=== PATIENT | female | born 1960 | race Two or more races ===

== ENCOUNTER 2020-09-05 18:28 | Emergency (ER) | payer MEDICAID, SELFPAY ==
[2020-09-05 18:56] VITALS: BP 128/63; PULSE 70; RESP 18; TEMP 36.7; O2SAT 99; BMI 27.4
[2020-09-05 19:01] VITALS: BP 128/63; PULSE 71; RESP 18; TEMP 36.7; O2SAT 98
--- NOTE | 2020-09-05 19:36 | ED.ABDPAIN ---
HPI - Abdominal Pain General Chief Complaint: Abdominal Pain Stated Complaint: ABDOMINAL PAIN Time Seen by Provider: 09/05/20 22:18 Source: patient Mode of arrival: ambulatory Limitations: no limitations History of Present Illness HPI narrative: patient presents to ED for abdominal pain for the past 3 days. Patient states lower abdominal pain only. Patient states no dysuria, hematuria, flank pain, fever, or chills. Patient states no chest pain or shortness of breath. Related Data Previous Rx's Medication Instructions Recorded oxycodone-acetaminophen [Percocet] 1 tab PO TID PRN #12 tab 09/06/20 Allergies Allergy/AdvReac Type Severity Reaction Status Date / Time aspirin [ASPIRIN] Allergy Severe SWELLING Verified 09/05/20 19:01 AIRWAY, SOB, anaphylaxis adhesive tape Allergy Intermediate BLISTERS Verified 09/05/20 19:01 ibuprofen [From MOTRIN] AdvReac Unknown NAUSEA & Verified 09/05/20 19:01 VOMITING tape Allergy Unknown rash, Uncoded 09/05/20 19:01 itching Review of Systems Review of Systems Yes all other systems are reviewed and are negative Constitutional: Reports as per HPI and Reports no additional constitutional complaints Eyes: Reports as per HPI and Reports no additional eye complaints Reports system reviewed and no additional complaints, except as documented and Reports as per HPI Cardiovascular: Reports as per HPI and Reports no additional cardiovascular complaints Respiratory: Reports as per HPI and Reports no additional respiratory complaints Gastrointestinal: Reports as per HPI, Reports no additional gastrointestinal complaints and Reports abdominal pain ( Lower abdomen) Genitourinary: Reports no additional female genitourinary complaints and Reports as per HPI Musculoskeletal: Reports no additional musculoskeletal complaints and Reports as per HPI Reports system reviewed and no additional complaints, except as documented and Reports as per HPI Psychiatric: Reports no additional psychiatric complaints and Reports as per HPI Physical Exam Vital Signs: Vital Signs: Last Vital Signs Temp 97.8 F 09/06/20 00:00 Pulse 53 09/06/20 00:00 Resp 18 09/06/20 00:00 BP 117/71 09/06/20 00:00 Pulse Ox 99 09/06/20 00:00 Body Mass Index 27.4 Const: General: cooperative, healthy appearing, alert, awake, Physically active and acute distress Orientation/consciousness: patient oriented x3 HENMT: Head: Yes normal to inspection and Yes No palpable skull fracture present Eyes: Other: Patient is blind Neck: Neck: Yes normal visual inspection, Yes full ROM, Yes no lymphadenopathy, Yes no meningeal signs and Yes trachea midline Chest: Chest palpation & inspection: normal inspection of the chest, normal palpation of entire chest wall and no localized rib tenderness Resp: Effort & Inspection: normal respiratory effort and able to speak in complete sentences Auscultation: clear to auscultation bilaterally Cardio: Jugular venous distension: no JVD Heart sounds: S1 normal heart sound present and S2 normal heart sound present GI: Inspection: Yes normal to inspection and No abdominal wall ecchymosis Palpation (GI): Soft to palpation, not firm, Tenderness to palpation present (GI) in the LLQ and in the RLQ, no guarding and not rigid : General: No CVA tenderness and Yes no CVA tenderness Back/Spine/Pelvis: Back: no CVA tenderness, No CVA tenderness and No back tenderness Skin: General skin exam: no rashes or lesions noted Neuro: General: patient oriented x3, gait normal, no meningeal signs and CN's II-XI intact bilaterally Cranial nerves: Yes CN's II-XII intact bilaterally Extrem: General: Yes normal to inspection and Yes full ROM Psych: Appearance: grossly normal, well kempt and not disheveled Course Course Course Narrative: patient will have basic labs including urine and most likely will be sent for abdominal CT scan. Reevaluation(s) Reevaluation #1: Patient given a total of morphine 8 for abdominal pain. Labs normal. Urine does not show UTI. Awaiting abdominal CT scan results Time: 00:00 Reevaluation #2: CT scan does not show any pelvic or abdominal etiology. Patient will be discharged with pain medication. Patient's pain improved after receiving morphine. Patient discharged with pain medication. Patient from follow-up with PCP. Time: 12:45 MDM - Abdominal Pain MDM Narrative Medical decision making narrative: abdominal pain Lab Data Result diagrams: 09/05/20 19:41 09/05/20 19:41 Labs: Lab Results 09/05/20 09/05/20 09/05/20 Range/Units 19:41 19:41 19:41 WBC 8.2 (4.8-10.8) X10*3/uL RBC 4.61 (4.20-5.50) X10*6/uL Hgb 14.4 (12.0-16.0) g/dl Hct 43.7 (37-47) % MCV 94.8 (80-98) fL MCH 31.2 (27.0-33.0) pg MCHC 33.0 (31.0-35.0) g/dl RDW 13.6 (11.0-16.0) % Plt Count 277 (160-400) X10*3/uL MPV 9.2 L (9.4-12.3) fL Immature Gran % (Auto) 0.6 H (0.0-0.4) % Neut % (Auto) 63.8 (45-73) % Lymph % (Auto) 25.2 (20-40) % [place] % (Auto) 8.7 (2-11) % Eos % (Auto) 1.5 (0-4) % Baso % (Auto) 0.2 (0-2) % Lymph # (Auto) 2.1 (1.2-4.9) X10*3/uL [place] # (Auto) 0.7 (0.1-1.2) X10*3/uL Eos # (Auto) 0.1 (0.0-0.4) X10*3/uL Baso # (Auto) 0.0 (0.0-0.2) X10*3/uL Abs Immat Gran (auto) 0.05 H (0.00-0.03) X10*3/uL Absolute Neuts (auto) 5.2 (2.0-8.3) X10*3/uL Absolute Nucleated RBC 0.000 (0.0-0.012) X10*3/uL Nucleated RBC % (auto) 0.0 (0.0-0.2) /100WBC PT 11.7 (10.8-13.0) SEC INR 1.0 (0.9-1.1) APTT 35.7 (24.1-38.0) SEC Sodium 141 (135-145) mmol/L Potassium 4.4 (3.3-5.1) mmol/l Chloride 103 (96-108) mmol/L Carbon Dioxide 29 (22-29) mmol/L Anion Gap 13 (12-20) BUN 15 (9-16) mg/dL Creatinine 1.02 (0.5-1.4) mg/dL Estim Creat Clear Calc 54.3 Estimated GFR 56 Random Glucose 76 (60-115) mg/dL Calcium 9.5 (8.4-10.2) mg/dL Total Bilirubin 0.3 (0.0-1.0) mg/dL Direct Bilirubin < 0.2 (0.0-0.5) mg/dL AST 19 (5-31) U/L ALT 17 (0-31) U/L Alkaline Phosphatase 107 (39-117) U/L Total Protein 7.6 (6.5-8.0) g/dL Albumin 4.7 (3.5-5.0) g/dL Lipase 38 (8-78) U/L Urine Color Urine Appearance Urine pH (5.0-8.0) Ur Specific [place] (1.005-1.025) Urine Protein (NEG-TRACE) MG/DL Urine Glucose (UA) (NEG) MG/DL Urine Ketones (NEG) MG/DL Urine Blood (NEG) Urine Nitrite (NEG) Ur Leukocyte Esterase (NEG) 09/05/20 Range/Units 19:41 WBC (4.8-10.8) X10*3/uL RBC (4.20-5.50) X10*6/uL Hgb (12.0-16.0) g/dl Hct (37-47) % MCV (80-98) fL MCH (27.0-33.0) pg MCHC (31.0-35.0) g/dl RDW (11.0-16.0) % Plt Count (160-400) X10*3/uL MPV (9.4-12.3) fL Immature Gran % (Auto) (0.0-0.4) % Neut % (Auto) (45-73) % Lymph % (Auto) (20-40) % [place] % (Auto) (2-11) % Eos % (Auto) (0-4) % Baso % (Auto) (0-2) % Lymph # (Auto) (1.2-4.9) X10*3/uL [place] # (Auto) (0.1-1.2) X10*3/uL Eos # (Auto) (0.0-0.4) X10*3/uL Baso # (Auto) (0.0-0.2) X10*3/uL Abs Immat Gran (auto) (0.00-0.03) X10*3/uL Absolute Neuts (auto) (2.0-8.3) X10*3/uL Absolute Nucleated RBC (0.0-0.012) X10*3/uL Nucleated RBC % (auto) (0.0-0.2) /100WBC PT (10.8-13.0) SEC INR (0.9-1.1) APTT (24.1-38.0) SEC Sodium (135-145) mmol/L Potassium (3.3-5.1) mmol/l Chloride (96-108) mmol/L Carbon Dioxide (22-29) mmol/L Anion Gap (12-20) BUN (9-16) mg/dL Creatinine (0.5-1.4) mg/dL Estim Creat Clear Calc Estimated GFR Random Glucose (60-115) mg/dL Calcium (8.4-10.2) mg/dL Total Bilirubin (0.0-1.0) mg/dL Direct Bilirubin (0.0-0.5) mg/dL AST (5-31) U/L ALT (0-31) U/L Alkaline Phosphatase (39-117) U/L Total Protein (6.5-8.0) g/dL Albumin (3.5-5.0) g/dL Lipase (8-78) U/L Urine Color YELLOW Urine Appearance CLEAR Urine pH 6.0 (5.0-8.0) Ur Specific [place] 1.025 (1.005-1.025) Urine Protein NEG (NEG-TRACE) MG/DL Urine Glucose (UA) NEG (NEG) MG/DL Urine Ketones NEG (NEG) MG/DL Urine Blood NEG (NEG) Urine Nitrite NEG (NEG) Ur Leukocyte Esterase NEG (NEG) Discharge Plan Discharge Clinical Impression: Abdominal pain Patient Disposition: Home, Self-Care Instructions: Abdominal Pain (ED) Additional Instructions: return to the ED for any worsening abdominal pain, fever, chills, nausea, vomiting, chest pain, shortness of breath, flank pain, dysuria, hematuria, or any other concerning symptoms. Prescriptions: New oxycodone-acetaminophen [Percocet] 5-325 mg tablet 1 tab PO TID PRN (Reason: pain) Qty: 12 RF: 0 Referrals: Yamilet Lin NP [Primary Care Provider] - 2 days ( Abdominal pain. Abdominal CT scan, labs, and UA came back normal) Interventions: ED Discharge Assessment Last Done: 09/06/20 01:21 Discharge Date/Time: 09/06/20 01:21 Print Language: Wolof [facility] Past Medical History Medical History (Updated 09/06/20 @ 00:46 by CATIE Brown) Blind Gastritis Surgical History (Updated 09/05/20 @ 18:59 by Ashley Molina RN) History of mastectomy Social History Social History Smoking Status: Current every day smoker Use of substances other than those prescribed or required for medical reasons: No Advance Directives: No Advance Directives Information Provided: Yes
[2020-09-05] MEDS: Morphine Sulfate 4 MG/ML CARTRIDGE IVPUSH ×2 (19:46→22:33)
[2020-09-05] MEDS: 0.9 % Sodium Chloride 1,000 ML 999 ML IVCONT (19:46)
[2020-09-05 19:48] LABS: MANUAL DIFF FLAG NO
[2020-09-05 19:52] LABS: Basophils Percent Auto 0.2 % (0-2); Eosinophils Absolute Auto 0.1 X10*3/uL (0.0-0.4); Eosinophils Percent Auto 1.5 % (0-4); Hematocrit 43.7 % (37-47); Hemoglobin 14.4 g/dl (12.0-16.0); Imm Gran Abs Auto 0.05 X10*3/uL (0.00-0.03); Imm Gran Pct Auto 0.6 % (0.0-0.4); Lymphocytes Absolute Auto 2.1 X10*3/uL (1.2-4.9); Lymphocytes Percent Auto 25.2 % (20-40); Mean Corpuscular Hemoglobin 31.2 pg (27.0-33.0); Mean Corpuscular Volume 94.8 fL (80-98); Mean Platelet Volume 9.2 fL (9.4-12.3); Monocytes Absolute Auto 0.7 X10*3/uL (0.1-1.2); Monocytes Percent Auto 8.7 % (2-11); Neutrophils Absolute Auto 5.2 X10*3/uL (2.0-8.3); Neutrophils Percent Auto 63.8 % (45-73); Platelet Count 277 X10*3/uL (160-400); Red Blood Count 4.61 X10*6/uL (4.20-5.50); Red Cell Distribution Width 13.6 % (11.0-16.0); White Blood Count 8.2 X10*3/uL (4.8-10.8)
[2020-09-05 19:53] LABS: Appearance Urine CLEAR; Color Urine YELLOW; Glucose Urine UA NEG (NEG); Leukocyte Esterase Urine NEG (NEG); Nitrite Urine NEG (NEG); Specific Gravity - Urine 1.025 (1.005-1.025); Urine Blood NEG (NEG); Urine Ketones NEG (NEG); Urine Protein NEG (NEG-TRACE)
[2020-09-05 19:56] LABS: Prothrombin Time 11.7 SEC (10.8-13.0)
[2020-09-05 19:59] LABS: Partial Thromboplastin Time 35.7 SEC (24.1-38.0)
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
[2020-09-05 20:16] LABS: Alanine Aminotransferase 17 U/L (0-31); Albumin Level 4.7 g/dL (3.5-5.0); Alkaline Phosphatase 107 U/L (39-117); Anion Gap 13 (12-20); Aspartate Amino Transferase 19 U/L (5-31); Bilirubin Direct < 0.2 mg/dL (0.0-0.5); Bilirubin Total 0.3 mg/dL (0.0-1.0); Blood Urea Nitrogen 15 mg/dL (9-16); Calcium 9.5 mg/dL (8.4-10.2); Carbon Dioxide 29 mmol/L (22-29); Chloride 103 mmol/L (96-108); Creatinine Clr Calc Pharmacy 54.3; Estimated Glomerular Filt Rate 56; Glucose Random 76 mg/dL (60-115); Lipase 38 U/L (8-78); Potassium 4.4 mmol/l (3.3-5.1); Sodium 141 mmol/L (135-145); Total Protein 7.6 g/dL (6.5-8.0)
--- NOTE | 2020-09-05 20:38 | CT_ITS ---
EXAMINATION: CT ABDOMEN AND PELVIS WITH CONTRAST CLINICAL INFORMATION: Abdominal pain. Question obstruction COMPARISON: Incidentally included abdomen from CT chest 01/29/2020 TECHNIQUE: Multidetector volumetric images were obtained from the superior aspect of the liver through the pubic symphysis following administration 85 mL of Omnipaque 350 intravenous contrast. Sagittal and coronal reformatted images were obtained on the technologist's workstation. Oral contrast: No This CT examination was performed using dose optimization techniques as appropriate, variously including the following: *Automated exposure control *Adjustment of mA and/or kV according to patient size (this includes techniques or standardized protocols for targeted exams where dose is matched to indication/reason for exam; i.e. extremities or head) *Use of iterative reconstruction technique DLP: 555 mGy-cm FINDINGS: LUNG BASES: The visualized lung bases are unremarkable. LIVER, GALLBLADDER, AND BILIARY TREE: Low density adjacent the fissure of the falciform ligament, image 21/84 and represents an area of focal fatty filtration. No suspicious or concerning focal liver lesion seen. No biliary ductal dilatation. The gallbladder is unremarkable with no evidence of radiopaque gallstones, gallbladder wall thickening, or obvious pericholecystic inflammatory changes. PANCREAS: Unremarkable. SPLEEN: Unremarkable. ADRENAL GLANDS: Unremarkable. KIDNEYS AND URETERS: Symmetric bilateral renal enhancement. Simple left renal cortical cysts. No hydronephrosis or calculi. BLADDER: Unremarkable. GASTROINTESTINAL TRACT: Stomach is distended with ingested material. Small bowel is nondilated. The appendix is not seen but there are no right lower quadrant inflammatory changes to suggest appendicitis. No colonic wall thickening or pericolonic inflammatory changes. Scattered colonic diverticulosis. ABDOMINAL WALL: Tiny fat-containing umbilical hernia. Postoperative changes of the right lower quadrant anterior abdominal wall. LYMPH NODES: No lymphadenopathy. VASCULAR: No aneurysm. Mild calcified atherosclerotic changes. PELVIC VISCERA: Normal CT appearance of the uterus. There is a coarse calcification in the right pelvis which could represent a calcified fundal leiomyoma or a coarse calcification in the right ovary. No adnexal mass seen. OSSEOUS STRUCTURES: Unremarkable. CT/CT abdomen pelvis w con IMPRESSION: No acute CT findings. No evidence of obstruction.
--- NOTE | 2020-09-05 21:20 | PC.NURSE ---
PT REPORTING IMPROVEMENT IN PAIN, AWAITING CT RESULTS
--- NOTE | 2020-09-05 22:10 | PC.NURSE ---
PT TO CT SCAN
[2020-09-05] MEDS: iohexoL 350 MG/ML 100 ML INFUS..BTL IV (22:16)
[2020-09-05 22:34] VITALS: BP 125/64; PULSE 61; RESP 22; O2SAT 100
[2020-09-06] VITALS: BP 117/71; PULSE 53; RESP 18; TEMP 36.6; O2SAT 99
--- NOTE | 2020-09-06 00:46 | PC.NURSE ---
Patient resting comfortably in bed was able to ambulate with assistance to the bathroom.
== END 2020-09-06 01:21 | disposition home or self-care (01) ==
PROVIDERS: Physician Assistant; Emergency Provider Emergency Medicine; PCP Nurse Practitioner Family
DX: R10.9 Unspecified abdominal pain (principal); Z79.899 Other long term (current) drug therapy; F17.200 Nicotine dependence, unspecified, uncomplicated; Z71.6 Tobacco abuse counseling
CPT/HCPCS: 36415; 74177; 80053; 80076; 81003; 82248; 83690; 85025; 85610; 85730; 96361; 96374; 96376; 99284; J2270; Q9967

== ENCOUNTER 2020-09-14 14:59 | Emergency (ER) | payer MEDICAID, SELFPAY ==
--- NOTE | 2020-09-14 | US_ITS ---
EXAM: Pelvic Ultrasound CLINICAL INDICATION: Right lower quadrant abdominal pain. Rule out torsion. COMPARISON: Same day CT abdomen pelvis and pelvic ultrasound 05/15/2019 TECHNIQUE: The pelvis was evaluated using transabdominal and transvaginal imaging. Color Doppler imaging and spectral analysis of the bilateral ovaries was also performed. FINDINGS: The uterus measures 9.2 x 2.9 x 5.0 cm in longitudinal by AP by transverse dimension. The endometrial stripe is not thickened and measures 0.5 cm. 1.4 cm nodular density within the right uterine fundus is most suggestive of a small fibroid. The left ovary measures approximately 2.3 x 2.1 x 1.4 cm and is normal. The right ovary measures approximately 2.3 x 1.9 x 1.7 cm and is also normal. Spectral analysis reveals normal arterial and venous waveforms in the bilateral ovaries. There are no abnormal adnexal masses. There is no free fluid in the pelvis. US/US pelvic ovarian doppler IMPRESSION: 1. Symmetrically sized ovaries demonstrating normal arterial and venous waveforms. 2. Normal thickness endometrial stripe. 3. Tiny uterine fibroid.
[2020-09-14 15:44] VITALS: BP 153/71; PULSE 62; RESP 18; TEMP 37.4; O2SAT 97; BMI 27.4
--- NOTE | 2020-09-14 17:13 | CT_ITS ---
EXAMINATION: CT ABDOMEN AND PELVIS WITH CONTRAST CLINICAL INFORMATION: Abdominal pain. COMPARISON: CT abdomen and pelvis 09/05/2020 and pelvic ultrasound 05/15/2019. TECHNIQUE: Multidetector volumetric images were obtained from the superior aspect of the liver through the pubic symphysis following administration 85 mL of Omnipaque 350 intravenous contrast. Sagittal and coronal reformatted images were obtained on the technologist's workstation. Oral Contrast: No. This CT examination was performed using dose optimization techniques as appropriate, variously including the following: *Automated exposure control. *Adjustment of mA and/or kV according to patient size (this includes techniques or standardized protocols for targeted exams where dose is matched to indication/reason for exam; i.e. extremities or head). *Use of iterative reconstruction technique. DLP: 542 mGy-cm FINDINGS: LUNG BASES: The visualized lung bases are unremarkable. Some minimal dependent atelectasis seen at the right lung base. LIVER, GALLBLADDER, AND BILIARY TREE: The liver is normal in size, shape, and attenuation. Again seen is the focal area of decreased attenuation adjacent to the falciform ligament secondary to focal fat or differences in venous drainage. No worrisome focal hepatic lesion or biliary ductal dilatation is present. The gallbladder is unremarkable with no evidence of radiopaque gallstones, gallbladder wall thickening, or obvious pericholecystic inflammatory changes. PANCREAS: Unremarkable. SPLEEN: Unremarkable. ADRENAL GLANDS: Unremarkable. KIDNEYS AND URETERS: The kidneys are normal in size, shape, and attenuation. Again seen are benign simple left cortical cysts. No worrisome renal masses are seen. No hydronephrosis, hydroureter, or calculi seen. No perinephric stranding. BLADDER: Unremarkable. GASTROINTESTINAL TRACT: The small and large bowel are unremarkable. The appendix is not seen. ABDOMINAL WALL: No significant hernia is appreciated. There has been prior right lower quadrant abdominal wall surgery. LYMPH NODES: No retroperitoneal lymphadenopathy. VASCULAR: Mild calcific plaquing present in the infrarenal aorta and common iliac arteries. No aneurysm or dissection. PELVIC VISCERA: An anteverted uterus is again seen with a coarse calcification in the region of right lateral fundus consistent with fibroids seen on prior study. Favor subserosal small fibroid. No free intraperitoneal fluid is present. OSSEOUS STRUCTURES: Unremarkable. CT/CT abdomen pelvis w con IMPRESSION: No significant interval change since the study from 9 days ago. A cause for the patient's abdominal pain is not found.
--- NOTE | 2020-09-14 17:14 | ED.ABDPAIN ---
HPI - Abdominal Pain General Chief Complaint: Abdominal Pain Stated Complaint: ABD PAIN Time Seen by Provider: 09/14/20 17:07 Source: patient Mode of arrival: ambulatory Limitations: language barrier (Greek-speaking and legally blind) History of Present Illness HPI narrative: This is a 52-year-old female who is primarily Greek-speaking and legally blind with history of asthma, breast CA status post left lumpectomy, gastroesophageal reflux disease, has a brain shunt, surgical history of appendectomy, section during which she reports she had a bowel perforation and subsequently bowel obstruction later on who reports today with continued abdominal pain for the past 1 week states she was seen here a week ago however head pain has progressively been getting worse since. There is associated nausea but no vomiting or diarrhea. MD elicited complaint: abdominal pain Pertinent past history: none Onset (ago): week(s) Pain Consistency: constant (Getting worse) Location: diffuse Severity: similar to previous episodes Pain scale (0-10): 8 Quality: sharp Radiation: other (Diffuse in the periumbilical area) Exacerbating factors: nothing Related Data Previous Rx's Medication Instructions Recorded oxycodone-acetaminophen [Percocet] 1 tab PO TID PRN #12 tab 09/06/20 Allergies Allergy/AdvReac Type Severity Reaction Status Date / Time aspirin [ASPIRIN] Allergy Severe SWELLING Verified 09/14/20 15:43 AIRWAY, SOB, anaphylaxis adhesive tape Allergy Intermediate BLISTERS Verified 09/14/20 15:43 ibuprofen [From MOTRIN] AdvReac Unknown NAUSEA & Verified 09/14/20 15:43 VOMITING tape Allergy Unknown rash, Uncoded 09/05/20 19:01 itching Review of Systems Review of Systems Constitutional: No Weight loss, No Fever, No Chills, No Night Sweats, No Fatigue, No Malaise ENT/Mouth: No Hearing loss, No Ear Pain, No Nasal Congestion, No Sinus Pain, No Hoarseness, No sore throat, No Rhinorrhea, No Swallowing Difficulty Eyes: No Eye Pain, No Swelling, No Redness, No Foreign Body, No Discharge, No Vision Changes Cardiovascular: No Chest Pain, No SOB, No Dyspnea on Exertion, No Orthopnea, No Edema, No Palpitations Respiratory: No Cough, No Sputum, No Wheezing, No Smoke Exposure, No Dyspnea Gastrointestinal:As noted in HPI No Hematochezia, No Melena Genitourinary: no irregular bleeding, No Dysuria, No Urinary Frequency, No Hematuria, No Urinary Incontinence, No Urgency, No Flank Pain, No Urinary Flow Changes, No Hesitancy Musculoskeletal: No joint pain, No Myalgias, No Joint Swelling Skin: No Skin Lesions, No rash Neuro: No Weakness, No Numbness, No Paresthesias Psych: No Anxiety/Panic Heme/Lymph: No Bruising, No Bleeding,No Lymphadenopathy Endocrine: No Polyuria, No Polydipsia, No Temperature Intolerance Yes all other systems are reviewed and are negative Physical Exam Vital Signs: Vital Signs: Last Vital Signs Temp 98.5 F 09/14/20 17:22 Pulse 62 09/14/20 17:22 Resp 20 09/14/20 17:22 BP 123/75 09/14/20 17:22 Pulse Ox 98 09/14/20 17:22 Body Mass Index 27.4 Reviewed Const: General: cooperative and healthy appearing; No acute distress or intoxicated appearing Nutritional Appearance: average body habitus Orientation/consciousness: patient oriented x3 HENMT: Head: Yes normal to inspection Ears: hearing grossly normal bilaterally Eyes: General: appearance normal, both eyes and all related structures Visual Lee: normal visual lee by confrontation Neck: Neck: Yes normal visual inspection and No tender Thyroid: Thyroid normal Chest: Chest palpation & inspection: normal inspection of the chest Resp: Effort & Inspection: normal respiratory effort Cardio: Jugular venous distension: no JVD GI: Inspection: Yes normal to inspection Palpation (GI): Tenderness to palpation present (GI) periumbilically and no guarding Percussion: Yes normal to percussion Auscultation: normal bowel sounds : General: Yes no CVA tenderness Back/Spine/Pelvis: Back: no CVA tenderness Skin: General skin exam: no rashes or lesions noted Neuro: General: patient oriented x3 Extrem: General: Yes normal to inspection Course Reevaluation(s) Reevaluation #1: 1800 Sign out to Ruben HADDAD pending workup including abdominal CT and re-evaluation. MDM - Abdominal Pain MDM Narrative Medical decision making narrative: 1734 In review 60-year-old female with above history including history of recurrent bowel obstructions who presents today with complaint of diffuse periumbilical abdominal pain with progressively worsening since last visit here week ago. Will need labs, UA, CT abdomen pelvis with IV contrast. Will treat with IV fluids, antiemetics and analgesia p.r.n.. Plan reviewed thoroughly with the patient interpreter deaf. Differential Diagnosis Differential diagnosis: Likely abdominal pain, gastroenteritis and small bowel obstruction; Unlikely aortic dissection, acute appendicitis, bowel perforation, calculus of kidney, constipation, diverticulitis, endometriosis, gastritis, mesenteric ischemia, ovarian cyst, pancreatitis, peptic ulcer disease and renal colic Lab Data Result diagrams: 09/14/20 17:37 09/14/20 17:37 Labs: Lab Results 09/14/20 09/14/20 Range/Units 17:37 17:37 WBC 9.6 (4.8-10.8) X10*3/uL RBC 4.63 (4.20-5.50) X10*6/uL Hgb 14.4 (12.0-16.0) g/dl Hct 44.0 (37-47) % MCV 95.0 (80-98) fL MCH 31.1 (27.0-33.0) pg MCHC 32.7 (31.0-35.0) g/dl RDW 13.6 (11.0-16.0) % Plt Count 283 (160-400) X10*3/uL MPV 9.1 L (9.4-12.3) fL Immature Gran % (Auto) 0.4 (0.0-0.4) % Neut % (Auto) 69.6 (45-73) % Lymph % (Auto) 23.0 (20-40) % [place] % (Auto) 5.9 (2-11) % Eos % (Auto) 0.9 (0-4) % Baso % (Auto) 0.2 (0-2) % Lymph # (Auto) 2.2 (1.2-4.9) X10*3/uL [place] # (Auto) 0.6 (0.1-1.2) X10*3/uL Eos # (Auto) 0.1 (0.0-0.4) X10*3/uL Baso # (Auto) 0.0 (0.0-0.2) X10*3/uL Abs Immat Gran (auto) 0.04 H (0.00-0.03) X10*3/uL Absolute Neuts (auto) 6.7 (2.0-8.3) X10*3/uL Absolute Nucleated RBC 0.000 (0.0-0.012) X10*3/uL Nucleated RBC % (auto) 0.0 (0.0-0.2) /100WBC PT 12.2 (10.8-13.0) SEC INR 1.0 (0.9-1.1) APTT 38.2 H (24.1-38.0) SEC Discharge Plan Discharge Prescriptions: No Action oxycodone-acetaminophen [Percocet] 5-325 mg tablet 1 tab PO TID PRN (Reason: pain) Qty: 12 RF: 0 PMFSH Past Medical History Attestation statement: The following information was validated with the patient. Medical History Asthma Blind Bowel obstruction Gastritis Gastroesophageal reflux disease Schizophrenia Surgical History (Updated 09/14/20 @ 17:33 by Everett Brand NP) History of brain shunt History of mastectomy Hx of appendectomy Social History Social History Smoking Status: Current every day smoker Advance Directives: No Advance Directives Information Provided: Yes
[2020-09-14 17:22] VITALS: BP 123/75; PULSE 62; RESP 20; TEMP 36.9; O2SAT 98
[2020-09-14 17:43] LABS: Basophils Percent Auto 0.2 % (0-2); Eosinophils Absolute Auto 0.1 X10*3/uL (0.0-0.4); Eosinophils Percent Auto 0.9 % (0-4); Hemoglobin 14.4 g/dl (12.0-16.0); Imm Gran Abs Auto 0.04 X10*3/uL (0.00-0.03); Imm Gran Pct Auto 0.4 % (0.0-0.4); Lymphocytes Absolute Auto 2.2 X10*3/uL (1.2-4.9); MANUAL DIFF FLAG NO; Mean Corpuscular HGB Conc 32.7 g/dl (31.0-35.0); Mean Corpuscular Hemoglobin 31.1 pg (27.0-33.0); Mean Platelet Volume 9.1 fL (9.4-12.3); Monocytes Absolute Auto 0.6 X10*3/uL (0.1-1.2); Monocytes Percent Auto 5.9 % (2-11); Neutrophils Absolute Auto 6.7 X10*3/uL (2.0-8.3); Neutrophils Percent Auto 69.6 % (45-73); Platelet Count 283 X10*3/uL (160-400); Red Blood Count 4.63 X10*6/uL (4.20-5.50); Red Cell Distribution Width 13.6 % (11.0-16.0); White Blood Count 9.6 X10*3/uL (4.8-10.8)
[2020-09-14] MEDS: ondansetron HCL 4 MG/2 ML VIAL IVPUSH (17:44)
[2020-09-14] MEDS: 0.9 % Sodium Chloride 1,000 ML 1000 ML IV (17:44)
[2020-09-14] MEDS: Morphine Sulfate 4 MG/ML CARTRIDGE IVPUSH (17:45)
[2020-09-14 17:49] LABS: Prothrombin Time 12.2 SEC (10.8-13.0)
[2020-09-14 17:51] LABS: Partial Thromboplastin Time 38.2 SEC (24.1-38.0)
[2020-09-14 18:05] LABS: Alanine Aminotransferase 18 U/L (0-31); Albumin Level 4.8 g/dL (3.5-5.0); Alkaline Phosphatase 104 U/L (39-117); Anion Gap 12 (12-20); Aspartate Amino Transferase 16 U/L (5-31); Bilirubin Total 0.3 mg/dL (0.0-1.0); Blood Urea Nitrogen 16 mg/dL (9-16); Calcium 10.2 mg/dL (8.4-10.2); Carbon Dioxide 31 mmol/L (22-29); Chloride 105 mmol/L (96-108); Creatinine Clr Calc Pharmacy 55.4; Estimated Glomerular Filt Rate 57; Glucose Random 88 mg/dL (60-115); Potassium 5.1 mmol/l (3.3-5.1); Sodium 143 mmol/L (135-145); Total Protein 7.5 g/dL (6.5-8.0)
[2020-09-14 18:07] VITALS: BP 127/69; PULSE 57; RESP 16; O2SAT 97
[2020-09-14] MEDS: iohexoL 350 MG/ML 100 ML INFUS..BTL IV (18:30)
--- NOTE | 2020-09-14 19:37 | PC.NURSE ---
pt resting in stretcher, Pt c/o abd pain rating pain 10/10. aware. Pt up to restroom for urine sample sent to lab for eval. Pt in NAD with family/friend at bedside with pt. Pt in NAD.
[2020-09-14 19:45] LABS: Glucose Urine UA NEG (NEG); Leukocyte Esterase Urine NEG (NEG); Nitrite Urine NEG (NEG); PH 5.5 (5.0-8.0); Specific Gravity - Urine 1.025 (1.005-1.025); Urine Blood NEG (NEG); Urine Ketones NEG (NEG); Urine Protein NEG (NEG-TRACE)
[2020-09-14 19:46] LABS: Appearance Urine CLEAR; Color Urine YELLOW
--- NOTE | 2020-09-14 19:49 | US_ITS ---
EXAM: Pelvic Ultrasound CLINICAL INDICATION: Right lower quadrant abdominal pain. Rule out torsion. COMPARISON: Same day CT abdomen pelvis and pelvic ultrasound 05/15/2019 TECHNIQUE: The pelvis was evaluated using transabdominal and transvaginal imaging. Color Doppler imaging and spectral analysis of the bilateral ovaries was also performed. FINDINGS: The uterus measures 9.2 x 2.9 x 5.0 cm in longitudinal by AP by transverse dimension. The endometrial stripe is not thickened and measures 0.5 cm. 1.4 cm nodular density within the right uterine fundus is most suggestive of a small fibroid. The left ovary measures approximately 2.3 x 2.1 x 1.4 cm and is normal. The right ovary measures approximately 2.3 x 1.9 x 1.7 cm and is also normal. Spectral analysis reveals normal arterial and venous waveforms in the bilateral ovaries. There are no abnormal adnexal masses. There is no free fluid in the pelvis. US/US transvaginal IMPRESSION: 1. Symmetrically sized ovaries demonstrating normal arterial and venous waveforms. 2. Normal thickness endometrial stripe. 3. Tiny uterine fibroid.
--- NOTE | 2020-09-14 19:50 | US_ITS ---
EXAM: Pelvic Ultrasound CLINICAL INDICATION: Right lower quadrant abdominal pain. Rule out torsion. COMPARISON: Same day CT abdomen pelvis and pelvic ultrasound 05/15/2019 TECHNIQUE: The pelvis was evaluated using transabdominal and transvaginal imaging. Color Doppler imaging and spectral analysis of the bilateral ovaries was also performed. FINDINGS: The uterus measures 9.2 x 2.9 x 5.0 cm in longitudinal by AP by transverse dimension. The endometrial stripe is not thickened and measures 0.5 cm. 1.4 cm nodular density within the right uterine fundus is most suggestive of a small fibroid. The left ovary measures approximately 2.3 x 2.1 x 1.4 cm and is normal. The right ovary measures approximately 2.3 x 1.9 x 1.7 cm and is also normal. Spectral analysis reveals normal arterial and venous waveforms in the bilateral ovaries. There are no abnormal adnexal masses. There is no free fluid in the pelvis. US/US pelvic complete IMPRESSION: 1. Symmetrically sized ovaries demonstrating normal arterial and venous waveforms. 2. Normal thickness endometrial stripe. 3. Tiny uterine fibroid.
[2020-09-14 19:52] LABS: RBC Urine 0 /HPF (0); Squamous Epithelial Cell Urine TRACE /LPF; WBC Urine 0 /HPF (0-4)
[2020-09-14 20:00] VITALS: BP 123/78; PULSE 81; RESP 16; O2SAT 99
[2020-09-14 20:18] LABS: Lipase 30 U/L (8-78)
[2020-09-14] MEDS: Magnesium Hydrox/Alum Hydrox 30 ML ORAL.SUSP PO (20:27)
[2020-09-14] MEDS: Famotidine/PF 20 MG/2 ML VIAL IVPUSH (20:27)
[2020-09-14] MEDS: Lidocaine HCl Viscous 2 % 15 ML SOLUTION MUCOUS MEM (20:27)
--- NOTE | 2020-09-14 20:32 | PC.NURSE ---
PT MEDICATED PER [facility] FOR ABD PAIN. PT TO U/S AT THIS TIME. PT LEFT ED IN NAD.
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
[2020-09-14 22:01] VITALS: BP 131/78; PULSE 56; O2SAT 98
== END 2020-09-14 22:13 | disposition home or self-care (01) ==
PROVIDERS: Nurse Practitioner Primary Care; Emergency Provider Emergency Medicine; PCP Nurse Practitioner Family
DX: R10.13 Epigastric pain (principal); R10.2 Pelvic and perineal pain; R11.0 Nausea; F17.200 Nicotine dependence, unspecified, uncomplicated; Z79.899 Other long term (current) drug therapy; Z71.6 Tobacco abuse counseling
CPT/HCPCS: 36415; 74177; 76830; 76856; 80053; 81001; 83690; 85025; 85610; 85730; 93975; 96361; 96374; 96375; 99284; J2270; J2405; Q9967

== ENCOUNTER → 2021-01-11 10:32 | Outpatient (BNVA) | payer MEDICAID, SELFPAY | PROVIDERS: PCP Nurse Practitioner Family; Visit Provider Surgery Vascular Surgery | DX: M31.6 Other giant cell arteritis (principal) | CPT/HCPCS: 99202 ==

== ENCOUNTER 2021-01-17 06:21 | Day surgery (SDC) | payer MEDICAID, SELFPAY ==
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
[2021-01-17 06:22] VITALS: BMI 27.3
[2021-01-17 07:14] VITALS: BP 120/70; PULSE 62; RESP 18; TEMP 36.4; O2SAT 96
[2021-01-17 08:26] VITALS: BP 110/59; PULSE 56; RESP 16; TEMP 36.3; O2SAT 95
--- NOTE | 2021-01-17 08:34 | P.OP_ITS ---
Operative Note Operative Note Date of Service: 01/17/21 Narrative: Operative note by [facility] Preoperative diagnosis:Giant cell arteritis Postoperative diagnosis: same Procedure: left temporal artery biopsy Surgeon:Jose Puri M.D. Pawn Broker: non Anesthesia: local with sedation Specimens: 1 Drains: none Estimated blood loss: minimal Indications: 60-year-old patient with left-sided temporal headache. There was concern of temporal arteritis. Patient has already been started on steroids. She now presents for temporal artery biopsy. The patient has signed the informed consent after reviewing risks, complications, benefits, and alternatives previously discussed with the patient in my office. The patient was given the opportunity to ask any additional questions or voice any concerns. All q uestions were answered to the patient's satisfaction. Procedure in detail: Patient was taken to the operating room prior to which a time-out was called for patient identification and site verification. Left temporal region was prepped and draped in standard surgical fashion. Approximately a 4 cm incision was carried out over the anterior portion of the pre auricular space. This was dissected down to the temporal artery. This was confirmed with Doppler. Once this was done proximal and distal ends were ligated with 4-0 silk tie. A 2 cm segment of temporal artery was sent. Once this was accomplished adequate hemostasis was achieved. Deep layer was reapproximated using 3-0 poly Sorb. Superficial layer with a running subcuticular 4-0 Monocryl. Dermabond was used as a sterile dressing. At the end the case sponge instrument counts were correct. Patient tolerated the procedure well. This note is constructed using voice recognition software. While every effort has been made to ensure accuracy, automation and controls supervisor errors may have been included. Thank you for allowing me to participate in the care of your patient. Yours sincerely, Jose Puri MD, FACS, R.P.V.I.
--- NOTE | 2021-01-17 08:34 | MHC.SHP ---
Pre-Procedural Eval Section B Chief Complaint: arteritis Allergies: Allergies Allergy/AdvReac Type Severity Reaction Status Date / Time aspirin [ASPIRIN] Allergy Severe SWELLING Verified 01/11/21 10:42 AIRWAY, SOB, anaphylaxis adhesive tape Allergy Intermediate BLISTERS Verified 01/11/21 10:42 ibuprofen [From MOTRIN] AdvReac Mild NAUSEA & Verified 01/17/21 06:33 VOMITING tape Allergy Unknown rash, Uncoded 09/05/20 19:01 itching Plan I have reviewed the history and physical and performed a pertinent physical examination on my patient. No changes have occurred unless specified.
[2021-01-17] MEDS: oxyCODONE HCl Immed Release 5 MG TABLET PO (08:39)
[2021-01-17 08:41] VITALS: BP 125/73; PULSE 59; RESP 18; O2SAT 96
[2021-01-17 08:56] VITALS: BP 119/65; PULSE 60; RESP 18; TEMP 36.3; O2SAT 97
== END 2021-01-17 09:23 | disposition home or self-care (01) ==
PROVIDERS: PCP Nurse Practitioner Family; Visit Provider Surgery Vascular Surgery
PROC: (CPT 37609; principal; 2021-01-17 07:30)
DX: M31.6 Other giant cell arteritis (principal); J45.909 Unspecified asthma, uncomplicated; F20.9 Schizophrenia, unspecified; H54.7 Unspecified visual loss; Z87.820 Personal history of traumatic brain injury; M79.7 Fibromyalgia; F17.210 Nicotine dependence, cigarettes, uncomplicated; Z79.899 Other long term (current) drug therapy; Z88.8 Allergy status to other drugs, medicaments and biological substances
CPT/HCPCS: 37609; 88305; J0690; J2250; J3010

== ENCOUNTER → 2021-02-01 13:07 | Outpatient (BNVA) | payer MEDICAID, SELFPAY | PROVIDERS: PCP Nurse Practitioner Family; Visit Provider Surgery Vascular Surgery | DX: M31.6 Other giant cell arteritis (principal) | CPT/HCPCS: 99212 ==

== ENCOUNTER → 2021-08-08 19:31 | Outpatient (REF) | payer MEDICAID, SELFPAY | LOC: HO.SL 19:31 | PROVIDERS: PCP Internal Medicine; Visit Provider Family Medicine | DX: G47.30 Sleep apnea, unspecified (principal) | CPT/HCPCS: 95810 ==

== ENCOUNTER 2021-09-19 16:10 | Emergency (ER) | payer MEDICAID, SELFPAY ==
--- NOTE | 2021-09-19 | ECG_ITS ---
Test Reason : Chest Pain Blood Pressure : / mmHG Vent. Rate : 058 BPM Atrial Rate : 058 BPM P-R Int : 156 ms QRS Dur : 084 ms QT Int : 446 ms P-R-T Axes : 009 032 049 degrees QTc Int : 437 ms Sinus bradycardia Otherwise normal ECG Heart rate has decreased Referred By: Daniel Callaway Electronically Signed By:ANGY RIVERA MD
--- NOTE | ~2021-09-19 | US_ITS ---
EXAMINATION: US VENOUS WITH DOPPLER UPPER EXTREMITY, LEFT CLINICAL INFORMATION: Left upper extremity pain. Evaluate for a deep vein thrombosis. COMPARISON: Left upper extremity venous ultrasound dated 12/07/2015. TECHNIQUE: Ultrasound of the upper extremity is performed using compression sonography and color and pulse Doppler flow with assessment of augmentation of flow. There is also imaging and Doppler assessment of the jugular and subclavian veins. Spectral analysis with color-flow imaging is performed. FINDINGS: Respiratory variation, normal compression, and augmented flow are noted throughout the upper extremity including the axillary, brachial, cubital, and radial and ulnar veins. There is normal flow in the internal jugular and subclavian veins. There is no visible deep or superficial thrombophlebitis. If the patient's symptoms progress, a followup ultrasound in 5 -7 days might be of value to exclude proximal propagation from a nonvisualized distal arm vein. US/US venous duplex UE LT IMPRESSION: No DVT demonstrated in the left upper extremity.
[2021-09-19 18:59] VITALS: BP 131/73; PULSE 55; RESP 16; TEMP 36.4; O2SAT 99; BMI 26.6
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
[2021-09-19] MEDS: oxyCODONE HCl Immed Release 5 MG TABLET PO ×2 (20:07→22:06)
[2021-09-19 20:08] LABS: MANUAL DIFF FLAG NO
[2021-09-19 20:11] LABS: Basophils Percent Auto 0.1 % (0-2); Eosinophils Absolute Auto 0.1 X10*3/uL (0.0-0.4); Hemoglobin 13.8 g/dl (12.0-16.0); Imm Gran Abs Auto 0.03 X10*3/uL (0.00-0.03); Imm Gran Pct Auto 0.4 % (0.0-0.4); Lymphocytes Absolute Auto 2.2 X10*3/uL (1.2-4.9); Lymphocytes Percent Auto 30.9 % (20-40); Mean Corpuscular HGB Conc 33.7 g/dl (31.0-35.0); Mean Corpuscular Hemoglobin 31.8 pg (27.0-33.0); Mean Corpuscular Volume 94.5 fL (80.0-98.0); Mean Platelet Volume 9.1 fL (9.4-12.3); Monocytes Absolute Auto 0.6 X10*3/uL (0.1-1.2); Monocytes Percent Auto 8.7 % (2-11); Neutrophils Absolute Auto 4.2 x10*3/uL (2.0-8.3); Neutrophils Percent Auto 58.9 % (45-73); Platelet Count 245 X10*3/uL (160-400); Red Blood Count 4.34 X10*6/uL (4.20-5.50); Red Cell Distribution Width 13.3 % (11.0-16.0); White Blood Count 7.1 X10*3/uL (4.8-10.8)
[2021-09-19 20:28] LABS: Alanine Aminotransferase 18 U/L (0-31); Albumin Level 4.3 g/dL (3.5-5.0); Alkaline Phosphatase 91 U/L (39-117); Anion Gap 11 (12-20); Aspartate Amino Transferase 16 U/L (5-31); Bilirubin Total 0.2 mg/dL (0.0-1.0); Blood Urea Nitrogen 15 mg/dL (9-16); Calcium 9.9 mg/dL (8.4-10.2); Carbon Dioxide 27 mmol/L (22-29); Chloride 108 mmol/L (96-108); Creatinine Clr Calc Pharmacy 62.8; Estimated Glomerular Filt Rate > 60; Glucose Random 98 mg/dL (60-115); Potassium 4.3 mmol/L (3.3-5.1); Sodium 142 mmol/L (135-145); Total Protein 6.9 g/dL (6.5-8.0)
[2021-09-19 20:33] LABS: Troponin-I High Sensitivity < 3.5 ng/L (<3.5-17.0)
[2021-09-19 21:54] VITALS: BP 124/70; PULSE 56; RESP 16; TEMP 36.7; O2SAT 98
== END 2021-09-19 22:07 | disposition home or self-care (01) ==
PROVIDERS: Emergency Provider Emergency Medicine; PCP Family Medicine
DX: M79.622 Pain in left upper arm (principal); R07.9 Chest pain, unspecified; F17.200 Nicotine dependence, unspecified, uncomplicated
CPT/HCPCS: 36415; 80053; 84484; 85025; 93005; 93971; 99284

== ENCOUNTER → 2022-04-12 14:24 | Outpatient (BNVA) | payer MEDICAID, SELFPAY | PROVIDERS: PCP Family Medicine; Visit Provider Orthopaedic Surgery | DX: M65.312 Trigger thumb, left thumb (principal); R20.0 Anesthesia of skin; R20.2 Paresthesia of skin | CPT/HCPCS: 20550; 99202; J1100 ==

== ENCOUNTER 2022-05-12 18:42 | Emergency (ER) | payer MEDICAID, SELFPAY ==
[2022-05-12 19:49] VITALS: BP 136/73; PULSE 61; RESP 18; TEMP 36.4; O2SAT 96; BMI 28.1
[2022-05-12 20:12] LABS: MANUAL DIFF FLAG NO
[2022-05-12 20:13] LABS: Basophils Percent Auto 0.1 % (0-2); Eosinophils Absolute Auto 0.1 X10*3/uL (0.0-0.4); Eosinophils Percent Auto 1.3 % (0-4); Hematocrit 44.2 % (37.0-47.0); Hemoglobin 14.5 g/dl (12.0-16.0); Imm Gran Abs Auto 0.03 X10*3/uL (0.00-0.03); Imm Gran Pct Auto 0.4 % (0.0-0.4); Lymphocytes Absolute Auto 2.4 X10*3/uL (1.2-4.9); Lymphocytes Percent Auto 31.1 % (20-40); Mean Corpuscular HGB Conc 32.8 g/dl (31.0-35.0); Mean Corpuscular Hemoglobin 30.2 pg (27.0-33.0); Mean Corpuscular Volume 92.1 fL (80.0-98.0); Mean Platelet Volume 9.2 fL (9.4-12.3); Monocytes Absolute Auto 0.6 X10*3/uL (0.1-1.2); Monocytes Percent Auto 7.8 % (2-11); Neutrophils Absolute Auto 4.5 x10*3/uL (2.0-8.3); Neutrophils Percent Auto 59.3 % (45-73); Platelet Count 263 X10*3/uL (160-400); Red Cell Distribution Width 13.7 % (11.0-16.0); White Blood Count 7.7 X10*3/uL (4.8-10.8)
[2022-05-12 20:14] LABS: Appearance Urine CLEAR; Color Urine YELLOW; Glucose Urine UA NEG (NEG); Leukocyte Esterase Urine NEG (NEG); Nitrite Urine NEG (NEG); Specific Gravity - Urine >= 1.030 (1.005-1.025); Urine Blood NEG (NEG); Urine Ketones NEG (NEG); Urine Protein NEG (NEG-TRACE)
[2022-05-12 20:35] LABS: Alanine Aminotransferase 18 U/L (0-31); Albumin Level 4.8 g/dL (3.5-5.0); Alkaline Phosphatase 101 U/L (39-117); Anion Gap 13 (12-20); Aspartate Amino Transferase 18 U/L (5-31); Bilirubin Total 0.2 mg/dL (0.0-1.0); Blood Urea Nitrogen 16 mg/dL (9-16); Calcium 9.6 mg/dL (8.4-10.2); Carbon Dioxide 26 mmol/L (22-29); Chloride 108 mmol/L (96-108); Creatinine Clr Calc Pharmacy 47.8; Estimated Glomerular Filt Rate 48; Glucose Random 89 mg/dL (60-115); Potassium 4.5 mmol/L (3.3-5.1); Sodium 142 mmol/L (135-145); Total Protein 7.6 g/dL (6.5-8.0)
[2022-05-12 20:42] LABS: COVID-19 Test Negative (Negative)
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
[2022-05-12 22:21] VITALS: RESP 16
[2022-05-12] MEDS: dexAMETHasone sod phosphate 4 MG/ML VIAL IM (22:21)
[2022-05-12] MEDS: Morphine Sulfate 4 MG/ML CARTRIDGE IM (22:21)
== END 2022-05-12 23:14 | disposition home or self-care (01) ==
PROVIDERS: Emergency Provider Emergency Medicine; PCP Family Medicine
DX: M54.42 Lumbago with sciatica, left side (principal); R51.9 Headache, unspecified; Z20.822 Contact with and (suspected) exposure to COVID-19; F17.210 Nicotine dependence, cigarettes, uncomplicated; Z79.02 Long term (current) use of antithrombotics/antiplatelets; Z79.899 Other long term (current) drug therapy
CPT/HCPCS: 80053; 81003; 85025; 87635; 96372; 99284; J1100; J2270

== ENCOUNTER 2022-06-08 07:34 | Outpatient (REF) | payer MEDICAID, SELFPAY ==
--- NOTE | 2022-06-08 | EMG_ITS ---
Bilateral median and ulnar motor and sensory studies were performed, bilateral radial sensory studies were performed, and paraspinal muscles were tested with a needle. IMPRESSION: 1. [id number] bilateral median neuropathy across carpal tunnel. 2. Mild left ulnar neuropathy across cubital tunnel. MD MAURILIO Reed/HORACIOL / [id number]
== END 2022-06-08 07:35 | disposition home or self-care (01) ==
LOC: HO.NEURO 07:34
PROVIDERS: Absent Provider Orthopaedic Surgery; PCP Family Medicine; Visit Provider Family Medicine
DX: R20.0 Anesthesia of skin (principal); R20.2 Paresthesia of skin; M79.642 Pain in left hand
CPT/HCPCS: 95886; 95911

== ENCOUNTER 2022-07-10 10:06 | Outpatient (REF) | payer MEDICAID, SELFPAY ==
--- NOTE | ~2022-07-10 | XR_ITS ---
EXAMINATION: XR BILATERAL KNEE XR SACROILIAC JOINT CLINICAL INFORMATION: Pain bilateral knee COMPARISON: Bilateral knee 04/07/2020 TECHNIQUE: SI joint 3 views. 3 views each knee. FINDINGS: SI JOINT: The SI joints are symmetrical and normal. No visible acute fracture, dislocation or subluxation seen. No bony erosive changes. No lytic or sclerotic process. There are scattered phleboliths in the pelvis. LEFT KNEE: There is minimal reduction in the patellofemoral compartment joint space without bony erosive changes or suprapatellar joint effusion. The medial and lateral compartment joint space is normal. No fracture, bony erosive changes or loose bodies. RIGHT KNEE: The tricompartment joint space is preserved. No bony erosive changes. No loose bodies or suprapatellar joint effusion. No acute fracture or dislocation. XR/XR knee LT 3V IMPRESSION: 1. Mild degenerative changes patellofemoral compartment left knee. The rest of the left knee is unremarkable. 2. Unremarkable right knee. 3. Unremarkable SI joints exam.
--- NOTE | ~2022-07-10 | XR_ITS ---
EXAMINATION: XR BILATERAL KNEE XR SACROILIAC JOINT CLINICAL INFORMATION: Pain bilateral knee COMPARISON: Bilateral knee 04/07/2020 TECHNIQUE: SI joint 3 views. 3 views each knee. FINDINGS: SI JOINT: The SI joints are symmetrical and normal. No visible acute fracture, dislocation or subluxation seen. No bony erosive changes. No lytic or sclerotic process. There are scattered phleboliths in the pelvis. LEFT KNEE: There is minimal reduction in the patellofemoral compartment joint space without bony erosive changes or suprapatellar joint effusion. The medial and lateral compartment joint space is normal. No fracture, bony erosive changes or loose bodies. RIGHT KNEE: The tricompartment joint space is preserved. No bony erosive changes. No loose bodies or suprapatellar joint effusion. No acute fracture or dislocation. XR/XR knee RT 3V IMPRESSION: 1. Mild degenerative changes patellofemoral compartment left knee. The rest of the left knee is unremarkable. 2. Unremarkable right knee. 3. Unremarkable SI joints exam.
--- NOTE | ~2022-07-10 | XR_ITS ---
EXAMINATION: XR BILATERAL KNEE XR SACROILIAC JOINT CLINICAL INFORMATION: Pain bilateral knee COMPARISON: Bilateral knee 04/07/2020 TECHNIQUE: SI joint 3 views. 3 views each knee. FINDINGS: SI JOINT: The SI joints are symmetrical and normal. No visible acute fracture, dislocation or subluxation seen. No bony erosive changes. No lytic or sclerotic process. There are scattered phleboliths in the pelvis. LEFT KNEE: There is minimal reduction in the patellofemoral compartment joint space without bony erosive changes or suprapatellar joint effusion. The medial and lateral compartment joint space is normal. No fracture, bony erosive changes or loose bodies. RIGHT KNEE: The tricompartment joint space is preserved. No bony erosive changes. No loose bodies or suprapatellar joint effusion. No acute fracture or dislocation. XR/XR sacroiliac joint min 3V IMPRESSION: 1. Mild degenerative changes patellofemoral compartment left knee. The rest of the left knee is unremarkable. 2. Unremarkable right knee. 3. Unremarkable SI joints exam.
== END 2022-07-10 10:07 | disposition home or self-care (01) ==
LOC: HO.XRAY 10:06
PROVIDERS: Visit Provider Nurse Practitioner Family
DX: M25.562 Pain in left knee (principal); M25.561 Pain in right knee; M46.1 Sacroiliitis, not elsewhere classified; M53.3 Sacrococcygeal disorders, not elsewhere classified; M47.816 Spondylosis without myelopathy or radiculopathy, lumbar region; R20.0 Anesthesia of skin; R20.2 Paresthesia of skin; G56.03 Carpal tunnel syndrome, bilateral upper limbs
CPT/HCPCS: 72202; 73562; 99202

== ENCOUNTER 2022-08-11 10:05 | Outpatient (REF) | payer MEDICAID, SELFPAY ==
--- NOTE | ~2022-08-11 | XR_ITS ---
EXAMINATION: CHEST AND LEFT RIBS CLINICAL INFORMATION: Pleurodynia COMPARISON: None TECHNIQUE: Chest 2 views. Left RIBS 3 views. FINDINGS: Chest: Both lungs are fairly well-expanded and clear of acute process. Heart size and pulmonary vascularity is normal. No gross bony abnormality. Left RIBS: A lead marker is in place and left lower lobes. There is no visible fracture or bony abnormality. The soft tissues are normal. XR/XR chest 2V IMPRESSION: Unremarkable chest exam. Unremarkable left rib exam.
--- NOTE | ~2022-08-11 | XR_ITS ---
EXAMINATION: CHEST AND LEFT RIBS CLINICAL INFORMATION: Pleurodynia COMPARISON: None TECHNIQUE: Chest 2 views. Left RIBS 3 views. FINDINGS: Chest: Both lungs are fairly well-expanded and clear of acute process. Heart size and pulmonary vascularity is normal. No gross bony abnormality. Left RIBS: A lead marker is in place and left lower lobes. There is no visible fracture or bony abnormality. The soft tissues are normal. XR/XR ribs LT 2V IMPRESSION: Unremarkable chest exam. Unremarkable left rib exam.
[2022-08-11 10:44] LABS: MANUAL DIFF FLAG NO
[2022-08-11 11:14] LABS: Basophils Percent Auto 0.1 % (0-2); Eosinophils Absolute Auto 0.2 X10*3/uL (0.0-0.4); Eosinophils Percent Auto 2.2 % (0-4); Hematocrit 44.8 % (37.0-47.0); Hemoglobin 14.7 g/dl (12.0-16.0); Imm Gran Abs Auto 0.02 X10*3/uL (0.00-0.03); Imm Gran Pct Auto 0.3 % (0.0-0.4); Lymphocytes Percent Auto 27.5 % (20-40); Mean Corpuscular HGB Conc 32.8 g/dl (31.0-35.0); Mean Corpuscular Hemoglobin 30.8 pg (27.0-33.0); Mean Corpuscular Volume 93.7 fL (80.0-98.0); Mean Platelet Volume 9.4 fL (9.4-12.3); Monocytes Absolute Auto 0.6 X10*3/uL (0.1-1.2); Neutrophils Absolute Auto 4.3 x10*3/uL (2.0-8.3); Neutrophils Percent Auto 60.9 % (45-73); Platelet Count 313 X10*3/uL (160-400); Red Blood Count 4.78 X10*6/uL (4.20-5.50); Red Cell Distribution Width 13.5 % (11.0-16.0); White Blood Count 7.1 X10*3/uL (4.8-10.8)
[2022-08-11 11:49] LABS: Alanine Aminotransferase 25 U/L (0-31); Albumin Level 4.7 g/dL (3.5-5.0); Alkaline Phosphatase 95 U/L (39-117); Anion Gap 17 (12-20); Aspartate Amino Transferase 22 U/L (5-31); Bilirubin Direct < 0.2 mg/dL (0.0-0.5); Bilirubin Total 0.4 mg/dL (0.0-1.0); Blood Urea Nitrogen 17 mg/dL (9-16); Carbon Dioxide 25 mmol/L (22-29); Chloride 107 mmol/L (96-108); Estimated Glomerular Filt Rate > 60; Glucose Random 100 mg/dL (60-115); Lipase 32 U/L (8-78); Potassium 4.5 mmol/L (3.3-5.1); Sodium 144 mmol/L (135-145); Total Protein 7.4 g/dL (6.5-8.0)
[2022-08-11 11:51] LABS: Appearance Urine Clear; Color Urine Dark Yellow; Glucose Urine UA Negative (Negative); Leukocyte Esterase Urine Negative (Negative); Nitrite Urine Negative (Negative); PH 5.5 (5.0-9.0); Specific Gravity - Urine 1.025 (1.005-1.025); Urine Blood Negative (Negative); Urine Ketones Trace mg/dL (Negative); Urine Protein Trace mg/dL (Neg-Trace)
[2022-08-11 11:58] LABS: Bacteria Urine None Seen (None Seen); Hyaline Casts Urine 0-2 /LPF (0-2); RBC Urine 0-2 /HPF (0-2); WBC Urine 0-5 /HPF (0-5)
== END 2022-08-11 10:06 | disposition home or self-care (01) ==
LOC: HO.LAB 10:05
PROVIDERS: PCP Family Medicine; Visit Provider Pediatrics
DX: R10.12 Left upper quadrant pain (principal); R07.81 Pleurodynia
CPT/HCPCS: 36415; 71046; 71100; 80048; 80076; 81001; 83690; 84443; 85025

== ENCOUNTER → 2022-08-23 08:23 | Outpatient (BNVA) | payer MEDICAID, SELFPAY | PROVIDERS: PCP Family Medicine; Visit Provider Orthopaedic Surgery | DX: M65.312 Trigger thumb, left thumb (principal); G56.03 Carpal tunnel syndrome, bilateral upper limbs; G56.22 Lesion of ulnar nerve, left upper limb | CPT/HCPCS: 99212 ==

== ENCOUNTER 2022-08-28 20:01 | Emergency (ER) | payer MEDICAID, SELFPAY ==
--- NOTE | ~2022-08-28 | CT_ITS ---
EXAMINATION: CT ABDOMEN AND PELVIS WITHOUT CONTRAST CLINICAL INFORMATION: Gastric ulcer perforation or small bowel obstruction, pain COMPARISON: 09/14/2020 TECHNIQUE: Multidetector volumetric imaging was performed from the superior aspect of the liver through the pubic symphysis. Sagittal and coronal reformatted images were obtained on the technologist's workstation. This CT examination was performed using dose optimization techniques as appropriate, variously including the following: *Automated exposure control *Adjustment of mA and/or kV according to patient size (this includes techniques or standardized protocols for targeted exams where dose is matched to indication/reason for exam; i.e. extremities or head) *Use of iterative reconstruction technique DLP: 523 mGy-cm FINDINGS: LUNG BASES: Minimal dependent atelectasis bilaterally. LIVER, GALLBLADDER, AND BILIARY TREE: The liver is normal in size, shape, and attenuation. No focal hepatic lesion or biliary ductal dilatation is identified. The gallbladder is unremarkable with no evidence of radiopaque gallstones, gallbladder wall thickening, or obvious pericholecystic inflammatory changes. PANCREAS: Unremarkable. SPLEEN: Unremarkable. ADRENAL GLANDS: Unremarkable. KIDNEYS AND URETERS: The kidneys are normal in size, shape, and attenuation. No hydronephrosis, hydroureter, or calculi seen. No perinephric stranding. BLADDER: Unremarkable. GASTROINTESTINAL TRACT: No evidence of bowel obstruction or significant wall thickening. Appendix is not definitively seen. No free fluid or free air is seen. ABDOMINAL WALL: No significant hernia is appreciated. LYMPH NODES: No lymphadenopathy is seen, though assessment is limited in the absence of intravenous contrast. VASCULAR: Scattered atherosclerotic calcifications. PELVIC VISCERA: Unremarkable. OSSEOUS STRUCTURES: Unremarkable. CT/CT abdomen pelvis wo IV con IMPRESSION: No acute findings identified in the abdomen/pelvis.
[2022-08-28 20:03] VITALS: BP 186/61; PULSE 61; RESP 20; TEMP 36; O2SAT 97; BMI 26.2
[2022-08-28 20:19] LABS: MANUAL DIFF FLAG NO
[2022-08-28 20:37] LABS: Basophils Percent Auto 0.1 % (0-2); Eosinophils Absolute Auto 0.1 X10*3/uL (0.0-0.4); Eosinophils Percent Auto 1.9 % (0-4); Hematocrit 43.1 % (37.0-47.0); Imm Gran Abs Auto 0.03 X10*3/uL (0.00-0.03); Imm Gran Pct Auto 0.4 % (0.0-0.4); Lymphocytes Absolute Auto 2.1 X10*3/uL (1.2-4.9); Lymphocytes Percent Auto 30.6 % (20-40); Mean Corpuscular HGB Conc 32.5 g/dl (31.0-35.0); Mean Corpuscular Hemoglobin 30.5 pg (27.0-33.0); Mean Corpuscular Volume 93.9 fL (80.0-98.0); Mean Platelet Volume 9.3 fL (9.4-12.3); Monocytes Absolute Auto 0.5 X10*3/uL (0.1-1.2); Monocytes Percent Auto 7.5 % (2-11); Neutrophils Absolute Auto 4.1 x10*3/uL (2.0-8.3); Neutrophils Percent Auto 59.5 % (45-73); Platelet Count 286 X10*3/uL (160-400); Red Blood Count 4.59 X10*6/uL (4.20-5.50); Red Cell Distribution Width 13.2 % (11.0-16.0); White Blood Count 6.9 X10*3/uL (4.8-10.8)
[2022-08-28 20:44] LABS: Alanine Aminotransferase 25 U/L (0-31); Albumin Level 4.6 g/dL (3.5-5.0); Alkaline Phosphatase 94 U/L (39-117); Anion Gap 13 (12-20); Aspartate Amino Transferase 19 U/L (5-31); Bilirubin Direct < 0.2 mg/dL (0.0-0.5); Bilirubin Total 0.2 mg/dL (0.0-1.0); Blood Urea Nitrogen 13 mg/dL (9-16); Calcium 10.1 mg/dL (8.4-10.2); Carbon Dioxide 26 mmol/L (22-29); Chloride 107 mmol/L (96-108); Creatinine Clr Calc Pharmacy 58.1; Estimated Glomerular Filt Rate > 60; Glucose Random 135 mg/dL (60-115); Lipase 26 U/L (8-78); Potassium 4.8 mmol/L (3.3-5.1); Sodium 141 mmol/L (135-145); Total Protein 7.2 g/dL (6.5-8.0)
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
[2022-08-29] MEDS: 0.9 % Sodium Chloride 1,000 ML 999 ML IVCONT (01:22)
[2022-08-29] MEDS: ondansetron HCL 4 MG/2 ML VIAL IVPUSH (01:23)
[2022-08-29] MEDS: Morphine Sulfate 4 MG/ML CARTRIDGE IVPUSH (01:23)
[2022-08-29] MEDS: Pantoprazole Sodium 40 MG/10 ML VIAL IVPUSH (01:43)
[2022-08-29 03:34] VITALS: BP 140/79; PULSE 57; RESP 18; TEMP 36.6; O2SAT 99
[2022-08-29] MEDS: Magnesium Hydrox/Alum Hydrox 30 ML ORAL.SUSP PO (03:38)
[2022-08-29] MEDS: Lidocaine HCl Viscous 2 % 15 ML SOLUTION MUCOUS MEM (03:38)
== END 2022-08-29 03:49 | disposition home or self-care (01) ==
PROVIDERS: Emergency Provider Emergency Medicine; PCP Family Medicine
DX: K27.9 Peptic ulcer, site unspecified, unspecified as acute or chronic, without hemorrhage or perforation (principal); R10.12 Left upper quadrant pain; R19.7 Diarrhea, unspecified; Z87.891 Personal history of nicotine dependence; Z79.899 Other long term (current) drug therapy
CPT/HCPCS: 36415; 74176; 80048; 80076; 83690; 85025; 96374; 96375; 99284; J2270; J2405

== ENCOUNTER 2022-10-20 10:58 | Outpatient (REF) | payer MEDICAID, SELFPAY ==
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
== END 2022-10-20 10:59 | disposition home or self-care (01) ==
LOC: HO.XRAY 10:58
PROVIDERS: PCP Family Medicine; Visit Provider Student in an Organized Health Care Education/Training Program
DX: M26.601 Right temporomandibular joint disorder, unspecified (principal)
CPT/HCPCS: 70330

== ENCOUNTER 2022-12-09 15:20 | Emergency (ER) | payer MEDICAID, SELFPAY ==
--- NOTE | ~2022-12-09 | XR_ITS ---
EXAMINATION: XR TOES, RIGHT CLINICAL INFORMATION: Pain and swelling COMPARISON: None TECHNIQUE: 3 views of the right toes were obtained. FINDINGS: Obliquely oriented fracture through the diaphysis of the proximal fourth phalanx is seen. Fracture line does not appear to extend to the articular surface. Mild soft tissue swelling. XR/XR toe RT min 2V IMPRESSION: Obliquely oriented fracture through the diaphysis of the proximal fourth phalanx.
[2022-12-09 15:22] VITALS: BP 127/64; PULSE 65; RESP 20; TEMP 36.2; O2SAT 97; BMI 26.5
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
--- OUTSIDE RECORDS SUMMARY | 2022-12-09 15:48 | XMS_ITS | Continuity of Care Document ---
:1960 Author Organization [address] [place] [address]- Care Team Providers Name Role Phone Amber Love MD Primary Care Physician Encounter [facility] Date(s): 11/28/22 - 12/05/[address] [place], [place] [address] Attending Physician: Bo Muse MD Referring Physician: Amber Love MD Allergies, Adverse Reactions, Alerts Substance Reaction Severity Status aspirin throat closed up Active Latex blisters Active rash Immunizations Given and Recorded Vaccine Date Status Refusal Reason pneumococcal 23-valent vaccine 11/24/17 Given influenza virus vaccine, inactivated 11/24/17 Given Medications acetaminophen 650 mg oral tablet, extended release TAKE 1 TABLET BY MOUTH EVERY 8 HOURS NEEDED FOR MILD PAIN. DO NOT BREAK, CRUSH, DISSOLVE OR CHEW Start Date: 11/10/22 Status: Orderedamitriptyline 50 mg oral tablet TAKE 1 TABLET BY MOUTH AT BEDTIME Start Date: 11/10/22 Status: OrderedCarafate 1 gm oral tablet 1 Gm, 1, tablet, By Mouth, 4 times a day, # 120 tablet, Refills 0, Tot. Refills 0, Maintenance, 12/04/22 18:22:00 EST, Route to Pharmacy Electronically, [facility], Partial fill upon patient request if the prescription is for a kenyetta... Start Date: 12/04/22 Stop Date: 01/03/23 Status: OrderedD3 50 mcg (2000 intl units) oral capsule TAKE 1 CAPSULE BY MOUTH EVERY DAY Start Date: 11/10/22 Status: Ordereddiclofenac sodium 100 mg oral tablet, extended release TAKE 1 TABLET BY MOUTH DAILY Start Date: 11/10/22 Status: OrdereddiphenhydrAMINE 25 mg oral capsule TAKE 1 CAPSULE BY MOUTH EVERY 4 TO 6 HOURS NEEDED Start Date: 11/10/22 Status: Ordereddocusate sodium 100 mg oral capsule TAKE 1 CAPSULE BY MOUTH TWICE DAILY Start Date: 11/10/22 Status: Ordereddocusate sodium 100 mg oral capsule 100 mg, 1, capsule, By Mouth, 2 times a day, PRN, # 20 capsule, Refills 0, Tot. Refills 0, Maintenance, for constipation, 11/15/22 9:16:00 EST, Route to Pharmacy Electronically, [facility]/pharmacy #[id number], Partial fill upon patient request if the prescription... Start Date: 11/15/22 Status: Orderedfamotidine 40 mg oral tablet TAKE 1 TABLET BY MOUTH AT BEDTIME Start Date: 11/10/22 Status: Orderedgabapentin 600 mg oral tablet TAKE 1 TABLET BY MOUTH THREE TIMES DAILY Start Date: 11/10/22 Status: OrderedGaviLAX oral powder for reconstitution MIX 17 GRAMS IN 4-8 OUNCES WATER, JUICE, MILK, COFFEE AND DRINK ONCE DAILY Start Date: 11/10/22 Status: Orderedibuprofen 800 mg oral tablet 800 mg, 1, tablet, By Mouth, 3 times a day, # 90 tablet, Refills 0, Tot. Refills 0, Acute 12/26/22 16:28:00 EST, 11/15/22 16:27:00 EST, Route to Pharmacy Electronically, [facility],Partial fill upon patient request if the prescrip... Start Date: 11/15/22 Stop Date: 12/26/22 Status: OrderedMelatonin 5 mg oral tablet TAKE 1 TABLET BY MOUTH 1 HOUR BEFORE BEDTIME Start Date: 11/10/22 Status: Orderedmethylcellulose 500 mg oral tablet TAKE 1 TABLET BY MOUTH TWICE DAILY Start Date: 11/10/22 Status: OrderedoxyCODONE 5 mg oral tablet TAKE 1 TABLET BY MOUTH EVERY TWELVE HOURS Start Date: 11/10/22 Status: Orderedpantoprazole 40 mg oral delayed release tablet TAKE 1 TABLET BY MOUTH TWICE DAILY Start Date: 11/10/22 Status: Orderedpravastatin 10 mg oral tablet TAKE 1 TABLET BY MOUTH EVERY DAY Start Date: 11/10/22 Status: OrderedSenna 8.6 mg oral tablet TAKE 2 TABLETS BY MOUTH DAILY Start Date: 11/10/22 Status: OrderedTylenol Extra Strength 500 mg oral tablet 1 tablet = 500 mg, By Mouth, Every 4 hours, PRN as needed for pain, # 50 tablet, 0 Refills, Acute 12/20/22 16:31:00 EST, 11/15/22 16:30:00 EST, Tablet, [facility], Partial fill uponpatient request if the prescription is for a sche... Start Date: 11/15/22 Stop Date: 12/20/22 Status: Ordered Problem List Condition Confirmation Course Effective Dates Status Health Stat us Informant Abdominal bloating Confirmed Active Abdominal pain, Confirmed Active left lower quadrant Acquired absence of Confirmed Active left breast and nipple Acquired blindness Confirmed Active Burning epigastric Confirmed Active pain Burning reflux Confirmed Active Celiac sprue Confirmed Active Chest wall pain1 Confirmed Active Diagnostic Confirmed Active colonoscopy Heartburn symptom Confirmed Active History of cancer Confirmed Active of left breast Local recurrence of Confirmed Active cancer of left breast History of Breast Confirmed Active cancer, Left, IDC, pT1B, pN0, stage I, ER positive, ID positive, HER-2/jese negative.2012 Dense breast tissue Confirmed Active on mammogram Odynophagia Confirmed Active Pain of right Confirmed Active breast Tobacco dependence Confirmed Active 1After heavy lifting Vital Signs Most recent to oldest [Reference Range]: 1 Height 160 cm (11/28/22 9:24 AM) Weight 66.1 kg (11/28/22 9:24 AM) Pulse Rate [55-90 bpm] 60 bpm (11/28/22 9:24 AM) Body Mass Index [18.5-24.99 kg/m2] 25.82 kg/m2 *H* (11/28/22 9:24 AM) Blood Pressure [90-138/55-84 mm Hg] 119/71 mm Hg (11/28/22 9:24 AM) Respiratory Rate [16-30 br/min] 16 br/min (11/28/22 9:24 AM) Temperature [96.8-100.4 DegF] 96.4 DegF *L* (11/28/22 9:24 AM) Blood pressure sites Arm, right (11/28/22 9:24 AM) Temperature Route Temporal (11/28/22 9:24 AM) Weight Obtained Via Standing scale (11/28/22 9:24 AM) Social History Social History Type Response Smoking Status 10 or more cigarettes (1/2 p ack or more)/day in last 30 days; Interested in cessation: Yes; Other: has the patch but has not started using; entered on: 07/06/22 Sex Patient Care team information Care Team PersonnelName: Shanel Vega Position: [facility] Onco RN Member Role: Primary Care Nurse Name: Sandrita Sweet RN Position: [facility] PCO RN Member Role: Primary Care Nurse Name: Anastasiia Lassiter RN Position: [facility] RN Supv Member Role: Primary Care Nurse Name: Antoinette Schulte RN Position: S RN Member Role: Primary Care Nurse Name: Amber Love MD Position: Reference Physician Member Role: PCP Address: Address: [address] [place] [id number]- Name: Tessa Rowe RN Position: S RN Member Role: Primary Care Nurse Care Team Related PersonsName: AELX RESENDIZ Address: home [address] [place] [address]
--- OUTSIDE RECORDS SUMMARY | 2022-12-09 15:49 | XMS_ITS | Continuity of Care Document ---
:1960 Author Organization [facility] ic Address [address] [place] [id number]- Care Team Providers Name Role Phone Ivan PEREZ, Amber Primary Care Physician Encounter [facility] Date(s): 11/07/22 - 12/07/[address] [address]- Allergies, Adverse Reactions, Alerts Substance Reaction Severity [...] 12/04/22 18:22:00 EST, Route to Pharmacy Electronically, [facility], Partial fill upon patient request [...] 11/15/22 9:16:00 EST, Route to Pharmacy Electronically, [facility]/pharmacy #[id number], Partial fill upon patient request if the [...] 11/15/22 16:27:00 EST, Route to Pharmacy Electronically, [facility],Partial fill upon patient request if [...] 12/20/22 16:31:00 EST, 11/15/22 16:30:00 EST, Tablet, [facility], Partial fill uponpatient request if [...] IDC, pT1B, pN0, stage I, ER positive, IA positive, HER-2/jese negative.2012 Dense breast tissue Confirmed Active on mammogram Odynophagia Confirmed Active Pain of right Confirmed Active breast Tobacco dependence Confirmed Active 1After heavy lifting Social History Social History Type Response Tobacco Use: 4 or less cigarettes(le ss than 1/4 pack)/day in last 30 days. Interested in cessatio n: Yes. Other: in the process of quitting, prior to smoking c essation, pt smoked about 1/2 ppd x 47 yrs. Sex Patient Care team information Care Team PersonnelName: Shanel Vega Position: [facility] Onco RN Member Role: Primary Care Nurse Name: Sandrita Sweet RN Position: [facility] PCO RN Member Role: Primary Care Nurse Name: Anastasiia Lassiter RN Position: [facility] RN Supv Member Role: Primary Care Nurse Name: Antoinette Schulte RN Position: S RN Member Role: Primary Care Nurse Name: Amber Love MD Position: Reference Physician Member Role: PCP Address: Address: [address] [place] [address]- Name: Tessa Rowe RN Position: S RN Member Role: Primary Care Nurse Care Team Related PersonsName: DOMENICO REESNDIZMO Address: home [address] [place] [address]
--- OUTSIDE RECORDS SUMMARY | 2022-12-09 15:49 | XMS_ITS | Continuity of Care Document ---
:1960 Author Organization [facility] Address [address] [place] [id number]- Care Team Providers Name Role Phone Amber Love MD Primary Care Phys[place] [facility] [place]/22 - 11/15/[address] [address] Discharge Disposition: A-D/C Home Attending Physician: Tree Cuevas MD Admitting Physician: Tree Cuevas MD Referring Physician: Tree Cuevas MD Allergies, Adverse Reactions, Alerts Substance Reaction [...] MOUTH AT BEDTIME Start Date: 11/10/22 Status: OrderedD3 50 mcg (2000 intl units) [...] 11/15/22 9:16:00 EST, Route to Pharmacy Electronically, [facility]/pharmacy #[id number], Partial fill upon patient request if the prescription... Start Date: 11/15/22 Status: Orderedfamotidine 40 mg oral tablet TAKE 1 TABLET BY MOUTH AT BEDTIME Start Date: 11/10/22 Status: OrderedFentanyl Inj (PACU ONLY) 50 mcg, Injection, IV Push Slowly, Every 5 minutes for 4 doses/times, in PACU ONLY, PRN for Pain , Severe, Routine, 11/15/22 8:40:00 EST, Stop date Limited # of times Start Date: 11/15/22 Stop Date: 11/15/22 Status: Completedgabapentin 600 mg oral tablet TAKE 1 TABLET [...] 11/15/22 16:27:00 EST, Route to Pharmacy Electronically, [facility],Partial fill upon patient request if [...] EVERY TWELVE HOURS Start Date: 11/10/22 Status: OrderedOxycodone 5mg Oral Tablet (PACU ONLY) 5 mg, Tablet, By Mouth, Once, in PACU ONLY, PRN for Pain , Moderate, Routine, 11/15/22 8:40:00 EST Start Date: 11/15/22 Stop Date: 11/15/22 Status: Completedpantoprazole 40 mg oral delayed release tablet TAKE [...] 12/20/22 16:31:00 EST, 11/15/22 16:30:00 EST, Tablet, [facility], Partial fill uponpatient request if [...] IDC, pT1B, pN0, stage I, ER positive, CA positive, HER-2/jese negative.2012 Dense breast tissue Confirmed Active on mammogram Odynophagia Confirmed Active Pain of right Confirmed Active breast Tobacco dependence Confirmed Active 1After heavy lifting Procedures Procedure Date Related Diagnosis Body Site Status Laparoscopy, surgical; cholecystectomy Completed Vital Signs Most recent to oldest 1 2 3 [Reference Range]: Height 160 cm 160 cm (11/15/22 6:46 AM) (11/14/22 12:55 PM) Weight 67.6 kg 67.6 kg (11/15/22 6:46 AM) (11/14/22 12:55 PM) Oxygen Saturation 95 % 100 % 100 % [94-100 %] (11/15/22 10:45 AM) (11/15/22 10:30 AM) (11/15/22 1 0:15 AM) Pulse Rate [55-90 bpm] 63 bpm (11/15/22 6:46 AM) Body Mass Index 26.41 kg/m2 26.41 kg/m2 [18.5-24.99 kg/m2] *H* *H* (1/18/23 6:46 AM) (11/14/22 12:55 PM) Blood Pressure 130/73 mm Hg 135/65 mm Hg 114/61 mm Hg [90-138/55-84 mm Hg] (11/15/22 10:45 AM) (11/15/22 10:30 AM) (11/15 10:15 AM) Respiratory Rate [16-30 20 br/min 17 br/min 17 br/mi n br/min] (11/15/22 11:25 AM) (11/15/22 10:45 AM) (11/15/22 1 0:34 AM) Temperature [96.8-100.4 97.2 DegF 97.6 DegF 97.3 Deg F DegF] (11/15/22 10:30 AM) (11/15/22 9:15 AM) (11/15/22 6: 46 AM) Liters per Minute 6 L/min 6 L/min 6 L/min (11/15/22 10:30 AM) (11/15/22 10:15 AM) (11/15/22 1 0:00 AM) Mode of Delivery Room air Simple face mask Simple face ma sk (Oxygen) (11/15/22 10:45 AM) (11/15/22 10:30 AM) (11/15/22 1 0:15 AM) Blood pressure sites Arm, right (11/15/22 9:15 AM) Temperature Route Temporal Temporal Temporal (11/15/22 10:30 AM) (11/15/22 9:15 AM) (11/15/22 6: 46 AM) Dry Weight 67.3 kg 67.6 kg (11/15/22 6:46 AM) (11/14/22 12:55 PM) Weight Obtained Via Patient/family stated (11/14/22 12:55 PM) Dry Weight Obtained Via Standing scale Patient/family stated (11/15/22 6:46 AM) (11/14/22 12:55 PM) Social History Social History Type Response Smoking Status 10 or more cigarettes (1/2 p ack or more)/day in last 30 days; Interested in cessation: Yes; Other: has the patch but has not started using; entered on: 07/06/22 Sex Note Andreia Hodge RN: PERFORM Event Display: Discharge/Transfer Note Hospital Authored Date: [id number] Nursing Discharge Note Entered On: 11/15/2022 11:48 EST Performed On: 11/15/2022 11:48 EST by Andreia Hodge RN Nursing Discharge Note 2 Discharge Time : 11/15/2022 11:48 EST Discharge Level of Care at Discharge : Home/Care Home/Foster Care Patient Left Unit Via : Wheelchair Patient Accompanied Off Unit with : Responsible adult DC Instructions Provided & Signed by Pt : Yes Patient Understands D/C Instructions : Yes Patient Instructions Discharge Signed : Yes Did Pt have Specialty Bed or Wound Vac : No Andreia Hodge RN - 11/15/2022 11:48 Andreia Aguilar RN: PERFORM Event Display: Patient Education/Instruction Authored Date: [id number] Inpatient Adult Discharge Instructions [address] [address] Name: SERA ZORAN : 1960 Visit: 11/15/2022 06:11:00 Current Date: 11/15/2022 09:44 Account: [id number] Inpatient Adult Discharge Instructions We would like to thank you for allowing us to assist you with your healthcare needs. The following includes patient education materials and information regarding your injury/illness. Our entire staff strives to provide an excellent experience for our patients and their families. PLEASE ENSURE YOU FOLLOW-UP PER THE INSTRUCTIONS BELOW! ?? YOUR OPINION IS IMPORTANT TO US! Please complete the survey you may receive by mail or email. Your feedback will be used to make improvements to the healthcare experiences of our patients and their families. Surveys are administered by [employer] ?? If further treatment with your primary care physician or another doctor is recommended, it is important for you to keep the appointment. Call your primary care physician or return to the Emergency Department immediately if your condition worsens, fails to improve, or new symptoms develop. If you need to find a doctor, you can call [facility] [employer] for a referral at [phone] or toll free at [phone] or log in to [email or web address] ?? You can view and manage your care through the patient portal or by using a health care red of your choosing. [employer] is a website that allows you to securely view your medical information including your hospital discharge summary, office visit summaries, medications and follow-up visits. You can also request appointments, renew medications, and request access to your medical information using a health care red of your choosing, or just ask a question. You can enroll at [email or web address] or register during your next office visit. You have been discharged from [facility], Patient Care Unit: [facility]. If you have any questions regarding these instructions after you leave, please call us and we will be happy to assist you. [facility] Your Care Team Attending Physician Mason PEREZ, Tree Discharging Providers Caron PEREZ, Trevin Marcos Reason for Admission GALLSTONES CS DS Your Diagnosis Biliary dyskinesia Tests Performed Below is a partial list of the tests performed during your hospitalization. You may have had other tests and procedures not included in this list. Please discuss all test results with your provider. Primary Care Provider Amber Love MD Advance Directive Health Care Proxy on File Yes - Health Care Proxy No qualifying data available. Discharge Vitals Temperature: 97.6 DegF Height: 160 cm Pulse Rate: 63 bpm Weight: 67.6 kg Respiratory Rate: 16 br/min Body Mass Index:??26.41 kg/m2??High Systolic Blood Pressure:??172 mm Hg??High Body surface area: 1.73 Diastolic Blood Pressure: 76 mm Hg ?? Oxygen Saturation: 100 % ?? Studies Pending All tests and labs ordered during this hospital stay have been completed unless listed below. Pleasediscuss all pending results with your provider listed above in these instructions. ?? No incomplete studies found What to do next Instructions From Your Doctor You have just undergone a laparoscopic Cholecystectomy. Please avoid any lifting over 10 pounds forthe next 10 days in order to allow your incisions to heal. You have been prescribed oxycodone to take as need every 6 hours. In addition, please use adjunct medication like Tylenol 675 every 4 hours or ibuprofen 800 every 6 hours. Please call the office if any problem occur. You may not be able to consume fatty foods comfortably for the next few weeks. Please allow your body time to adjust and eat what your body can tolerate. Discharge Orders Instructions from your Care Team FOLLOW POSTOP INSTRUCTIONS Scheduled Follow-Up Appointments 2022 4:40 PM EST ?? With: Fadumo Sandy DO Where: [facility] [address] [place], [place] - Sunday 9:40 AM EST ?? With: Tao Tinoco Where: [facility] [address] [place] [address] [address] [place], [place] - Sunday 8:30 AM EST ?? With: Heidi Henderson NP Where: [facility] [address] [place] [address]- Sunday 2:30 PM EDT ?? With: Jasbir Escamilla MD Where: [facility] [address] [place] [address]- You Need to Schedule the Following Appointments Follow Up with??Tree Cuevas MD When??Within Within two weeks Where: [address] [place] [address], [address] [place] [address]- Discharge Medications SERA MEEHAN :1960 Visit Date:11/15/2022 Medications: Please continue your medications until treatment is completed or stopped by your provider. Medications not listed below should be discontinued. Discuss any questions related to medications with your provider. What How Much When Instructions Next Dose Changed Docusate (docusate sodium 100 mg oral capsule) 1 capsule Oral Twice a day as needed for for constipation Pickup at [facility]/pharmacy #[id number] Changed Docusate (docusate sodium 100 mg oral capsule) TAKE 1 CAPSULE BY MOUTH TWICE DAILY ?? Changed Oxycodone (oxyCODONE 5 mg oral capsule) 1 capsule Oral Every 6 hours as needed for as needed for pain Pickup at [facility]/pharmacy #[id number] Changed Oxycodone (oxyCODONE 5 mg oral tablet) TAKE 1 TABLET BY MOUTH EVERY TWELVE HOURS ?? Unchanged Acetaminophen (acetaminophen 650 mg oral tablet, extended release) TAKE 1 TABLET BY MOUTH EVERY 8 HOURS NEEDED FOR MILD PAIN. DO NOT BREAK, CRUSH, DISSOLVE OR CHEW?? Unchanged amiTRIPTYLINE (amitriptyline 50 mg oral tablet) TAKE 1 TABLET BY MOUTH AT BEDTIME ?? Unchanged Cholecalciferol (D3 50 mcg (2000 intl units) oral capsule) TAKE 1 CAPSULE BY MOUTH EVERY DAY ?? Unchanged Diclofenac (diclofenac sodium 100 mg oral tablet, extended release) TAKE 1 TABLET BY MOUTH DAILY ?? Unchanged DiphenhydrAMINE (diphenhydrAMINE 25 mg oral capsule) TAKE 1 CAPSULE BY MOUTH EVERY 4 TO 6 HOURS NEEDED ?? Unchanged Famotidine (famotidine 40 mg oral tablet) TAKE 1 TABLET BY MOUTH AT BEDTIME ?? Unchanged Gabapentin (gabapentin 600 mg oral tablet) TAKE 1 TABLET BY MOUTH THREE TIMES DAILY ?? Unchanged Melatonin (Melatonin 5 mg oral tablet) TAKE 1 TABLET BY MOUTH 1 HOUR BEFORE BEDTIME ?? Unchanged Methylcellulose (methylcellulose 500 mg oral tablet) TAKE 1 TABLET BY MOUTH TWICE DAILY ?? Unchanged Pantoprazole (pantoprazole 40 mg oral delayed release tablet) TAKE 1 TABLET BY MOUTH TWICE DAILY ?? Unchanged Polyethylene Glycol 3350 (GaviLAX oral powder for reconstitution) MIX 17 GRAMS IN 4-8 OUNCES WATER, JUICE, MILK, COFFEE AND DRINK ONCE DAILY ?? Unchanged Pravastatin (pravastatin 10 mg oral tablet) TAKE 1 TABLET BY MOUTH EVERY DAY ?? Unchanged Senna (Senna 8.6 mg oral tablet) TAKE 2 TABLETS BY MOUTH DAILY ?? Pharmacy Information [facility]/pharmacy #[id number]: [address], [place] [phone] Test Results Below is a partial list of the most recent Laboratory test results done prior to this discharge. You may have had other tests and procedures not included in this list. Please discuss all test results with your provider. Allergies (NKA means No Known Allergies) Latex??(blisters, rash) aspirin??(throat closed up) Problems Active Problems??(17) Abdominal bloating?? Abdominal pain, left lower quadrant?? Acquired absence of left breast and nipple?? Acquired blindness?? Burning epigastric pain?? Burning reflux?? Celiac sprue?? Chest wall pain?? Dense breast tissue on mammogram?? Diagnostic colonoscopy?? Heartburn symptom?? History of Breast cancer, Left, IDC, pT1B, pN0, stage I, ER positive, CA positive, HER-2/jese negativ?? History of cancer of left breast?? Local recurrence of cancer of left breast?? Odynophagia?? Pain of right breast?? Tobacco dependence?? Education Materials Below is the list of Educational Leaflet Providered with your Discharge Instructions. Surgery Medical Daystay Surgical Overnight Discharge Instructions?? Discharge Instructions for Open Gallbladder Removal Surgery (Cholecystectomy)?? Treating Gallstones?? Valuables and Belongings I fully understand and agree that [facility] accepts no responsibility for all my personal property including clothing, toilet articles, radios, jewelry, dentures, hearing aids, rings, money, or any other property that is in my possession or is brought to me after admission. I understand certain valuables may be placed in a hospital safe for a short period of time. I understand that the hospital is not liable for loss or damage due to accident, fire, or other natural occurrence while said property is in the safe. I accept full responsibility for any personal property that I keep with me, and will not hold the hospital responsible in case of loss or disappearance. I acknowledge that i have been encouraged to send valuables and belongings home. ?? Review of Valuable and Belonging List: With patient Date for Pt to Sign Valuables/Belongings: 11/15/22 06:47:00 ?? Valuables & Belongings ?? Clothes Electronic devices Jewelry Monetary Items Personal devices Miscellaneous Medications (Valuables) Valuables at Bedside Jacket, Pants, Shirt, Shoes, Undergarments Cell phone ? Valuables Sent Home ? Valuables Sent to Security ? Other Discharge Information ? Pulmonary Rehab Status?? Pulmonary Rehab Discharge Status?? Respiratory Rate: 16 br/min ? Common Emergency Awareness Tips IS IT A STROKE? Act FAST and Check for these signs: FACE Does the face look uneven? ARM Does one arm drift down? SPEECH Does their speech sound strange? TIME Call at any sign of stroke ?? Heart Attack Signs Chest discomfort: Most heart attacks involve discomfort in the center of the chest and lasts more than a few minutes, or goes away and comes back. It can feel like uncomfortable pressure, squeezing, fullness or pain. Discomfort in upper body: Symptoms can include pain or discomfort in one or both arms, back, neck, jaw or stomach. Shortness of breath: With or without discomfort. Other signs: Breaking out in a cold sweat, nausea, or lightheaded. Remember, MINUTES DO MATTER. If you experience any of these heart attack warning signs, call to get immediate medical attention! ?? Smoking can increase your chances of developing chronic health problems and can cause harmful effects to other family members in your house. If you smoke, you are strongly encouraged to quit. Please call [facility] [employer] at [phone] or [phone]) or log in to [email or web address] for referrals to smoking cessation programs. ?? The National Suicide Prevention Hotline is available 21/05 if you or someone you know needs to find areason to keep living. By calling 9-916-290-[employer] (1830) you'll be connected to a skilled, trained counselor at a crisis center in your area. INPATIENT DISCHARGE INSTRUCTIONS SIGNATURE MARIVEL SERA MEEHAN Location:[facility] Registration Date and Time:11/15/2022 06:11 [facility] Primary Care Physician: Amber Love MD, I SERA MEEHAN, have received the above patient education materials/instructions and have verbalizedunderstanding. If ambulance or transport services are being used I further acknowledge being given achoice of service. ?? If you need to contact me, please call me at this number: . Patient/Hatchery Supervisor Name: Patient/Hatchery Supervisor Signature: Relationship to Patient: Witness Name/Signature: Date: Andreia oHdge RN: PERFORM Event Display: Patient Education Leaflets Authored Date: [id number] Surgery Medical Daystay Surgical Overnight Discharge Instructions ?? 295 Medical Daystay/Surgical Overnight Discharge Instructions ? Since your coordination and judgment may be altered by medication and/or anesthesia, a responsible adult must drive you home from the hospital. ? If you have received medication for pain or sedation while under our care, you should not drive, operate machinery, drink alcohol, or sign any legal documents for 24 hours.?? You should have someone with you at home tonight. ? Remain at home the day of discharge.?? You may be up and about unless otherwise instructed by your physician. ? You may resume your daily prescription medication schedule.?? Any depressant medication should be avoided for 24 hours unless otherwise instructed by your surgeon or anesthesiologist. ? Call your physician for a follow-up appointment.? If you experience unusual or severe pain not relied by your pain medication, excessive bleedingor drainage, persistent nausea and vomiting, excessive swelling or redness, foul odor from incision site or fever over 100.6F, you need to call your physician. ? A follow-up phone call by a nurse will be made the day after your procedure.?? If you have stayed with us over night, you will not be receiving a follow-up phone call. ? Nausea and vomiting are a common side effect of prescription pain medication.?? We recommend that pills are not taken on an empty stomach.?? While taking any prescription pain medication you should not drive or drink alcohol. ?Caron PEREZ, Trevin S: PERFORM Event Display: Patient Education Leaflets Authored Date: [id number] Discharge Instructions for Open Gallbladder Removal Surgery (Cholecystectomy) ?? [address] Instrucciones de otilia para la cirug??a abierta de extirpaci??n de la ves??cula biliar (colecistectom??a) Le realizaron maricarmen cirug??a para extirparle la ves??cula biliar. Francisca procedimiento se llama colecistectom??a. Se lo realizaron con la t??cnica de cirug??a abierta. Halma quiere decir que le hicieron maricarmen incisi??n mendel. Es posible que le hayan hecho maricarmen incisi??n de arriba a abajo (vertical). Halma se realiza en el medio del abdomen. O quiz??s le hicieron maricarmen incisi??n transversal. Esta se realiza enla parte superior derecha del abdomen, por debajo de las costillas. Puede llevar maricarmen ranulfo plena y daniela sin armas ves??cula biliar. Significa que puede seguir comiendo losalimentos y haciendo las actividades que disfruta. M??s abajo encontrar?? pautas de cuidados en el hogar despu??s de la cirug??a. Cuidados en el hogar C??mo cuidarse en armas casa: ??? Descanse mucho. No se preocupe si se siente cansado donaldo las primeras dos semanas despu??s de la operaci??n. Es com??n sentir fatiga. [place] maricarmen siesta cuando se sientacansado.? L??vese cuidadosamente la piel cercana a la incisi??n con agua y un jab??n suave todos los d??as. Despu??s de la cirug??a, espere un d??a para ducharse, a menos que el proveedor de atenci??n m??dica le indique lo contrario. ??? Si tiene maricarmen gasa sobre la incisi??n, c??mbiela todos los d??as o con la frecuencia necesaria para mantenerla seca y limpia. ??? Siga armas alimentaci??n normal. Ermelinda no consuma comidas grasosas ni muy condimentadas donaldo algunos d??as. Muchos cirujanos recomiendan seguir maricarmen dieta con bajo contenido de grasas donaldo el primer mes despu??s de la cirug??a. No coma alimentos fritos donaldo francisca per??odo. ??? Puede caminar por la casa, hacer trabajo de oficina, subir escaleras o viajar en autom??nat si se siente capaz de hacerlo. ??? P??jem a alguien que lo lleve a nicky citas m??dicas donaldo la semana siguiente a la operaci??n. No conduzca hasta que no deje de maximus los analg??sicos. Aseg??rese de que pueda pisar el freno sin demora.? No practique cindy??n deporte ni danielle actividad f??jean intensa donaldo cuatro semanas. ??? No levante nada que pese m??s de 4.5kg (10 libras) donaldo 4 semanas despu??s de la cirug??a. ??? Consuma m??s alimentos ricos enfibra y use un ablandador de heces si tiene estre??imiento. Los analg??sicos pueden causar estre??imiento. Consulte con el proveedor si necesita m??s ayuda. ??? No se siente en maricarmen ba??era, en maricarmen piscina ni en maricarmen ba??era de hidromasaje hasta que el proveedor de atenci??n m??dica le indique que puede hacerlo. Espere hasta que se cierre la incisi??n. Tambi??n espere hasta que le quiten todas las sondas quir??rgicas (drenajes). ?? Seguimiento Programe maricarmen visita de control con el cirujano seg??n le indiquen. Llame al proveedor de atenci??n m??dica si los siguientes s??ntomas no desaparecen donaldo la semana siguiente a la operaci??n: ??? Cansancio extremo (fatiga) ??? Dolor en la eloina de la incisi??n ??? Diarrea o estre??imiento ??? P??rdida del apetito ?? Cu??ndo llamar a armas proveedor de atenci??n m??dica [place] enseguida a armas proveedor de atenci??n m??dica si presenta alguno de los siguientes s??ntomas:??? Color amarillento en la piel y los ojos (ictericia) ??? Escalofr??os ??? Fiebre de 100.4?F (38.0?C) o superior, o seg??n le indique el proveedor ??? Enrojecimiento o hinchaz??n en la incisi??n ??? Supuraci??n o mal olor proveniente de la incisi??n ??? Dolor en la incisi??n que empeora ??? Orina de color oscuro o de color ??xido ??? Heces de color renetta en lugar de color hortencia??n ??? Malestarestomacal (n??useas) y v??mitos ??? Dolor de est??kelsi en aumento ??? Sangrado por el recto ??? Problemas para respirar o falta de aliento ??? Hinchaz??n en las piernas ?? Last Reviewed Date: 2021 ?? [id number] [employer]. Todos los derechos reservados. Esta informaci??n no pretende sustituir la atenci??n m??dica profesional. S??lo armas m??dico puede diagnosticar y tratar un problema de rolo. ??Caron PEREZ, Trevin Marcos: PERFORM Event Display: Patient Education Leaflets Authored Date: [id number] Treating Gallstones ?? [address] C??mo tratar los c??lculos biliares La ves??cula es un ??rgano que almacena bilis hasta que sea necesario para la digesti??n. La bilis es maricarmen sustancia que ayuda a descomponer las grasas. Se pueden formar dep??sitos en la bilis que, al agruparse, generan piedras duras (c??lculos). En la mayor??a de los casos, los c??lculos biliares no causan cindy??n s??ntoma.??Ermelinda, a veces, pueden irritar las kimbrough de la ves??cula biliar. O wolfgang, pueden bloquear la circulaci??n de la bilis que sale de la ves??cula. Si las piedras caen en el conducto biliar com??n, los c??lculos pueden obstruir la circulaci??n de la bilis que ingresa en el intestino garner. Halma puede provocar coloraci??n amarilla de la piel y los ojos (ictericia), dolor o maricarmen infecci??n grave. Los c??lculos solo se tratan si usted presenta s??ntomas. Si necesita tratamiento, armas proveedor de atenci??n m??dica analizar?? con usted las diferentes opciones de tratamiento. En la siguiente lista figuran los tratamientos m??s comunes. Medicamentos Es probable que armas proveedor le recete medicamentos que contengan ??cidos biliares para disolver los c??lculos biliares micah??os. Es posible que necesite maximus estos medicamentos por un anat tiempo para disolver todas las piedras. Maricarmen vez que deje de maximus el medicamento, se pueden volver a formar c??lculos biliares. ?? Colangiopancreatograf??a retr??grada endosc??pica La colangiopancreatograf??a retr??grada endosc??pica (CPRE) es un procedimiento ambulatorio para extraer los c??lculos. Despu??s de que le den medicamentos para ayudarlo a que se relaje, el proveedor utiliza un tubo garner con video y radiograf??as para localizar los c??lculos que obstruyen la circulaci??n de la bilis. A continuaci??n, extrae las piedras de las v??as biliares o el conducto pancre??romina. La CPRE se puede realizar soy o antes de la cirug??a para extirpar la ves??cula biliar. ?? Cirug??a Maricarmen colecistectom??a es maricarmen operaci??n para extraer la ves??cula biliar y armas contenido (c??lculos biliares). En la actualidad, estos procedimientos se realizan con la t??cnica laparosc??pica. Es decir, se realizan varias incisiones muy micah??as en el abdomen. La colecistectom??a tambi??n se puede realizar con maricarmen cirug??a tradicional, haciendo maricarmen incisi??n m??s mendel.??Armas proveedor hablar?? con usted sobre cu??l es el m??todo que m??s le conviene. ?? Prevenga s??ntomas futuros Despu??s del tratamiento, siga la dieta que le indique el proveedor de atenci??n m??dica. Esta dieta incluye carne de res magra, carne de ave magra y pescado. Evite comer productos l??cteos enteros. Coma alimentos ricos en fibra, pedro frutas, verduras y granos integrales. Tambi??n coma grasas saludables, pedro las que se encuentran en el pescado y el aceite de jj. No coma grasas no saludables, pedro las que se encuentran en los postres y las frituras. Tampoco coma az??car ni carbohidratos refinados. Mantenga un peso saludable y danielle actividad f??jean de forma regular. ?? Last Reviewed Date: 2021 ?? [id number] [employer]. Todos los derechos reservados. Esta informaci??n no pretende sustituir la atenci??n m??dica profesional. S??lo armas m??dico puede diagnosticar y tratar un problema de rolo. ?? Patient Care team information Care Team PersonnelName: Shanel Vega Position: [facility] Onco RN Member Role: Primary Care Nurse Name: Sandrita Sweet RN Position: [facility] PCO RN Member Role: Primary Care Nurse Name: Anastasiia Lassiter RN Position: [facility] RN Supv Member Role: Primary Care Nurse Name: Antoinette Schulte RN Position: S RN Member Role: Primary Care Nurse Name: Amber Love MD Position: Reference Physician Member Role: PCP Address: Address: [address] [place] [address]- Name: Tessa Rowe RN Position: S RN Member Role: Primary Care Nurse Care Team Related PersonsName: ALEX RESENDIZ Address: home [address] [place] [address]
--- OUTSIDE RECORDS SUMMARY | 2022-12-09 15:49 | XMS_ITS | Continuity of Care Document ---
:1960 Author Organization [facility] Address [address] [place] [address]- Care Team Providers Name Role Phone Amber Love MD Primary Care Physician Encounter [facility] Date(s): 12/06/22 - 12/07/[address] [address]- Discharge Disposition: A-D/C Home Attending Physician: Eran Carson DO Admitting Physician: Eran Carson DO Referring Physician: Not on Staff, Referring MD Allergies, Adverse Reactions, Alerts Substance Reaction [...] 12/04/22 18:22:00 EST, Route to Pharmacy Electronically, [facility], Partial fill upon patient request [...] 11/15/22 9:16:00 EST, Route to Pharmacy Electronically, [facility]/pharmacy #[id number], Partial fill upon patient request if the [...] 11/15/22 16:27:00 EST, Route to Pharmacy Electronically, [facility],Partial fill upon patient request if the prescrip... Start Date: 11/15/22 Stop Date: 12/26/22 Status: OrderedMelatonin 5 mg oral tablet TAKE 1 TABLET BY MOUTH 1 HOUR BEFORE BEDTIME Start Date: 11/10/22 Status: Orderedmethylcellulose 500 mg oral tablet TAKE 1 TABLET BY MOUTH TWICE DAILY Start Date: 11/10/22 Status: OrderedMorPHINE Inj 4 mg, Injection, IV Push Slowly, Once, Routine, 12/06/22 23:00:00 EST, Stop date 12/06/22 23:00:00 EST Start Date: 12/06/22 Stop Date: 12/06/22 Status: CompletedMorPHINE Inj 4 mg, Injection, IV Push Slowly, Every 5 minutes for 3 doses/times, PRN for Pain , Moderate, and SBPgreater than 100, Routine, 12/07/22 1:46:00 EST, Stop date Limited # of times Start Date: 12/07/22 Stop Date: 12/07/22 Status: DiscontinuedoxyCODONE 5 mg oral tablet TAKE 1 TABLET [...] 12/20/22 16:31:00 EST, 11/15/22 16:30:00 EST, Tablet, [facility], Partial fill uponpatient request if [...] IDC, pT1B, pN0, stage I, ER positive, OH positive, HER-2/jese negative.2012 Dense breast tissue Confirmed Active on mammogram Odynophagia Confirmed Active Pain of right Confirmed Active breast Tobacco dependence Confirmed Active 1After heavy lifting Results Radiology Reports Exam Date Time Procedure Performing Provider Status 12/06/22 11:[address] Abd/Pelvis W/ IV Contrast Only Sharmaine Carroll; [place] (Verified) Notes:(CT Abd/Pelvis W/ IV Contrast Only) Reason For Exam: PainRESULT: CT Abd/Pelvis W/ IV Contrast Only CT Abd/Pelvis W/ IV Contrast Only Hx of Present Illness: Pt reports generalized abd pain that started Sunday. Pt had her gallbladder removed on 11 15. Pt states her pain is worse around her incision sites.; Reason: Pain; Clinical Question(s): Obstruction TECHNIQUE: Spiral CT through the abdomen and pelvis with IV contrast formatted in 3 planes. 100 cc of Omnipaque 300 was administered intravenously. This study was performed without oral contrast. Weight-based protocol using automatic tube modulation was used to optimize exposure parameters. CTDIvol Body: 12.27 mGy, DLP Body: 561 mGy*cm. COMPARISON: CT abdomen and pelvis 09/15/2022. FINDINGS: [employer] View Findings, Lines and Tubes: None. Visualized Chest: Minimal bibasilar atelectasis.. No pleural effusion. The heart is normal in size. No pericardial effusion. Diaphragm: Normal. Liver: Diffuse low-attenuation throughout the liver parenchyma consistent with hepatic steatosis. There is again a smaller more focal area of hypoattenuation adjacent to the falciform ligament which could reflect focal fatty deposition. No evidence of mass. Gallbladder: Absent consistent with prior cholecystectomy. Minimal nonspecific stranding in the gallbladder fossa is most likely secondary to recent surgery. No focal collection. Bile ducts: No biliary ductal dilation. Spleen: Normal. Pancreas: Unchanged punctate calcification at the tail of the pancreas. Adrenal glands: Normal. Kidneys and ureters: No hydronephrosis, stones, or suspicious masses. Small hypodensities that are too small to characterize are noted, requiring no dedicated follow up. Bladder: Normal. Reproductive organs: Small calcified fibroid, unchanged. Possible adhesions between the anterior uterus and abdominal wall, unchanged. Stomach, small bowel, and large bowel: Normal. Appendix: Not seen, but no evidence of appendicitis. Peritoneum and retroperitoneum: No ascites or pneumoperitoneum. No omental or mesenteric lesions. Lymph nodes: No enlarged lymph nodes. Blood vessels: Mild vascular calcifications but no aneurysm. No evidence of venous thrombosis. Abdominal and pelvic wall: Postsurgical changes to the abdominal wall and right lower quadrant anterior abdominal wall bbo. Left mastectomy. Bones: No acute abnormality. IMPRESSION: Mild stranding in the gallbladder fossa is probably related to recent surgery. No fluid collection. Hepatic steatosis. A similar preliminary report was provided by [facility]. WSN: [id number] Ordering Physician: Sivakumar Gonzalez Dictated By: Maria Victoria Lopez MD Dictated Date/Time: 12/07/22 9:06 am Reviewed By: Maria Victoria Lopez MD Signed By: Maria Victoria Lopez MD Signed Date/Time: 12/07/22 9:06 am Transcribed By: JAGDEEP Transcribed Date/Time: 12/07/22 9:01 am Vital Signs Most recent to oldest 1 2 3 [Reference Range]: Height 158 cm (12/06/22 7:57 PM) Weight 66.3 kg (12/06/22 7:57 PM) Oxygen Saturation [94-100 %] 100 % 99 % 98 % (12/07/22 12:03 AM) (12/06/22 7:57 PM) (12/06/22 7:11 PM) Pulse Rate [55-90 bpm] 64 bpm 75 bpm 70 bpm (12/07/22 12:03 AM) (12/06/22 7:57 PM) (12/06/22 7:11 PM) Blood Pressure [90-138/55-84 mm 118/72 mm Hg 116/86 mm Hg Hg] (12/07/22 12:03 AM) (12/06/22 7:57 PM) Respiratory Rate [16-30 br/min] 20 br/min 18 br/min 16 br/min (12/07/22 1:27 AM) (12/07/22 12:03 AM) (12/06/22 10:48 PM) Temperature [96.8-100.4 DegF] 97 DegF (12/06/22 7:57 PM) Mode of Delivery (Oxygen) Room air Room air Room a ir (12/07/22 12:03 AM) (12/06/22 7:57 PM) (12/06/22 7:11 PM) Blood pressure sites Arm, right Arm, right (12/07/22 12:03 AM) (12/06/22 7:57 PM) Temperature Route Oral (12/06/22 7:57 PM) Dry Weight 66.3 kg (12/06/22 7:57 PM) Social History Social History Type Response Tobacco Use: 4 or less cigarettes(le ss than 1/4 pack)/day in last 30 days. Interested in cessatio n: Yes. Other: in the process of quitting, prior to smoking c essation, pt smoked about 1/2 ppd x [address] Abdomen and Pelvis W contrast IV [facility] , CIS S: TRANSCRIBE Maria Victoria Lopez MD N: VERIFY Event Display: Result: Authored Date: [id number] CT Abd/Pelvis W/ IV Contrast Only Hx of Present Illness: Pt reports generalized abd pain that started Ramos. Pt had her gallbladder removed on 11 15. Pt states her pain is worse around her incision sites.; Reason: Pain; Clinical Question(s): Obstruction TECHNIQUE: Spiral CT through the abdomen and pelvis with IV contrast formatted in 3 planes. 100 cc of Omnipaque 300 was administered intravenously. This study was performed without oral contrast. Weight-based protocol using automatic tube modulation was used to optimize exposure parameters. CTDIvol Body: 12.27 mGy, DLP Body: 561 mGy*cm. COMPARISON: CT abdomen and pelvis 09/15/2022. FINDINGS: [employer] View Findings, Lines and Tubes: None. Visualized Chest: Minimal bibasilar atelectasis.. No pleural effusion. The heart is normal in size. No pericardial effusion. Diaphragm: Normal. Liver: Diffuse low-attenuation throughout the liver parenchyma consistent with hepatic steatosis. There is again a smaller more focal area of hypoattenuation adjacent to the falciform ligament which could reflect focal fatty deposition. No evidence of mass. Gallbladder: Absent consistent with prior cholecystectomy. Minimal nonspecific stranding in the gallbladder fossa is most likely secondary to recent surgery. No focal collection. Bile ducts: No biliary ductal dilation. Spleen: Normal. Pancreas: Unchanged punctate calcification at the tail of the pancreas. Adrenal glands: Normal. Kidneys and ureters: No hydronephrosis, stones, or suspicious masses. Small hypodensities that are too small to characterize are noted, requiring no dedicated follow up. Bladder: Normal. Reproductive organs: Small calcified fibroid, unchanged. Possible adhesions between the anterior uterus and abdominal wall, unchanged. Stomach, small bowel, and large bowel: Normal. Appendix: Not seen, but no evidence of appendicitis. Peritoneum and retroperitoneum: No ascites or pneumoperitoneum. No omental or mesenteric lesions. Lymph nodes: No enlarged lymph nodes. Blood vessels: Mild vascular calcifications but no aneurysm. No evidence of venous thrombosis. Abdominal and pelvic wall: Postsurgical changes to the abdominal wall and right lower quadrant anterior abdominal wall bob. Left mastectomy. Bones: No acute abnormality. IMPRESSION: Mild stranding in the gallbladder fossa is probably related to recent surgery. No fluid collection. Hepatic steatosis. A similar preliminary report was provided by [facility]. WSN: [id number] Ordering Physician: Sivakumar Gonzalez Dictated By: Maria Victoria Lopez MD Dictated Date/Time: 12/07/22 9:06 am Reviewed By: Maria Victoria Lopez MD Signed By: Maria Victoria Lopez MD Signed Date/Time: 12/07/22 9:06 am Transcribed By: JAGDEEP Transcribed Date/Time: 12/07/22 9:01 am Patient Care team information Care Team PersonnelName: Shanel Vega Position: [facility] Onco RN Member Role: Primary Care Nurse Name: Sandrita Sweet RN Position: [facility] PCO RN Member Role: Primary Care Nurse Name: Anastasiia Lassiter RN Position: [facility] RN Supv Member Role: Primary Care Nurse Name: Antoinette Schulte RN Position: [facility] RN Member Role: Primary Care Nurse Name: Amber Love MD Position: Reference Physician Member Role: PCP Address: Address: [address] [place] [id number]- Name: Tessa Rowe RN Position: [facility] RN Member Role: Primary Care Nurse Name: Maria M Samaniego Position: [facility] ED RN W/OE and Tasks Member Role: Patient Care Provider Name: Bo Bower Position: [facility] ED RN W/OE and Tasks Member Role: Patient Care Provider Name: Eran Carson DO Position: [facility] ED Medicine MD Member Role: ED Attending Physician Address: Address: [address] [place] [address] [place] [address]- Name: Sofie Gusman Position: [facility] ED TA [facility] Member Role: Patient Care Provider Care Team Related PersonsName: ASTRID ALEX Address: home [address] [place] [address]
== END 2022-12-09 16:30 | disposition home or self-care (01) ==
PROVIDERS: Emergency Provider Student in an Organized Health Care Education/Training Program; PCP Family Medicine
DX: S92.511A Displaced fracture of proximal phalanx of right lesser toe(s), initial encounter for closed fracture (principal); W22.03XA Walked into furniture, initial encounter; Y93.89 Activity, other specified; Y92.039 Unspecified place in apartment as the place of occurrence of the external cause; Y99.9 Unspecified external cause status; H54.8 Legal blindness, as defined in USA; Z97.0 Presence of artificial eye; Z98.2 Presence of cerebrospinal fluid drainage device
CPT/HCPCS: 73660; 99283; 99284

== ENCOUNTER 2022-12-25 11:02 | Outpatient (REF) | payer MEDICAID, SELFPAY ==
--- NOTE | ~2022-12-25 | XR_ITS ---
EXAMINATION: XR FOOT, RIGHT CLINICAL INFORMATION: Follow-up fourth toe fracture. COMPARISON: Right toe 12/09/2022 TECHNIQUE: AP, lateral, and oblique views of the right foot. FINDINGS: There is an oblique fracture mid segment proximal phalanx fourth digit with minimal displacement but unchanged. Rest of the right foot is unremarkable. The soft tissues are normal. The ankle mortise and subtalar joints are normal. XR/XR foot RT min 3V IMPRESSION: Oblique fracture mid segment proximal phalanx fourth digit with minimal displacement but unchanged from 12/09/2022 exam.
== END 2022-12-25 11:03 | disposition home or self-care (01) ==
LOC: HO.HOSX 11:02
PROVIDERS: Visit Provider Physician Assistant
DX: S92.351A Displaced fracture of fifth metatarsal bone, right foot, initial encounter for closed fracture (principal)
CPT/HCPCS: 73630; 99202

== ENCOUNTER 2023-03-19 07:07 | Outpatient (REF) | payer MEDICAID, SELFPAY ==
--- NOTE | ~2023-03-19 | XR_ITS ---
EXAMINATION: XR FOOT, RIGHT CLINICAL INFORMATION: Displaced fracture COMPARISON: Right foot radiograph from 12/25/2022 TECHNIQUE: AP, lateral, and oblique views of the right foot. FINDINGS: Redemonstration of oblique fracture involving the fourth proximal phalangeal diaphysis with decreased conspicuity suggesting interval healing. Joint spaces and alignment are otherwise maintained. Soft tissues are unremarkable. XR/XR foot RT min 3V IMPRESSION: Redemonstration of oblique fracture involving the fourth proximal phalangeal diaphysis with decreased conspicuity suggesting interval healing.
== END 2023-03-19 07:08 | disposition home or self-care (01) ==
LOC: HO.HOSX 07:07
PROVIDERS: Visit Provider Physician Assistant
DX: S92.351D Displaced fracture of fifth metatarsal bone, right foot, subsequent encounter for fracture with routine healing (principal); S92.911D Unspecified fracture of right toe(s), subsequent encounter for fracture with routine healing; X58.XXXD Exposure to other specified factors, subsequent encounter
CPT/HCPCS: 73630

== ENCOUNTER 2023-05-28 10:31 | Outpatient (REF) | payer MEDICAID, SELFPAY ==
[2023-05-28 15:22] LABS: Anion Gap 18 (12-20); Blood Urea Nitrogen 13 mg/dL (9-16); Calcium 10.4 mg/dL (8.4-10.2); Carbon Dioxide 22 mmol/L (22-29); Chloride 108 mmol/L (96-108); Estimated Glomerular Filt Rate > 60; Glucose Fasting 68 mg/dL (60-99); Potassium 4.6 mmol/L (3.3-5.1); Sodium 143 mmol/L (135-145)
== END 2023-05-28 10:32 | disposition home or self-care (01) ==
LOC: HO.CHCLDS 10:31
PROVIDERS: Visit Provider Internal Medicine
DX: K56.609 Unspecified intestinal obstruction, unspecified as to partial versus complete obstruction (principal)
CPT/HCPCS: 36415; 80048

== ENCOUNTER 2023-06-04 09:35 | Outpatient (REF) | payer MEDICAID, SELFPAY ==
--- NOTE | ~2023-06-04 | XR_ITS ---
EXAMINATION: XR SHOULDER, RIGHT CLINICAL INFORMATION: Right shoulder pain without injury COMPARISON: CT chest 11/19/2016 TECHNIQUE: AP external rotation, Grashey, scapular Y, and axillary views of the right shoulder. FINDINGS: There is an ovoid calcification seen in what may be the supraspinatus tendon suggesting tendinitis/tendinosis. On the prior CAT scan, no bone island could be seen in the right humeral head. The bones and soft tissues are otherwise unremarkable. No fracture. Glenohumeral and acromioclavicular alignment is anatomic with normal joint space. No additional abnormal soft tissue calcifications. XR/XR shoulder RT min 2V IMPRESSION: Calcific tendinitis/tendinosis.
== END 2023-06-04 09:36 | disposition home or self-care (01) ==
LOC: HO.HHCX 09:35
PROVIDERS: Visit Provider Registered Nurse
DX: M25.511 Pain in right shoulder (principal)
CPT/HCPCS: 73030

== ENCOUNTER 2023-12-13 14:06 | Outpatient (REF) | payer MEDICAID, SELFPAY ==
[2023-12-13 17:25] LABS: MANUAL DIFF FLAG NO
[2023-12-13 17:32] LABS: Basophils Percent Auto 0.1 % (0-2); Eosinophils Absolute Auto 0.1 X10*3/uL (0.0-0.4); Hematocrit 44.1 % (37.0-47.0); Hemoglobin 14.4 g/dl (12.0-16.0); Imm Gran Abs Auto 0.03 X10*3/uL (0.00-0.03); Imm Gran Pct Auto 0.4 % (0.0-0.4); Lymphocytes Absolute Auto 1.7 X10*3/uL (1.2-4.9); Lymphocytes Percent Auto 23.5 % (20-40); Mean Corpuscular HGB Conc 32.7 g/dl (31.0-35.0); Mean Corpuscular Hemoglobin 29.8 pg (27.0-33.0); Mean Corpuscular Volume 91.1 fL (80.0-98.0); Mean Platelet Volume 9.8 fL (9.4-12.3); Monocytes Absolute Auto 0.5 X10*3/uL (0.1-1.2); Monocytes Percent Auto 7.2 % (2-11); Neutrophils Absolute Auto 4.8 x10*3/uL (2.0-8.3); Neutrophils Percent Auto 67.8 % (45-73); Platelet Count 265 X10*3/uL (160-400); Red Blood Count 4.84 X10*6/uL (4.20-5.50); Red Cell Distribution Width 13.7 % (11.0-16.0); White Blood Count 7.1 X10*3/uL (4.8-10.8)
[2023-12-13 17:55] LABS: Alanine Aminotransferase 17 U/L (0-31); Albumin Level 4.3 g/dL (3.5-5.0); Alkaline Phosphatase 103 U/L (39-117); Anion Gap 12 (12-20); Aspartate Amino Transferase 17 U/L (5-31); Bilirubin Total 0.2 mg/dL (0.0-1.0); Blood Urea Nitrogen 13 mg/dL (9-16); C Reactive Protein 0.46 mg/dL (< or = 0.50); Calcium 9.6 mg/dL (8.4-10.2); Carbon Dioxide 27 mmol/L (22-29); Chloride 107 mmol/L (96-108); Estimated Glomerular Filt Rate 58; Glucose Random 92 mg/dL (60-115); Potassium 3.5 mmol/L (3.3-5.1); Sodium 142 mmol/L (135-145); Total Protein 7.1 g/dL (6.5-8.0)
[2023-12-13 18:11] LABS: Influenza A PCR NEGATIVE (Negative); Influenza B PCR NEGATIVE (Negative); Resp Syncy Virus RNA Qual PCR NEGATIVE (Negative); SARS COV2 PCR INHOUSE NEGATIVE (Negative)
[2023-12-13 18:13] LABS: TSH reflex Free T4 1.09 uIU/mL (0.32-4.0)
== END 2023-12-13 14:07 | disposition home or self-care (01) ==
LOC: HO.CHCLDS 14:06
PROVIDERS: Visit Provider Family Medicine
DX: R53.83 Other fatigue (principal); R53.81 Other malaise
CPT/HCPCS: 0241U; 36415; 80053; 84443; 85025; 86140

== ENCOUNTER 2024-01-23 10:38 | Outpatient (REF) | payer MEDICAID, SELFPAY ==
--- NOTE | ~2024-01-23 | XR_ITS ---
EXAMINATION: XR CHEST CLINICAL INFORMATION: History of smoking, evaluate for mass. Order states localized swelling, mass, lump on neck. End history of smoking, evaluation for mass. Patient's family states she noticed the swelling on both sides are in her neck and is painful. Patient has smoked for 40 years. Include some of the neck. COMPARISON: 08/11/2022, 02/10/2015. TECHNIQUE: 2 views of the chest were obtained. FINDINGS: There is no gross pneumothorax. Heart size is normal. No pleural effusion. No new focal consolidation to suggest pneumonia. Mild degenerative changes in the thoracic spine. Lungs are well inflated. XR/XR chest 2V IMPRESSION: 1. No evidence of pneumonia. 2. CT scan recommended for further evaluation if there is concern for a mass.
== END 2024-01-23 10:39 | disposition home or self-care (01) ==
LOC: HO.HHCX 10:38
PROVIDERS: Visit Provider Internal Medicine
DX: R22.1 Localized swelling, mass and lump, neck (principal)
CPT/HCPCS: 36415; 71046; 80048

== ENCOUNTER 2024-01-23 11:02 | Outpatient (REF) | payer MEDICAID, SELFPAY ==
[2024-01-23 13:56] LABS: Anion Gap 12 (12-20); Blood Urea Nitrogen 15 mg/dL (9-16); Carbon Dioxide 29 mmol/L (22-29); Chloride 107 mmol/L (96-108); Estimated Glomerular Filt Rate 51; Glucose Random 95 mg/dL (60-115); Potassium 4.9 mmol/L (3.3-5.1); Sodium 143 mmol/L (135-145)
== END 2024-01-23 11:03 | disposition home or self-care (01) ==
LOC: HO.HHCL 11:02
PROVIDERS: Visit Provider Internal Medicine
DX: R22.1 Localized swelling, mass and lump, neck (principal)
CPT/HCPCS: 36415; 80048

== ENCOUNTER 2024-01-25 09:27 | Outpatient (REF) | payer MEDICAID, SELFPAY ==
--- NOTE | ~2024-01-25 | CT_ITS ---
EXAMINATION: CT HEAD WITH CONTRAST CT SOFT TISSUE NECK WITH CONTRAST CLINICAL INFORMATION: Left-sided headache, tenderness and swelling of supraclavicular fossa COMPARISON: CT head 04/18/2017 TECHNIQUE: Following the administration of 85 mL of Omnipaque 350 intravenous contrast, helical imaging of the head and neck was performed in the axial plane with generation of coronal and sagittal reformatted images. This CT examination was performed using dose optimization techniques as appropriate, variously including the following: *Automated exposure control. *Adjustment of mA and/or kV according to patient size (this includes techniques or standardized protocols for targeted exams where dose is matched to indication/reason for exam; i.e. extremities or head). *Use of iterative reconstruction technique. DLP: 288 mGy-cm. FINDINGS: CT HEAD: Prior bifrontal craniotomy. Bilateral prostheses. There are numerous metallic fragments seen along the floor of the anterior cranial fossa, the orbits, and the ethmoid air cells. Chronic fracture deformities of the bilateral medial and lateral orbital moore with right orbital fixation hardware. Polypoid mucosal thickening in the ethmoid air cells Again seen is traumatic encephalomalacia/gliosis along the anterior inferior frontal lobes. Within the constraint of intravascular contrast, no acute intracranial hemorrhage is visualized. No acute, territorial loss of frey-white differentiation. No abnormal intracranial enhancement. The ventricles and sulci are appropriate in size and configuration for the patient's stated age. Periventricular and subcortical white matter hypodensity is nonspecific but likely represents chronic microvascular ischemic change. The mastoid air cells are well-aerated. Intracranial atherosclerotic calcification is noted. CT NECK: Nasopharynx/Skull Base: The fat planes at the skull base and the soft tissues of the nasopharynx are within normal limits. Suprahyoid Neck: Streak artifact from dental amalgam degrades evaluation of the oral cavity. Within this constraint, no exophytic mass/lesion is visualized. [place] tonsilliths. The parotid and submandibular glands are within normal limits. Infrahyoid Neck: The hypopharynx, larynx, and proximal subglottic airway are within normal limits. Thyroid: The thyroid is unremarkable without identifiable nodules. Nodes: No significant cervical lymph nodes by CT size criteria. Lung Apices: Apical pleural parenchymal scarring. 3 mm nodule in the right upper lobe. Per the 2017 revised Fleischner Society guidelines, no routine follow-up is necessarily required in low-risk patients, and consideration of 12 month follow-up CT is recommended for patients at high-risk for the development of pulmonary neoplasm. Tracheal secretions. Vascular Structures:The vascular structures are normal in appearance. Osseous Structures: Osseous findings as above. Other Findings: Limited intracranial evaluation is within normal limits. CT/CT soft tissue neck w IV con IMPRESSION: Chronic maxillofacial/orbital findings as above. Chronic encephalomalacia within the inferior frontal lobes. No abnormal intracranial enhancement. No significant lymphadenopathy or suspicious soft tissue lesion in the neck.
[2024-01-25] MEDS: iohexoL 350 MG/ML 100 ML INFUS..BTL 85 ML IV (11:06)
== END 2024-01-25 09:28 | disposition home or self-care (01) ==
LOC: HO.CT 09:27
PROVIDERS: PCP Family Medicine; Visit Provider Internal Medicine
DX: R51.9 Headache, unspecified (principal); R22.1 Localized swelling, mass and lump, neck
CPT/HCPCS: 70460; 70491; Q9967

== ENCOUNTER 2024-01-26 16:36 | Emergency (ER) | payer MEDICAID, SELFPAY ==
[2024-01-26 17:15] VITALS: BP 138/77; PULSE 71; RESP 18; TEMP 36.6; O2SAT 96; BMI 28.9
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
--- OUTSIDE RECORDS SUMMARY | 2024-01-26 17:31 | XMS_ITS | Continuity of Care Document ---
Author Name Unknown Organization [facility] [place] Address [address] [place] [address]- Care Team Providers Care Irrigation Teacher Name Role Phone Ivan PEREZ, Amber Primary Care Physician Encounter [facility] Date(s): 09/13/23 - 10/13/23 [facility] [place] [address] [place], [place] [address] Allergies, Adverse Reactions, Alerts Substance Reaction Severity Status aspirin throat closed up Active Latex blisters rash Active Immunizations Given and Recorded Vaccine Date Status Refusal Reason pneumococcal 23-valent vaccine 11/24/17 Given influenza virus vaccine, inactivated 11/24/17 Give n Medications amitriptyline 50 mg oral tablet TAKE 1 TABLET BY MOUTH AT BEDTIME Start Date: 11/10/22 Status: Ordered colestipol 1 gm oral tablet 1 tablet = 1 Gm, By Mouth, 2 times a day, # 60 tablet, 5 Refills, Maintenance, 07/17/23 15:17:00 EDT, Tablet, [id number], Partial fill upon patient request if the prescription is for a schedule II opioid drug., 158, cm, 07/17/23 14:44:00 EDT,... Start Date: 07/17/23 Stop Date: 01/13/24 Status: Ordered D3 50 mcg (2000 intl units) oral capsule TAKE 1 CAPSULE BY MOUTH EVERY DAY Start Date: 11/10/22 Status: Ordered gabapentin 600 mg oral tablet TAKE 1 TABLET BY MOUTH TWO TIMES DAILY Start Date: 11/10/22 Status: Ordered omeprazole 40 mg oral enteric coated capsule 1 capsule = 40 mg, By Mouth, Daily, # 90 capsule, 2 Refills, Maintenance, 01/19/23 14:35:00 EDT, ECCapsule, [id number], Partial fill upon patient request if the prescription is for a schedule II opioid drug., 158, cm, 01/05/23 13:41:00 EST, H... Start Date: 01/19/23 Status: Ordered pravastatin 10 mg oral tablet TAKE 1 TABLET BY MOUTH EVERY DAY Start Date: 11/10/22 Status: Ordered Problem List Condition Confirmation Course Effective Dates Status Health St atus Informant Abdominal bloating Confirmed Active Abdominal pain, left lower quadrant Confirmed Active 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 Acquired blindness Confirmed Active Burning epigastric pain Confirmed Active Burning reflux Confirmed Active Celiac sprue Confirmed Active Chest wall pain 1 Confirmed Active Diagnostic colonoscopy Confirmed Active Heartburn symptom Confirmed Active History of cancer of left breast Confirmed Active Local recurrence of cancer of left breast Confirmed Active History of Breast cancer, Left, IDC, pT1B, pN0, stage I, ER positive, [place] positive, HER-2/jese negative.2012 Confirmed Active Dense breast tissue on mammogram Confirmed Active Odynophagia Confirmed Active Pain of right breast Confirmed Active Tobacco dependence Confirmed Active 1After heavy lifting Social History Social History Type Response Smoking Status Former smoker, quit more than 30 days ago; Interested in cessation: Yes; Other: in the process of quitting, prior to smoking cessation, pt smoked about 1/2 ppd x 45 yrs; entered on: 07/16/23 Sex Patient Care team information Care Team Personnel Name: Shanel Vega Position: [facility] Onco RN Member Role: Primary Care Nurse Name: Sandrita Basilio RN Position: [facility] RN Member Role: Primary Care Nurse Name: Tessa Zuniga RN Position: [facility] RN Member Role: Primary Care Nurse Name: Becca Ely RN Position: [facility] RN Member Role: Primary Care Nurse Name: Anastasiia Lassiter RN Position: [facility] RN Supv Member Role: Primary Care Nurse Name: Antoinette Schulte RN Position: [facility] RN Member Role: Primary Care Nurse Name: Poornima Aguilar [place] Position: S Outreach Member Role: Lifetime Consulting Physician Name: Amber Love MD Position: Reference Physician Member Role: PCP Address: Address: [address] [place] [address]- [place] Care Team Related Persons Name: RESENDIZALEX Address: home [address] [place] [address]
--- OUTSIDE RECORDS SUMMARY | 2024-01-26 17:31 | XMS_ITS | Continuity of Care Document ---
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 performed during your hospitalization. You may have had other tests and procedures not included in this list. Please discuss all test results with your provider. BUN Calcium Level CBC CBC w/ Differential Comprehensive Metabolic Panel COVID-19 (2019 Novel Coronavirus) PCR Creatinine Electrolytes Glucose Level HEPATIC FUNCTION PANEL Hold Blue Top Tube HOLD GEL TUBE HOLD LAVENDER TUBE Lactate Level Lactic Acid Level LIPASE Magnesium Level Urinalysis w/hold for Urine Culture CT Abd/Pelvis W/ IV Contrast Only Small Bowel Series XR Abdomen AP Primary Care Provider Amber Love MD Advance Directive . Discharge Vitals Temperature: 97.6 DegF Height: 158 cm Pulse Rate: 70 bpm Weight: 71.4 kg Respiratory Rate: 18 br/min Body Mass Index:??28.6 kg/m2??High Systolic Blood Pressure: 130 mm Hg Body surface area: 1.77 Diastolic Blood Pressure:??86 mm Hg??High ?? Oxygen Saturation: 95 % ?? Studies Pending All tests and labs ordered during this hospital stay have been completed unless listed below. Please discuss all pending results with your provider listed above in these instructions. ?? Add On Lab Order What to do next Instructions From Your Doctor Call to schedule an appointment with your primary care provider, Ivan Clark, to be seen within 1 week. Your kidney function and electrolytes should be rechecked within 1 week to check adequate dietary intake. You have been prescribed zofran as needed for nausea for 1 week. Your primary care provider can refill this if needed. I have renewed your oxycodone for 5 days if you need this. You have also been prescribed metronidazole to take every 8 hours until there are no remaining tablets. Take your first dose around 5pm tonight. ?? Return to the ED if you have worsening abdominal pain and/or are unable to tolerate food. Discharge Orders Scheduled Follow-Up Appointments Sunday 9:00 AM EDT ?? Where: [facility] Radiology [facility] [address], [address] [place] [address]- Status: Pending You Need to Schedule the Following Appointments Follow Up with??Amber Love MD Where: [address] [place] [address]- Discharge Medications SERA MEEHAN :1960 Visit Date:03/22/2023 Medications: Please continue your medications until treatment is completed or stopped by your provider. Medications not listed below should be discontinued. Discuss any questions related to medications with your provider. What How Much When Instructions Next Dose New Metronidazole (metroNIDAZOLE 500 mg oral tablet) 1 tab(s) Oral Every 8 hours Duration: 3 Days Pickup at [facility]/pharmacy #[id number] ??TODAY AT 3PM New Ondansetron (ondansetron 8 mg oral tablet, disintegrating) 1 tab(s) Oral 3 times a day as needed for Nausea & Vomiting Duration: 7 Days Pickup at [facility]/pharmacy #[id number] NEEDED Changed Oxycodone (oxyCODONE 5 mg oral tablet) 1 tab(s) Oral Every 6 hours Duration: 5 Days TAKE 1 TABLET BY MOUTH EVERY TWELVE HOURS ?? Pickup at [facility]/pharmacy #[id number] TONIGHT Unchanged amiTRIPTYLINE (amitriptyline 50 mg oral tablet) TAKE 1 TABLET BY MOUTH AT BEDTIME ?? TONIGHT Unchanged Cholecalciferol (D3 50 mcg (2000 intl units) oral capsule) TAKE 1 CAPSULE BY MOUTH EVERY DAY ?? TOMORROW AM Unchanged Gabapentin (gabapentin 600 mg oral tablet) TAKE 1 TABLET BY MOUTH TWO TIMES DAILY ?? TONIGHT Unchanged Omeprazole (omeprazole 40 mg oral enteric coated capsule) 1 capsule Oral Daily TOMORROW AM Unchanged Pravastatin (pravastatin 10 mg oral tablet) TAKE 1 TABLET BY MOUTH EVERY DAY ?? TOMORROW AM Pharmacy Information [facility]/pharmacy #[id number]: [address] [place], [place] [id number] [phone] ?? What How Much When Comments Stop Taking Acetaminophen (acetaminophen 650 mg oral tablet, extended release) TAKE 1 TABLET BY MOUTH EVERY 8 HOURS NEEDED FOR MILD PAIN. DO NOT BREAK, CRUSH, DISSOLVE OR CHEW?? Stop Taking Diclofenac (diclofenac sodium 100 mg oral tablet, extended release) TAKE 1 TABLET BY MOUTH DAILY ?? Stop Taking DiphenhydrAMINE (diphenhydrAMINE 25 mg oral capsule) TAKE 1 CAPSULE BY MOUTH EVERY 4 TO 6 HOURS NEEDED ?? Stop Taking Docusate (docusate sodium 100 mg oral capsule) TAKE 1 CAPSULE BY MOUTH TWICE DAILY ?? Stop Taking Docusate (docusate sodium 100 mg oral capsule) 1 capsule Oral Twice a day as needed for for constipation Stop Taking Famotidine (famotidine 40 mg oral tablet) TAKE 1 TABLET BY MOUTH AT BEDTIME ?? Stop Taking Melatonin (Melatonin 5 mg oral tablet) TAKE 1 TABLET BY MOUTH 1 HOUR BEFORE BEDTIME ?? Stop Taking Methylcellulose (methylcellulose 500 mg oral tablet) TAKE 1 TABLET BY MOUTH TWICE DAILY ?? Stop Taking Pantoprazole (pantoprazole 40 mg oral delayed release tablet) TAKE 1 TABLET BY MOUTH TWICE DAILY ?? Stop Taking Polyethylene Glycol 3350 (GaviLAX oral powder for reconstitution) MIX 17 GRAMS IN 4-8 OUNCES WATER, JUICE, MILK, COFFEE AND DRINK ONCE DAILY ?? Stop Taking Senna (Senna 8.6 mg oral tablet) TAKE 2 TABLETS BY MOUTH DAILY ?? Stop Taking Sucralfate (Carafate 1 gm oral tablet) 1 tab(s) Oral 4 times a day Duration: 30 Days Test Results Below is a partial list of the most recent Laboratory test results done prior to this discharge. You may have had other tests and procedures not included in this list. Please discuss all test resultswith your provider. Est Creatinine Clearance - 68.23 mL/min (03/27/2023) BUN (03/27/2023) ???BUN - 10 mg/dL Calcium Level (03/23/2023) ???Calcium - 9.3 mg/dL CBC (03/25/2023) ???WBC - 7.2 k/mm3???RBC - 4.97 m/mm3???Hgb - 15.1 Gm/dL???Hct - 46.0 %???MCV - 92.6 femtoliters???MCH - 30.4 pg???MCHC - 32.8 g/dL???Platelet Count - 291 k/mm3???RDW-SD - 45.4 femtoliters???MPV - 9.1 femtoliters???Nucleated RBC (Automated) - 0.0 #/100 WBC'S???Abs. NRBC - 0.0 k/mm3 CBC w/ Differential (03/22/2023) ???WBC - 11.8 k/mm3???RBC - 4.80 m/mm3???Hgb - 14.7 Gm/dL???Hct - 44.2 %???MCV - 92.1 femtoliters???MCH - 30.6 pg???MCHC - 33.3 g/dL???Platelet Count - 297 k/mm3???RDW-SD - 46.8 femtoliters???MPV - 9.0 femtoliters???Nucleated RBC (Automated) - 0.0 #/100 WBC'S???Abs. NRBC - 0.0 k/mm3???Abs. Neut - 8.9 k/mm3???Abs. Lymph - 1.9 k/mm3???Abs. Craig - 0.8 k/mm3???Abs. Eo - 0.1 k/mm3???Abs. Baso - 0.0 k/mm3???Neut % - 75.2 %???Lymph % - 16.4 %???Craig % - 6.5 %???Eos % - 0.8 %???Baso % - 0.2 %???Imm Gran - 0.9 %???Abs. Imm Gran - 0.1 k/mm3 Comprehensive Metabolic Panel (03/22/2023) ???Sodium - 140 mmol/L???Potassium - 4.0 mmol/L???Chloride - 102 mmol/L???Bicarbonate Level - 25 mmol/L???Anion Gap - 13???Glucose Level - 111 mg/dL???BUN - 12 mg/dL???Creatinine-Blood - 0.8 mg/dL???Estimated GFR Creatinine - 84 ML/MIN/1.73 M2???Calcium - 9.7 mg/dL???Protein, Total - 7.3 Gm/dL???Albumin - 4.6 Gm/dL???AG Ratio - 1.7???Alkaline Phosphatase - 103 units/L???AST (SGOT) - 17 units/L???ALT (SGPT) - 17 units/L???Bilirubin, Total - 0.3 mg/dL COVID-19 (2019 Novel Coronavirus) PCR (03/22/2023) ???COVID-19 PCR Specimen Source - NASAL???COVID-19 PCR Result - NEGATIVE Creatinine (03/27/2023) ???Creatinine-Blood - 0.7 mg/dL???Estimated GFR Creatinine - 99 ML/MIN/1.73 M2 Electrolytes (03/27/2023) ???Sodium - 138 mmol/L???Potassium - 3.7 mmol/L???Chloride - 101 mmol/L???Bicarbonate Level - 23 mmol/L???Anion Gap - 14 Glucose Level (03/27/2023) ???Glucose Level - 106 mg/dL HEPATIC FUNCTION PANEL (03/25/2023) ???Protein, Total - 7.5 Gm/dL???Albumin - 4.3 Gm/dL???Alkaline Phosphatase - 92 units/L???AST (SGOT) - 32 units/L???ALT (SGPT) - 21 units/L???Bilirubin, Total - 0.4 mg/dL???Bilirubin, Direct - 0.1 mg/dL???Bilirubin, Indirect - 0.3 mg/dL Hold Blue Top Tube (03/22/2023) ???Hold Blue Top - SPECIMEN DISCARDED AFTER 4 HOURS. HOLD GEL TUBE (03/22/2023) ???Hold Gel Top - SPECIMEN DISCARDED AFTER 1 WEEK HOLD LAVENDER TUBE (03/27/2023) ???Hold Lavender Top - SPECIMEN DISCARDED AFTER 24 HOURS. Lactate Level (03/25/2023) ???Lactate - 1.1 mmol/L Lactic Acid Level (03/22/2023) ???Lactate - 1.9 mmol/L LIPASE (03/25/2023) ???Lipase - 34 units/L Magnesium Level (03/27/2023) ???Magnesium - 2.0 mg/dL Urinalysis w/hold for Urine Culture (03/22/2023) ???Appear/Color, Urine - YELLOW???Clarity - CLEAR???Specific Herald, Urine - 1.015???pH, Urine - 6.5???Albumin, Urine - NEGATIVE???Glucose, Urine - NEGATIVE???Ketones, Urine - NEGATIVE???Bilirubin, Urine - NEGATIVE???Hemoglobin, Urine - NEGATIVE???Nitrite, Urine - NEGATIVE???Leukocyte, Urine - NEGA TIVE???Urobilinogen - NORMAL???Hold Urine Culture - Testing available 48 hours from time of collection. Allergies (NKA means No Known Allergies) Latex??(blisters, rash) aspirin??(throat closed up) Problems Active Problems??(17) Abdominal bloating?? Abdominal pain, left lower quadrant?? Acquired absence of left breast and nipple?? Acquired blindness?? Burning epigastric pain?? Burning reflux?? Celiac sprue?? Chest wall pain?? Dense breast tissue on mammogram?? Diagnostic colonoscopy?? Heartburn symptom?? History of Breast cancer, Left, IDC, pT1B, pN0, stage I, ER positive, TN positive, HER-2/jese negativ?? History of cancer of left breast?? Local recurrence of cancer of left breast?? Odynophagia?? Pain of right breast?? Tobacco dependence?? Education Materials Below is the list of Educational Leaflet Providered with your Discharge Instructions. Oxycodone Oral Tablet 5 mg?? Ondansetron Disintegrating Oral Tablet?? Metronidazole Oral Tablet?? GERD (Gastroesophageal Reflux Disease)?? Valuables and Belongings I fully understand and agree that [facility] accepts no responsibility for all my [...] Review of Valuable and Belonging List: With patient, With family Disposition of Belongings: Sent home with patient/family Date for Pt to Sign Valuables/Belongings: 03/22/23 23:02:00 ?? Other Discharge Information ? Pulmonary Rehab Status?? Pulmonary Rehab Discharge Status?? Respiratory Rate: 18 br/min ? Common Emergency Awareness Tips IS [...] are strongly encouraged to quit. Please call [facility] at [phone] or [phone] ([phone]) or log in to [email or web address] for referrals to smoking cessation programs. ?? 967 Suicide & Crisis Lifeline is available 21/05 if you or someone you know needs to find a reason to keep living. By calling 397 you'll be connected to a skilled, trained counselor at a crisis center in your area. INPATIENT DISCHARGE INSTRUCTIONS SIGNATURE MARIVEL SERA MEEHAN Location:[facility] Registration Date and Time:03/22/2023 20:38 EDT Primary Care Physician: Amber Love MD, Attending Physician: Rajesh Desouza DO, SERA DICK, have received the above patient education materials/instructions and have verbalized understanding. If ambulance or transport services are being used I further acknowledge being givena choice of service. ?? If you need to contact me, please call me at this number: . Patient/Director Of Infection Prevention Name: Patient/Director Of Infection Prevention Signature: Relationship to Patient: Witness Name/Signature: Date: * Maritza Parker RN: PERFORM Event Display: Patient Education Leaflets Authored Date: [id number] Oxycodone Oral Tablet 5 mg ?? [id number] Oxycodone Oral Tablet 5 mg Usos Para el dolor. ?? Instrucciones Las tabletas de algunas marcas de francisca medicamento deben tragarse enteras, mientras que las de otras marcas pueden triturarse. Preg??ntele a armas farmac??utico c??mo debe maximus francisca medicamento. Francisca medicamento se puede maximus con o sin alimentos. Tragar con un vaso de agua lleno (8 onzas), a menos que armas m??dico le d?? otras instrucciones. Guarde a temperatura ambiente, alejado del calor, la mike y la humedad. No lo guarde en el ba??o. Pregunte a armas m??dico, enfermero o farmac??utico c??mo desechar de forma rangel los medicamentos sin usar. Para reducir el estre??imiento, consuma alimentos con alto contenido de fibra, beronica daniel agua y danielle ejercicio. Evite maximus jugo de pomelo o toronja mientras est?? usando francisca medicamento. Las interacciones con otros medicamentos pueden cambiar la forma en que act??an los medicamentos o aumentar el riesgo de presentar efectos secundarios. Informe a nicky profesionales sanitarios acerca de todos los medicamentos que usa. Harts incluye medicamentos con y sin receta m??dica, vitaminas y medicamentos a base de hierbas. Hable con armas m??dico o farmac??utico antes de empezar o dejar de usar cualquier medicamento. Informe a armas m??dico si nicky s??ntomas no mejoran o si empeoran. Es posible que salgan trozos de francisca medicamento en las heces. Harts es normal. ?? Precauciones Francisca medicamento contiene un opioide. Aunque los opioides ayudan a muchas personas, pueden causar adicci??n, en especial si se usan donaldo anat tiempo. El riesgo de adicci??n es mayor si usted padece un trastorno de uso de sustancias (uso excesivo de drogas o alcohol, o adicci??n a estas sustancias). Preg??ntele a armas m??dico acerca de los beneficios y los riesgos. Pregunte a armas m??dico o a armas farmac??utico si usted debe tener naloxona disponible para tratar maricarmen sobredosis por opioides. Ens?selam a nicky familiares o a las personas que viven con usted a identificar los signos de maricarmen sobredosis por opioides y c??mo tratarla. Si kayce de usar francisca medicamento repentinamente despu??s de haberlo usado donaldo anat tiempo, es posible que tenga s??ntomas de abstinencia. Armas m??dico podr??a reducir armas dosis lentamente antes de que deje de usarlo. Informe a armas m??dico de inmediato si tiene s??ntomas, por ejemplo, sudoraci??n inusual, ojos llorosos, goteo nasal, escalofr??os, diarrea, bostezos, ligia musculares, inquietud, ansiedad, problemas para dormir o pensamientos suicidas. Informe a armas m??dico y a armas farmac??utico si alguna vez lewis tenido maricarmen reacci??n al??rgica a un medicamento. No use el medicamento m??s veces de lo indicado. Francisca medicamento puede causar mareos o desmayo, sobre todo despu??s de hacer ejercicio o en clima c??lido. Tenga cuidado cuando se pare o se siente con rapidez. Si es posible, evite el uso con alcohol, marihuana u otros medicamentos que puedan causar mareos o somnolencia. Entre estos se incluyen productos para tratar alergias o resfriados, relajantes musculares, medicamentos para ayudar a dormir y medicamentos para aliviar el dolor. Francisca medicamento puede afectar armas capacidad de mantenerse alerta o de reaccionar con rapidez. No maneje ni opere m??quinas hasta que sepa qu?? efecto le provocar?? francisca medicamento. Francisca medicamento pasa a la leche materna. Consulte a armas m??dico antes de amamantar. Francisca medicamento puede causar da??os a un beb?? en el ??tero. Si queda embarazada mientras usa estemedicamento, av??kesha a armas m??dico de inmediato. El m??dico puede cambiar el medicamento por otro diferente. Los pacientes con dificultades de respiraci??n deben usar francisca medicamento con precauci??n. Llame a armas m??dico inmediatamente si observa que la respiraci??n es lenta o superficial. No comparta francisca medicamento con otras personas a quienes no se les recet??. Algunos pacientes presentan efectos secundarios graves con francisca medicamento. P??jem a armas farmac??utico que le muestre la informaci??n de la Administraci??n de Alimentos y Medicamentos (FDA) y que laanalice con usted. ?? Efectos Secundarios La siguiente es maricarmen lista de algunos efectos secundarios comunes de francisca medicamento. Hable con el m??dico para saber qu?? debe hacer en mp de tener estos u otros efectos secundarios. ??? p??rdida de apetito ??? estre??imiento ??? mareos o aturdimiento ??? mareo ??? n??useas y v??mitos Llame al m??dico u obtenga atenci??n m??dica de inmediato si nota cualquiera de estos efectos secundarios m??s graves: ??? sensaci??n de agitaci??n o dificultad para dormir ??? reducci??n del nivel de conciencia o de las reacciones ??? interrupci??n de la respiraci??n donaldo el anjelica??o ??? respiraci??n r??pida e irregular ??? confusi??n ??? desmayo ??? alucinaciones (pensamientos extra??os, jose u o??r cosas que no son reales) ??? convulsiones ??? dolor intenso del est??kelsi o las v??as digestivas ??? cansancio o debilidad, extra??o o sin causa aparente ??? dificultad o molestia al orinar ??? p??rdida de peso Algunas personas podr??an tener reacciones al??rgicas a francisca medicamento. Entre los s??ntomas pueden incluirse: dificultad para respirar, erupci??n en la piel, comez??n, hinchaz??n o mareos intensos.Si nota algunos de estos s??ntomas, busque asistencia m??dica r??pidamente. ?? Extra Hable con armas m??dico, enfermero o farmac??utico si tiene alguna pregunta acerca de francisca medicamento. ?? [email or web address] NOTA IMPORTANTE: En francisca documento hay maricarmen explicaci??n breve sobre c??mo usar el medicamento, perono incluye todo lo que hay que saber acerca del medicamento. Armas m??dico o armas farmac??utico podr??a suministrarle otros documentos acerca de armas medicamento. Comun??quese con ellos si tiene alguna pregunta. Siga siempre nicky consejos. Maricarmen descripci??n m??s completa de francisca medicamento est?? disponibleen ingl??s. Escanee francisca c??digo en armas tel??fono inteligente o en armas tableta, o use la direcci??n web que aparece a continuaci??n. Tambi??n puede pedirle a armas farmac??utico maricarmen copia impresa. Si tiene alguna pregunta, h??gasela a armas farmac??utico. La exhibici??n y el uso de esta informaci??n sobre f??rmacos est?? sujeta a los T??rminos de Uso. Copyright(c) 2022 [employer]. ?? [id number] [employer], [employer]. All rights reserved. This information is not intended as a substitute for professional medical care. Always follow your healthcare professional's instructions. ?? * Maritza Parker RN: PERFORM Event Display: Patient Education Leaflets Authored Date: [id number] Ondansetron Disintegrating Oral Tablet ?? [id number] Ondansetron Disintegrating Oral Tablet Usos Para n??useas o v??mitos. ?? Instrucciones Deje que el medicamento se disuelva en la lengua y luego tr??guelo. Mantenga el medicamento a temperatura ambiente, alejado gemma y el calor. Informe a armas m??dico si suda, tiene diarrea o vomita mucho o continuamente. Pueden aumentar armas riesgo de tener un efecto secundario grave. Si utiliza francisca medicamento regularmente, es importante que utilice cada dosis a la hora indicada. Siga utilizando el medicamento incluso si se siente wolfgang. Si olvida maximus maricarmen dosis a tiempo, t??adams schulz pronto lo recuerde. Si es janay la hora de la dosis siguiente, no tome la dosis olvidada. Vuelva al horario normal. No tome dos dosis al mismo tiempo. Las interacciones con otros medicamentos pueden cambiar la forma en que act??an los medicamentos o aumentar el riesgo de presentar efectos secundarios. Informe a nicky profesionales sanitarios acerca de todos los medicamentos que usa. Harts incluye medicamentos con y sin receta m??dica, vitaminas y medicamentos a base de hierbas. Hable con armas m??dico o farmac??utico antes de empezar o dejar de usar cualquier medicamento. Informe a armas m??dico si nicky s??ntomas no mejoran o si empeoran. Es muy importante que asista a todas las citas para evaluaciones y pruebas m??dicas mientras usa francisca medicamento. ?? Precauciones Informe a armas m??dico y a armas farmac??utico si alguna vez lewis tenido maricarmen reacci??n al??rgica a un medicamento. Algunos pacientes que edgar esta medicina vu experimentado graves efectos secundarios. Hable con armas m??dico para entender los riesgos y los beneficios relacionados con esta medicina. No use el medicamento m??s veces de lo indicado. Consulte a armas m??dico antes de beber alcohol mientras usa francisca medicamento. Llame al m??dico si hay alguna se??al de confusi??n o cambios extra??os de conducta. Se desconoce si francisca medicamento pasa a la leche materna. Consulte a armas m??dico antes de amamantar. Donaldo el embarazo, francisca medicamento solo debe usarse cuando sea claramente necesario. Hable con armas m??dico acerca de los riesgos y beneficios. No tome hierba de [place] mientras use francisca medicamento. No comparta francisca medicamento con otras personas a quienes no se les recet??. ?? Efectos Secundarios La siguiente es maricarmen lista de algunos efectos secundarios comunes de francisca medicamento. Hable con el m??dico para saber qu?? debe hacer en mp de tener estos u otros efectos secundarios. ??? estre??imiento ??? mareos o aturdimiento ??? falta de energ??a y cansancio ??? ligia de irena Llame al m??dico u obtenga atenci??n m??dica de inmediato si nota cualquiera de estos efectos secundarios m??s graves: ??? sensaci??n de agitaci??n o dificultad para dormir ??? p??rdida de equilibrio ??? diarrea ??? desmayo ??? fiebre ??? alucinaciones (pensamientos extra??os, jose u o??r cosas que no son reales) ??? latidos del coraz??n acelerados o irregulares ??? ligia musculares, espasmos o movimientos anormales ??? temblor muscular ??? dolor de est??kelsi ??? visi??n borrosa o cambios en la visi??n ??? v??yudi intenso o persistente Algunas personas podr??an tener reacciones al??rgicas a francisca medicamento. Entre los s??ntomas pueden incluirse: dificultad para respirar, erupci??n en la piel, comez??n, hinchaz??n o mareos intensos.Si nota algunos de estos s??ntomas, busque asistencia m??dica r??pidamente. ?? Extra Hable con armas m??dico, enfermero o farmac??utico si tiene alguna pregunta acerca de francisca medicamento. ?? [email or web address] NOTA IMPORTANTE: En francisca documento hay maricarmen explicaci??n breve sobre c??mo usar el medicamento, perono incluye todo lo que hay que saber acerca del medicamento. Armas m??dico o armas farmac??utico podr??a suministrarle otros documentos acerca de armas medicamento. Comun??quese con ellos si tiene alguna pregunta. Siga siempre nicky consejos. Maricarmen descripci??n m??s completa de francisca medicamento est?? disponibleen ingl??s. Escanee francisca c??digo en armas tel??fono inteligente o en armas tableta, o use la direcci??n web que aparece a continuaci??n. Tambi??n puede pedirle a armas farmac??utico maricarmen copia impresa. Si tiene alguna pregunta, h??gasela a armas farmac??utico. La exhibici??n y el uso de esta informaci??n sobre f??rmacos est?? sujeta a los T??rminos de Uso. Copyright(c) 2022 [employer], [employer]. ?? [id number] [employer], [employer]. All rights reserved. This information is not intended as a substitute for professional medical care. Always follow your healthcare professional's instructions. ?? * Maritza Parker RN: PERFORM Event Display: Patient Education Leaflets Authored Date: [id number] Metronidazole Oral Tablet ?? [id number] Metronidazole Oral Tablet Brands: Flagyl Usos Para la infecci??n. ?? Instrucciones Tragar con un vaso de agua lleno (8 onzas), a menos que armas m??dico le d?? otras instrucciones. Puede tomarse con alimentos para prevenir molestias estomacales. Francisca medicamento funciona mejor si se usa a aproximadamente la misma hora todos los d??as. Espere la misma cantidad de tiempo entre maricarmen dosis y la siguiente para mantener maricarmen cantidad continua de medicamento en el organismo. Mantenga el medicamento a temperatura ambiente, alejado gemma y el calor. Si olvida maximus maricarmen dosis a tiempo, t??adams schulz pronto lo recuerde. Si es janay la hora de la dosis siguiente, no tome la dosis olvidada. Vuelva al horario normal. No tome dos dosis al mismo tiempo. Las interacciones con otros medicamentos pueden cambiar la forma en que act??an los medicamentos o aumentar el riesgo de presentar efectos secundarios. Informe a nicky profesionales sanitarios acerca de todos los medicamentos que usa. Harts incluye medicamentos con y sin receta m??dica, vitaminas y medicamentos a base de hierbas. Hable con armas m??dico o farmac??utico antes de empezar o dejar de usar cualquier medicamento. Informe a armas m??dico si nicky s??ntomas no mejoran o si empeoran. Siga usando francisca medicamento donaldo el n??camron total de d??as que se lo recetaron. No deje de usarel medicamento, incluso si empieza a sentirse mejor. Es muy importante que asista a todas las citas para evaluaciones y pruebas m??dicas mientras usa francisca medicamento. ?? Precauciones Informe a armas m??dico y a armas farmac??utico si alguna vez lewis tenido maricarmen reacci??n al??rgica a un medicamento. No use el medicamento m??s veces de lo indicado. Francisca medicamento puede afectar armas capacidad de mantenerse alerta o de reaccionar con rapidez. No maneje ni opere m??quinas hasta que sepa qu?? efecto le provocar?? francisca medicamento. Evite el alcohol y los productos que contengan glicol de propileno donaldo el tratamiento con francisca medicamento y 3 d??as despu??s. Hable con armas proveedor de atenci??n m??dica antes de aplicarse cualquier vacuna. D??gale a armas m??dico si tiene diarrea moderada a intensa mientras usa francisca medicamento. No use medicamentos de venta joann (sin receta) para tratar la diarrea. Informe a armas m??dico o farmac??utico si est?? o planea quedar embarazada, o si est?? amamantando. No comparta francisca medicamento con otras personas a quienes no se les recet??. ?? Efectos Secundarios La siguiente es maricarmen lista de algunos efectos secundarios comunes de francisca medicamento. Hable con el m??dico para saber qu?? debe hacer en mp de tener estos u otros efectos secundarios. ??? p??rdida de apetito ??? diarrea ??? mareos ??? ligia de irena ??? n??useas y v??mitos ??? indigesti??n estomacal o dolor abdominal ??? cambios en el sabor o sabor desagradable Llame al m??dico u obtenga atenci??n m??dica de inmediato si nota cualquiera de estos efectos secundarios m??s graves: ??? confusi??n ??? adormecimiento u hormigueo en las rika y los pies ??? dolor de irena intenso opersistente ??? signos de da??o hep??romina (tales pedro ojos o piel amarillentos, orina oscura o cansancio inusual) ??? convulsiones ??? inestabilidad al caminar ??? dificultad o molestia al orinar ???picor en la vagina o infecci??n vaginal por c??ndida ??? cambio o p??rdida s??rashaad de la visi??n Algunas personas podr??an tener reacciones al??rgicas a francisca medicamento. Entre los s??ntomas pueden incluirse: dificultad para respirar, erupci??n en la piel, comez??n, hinchaz??n o mareos intensos.Si nota algunos de estos s??ntomas, busque asistencia m??dica r??pidamente. ?? Extra Hable con armas m??dico, enfermero o farmac??utico si tiene alguna pregunta acerca de francisca medicamento. ?? [email or web address] NOTA IMPORTANTE: En francisca documento hay maricarmen explicaci??n breve sobre c??mo usar el medicamento, perono incluye todo lo que hay que saber acerca del medicamento. Armas m??dico o armas farmac??utico podr??a suministrarle otros documentos acerca de armas medicamento. Comun??quese con ellos si tiene alguna pregunta. Siga siempre nicky consejos. Maricarmen descripci??n m??s completa de francisca medicamento est?? disponibleen ingl??s. Escanee francisca c??digo en armas tel??fono inteligente o en armas tableta, o use la direcci??n web que aparece a continuaci??n. Tambi??n puede pedirle a armas farmac??utico maricarmen copia impresa. Si tiene alguna pregunta, h??gasela a armas farmac??utico. La exhibici??n y el uso de esta informaci??n sobre f??rmacos est?? sujeta a los T??rminos de Uso. Copyright(c) 2022 [employer]. ?? 3097-0133 [employer]. All rights reserved. This information is not intended as a substitute for professional medical care. Always follow your healthcare professional's instructions. ?? CT Abdomen and Pelvis W contrast IV * SPowerscriham , CIS S: TRANSCRIMikaela Galvan MD: VERIFY Event Display: Result: Authored Date: CT Abd/Pelvis W/ IV Contrast Only Hx of Present Illness: abd pain since last night with nause, reports it feels similar to when she had cholecystits(has had a chlo); Reason: Pain; Clinical Question(s): Diverticulitis TECHNIQUE: Spiral CT through the abdomen and pelvis with IV contrast formatted in 3 planes. 100 cc of Omnipaque 300 was administered intravenously. This study was performed without oral contrast. Weight-based protocol using automatic tube modulation was used to optimize exposure parameters. COMPARISON: 12/06/2022 FINDINGS: Temporary Administrative Assistant View Findings, Lines and Tubes: Cholecystectomy clips in the right lower quadrant Visualized Chest: Mild bilateral dependent atelectasis. No pleural effusion. No pericardial effusion. Normal heart size. Diaphragm: Normal. Liver: Diffuse low-attenuation throughout the liver parenchyma consistent with hepatic steatosis. No evidence of mass. Gallbladder: Absent consistent with prior cholecystectomy. Bile ducts: No biliary ductal dilation. Spleen: Normal. Pancreas: Normal. Adrenal glands: Normal. Kidneys and ureters: No hydronephrosis, stones, or suspicious masses. Small hypodensities that are too small to characterize are noted, requiring no dedicated follow up. Bladder: Normal. Reproductive organs: Partially calcified 1.5 cm subserosal fibroid along the anterior myometrium additional small scattered fibroids seen in the uterus.. Stomach, small bowel, and large bowel: The stomach is moderately distended and unremarkable. The proximal small bowel loops are unremarkable. There is mild dilatation of the mid to distal small bowelloops, with fecalization of the distal ileal loops with a gradual transition point (axial image 104). There is mild mucosal enhancement and interloop fluid noted in the right lower quadrant along theileal loops, suggestive of enteritis. The colon is unremarkable. Appendix: Not seen, but no evidence of appendicitis. Peritoneum and retroperitoneum: No pneumoperitoneum. Mild ascites in the right lower quadrant No omental or mesenteric lesions. Lymph nodes: No enlarged lymph nodes. Blood vessels: Mild vascular calcifications but no aneurysm. No evidence of venous thrombosis. Abdominal and pelvic wall: Surgical bob in the right lower quadrant anterior abdominal wall Bones: No acute or aggressive osseous lesion seen. IMPRESSION: Mild dilatation of the ileal loops, with gradual transition with fecalization of the distal ileal loops, suggestive of slow intestinal transit, likely due to low-grade bowel obstruction. Mild thickening of the distal ileum near the transition point could be due to underdistention and/or enteritis. In addition, there is mild mucosal enhancement of the distal ileal loops with mild surrounding interloop ascites, suggestive of enteritis. Other chronic findings, as described above. An actionable message ([place]) has been communicated via the [employer] system on 03/22/2023 6:09 PM, Message ID [id number]. WSN: [id number] Ordering Physician: Jeff Mistry Dictated By: Mikaela Arteaga MD Dictated Date/Time: 03/22/23 6:10 pm Reviewed By: Mikaela Arteaga MD Signed By: Mikaela Arteaga MD Signed Date/Time: 03/22/23 6:10 pm Transcribed By: JAGDEEP Transcribed Date/Time: 03/22/23 5:57 pm RF Small bowel Views W contrast PO * BHSPowerscribe , CIS S: Josh Plaza MD: VERIFY Event Display: Result: Authored Date: [id number] Small Bowel Series INDICATION: Reason: Pain; Clinical Question(s): Obstruction; Order Comment: 1st immediately @ 1010 next film is 4 hrs @ 1410 COMPARISON: CT abdomen and pelvis 03/22/2023. FINDINGS: Oral contrast was administered and serial abdominal radiographs were obtained. Small bowel loops are normal in caliber and fold thickness. Overall transit time to the colon is delayed, but there is no caliber transition or evidence of obstruction. Oral contrast reaches the colon at 4 hours and 30 minutes. No acute bony abnormalities. Visualized lung bases are unremarkable. IMPRESSION: Mild delay in overall transit of the liquid contrast to the colon. No evidence of obstruction. WSN: [id number] Ordering Physician: Tae Contreras Dictated By: Josh Cedillo MD Dictated Date/Time: 03/23/23 3:15 pm Reviewed By: Josh Cedillo MD Signed By: Josh Cedillo MD Signed Date/Time: 03/23/23 3:15 pm Transcribed By: JAGDEEP Transcribed Date/Time: 03/23/23 3:11 pm XR Abdomen AP * BHSPowerscribe , CIS S: Herman Sloan MD: VERIFY Event Display: Result: Authored Date: [id number] Supine view of the abdomen and pelvis dated February 20172022. Comparison films are from March 23, 2023. HISTORY: Distention. FINDINGS: This examination shows contrast material outlining the entire colon. This extends all theway to the anus. No bowel dilation is appreciated. There are surgical clips in the right upper quadrant. No masses or suspicious calcifications are seen. IMPRESSION: Transit of oral contrast material from the stomach to the anus precludes any significant obstruction. Examination [id number]. Thank you for allowing me to participate in the care of this patient. WSN: [id number] Ordering Physician: Tae Contreras Dictated By: Herman Lin MD Dictated Date/Time: 03/24/23 3:28 pm Reviewed By: Herman Lin MD Signed By: Herman Lin MD Signed Date/Time: 03/24/23 3:28 pm Transcribed By: JAGDEEP Transcribed Date/Time: 03/24/23 3:27 pm Patient Care team information Care Team Personnel Name: Shanel Vega Position: [facility] Onco RN Member Role: Primary Care Nurse Name: Gerardo Swartz RN Position: [facility] RN Member Role: Primary Care Nurse Name: Sandrita Sweet RN Position: [facility] PCO RN Member Role: Primary Care Nurse Name: Becca Ely RN Position: [facility] RN Member Role: Primary Care Nurse Name: Leesa Saha RN Position: [facility] RN Member Role: Primary Care Nurse Name: Anastasiia Lassiter RN Position: [facility] RN Supv Member Role: Primary Care Nurse Name: Antoinette Schulte RN Position: [facility] RN Member Role: Primary Care Nurse Name: Charlene Campos RN Position: [facility] RN Member Role: Primary Care Nurse Name: Amber Love MD Position: Reference Physician Member Role: PCP Address: Address: [address] [place] [address]- Name: Tessa Rowe RN Position: [facility] RN Member Role: Primary Care Nurse Name: Jeff Mistry MD Position: [facility] ED Medicine MD Member Role: Referring Physician Address: Address: [address] [place] [address]- [place] [address]- Name: Yesy Alexander Position: [facility] ED OA Charge Member Role: ED Associate Name: Pretty Gallegos RN Position: [facility] ED RN W/OE and Tasks Member Role: Patient Care Provider Name: Ijeoma Leal Position: [facility] ED TA [facility] Member Role: Patient Care Provider Care Team Related Persons Name: RESENDIZ ALEX Address: home [address] [place] [address]
--- OUTSIDE RECORDS SUMMARY | 2024-01-26 17:31 | XMS_ITS | Continuity of Care Document ---
Author Name Unknown Organization [facility] [place] Address [address] [place] [address]- Care Team Providers Care Housekeeping Supervisor Name Role Phone Amber Love MD Primary Care Physician Encounter [facility] NBR [id number] Date(s): 07/17/23 - 08/16/23 [facility] [place] [address] [place] [address]- Attending Physician: Mellissa Parra Admitting Physician: Mellissa Parra Referring Physician: AdmtrMellissa Allergies, Adverse Reactions, Alerts Substance Reaction Severity [...] 5 Refills, Maintenance, 07/17/23 15:17:00 EDT, Tablet, [facility]/pharmacy #[id number], Partial fill upon patient request if the [...] Refills, Maintenance, 01/19/23 14:35:00 EDT, ECCapsule, [id number], Partial fill upon patient request if the [...] IDC, pT1B, pN0, stage I, ER positive, [place] positive, HER-2/jese negative.2012 Confirmed Active Dense breast [...] Care Team Personnel Name: Shanel Vega Position: [facility] Onco RN Member Role: Primary Care Nurse Name: Sandrita Basilio RN Position: S RN Member Role: Primary Care Nurse Name: Becca Ely RN Position: S RN Member Role: Primary Care Nurse Name: Anastasiia Lassiter RN Position: S RN Supv Member Role: Primary Care Nurse Name: Antoinette Schulte RN Position: S RN Member Role: Primary Care Nurse Name: Amber Love MD Position: Reference Physician Member Role: PCP Address: Address: [address] [place] [id number] Name: Tessa Rowe RN Position: S RN Member Role: Primary Care Nurse Care Team Related Persons Name: RESENDIZ, ALEX Address: home [address] [place] [id number]
--- OUTSIDE RECORDS SUMMARY | 2024-01-26 17:31 | XMS_ITS | Continuity of Care Document ---
Author Name Unknown Organization [facility] Address [address] [place] [address]- Care Team Providers Care Improvement Director Name Role Phone Amber Love MD Primary Care Physician Encounter [facility] Date(s): 07/16/23 - 08/15/23 [facility] [address] [place] [address]- Attending Physician: Mellissa Parra Admitting Physician: Mellissa [...] 5 Refills, Maintenance, 07/17/23 15:17:00 EDT, Tablet, [facility]/pharmacy #[id number], Partial fill upon patient request if the [...] IDC, pT1B, pN0, stage I, ER positive, [place] positive, HER-2/jese negative.2012 Confirmed Active Dense breast [...] Care Team Personnel Name: Shanel Vega Position: [facility] Onco RN Member Role: Primary Care [...] Reference Physician Member Role: PCP Address: Address: [address] [place] [id number] Name: Tessa Rowe RN Position: S RN Member Role: Primary Care Nurse Care Team Related Persons Name: ASTRID ALEX Address: home [address] [place] [id number]
--- OUTSIDE RECORDS SUMMARY | 2024-01-26 17:32 | XMS_ITS | Continuity of Care Document ---
Author Name Unknown Organization [facility] Address [address] [place] [address]- Care Team Providers Care Aircraft Armorer Name Role Phone Amber Love MD Primary Care Physician Encounter [facility] Date(s): 08/22/23 - 09/21/23 [facility] [address] [place] [address]- Attending Physician: Mellissa Parra Admitting Physician: Mellissa [...] 5 Refills, Maintenance, 07/17/23 15:17:00 EDT, Tablet, [facility]/pharmacy #[id number], Partial fill upon patient request if the [...] IDC, pT1B, pN0, stage I, ER positive, [place] positive, HER-2/jese negative.2012 Confirmed Active Dense breast [...] Care Team Personnel Name: Shanel Vega Position: [facility] Onco RN Member Role: Primary Care Nurse Name: Sandrita Basilio RN Position: [facility] RN Member Role: Primary Care Nurse Name: Becca Ely RN Position: [facility] RN Member Role: Primary Care Nurse Name: Anastasiia Lassiter RN Position: [facility] RN Supv Member Role: Primary Care Nurse Name: Antoinette Schulte RN Position: [facility] RN Member Role: Primary Care Nurse Name: Poornima Aguilar [place] Position: S Outreach Member Role: Lifetime Consulting Physician Name: Amber Love MD Position: Reference Physician Member Role: PCP Address: Address: [address] [place] [id number] Name: Tessa Rowe RN Position: [facility] RN Member Role: Primary Care Nurse Care Team Related Persons Name: ALEX RESENDIZ Address: home [address] [facility] [address] [place] [id number]
--- OUTSIDE RECORDS SUMMARY | 2024-01-26 17:32 | XMS_ITS | Continuity of Care Document ---
Author Name Unknown Organization [facility] [place] Address [address] [place] [address]- Care Team Providers Care Commercial Drafter Name Role Phone Amber Love MD Primary Care Physician Encounter [facility] Date(s): 04/18/23 - 05/18/23 [facility] [place] [address] [place] [address]- Allergies, Adverse Reactions, Alerts Substance Reaction Severity [...] capsule, 2 Refills, Maintenance, 01/19/23 14:35:00 EDT, Luli, [facility]/pharmacy #[id number], Partial fill upon patient request if the [...] Care Team Personnel Name: Shanel Vega Position: [facility] Onco RN Member Role: Primary Care Nurse Name: Sandrita Sweet RN Position: [facility] Office Staff Member Role: Primary Care Nurse Name: Becca Ely RN Position: [facility] RN Member Role: Primary Care Nurse Name: Leesa Saha RN Position: [facility] RN Member Role: Primary Care Nurse Name: Anastasiia Lassiter RN Position: [facility] RN Supv Member Role: Primary Care Nurse Name: Antoinette Schulte RN Position: [facility] RN Member Role: Primary Care Nurse Name: Amber Love MD Position: Reference Physician Member Role: PCP Address: Address: [address] [place] [address]- Name: Tessa Rowe RN Position: [facility] RN Member Role: Primary Care Nurse Care Team Related Persons Name: RESENDIZALEX Address: home [address] [place] [address]
--- OUTSIDE RECORDS SUMMARY | 2024-01-26 17:32 | XMS_ITS | Continuity of Care Document ---
Author Name Unknown Organization [facility] Address [address] [place] [address]- Care Team Providers Care Dimensional Integration Engineer Name Role Phone Ivan PEREZ, Amber Primary Care Physician Encounter [facility] Date(s): 07/19/23 - 08/18/23 [facility] [address] [place] [address]- Allergies, Adverse Reactions, Alerts Substance Reaction Severity [...] IDC, pT1B, pN0, stage I, ER positive, [place] positive, HER-2/jese negative.2012 Confirmed Active Dense breast [...] Care Team Personnel Name: Shanel Vega Position: S Onco RN Member Role: Primary Care Nurse Name: Sandrita Basilio RN Position: S RN Member Role: Primary Care Nurse Name: Becca Ely RN Position: S RN Member Role: Primary Care Nurse Name: Anastasiia Lassiter RN Position: [facility] RN Supayad Member Role: Primary Care Nurse Name: Antoinette Schulte RN Position: S RN Member Role: Primary Care Nurse Name: Amber Love MD Position: Reference Physician Member Role: PCP Address: Address: [address] [place] [address]- Name: Tessa Rowe RN Position: S RN Member Role: Primary Care Nurse Care Team Related Persons Name: ALEX RESENDIZ Address: home [address] [facility] [address] [place] [address]
--- OUTSIDE RECORDS SUMMARY | 2024-01-26 17:32 | XMS_ITS | Continuity of Care Document ---
Author Name Unknown Organization [facility] Address [address] [place] [address]- Care Team Providers Care Tower Control Operator Name Role Phone Amber Love MD Primary Care Physician Encounter [facility] Date(s): 05/15/23 - 06/14/23 [facility] [address] [place] [id number] Attending Physician: Mellissa Parra Admitting Physician: Mellissa Parra Referring Physician: Mellissa Parra Referring Physician: Elena Hannon Allergies, Adverse Reactions, Alerts Substance Reaction Severity [...] capsule, 2 Refills, Maintenance, 01/19/23 14:35:00 EDT, [facility] #[id number], Partial fill upon patient request if the [...] I, ER positive, [place] positive, HER-2/jese negative.2012 Confirmed Active Dense breast tissue on mammogram Confirmed Active Odynophagia Confirmed Active Pain of right breast Confirmed Active Tobacco dependence Confirmed Active 1After heavy lifting Vital Signs Most recent to oldest [Reference Range]: 1 Height 157.5 cm (09/17/19 11:20 AM) Weight 66.5 kg (09/17/19 11:20 AM) Pulse Rate [55-90 bpm] 65 bpm (09/17/19 11:20 AM) Body Mass Index [18.5-24.99] 26.81 *H* (09/17/19 11:20 AM) Blood Pressure [90-138/55-84 mm Hg] 122/ 73mm Hg (09/17/19 11:20 AM) Temperature [96.8-100.4 DegF] 98.4 DegF (09/17/19 11:20 AM) Blood pressure sites Arm, right (09/17/19 11:20 AM) Temperature Route Temporal (09/17/19 11:20 AM) Dry Weight 66.5 kg (09/17/19 11:20 AM) Weight Obtained Via Standing scale (09/17/19 11:20 AM) Dry Weight Obtained Via Standing scale (09/17/19 11:20 AM) Social History Social History Type Response Tobacco Use: 4 or less cigar ettes(less than 1/4 pack)/day in last 30 days. Interested in cessation: Yes. Other: in the process of quitting, prior to smoking cessation, pt smoked about 1/2 ppd x 45 yrs. Sex Laboratory * Event Display: Molecular Testing Authored Date: Patient Care team information Care Team Personnel Name: Shanel Vega Position: S Onco RN Member Role: Primary Care Nurse Name: Sandrita Sweet RN Position: [facility] Office Staff Member Role: Primary Care Nurse Name: Becca Ely RN Position: [facility] RN Member Role: Primary Care Nurse Name: Leesa Saha RN Position: [facility] RN Member Role: Primary Care Nurse Name: Anastasiia Lassiter RN Position: [facility] RN Supv Member Role: Primary Care Nurse Name: Antoinette Schulte RN Position: [facility] RN Member Role: Primary Care Nurse Name: Amber Love MD Position: Reference Physician Member Role: PCP Address: Address: [address] [place] [address]- Name: Tessa Rowe RN Position: [facility] RN Member Role: Primary Care Nurse Care Team Related Persons Name: DOMENICO RESENDIZMO Address: home [address] [place] [address]
--- OUTSIDE RECORDS SUMMARY | 2024-01-26 17:32 | XMS_ITS | Continuity of Care Document ---
Author Name Unknown Organization [facility] Address [address] [place] [address]- Care Team Providers Care International Nurse Name Role Phone Ivan PEREZ, Amber Primary Care Physician Encounter [facility] Date(s): 07/16/23 - 08/18/[address] [address] Attending Physician: Steffen SPEARS, Zarina Bosch Admitting Physician: Zarina Bourne NP Referring Physician: Zarina Bourne NP Allergies, Adverse Reactions, Alerts Substance Reaction Severity [...] 5 Refills, Maintenance, 07/17/23 15:17:00 EDT, Tablet, [facility]/pharmacy #[id number], Partial fill upon patient request if the [...] 2 Refills, Maintenance, 01/19/23 14:35:00 EDT, Luli, [id number], Partial fill upon patient request if the [...] IDC, pT1B, pN0, stage I, ER positive, [place] positive, HER-2/jese negative.2012 Confirmed Active Dense breast [...] Reference Physician Member Role: PCP Address: Address: [address] [place] [address] Name: Tessa Rowe RN Position: S RN Member Role: Primary Care Nurse Care Team Related Persons Name: ALEX RESENDIZ Address: home [address] [facility] [address] [place] [address]
[2024-01-26 18:11] LABS: MANUAL DIFF FLAG NO
[2024-01-26 18:12] LABS: Basophils Percent Auto 0.1 % (0-2); Eosinophils Absolute Auto 0.2 X10*3/uL (0.0-0.4); Eosinophils Percent Auto 2.3 % (0-4); Hematocrit 41.8 % (37.0-47.0); Imm Gran Abs Auto 0.05 X10*3/uL (0.00-0.03); Imm Gran Pct Auto 0.7 % (0.0-0.4); Lymphocytes Absolute Auto 2.1 X10*3/uL (1.2-4.9); Lymphocytes Percent Auto 27.9 % (20-40); Mean Corpuscular HGB Conc 33.5 g/dl (31.0-35.0); Mean Corpuscular Hemoglobin 30.4 pg (27.0-33.0); Mean Corpuscular Volume 90.9 fL (80.0-98.0); Monocytes Absolute Auto 0.6 X10*3/uL (0.1-1.2); Monocytes Percent Auto 7.6 % (2-11); Neutrophils Absolute Auto 4.6 x10*3/uL (2.0-8.3); Neutrophils Percent Auto 61.4 % (45-73); Platelet Count 261 X10*3/uL (160-400); Red Cell Distribution Width 13.9 % (11.0-16.0); White Blood Count 7.5 X10*3/uL (4.8-10.8)
[2024-01-26 18:23] LABS: IDNOW Serial# 08D9AD1C; Strep A Nucleic Acid Negative (Negative)
[2024-01-26 18:25] VITALS: BP 139/83; PULSE 66; RESP 18; TEMP 36.6; O2SAT 97
[2024-01-26 18:26] LABS: Alanine Aminotransferase 20 U/L (0-31); Albumin Level 4.2 g/dL (3.5-5.0); Alkaline Phosphatase 101 U/L (39-117); Anion Gap 12 (12-20); Aspartate Amino Transferase 20 U/L (5-31); Bilirubin Direct < 0.2 mg/dL (0.0-0.5); Bilirubin Total 0.2 mg/dL (0.0-1.0); Blood Urea Nitrogen 15 mg/dL (9-16); Calcium 9.7 mg/dL (8.4-10.2); Carbon Dioxide 28 mmol/L (22-29); Chloride 108 mmol/L (96-108); Creatinine Clr Calc Pharmacy 61.5; Estimated Glomerular Filt Rate > 60; Glucose Random 120 mg/dL (60-115); Potassium 4.5 mmol/L (3.3-5.1); Sodium 143 mmol/L (135-145)
[2024-01-26] MEDS: Morphine Sulfate 4 MG/ML CARTRIDGE IVPUSH ×2 (18:43→21:18)
[2024-01-26 18:48] LABS: Influenza A PCR NEGATIVE (Negative); Influenza B PCR NEGATIVE (Negative); Resp Syncy Virus RNA Qual PCR NEGATIVE (Negative); SARS COV2 PCR INHOUSE NEGATIVE (Negative)
[2024-01-26 19:05] LABS: C Reactive Protein 0.58 mg/dL (< or = 0.50)
[2024-01-26 19:37] LABS: Erythrocyte Sedimentation Rate 6 MM/HR (0-20)
[2024-01-26 21:17] VITALS: BP 119/67; PULSE 59; RESP 14; TEMP 36.6; O2SAT 99
[2024-01-26] MEDS: Cyclobenzaprine HCl 10 MG TABLET PO (21:18)
[2024-01-26 21:40] VITALS: BP 119/67; PULSE 59; RESP 14; TEMP 36.6; O2SAT 99
== END 2024-01-26 21:43 | disposition home or self-care (01) ==
PROVIDERS: Physician Assistant Medical; Emergency Provider Emergency Medicine Emergency Medical Services; PCP Family Medicine
DX: S13.9XXA Sprain of joints and ligaments of unspecified parts of neck, initial encounter (principal); M62.838 Other muscle spasm; G93.89 Other specified disorders of brain; J45.909 Unspecified asthma, uncomplicated; M79.7 Fibromyalgia; H54.7 Unspecified visual loss; Z87.820 Personal history of traumatic brain injury; X58.XXXA Exposure to other specified factors, initial encounter; Y93.9 Activity, unspecified; Y92.9 Unspecified place or not applicable; Y99.9 Unspecified external cause status; Z11.52 Encounter for screening for COVID-19; Z20.828 Contact with and (suspected) exposure to other viral communicable diseases
CPT/HCPCS: 0241U; 36415; 80048; 80076; 85025; 85652; 86140; 87651; 96374; 96376; 99284; J2270

== ENCOUNTER 2024-02-06 10:33 | Outpatient (REF) | payer MEDICAID, SELFPAY ==
[2024-02-06 14:38] LABS: MANUAL DIFF FLAG NO
[2024-02-06 14:49] LABS: Basophils Percent Auto 0.1 % (0-2); Eosinophils Absolute Auto 0.1 X10*3/uL (0.0-0.4); Eosinophils Percent Auto 1.3 % (0-4); Hematocrit 44.1 % (37.0-47.0); Hemoglobin 14.4 g/dl (12.0-16.0); Imm Gran Abs Auto 0.05 X10*3/uL (0.00-0.03); Imm Gran Pct Auto 0.5 % (0.0-0.4); Lymphocytes Absolute Auto 1.6 X10*3/uL (1.2-4.9); Lymphocytes Percent Auto 17.8 % (20-40); Mean Corpuscular HGB Conc 32.7 g/dl (31.0-35.0); Mean Corpuscular Hemoglobin 30.4 pg (27.0-33.0); Mean Corpuscular Volume 93.2 fL (80.0-98.0); Mean Platelet Volume 9.6 fL (9.4-12.3); Monocytes Absolute Auto 0.5 X10*3/uL (0.1-1.2); Monocytes Percent Auto 5.7 % (2-11); Neutrophils Absolute Auto 6.9 x10*3/uL (2.0-8.3); Neutrophils Percent Auto 74.6 % (45-73); Platelet Count 264 X10*3/uL (160-400); Red Blood Count 4.73 X10*6/uL (4.20-5.50); Red Cell Distribution Width 13.8 % (11.0-16.0); White Blood Count 9.2 X10*3/uL (4.8-10.8)
[2024-02-06 15:08] LABS: Alanine Aminotransferase 20 U/L (0-31); Albumin Level 4.3 g/dL (3.5-5.0); Alkaline Phosphatase 97 U/L (39-117); Anion Gap 12 (12-20); Aspartate Amino Transferase 18 U/L (5-31); Bilirubin Total 0.2 mg/dL (0.0-1.0); Blood Urea Nitrogen 11 mg/dL (9-16); Calcium 9.4 mg/dL (8.4-10.2); Carbon Dioxide 26 mmol/L (22-29); Chloride 108 mmol/L (96-108); Estimated Glomerular Filt Rate > 60; Glucose Random 120 mg/dL (60-115); Potassium 3.7 mmol/L (3.3-5.1); Sodium 142 mmol/L (135-145); Total Protein 7.2 g/dL (6.5-8.0)
[2024-02-06 15:13] LABS: TSH reflex Free T4 1.78 uIU/mL (0.32-4.0)
[2024-02-06 15:34] LABS: Erythrocyte Sedimentation Rate 7 MM/HR (0-20)
[2024-02-06 18:38] LABS: Parathyroid Hormone Intact 55.5 pg/mL (8.7-77.1)
[2024-02-06 18:44] LABS: Rheumatoid Factor < 13.0 IU/mL (<15.0)
[2024-02-07 04:44] LABS: Syphilis Screen Nonreactive (Nonreactive)
[2024-02-07 05:10] LABS: HIV AB/AG Nonreactive (Nonreactive); HIV Num 1 0.13 S/CO (0.00-0.99)
[2024-02-07 17:38] LABS: Cytomegalovirus Ab IgM <30.00 AU/mL
[2024-02-07 17:59] LABS: EBV-VCA IgM Ab <36.00 U/mL
[2024-02-07 20:43] LABS: Antibody to SS-A Antigen <1.0 NEG AI (<1.0 NEG); Antibody to SS-B Antigen <1.0 NEG AI (<1.0 NEG)
[2024-02-08 22:18] LABS: TS Negative Control Passed; TS Panel A 0; TS Panel B 0; TS Positive Control Passed; TSpotTB Negative (Negative)
[2024-02-11 12:58] LABS: Anti Nuclear Antibody Pattern Nuclear, Speckled; Anti Nuclear Antibody Screen POSITIVE (NEGATIVE); Anti Nuclear Antibody Titer 1:40 titer
== END 2024-02-06 10:34 | disposition home or self-care (01) ==
LOC: HO.CHCLDS 10:33
PROVIDERS: Visit Provider Family Medicine
DX: Z11.4 Encounter for screening for human immunodeficiency virus [HIV] (principal); R22.1 Localized swelling, mass and lump, neck
CPT/HCPCS: 36415; 80053; 83970; 84443; 85025; 85652; 86038; 86039; 86140; 86235; 86431; 86481; 86644; 86645; 86664; 86665; 86780; 87389

== ENCOUNTER 2024-02-12 13:41 | Outpatient (AMB) | payer MEDICAID, SELFPAY ==
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
[2024-02-12 13:43] VITALS: BP 122/64; PULSE 66; O2SAT 98; BMI 28.7
== END 2024-02-12 14:22 | disposition home or self-care (01) ==
PROVIDERS: PCP Family Medicine; Visit Provider Nurse Practitioner Family
DX: R91.1 Solitary pulmonary nodule (principal); J45.909 Unspecified asthma, uncomplicated; F17.210 Nicotine dependence, cigarettes, uncomplicated
CPT/HCPCS: 99204

== ENCOUNTER → 2024-02-12 13:41 | Outpatient (BNVA) | payer MEDICAID, SELFPAY | PROVIDERS: PCP Family Medicine; Visit Provider Nurse Practitioner Family | DX: R91.1 Solitary pulmonary nodule (principal); J45.909 Unspecified asthma, uncomplicated; F17.210 Nicotine dependence, cigarettes, uncomplicated | CPT/HCPCS: 99212 ==

== ENCOUNTER 2024-02-14 14:21 | Outpatient (REF) | payer MEDICAID, SELFPAY ==
--- NOTE | ~2024-02-14 | US_ITS ---
EXAMINATION: US SOFT TISSUE HEAD/NECK CLINICAL INFORMATION: 63-year-old female with 1-month history of neck swelling worsening bilaterally. Area of concern sternocleidomastoid lateral aspect bilateral neck. COMPARISON: CT soft tissue neck 01/25/2024. TECHNIQUE: Linear transducer frey-scale and color Doppler examination of the bilateral neck lateral (area of sternocleidomastoid).Targeted ultrasound images were obtained by the urology surgeon of the area of concern as indicated by the patient in the areas of concern indicated by the patient in the bilateral lateral cervical regions, in the region of the sternocleidomastoid muscles. Radiologist was not in attendance. Images were later provided for interpretation. FINDINGS: There is a 0.8 x 0.4 x 1.1 cm echogenic lesion with thin hypoechoic rim in the inferior aspect of the left parotid gland, characteristic of a lymph node. No bulky adenopathy identified in the bilateral areas of concern indicated by the patient in the lateral neck regions in the regions of the sternocleidomastoid muscles. US/US soft tiss head and/or neck IMPRESSION: 1. No bulky adenopathy identified in the bilateral areas of concern indicated by the patient in the lateral neck regions in the regions of the sternocleidomastoid muscles. Decisions regarding further imaging, treatment or biopsy should be based on the clinical exam, as not all abnormalities are detectable on ultrasound studies. 2. A 1.1 cm echogenic lesion with thin hypoechoic rim in the inferior aspect of the left parotid gland, characteristic of a lymph node.
== END 2024-02-14 14:22 | disposition home or self-care (01) ==
LOC: HO.US 14:21
PROVIDERS: PCP Family Medicine; Visit Provider Family Medicine
DX: R22.1 Localized swelling, mass and lump, neck (principal)
CPT/HCPCS: 76536

== ENCOUNTER 2024-02-17 17:59 | Emergency (ER) | payer MEDICAID, SELFPAY ==
--- NOTE | 2024-02-17 | ECG_ITS ---
Test Reason : CP Blood Pressure : / mmHG Vent. Rate : 069 BPM Atrial Rate : 069 BPM P-R Int : 168 ms QRS Dur : 078 ms QT Int : 404 ms P-R-T Axes : 069 007 045 degrees QTc Int : 432 ms Normal sinus rhythm Normal ECG When compared with ECG of 19-SEP-2021 16:27, No significant change was found Referred By: Generic ED Physician Electronically Signed By:ANY SWAN MD
--- NOTE | ~2024-02-17 | XR_ITS ---
EXAMINATION: XR CHEST CLINICAL INFORMATION: Chest pain COMPARISON: 01/23/2024 and 08/11/2022 TECHNIQUE: 2 views of the chest were obtained. FINDINGS: No significant abnormality is noted involving the heart, lungs, mediastinum, bony thorax or soft tissues aside from the presence of calcification in the right supraspinatus tendon which appears increased in amount since 2021. XR/XR chest 2V IMPRESSION: 1. No acute intrathoracic disease. 2. Calcific tendinitis right supraspinatus tendon.
--- NOTE | ~2024-02-17 | CT_ITS ---
EXAMINATION: CT CHEST WITH CONTRAST CLINICAL INFORMATION: Chest pain, neck swelling, R/O SVC syndrome. COMPARISON: 01/16/2024 CT scan of the neck. TECHNIQUE: Multidetector volumetric imaging was performed from the thoracic inlet through the lung bases with 65 mL of Omnipaque intravenous contrast. Sagittal and coronal reformatted images were obtained on the technologist workstation. Soft tissue and lung algorithms evaluated. Thick slab MIP images were performed to increase nodule conspicuity. This CT examination was performed using dose optimization techniques as appropriate, variously including the following: *Automated exposure control *Adjustment of mA and/or kV according to patient size (this includes techniques or standardized protocols for targeted exams where dose is matched to indication/reason for exam; i.e. extremities or head) *Use of iterative reconstruction technique DLP: 218 mGy-cm. FINDINGS: LUNG: Dependent bibasilar atelectatic change. Subpleural scarring seen along the anterior aspect of the left upper lobe likely secondary to postradiation changes from the left breast. MEDIASTINUM: The mediastinum is normal. The central vascular structures are unremarkable. Specifically there is normal appearance to the visualized innominate vein and superior vena cava with no evidence for mass effect or thrombosis. No hilar or mediastinal lymphadenopathy. CORONARY ARTERY CALCIFICATION: Absent PERICARDIUM/PLEURA: No significant effusion. No pleural mass or thickening. THYROID/VISUALIZED LOWER NECK: Unremarkable. CHEST WALL/AXILLA: Patient is status post left mastectomy. No axillary adenopathy. Remaining contralateral right breast grossly unremarkable VISUALIZED UPPER ABDOMEN: Mild diffuse fatty infiltration liver. Gallbladder surgically absent. BONES: Unremarkable CT/CT chest w IV con IMPRESSION: Chronic appearing and postoperative changes as described above. I do not appreciate any acute abnormality within the central vascular structures. Specifically there is no evidence for mass effect or thrombosis within the visualized innominate vein or superior vena cava.
[2024-02-17 18:15] VITALS: BP 130/72; PULSE 77; RESP 18; TEMP 36.9; O2SAT 97; BMI 28.7
--- OUTSIDE RECORDS SUMMARY | 2024-02-17 18:38 | XMS_ITS | Continuity of Care Document ---
Author Organization [facility] Address [address] [place] [address]- Care Team Providers Care Facility Maintenance Technician Name Role Phone Amber Love MD Primary Care Physician Encounter [facility] Date(s): 05/15/23 - 02/13/24 [facility] [address] [place] [id number] Discharge Disposition: A-D/C Home Attending Physician: Nicki Servin MD Admitting Physician: Nicki Servin MD Referring Physician: Amber Love MD Allergies, Adverse Reactions, Alerts Substance Reaction Severity Status aspirin throat closed up Active Latex blisters rash Active Immunizations Given and Recorded Vaccine Date Status Refusal Reason pneumococcal 23-valent vaccine 11/24/17 Given influenza virus vaccine, inactivated 11/24/17 Give n Medications amitriptyline 50 mg oral tablet 1 tablet = 50 mg, By Mouth, Daily at bedtime, TAKE 1 TABLET BY MOUTH AT BEDTIME, # 30 tablet, 5 Refills, Maintenance, 02/07/24 11:12:00 EDT, Tablet, [id number], Partial fill upon patient request if the prescription is for a schedule II opioid... Start Date: 02/07/24 Stop Date: 08/05/24 Status: Ordered Anusol-HC 2.5% topical cream 1 application, Topically, 2 times a day, for 14 days, # 30 Gm, 0 Refills, Acute 02/21/24 11:18:00 EDT, 02/07/24 11:18:00 EDT, Cream, [id number], Partial fill upon patient request if the prescription is for a schedule II opioid drug., 1 applica... Start Date: 02/07/24 Stop Date: 02/21/24 Status: Ordered colestipol 1 gm oral tablet 1 tablet = 1 Gm, By Mouth, 2 times a day, # 60 tablet, 5 Refills, Maintenance, 02/07/24 11:12:00 EDT, Tablet, [id number], Partial fill upon patient request if the prescription is for a schedule II opioid drug., 158, cm, 02/07/24 11:06:00 EDT,... 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.2012 Confirmed Active Dense breast [...] Care team information Care Team Personnel Name: Sahnel Vega Position: [facility] Onco RN Member Role: Primary Care Nurse Name: Sandrita Basilio RN Position: [facility] RN Member Role: Primary Care Nurse Name: Tessa Zuniga RN Position: [facility] RN Member Role: Primary Care Nurse Name: Becca Ely RN Position: [facility] RN Member Role: Primary Care Nurse Name: Anastasiia Lassiter RN Position: [facility] RN Supv Member Role: Primary Care Nurse Name: Antoinette Schulte RN Position: [facility] ED RN W/OE and Tasks Member Role: Primary Care Nurse Name: Poornima Aguilar [place] Position: [facility] Outreach Member Role: Lifetime Consulting Physician Name: Charlene Campos RN Position: [facility] Outreach Member Role: Primary Care Nurse Name: Amber Love MD Position: Reference Physician Member Role: PCP Address: Address: [address] [place] [address]- Name: Nicki Servin MD Position: [facility] Physician - Oncology Med Service: Hematology & Oncology Member Role: Admitting Physician Address: Address: [address] [place] [address] for Cancer [facility] [place] [address]- Care Team Related Persons Name: ALEX RESENDIZ Address: home [address] [place] [address]
[2024-02-17 18:40] LABS: MANUAL DIFF FLAG NO
[2024-02-17 18:42] LABS: Basophils Percent Auto 0.2 % (0-2); Eosinophils Absolute Auto 0.1 X10*3/uL (0.0-0.4); Hematocrit 41.6 % (37.0-47.0); Imm Gran Abs Auto 0.07 X10*3/uL (0.00-0.03); Imm Gran Pct Auto 0.7 % (0.0-0.4); Lymphocytes Absolute Auto 2.2 X10*3/uL (1.2-4.9); Lymphocytes Percent Auto 23.5 % (20-40); Mean Corpuscular HGB Conc 33.7 g/dl (31.0-35.0); Mean Corpuscular Hemoglobin 30.5 pg (27.0-33.0); Mean Corpuscular Volume 90.6 fL (80.0-98.0); Mean Platelet Volume 8.8 fL (9.4-12.3); Monocytes Absolute Auto 0.6 X10*3/uL (0.1-1.2); Monocytes Percent Auto 5.9 % (2-11); Neutrophils Absolute Auto 6.5 x10*3/uL (2.0-8.3); Neutrophils Percent Auto 68.7 % (45-73); Platelet Count 299 X10*3/uL (160-400); Red Blood Count 4.59 X10*6/uL (4.20-5.50); Red Cell Distribution Width 13.7 % (11.0-16.0); White Blood Count 9.4 X10*3/uL (4.8-10.8)
[2024-02-17 18:50] LABS: IDNOW Serial# 08D9AD1C; Strep A Nucleic Acid Negative (Negative)
[2024-02-17 18:59] LABS: Alanine Aminotransferase 20 U/L (0-31); Albumin Level 4.4 g/dL (3.5-5.0); Alkaline Phosphatase 100 U/L (39-117); Anion Gap 12 (12-20); Aspartate Amino Transferase 18 U/L (5-31); Bilirubin Total 0.2 mg/dL (0.0-1.0); Blood Urea Nitrogen 13 mg/dL (9-16); Calcium 10.3 mg/dL (8.4-10.2); Carbon Dioxide 24 mmol/L (22-29); Chloride 109 mmol/L (96-108); Creatinine Clr Calc Pharmacy 56.9; Estimated Glomerular Filt Rate 59; Glucose Random 116 mg/dL (60-115); Potassium 4.9 mmol/L (3.3-5.1); Sodium 140 mmol/L (135-145); Total Protein 7.4 g/dL (6.5-8.0)
[2024-02-17 19:09] LABS: Troponin-I High Sensitivity < 2.7 ng/L (<3.5-17.0)
[2024-02-17 19:29] LABS: Influenza A PCR NEGATIVE (Negative); Influenza B PCR NEGATIVE (Negative); Resp Syncy Virus RNA Qual PCR NEGATIVE (Negative); SARS COV2 PCR INHOUSE NEGATIVE (Negative)
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
[2024-02-17 21:53] LABS: C Reactive Protein 0.43 mg/dL (< or = 0.50)
[2024-02-17 22:10] LABS: Erythrocyte Sedimentation Rate 7 MM/HR (0-20)
[2024-02-17] MEDS: 0.9 % Sodium Chloride 1,000 ML 999 ML IV (22:18)
[2024-02-17] MEDS: Morphine Sulfate 4 MG/ML CARTRIDGE IVPUSH (22:18)
[2024-02-17 22:26] VITALS: BP 139/80; PULSE 61; RESP 16; TEMP 36.6; O2SAT 100
[2024-02-18 01:38] VITALS: BP 153/71; PULSE 74; RESP 12; TEMP 36.9; O2SAT 96
[2024-02-18] MEDS: oxyCODONE HCl Immed Release 5 MG TABLET 10 MG PO (01:47)
[2024-02-18 01:54] VITALS: BP 153/71; PULSE 74; RESP 12; TEMP 36.9
== END 2024-02-18 01:55 | disposition home or self-care (01) ==
PROVIDERS: Emergency Provider Emergency Medicine Emergency Medical Services; PCP Family Medicine
DX: R07.89 Other chest pain (principal); M79.10 Myalgia, unspecified site; R22.1 Localized swelling, mass and lump, neck; R11.2 Nausea with vomiting, unspecified; Z11.52 Encounter for screening for COVID-19; Z20.822 Contact with and (suspected) exposure to COVID-19; Z79.899 Other long term (current) drug therapy
CPT/HCPCS: 0241U; 71046; 71260; 80053; 84484; 85025; 85652; 86140; 87651; 93005; 96361; 96374; 99285; J2270

== ENCOUNTER → 2024-02-17 18:09 | Outpatient (BNV) | payer MEDICAID, SELFPAY | PROVIDERS: Emergency Provider Emergency Medicine Emergency Medical Services; PCP Family Medicine; Visit Provider Internal Medicine Cardiovascular Disease | DX: R07.9 Chest pain, unspecified (principal) | CPT/HCPCS: 93010 ==

== ENCOUNTER 2024-04-24 09:40 | Outpatient (REF) | payer MEDICAID, SELFPAY ==
--- NOTE | ~2024-04-24 | US_ITS ---
EXAMINATION: US EXTRACRANIAL CAROTID DUPLEX, BILATERAL CLINICAL INFORMATION: Seizure disorder COMPARISON: None available. TECHNIQUE: Real-time ultrasound and Doppler techniques (integrating B-mode 2-D vascular images, Doppler spectral analysis and color-flow Doppler imaging) were utilized to interrogate the extracranial carotid arteries, the vertebral arteries and proximal subclavian arteries bilaterally. The degree of stenosis is determined by criteria similar to NASCET. FINDINGS: Right Side: 1. There is no significant atherosclerotic plaque seen in the bifurcation/proximal ICA region. 2. The common carotid artery PSV proximally is 80 cm/s and distally 80 cm/s. 3. The proximal internal carotid artery velocities are 74 cm/s systolic and 36 cm/s diastolic. 4. The proximal external carotid artery PSV is 120 cm/s. 5. The vertebral artery shows antegrade flow. 6. The subclavian artery waveforms are normal. Left Side: 1. There is no significant atherosclerotic plaque seen in the bifurcation/proximal ICA region. 2. The common carotid artery PSV proximally is 123 cm/s and distally 60 cm/s. 3. The proximal internal carotid artery velocities are 61 cm/s systolic and 28 cm/s diastolic. 4. The proximal external carotid artery PSV is 83 cm/s. 5. The vertebral artery shows antegrade flow. 6. The subclavian artery waveforms are normal. US/US carotid duplex BI IMPRESSION: 1. RIGHT: Normal right internal carotid artery without atherosclerotic plaque or hemodynamically significant stenosis. 2. LEFT: Normal left internal carotid artery without atherosclerotic plaque or hemodynamically significant stenosis.
== END 2024-04-24 09:41 | disposition home or self-care (01) ==
LOC: HO.US 09:40
PROVIDERS: PCP Family Medicine; Visit Provider Psychiatry & Neurology Neurology
DX: G40.909 Epilepsy, unspecified, not intractable, without status epilepticus (principal)
CPT/HCPCS: 93880

== ENCOUNTER 2024-04-25 09:25 | Outpatient (AMB) | payer MEDICAID, SELFPAY ==
[2024-04-25 09:36] VITALS: BP 122/68; PULSE 86; O2SAT 96; BMI 28.8
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
== END 2024-04-25 10:51 | disposition home or self-care (01) ==
PROVIDERS: PCP Family Medicine; Referring Provider Family Medicine; Visit Provider Student in an Organized Health Care Education/Training Program
DX: R76.8 Other specified abnormal immunological findings in serum (principal)
CPT/HCPCS: 99203

== ENCOUNTER → 2024-04-25 09:25 | Outpatient (BNVA) | payer MEDICAID, SELFPAY | PROVIDERS: PCP Family Medicine; Visit Provider Student in an Organized Health Care Education/Training Program | DX: R76.8 Other specified abnormal immunological findings in serum (principal) | CPT/HCPCS: 99202 ==

== ENCOUNTER 2024-04-30 16:15 | Outpatient (REF) | payer MEDICAID, SELFPAY ==
[2024-04-30 17:22] LABS: MANUAL DIFF FLAG NO
[2024-04-30 17:30] LABS: Basophils Percent Auto 0.3 % (0-2); Eosinophils Absolute Auto 0.3 X10*3/uL (0.0-0.4); Eosinophils Percent Auto 2.7 % (0-4); Hematocrit 43.7 % (37.0-47.0); Hemoglobin 14.4 g/dl (12.0-16.0); Imm Gran Abs Auto 0.04 X10*3/uL (0.00-0.03); Imm Gran Pct Auto 0.4 % (0.0-0.4); Lymphocytes Absolute Auto 2.5 X10*3/uL (1.2-4.9); Mean Corpuscular Hemoglobin 30.1 pg (27.0-33.0); Mean Corpuscular Volume 91.2 fL (80.0-98.0); Mean Platelet Volume 9.6 fL (9.4-12.3); Monocytes Absolute Auto 0.6 X10*3/uL (0.1-1.2); Monocytes Percent Auto 6.5 % (2-11); Neutrophils Absolute Auto 5.8 x10*3/uL (2.0-8.3); Neutrophils Percent Auto 63.1 % (45-73); Platelet Count 288 X10*3/uL (160-400); Red Blood Count 4.79 X10*6/uL (4.20-5.50); Red Cell Distribution Width 14.2 % (11.0-16.0); White Blood Count 9.2 X10*3/uL (4.8-10.8)
[2024-04-30 18:00] LABS: Alanine Aminotransferase 21 U/L (0-31); Albumin Level 4.5 g/dL (3.5-5.0); Alkaline Phosphatase 105 U/L (39-117); Amylase 67 U/L (28-100); Anion Gap 13 (12-20); Aspartate Amino Transferase 17 U/L (5-31); Bilirubin Total 0.2 mg/dL (0.0-1.0); Blood Urea Nitrogen 14 mg/dL (9-16); Calcium 10.4 mg/dL (8.4-10.2); Carbon Dioxide 28 mmol/L (22-29); Chloride 106 mmol/L (96-108); Cholesterol 202 mg/dL (<200); Estimated Glomerular Filt Rate 54; Glucose Random 102 mg/dL (60-115); HDL Cholesterol 42 mg/dL (>40); LDL Cholesterol Calculated 106 mg/dL (<100); Potassium 4.2 mmol/L (3.3-5.1); Sodium 143 mmol/L (135-145); Total Protein 7.3 g/dL (6.5-8.0); Triglycerides 270 mg/dL (<150)
== END 2024-04-30 16:16 | disposition home or self-care (01) ==
LOC: HO.CHCLDS 16:15
PROVIDERS: Visit Provider Family Medicine
DX: R10.13 Epigastric pain (principal)
CPT/HCPCS: 36415; 80053; 80061; 82150; 85025

== ENCOUNTER 2024-08-15 14:45 | Outpatient (REF) | payer MEDICAID, SELFPAY ==
[2024-08-18 22:04] LABS: Herpes Simplex Type 1 IgG 1.56 index
== END 2024-08-15 14:46 | disposition home or self-care (01) ==
LOC: HO.HHCL 14:45
PROVIDERS: Visit Provider Registered Nurse
DX: R51.9 Headache, unspecified (principal)
CPT/HCPCS: 36415; 86695; 86696

== ENCOUNTER 2024-09-12 15:07 | Outpatient (AMB) | payer MEDICAID, SELFPAY ==
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
[2024-09-12 15:10] VITALS: BP 110/64; PULSE 60; O2SAT 97; BMI 28.6
== END 2024-09-12 15:41 | disposition home or self-care (01) ==
PROVIDERS: PCP Family Medicine; Visit Provider Nurse Practitioner Family
DX: J45.909 Unspecified asthma, uncomplicated (principal); R91.1 Solitary pulmonary nodule; F17.210 Nicotine dependence, cigarettes, uncomplicated
CPT/HCPCS: 99214

== ENCOUNTER → 2024-09-12 15:07 | Outpatient (BNVA) | payer MEDICAID, SELFPAY | PROVIDERS: PCP Family Medicine; Visit Provider Nurse Practitioner Family | DX: J45.909 Unspecified asthma, uncomplicated (principal); R91.1 Solitary pulmonary nodule; F17.210 Nicotine dependence, cigarettes, uncomplicated | CPT/HCPCS: 99212 ==

== ENCOUNTER 2024-09-15 10:11 | Outpatient (REF) | payer MEDICAID, SELFPAY ==
--- NOTE | ~2024-09-15 | XR_ITS ---
EXAMINATION: XR CHEST CLINICAL INFORMATION: R07.81 - Pleurodynia COMPARISON: CT chest 02/17/2024 TECHNIQUE: 2 views of the chest were obtained. FINDINGS: Status post left mastectomy. No significant abnormality is noted involving the heart, lungs, mediastinum, bony thorax or soft tissues. XR/XR chest 2V IMPRESSION: Unremarkable examination. Electronically signed by: Herman Garrido MD 09/15/2024 11:55 AM [facility]
== END 2024-09-15 10:12 | disposition home or self-care (01) ==
LOC: HO.XRAY 10:11
PROVIDERS: Visit Provider Nurse Practitioner Family
DX: R07.81 Pleurodynia (principal)
CPT/HCPCS: 71046

== ENCOUNTER 2024-09-18 09:49 | Outpatient (REF) | payer MEDICAID, SELFPAY ==
--- NOTE | 2024-09-18 09:52 | PFT_ITS ---
Indication: Pulmonary nodule Spirometry [FEV1 to FVC 81%; FEV1 2.04 L; FVC 2.52 L. No significant response to bronchodilators noted. Maximum voluntary ventilation 105% predicted] Lung Volumes [Total lung capacity 76% predicted; expiratory reserve volume 68% predicted] Diffusion Capacity [DLCO 78% predicted] Comparisons [None] Interpretation [No obstructive ventilatory defects. No significant response to bronchodilators noted. Normal maximum voluntary ventilation. The patient does have a mild restrictive ventilatory defect. Also has mild diffusion impairment. Clinical correlation warranted.] MTDD
[2024-09-18 10:17] VITALS: PULSE 70; O2SAT 95
== END 2024-09-18 09:50 | disposition home or self-care (01) ==
LOC: HO.RESP 09:49
PROVIDERS: PCP Registered Nurse; Visit Provider Nurse Practitioner Family
DX: J45.909 Unspecified asthma, uncomplicated (principal)
CPT/HCPCS: 94010; 94640; 94727; 94729

== ENCOUNTER → 2024-09-18 09:52 | Outpatient (BNV) | payer MEDICAID, SELFPAY | PROVIDERS: PCP Registered Nurse; Visit Provider Hospitalist | DX: J45.909 Unspecified asthma, uncomplicated (principal) | CPT/HCPCS: 94060; 94727; 94729 ==

== ENCOUNTER 2024-11-06 14:50 | Outpatient (REF) | payer MEDICAID, SELFPAY ==
--- NOTE | ~2024-11-06 | XR_ITS ---
EXAMINATION: XR ELBOW 3 VIEWS RIGHT HISTORY: Severe pain of medial condyle right elbow COMPARISON: Comparison is made with the prior examination dated 02/18/2020. FINDINGS: Three views of the right elbow are submitted. Osseous mineralization is normal. There is no fracture or dislocation. The joint spaces are preserved. The soft tissues are unremarkable. XR/XR elbow RT min 3V IMPRESSION: Unremarkable examination of the right elbow. Electronically signed by: Sam Gonsalves MD 11/11/2024 02:25 PM [facility]
== END 2024-11-06 14:51 | disposition home or self-care (01) ==
LOC: HO.XRAY 14:50
PROVIDERS: PCP Family Medicine; Visit Provider Internal Medicine
DX: M25.521 Pain in right elbow (principal)
CPT/HCPCS: 73080

== ENCOUNTER → 2024-11-06 14:59 | Outpatient (BNV) | payer MEDICAID, SELFPAY | PROVIDERS: PCP Family Medicine; Visit Provider Radiology Diagnostic Radiology | DX: M25.521 Pain in right elbow (principal) | CPT/HCPCS: 73080 ==

== ENCOUNTER 2024-11-11 14:42 | Outpatient (AMB) | payer MEDICAID, SELFPAY ==
[2024-11-11 14:50] VITALS: BP 122/74; PULSE 76; O2SAT 97; BMI 29.4
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
== END 2024-11-11 15:32 | disposition home or self-care (01) ==
PROVIDERS: PCP Family Medicine; Visit Provider Nurse Practitioner Family
DX: J45.909 Unspecified asthma, uncomplicated (principal); R91.1 Solitary pulmonary nodule; F17.210 Nicotine dependence, cigarettes, uncomplicated
CPT/HCPCS: 99214

== ENCOUNTER → 2024-11-11 14:42 | Outpatient (BNVA) | payer MEDICAID, SELFPAY | PROVIDERS: PCP Family Medicine; Visit Provider Nurse Practitioner Family | DX: R91.1 Solitary pulmonary nodule (principal); J45.909 Unspecified asthma, uncomplicated; F17.210 Nicotine dependence, cigarettes, uncomplicated; G89.18 Other acute postprocedural pain | CPT/HCPCS: 99212 ==

== ENCOUNTER 2024-12-12 10:01 | Outpatient (AMB) | payer MEDICAID, SELFPAY ==
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
[2024-12-12 10:04] VITALS: BP 147/72; PULSE 80; RESP 16; O2SAT 93; BMI 30.5
--- OUTSIDE RECORDS SUMMARY | 2024-12-12 10:42 | XMS_ITS | Encounter Summary ---
Author Organization [employer] Address [address] [place] [address] Care Team Providers Care Wire Cutter Name Role Phone Amber Love MD Primary Care Provider [phone] Venita Hannon Unavailable Unavailable Courtney Lindsay RN Unavailable [phone] Reason for Visit * Reason Comments Med Refill Encounter Details Date Type Department Care Team ([facility] st Contact Info) Description 12/27/2022 Refill [facility] [address] [place] [address] Amber Love MD [address], [place] [id number] Chronic back pain, unspecified back location, unspecified back pain laterality Social History Tobacco Use Types Packs/Day Years Used Date Smoking Tobacco: Every Day Cigarettes Smokeless Tobacco: Never Alcohol Use Standard Drinks/Week Comments Never 0 (1 standard drink = 0.6 oz pur e alcohol) Comments Unknown Sex and Gender Information Value Date Recorded Sex Assigned at Female 08/28/2022 10:15 AM EDT Legal Sex Female 10:15 AM EDT Gender Identity Female 08/28/2022 10:15 AM EDT Sexual Orientation Straight 08/28/2022 10 :15 AM EDT COVID-19 Exposure Response Date Recorded In the last 10 days, have yo u been in contact with someone who was confirmed or suspected to have Coronavirus/COVID-19? No / Unsure 12/19/2022 9:25 AM EST documented as of this encounter Miscellaneous Notes * Telephone Encounter - Amber Love MD - 12/27/2022 3:46 PM EST Trungmaria del rosario Bhat, I had discussed with patient plan of weaning her off opiates, will not start this month but will discuss again on next upcoming appt and start at that point. documented in this encounter Plan of Treatment Upcoming Encounters Date Type Department Care Team (Late st Contact Info) Description 12/18/2024 1:30 PM EST Clinical Support [facility] [address] [place] [address] Perlita Candelario RN [address] [place] [address] 12/31/2024 3:30 PM EST Office Visit [facility] [address] [place] [address] Dallin Toth DDS [address] [place] [address] documented as of this encounter Visit Diagnoses Diagnosis Chronic back pain, unspecified back location, unspecified back pain laterality documented in this encounter Care Teams Wire Cutter Relationship Specialty Start Date End Date Amber Love MD [address] [place] [address] PCP - General Family Medicine 12/29/20 Venita Hannon Community Health Worker 04/01/24 Courtney Lindsay RN [address] [place] [address] Coffee Blender 04/01/24 documented as of this encounter
--- OUTSIDE RECORDS SUMMARY | 2024-12-12 10:42 | XMS_ITS | Encounter Summary ---
Author Organization [employer] Address [facility] [place] [address] Care Team Providers Care Hunting Sales Leader Name Role Phone Amber Love MD Primary Care Provider [phone] Venita Hannon Unavailable Unavailable Courtney Lindsay RN Unavailable [phone] Reason for Visit * Reason Onset Date Comments F follow up 03/29/2023 Encounter Details Date Type Department Care Team (Late st Contact Info) Description 03/29/2023 Telephone [facility] MEDICINE [address] [place] [address] Amber Love MD [address] [place], [place] [phone] HDF follow up Social History Tobacco Use Types Packs/Day Years Used Date Smoking Tobacco: Every Day Cigarettes Smokeless Tobacco: Never Alcohol Use Standard Drinks/Week Comments Never 0 (1 standard drink = 0.6 oz pur e alcohol) Depression Answer Date Recorded Patient Health Questionnaire-9 Score 2 01/12/2023 Depression Answer Date Recorded Patient Health Questionnaire-2 Score 2 01/12/2023 Comments Unknown Sex and Gender Information Value Date Recorded Sex Assigned at Female 08/28/2022 10:15 AM EDT Legal Sex Female 10:15 AM EDT Gender Identity Female 08/28/2022 10:15 AM EDT Sexual Orientation Straight 08/28/2022 10 :15 AM EDT documented as of this encounter Miscellaneous Notes * Telephone Encounter - Esha Archer - 03/29/2023 3:15 PM EDT TC from [place] stated pt received a Call today to schedule a Hdf follow up. PCP DR. Love documented in this encounter Plan of Treatment Upcoming Encounters Date Type Department Care Team (Late st Contact Info) Description 12/18/2024 1:30 PM EST Clinical Support [facility] CHC MED & PEDS [address] [place] [address] Perlita Candelario, PETE [address] [place] [address] 12/31/2024 3:30 PM EST Office Visit [facility] ADULT DENTAL [address] [place] [address] Dallin Toth DDS [address] [place] [address] documented as of this encounter Visit Diagnoses Not on filedocumented in this encounter Additional Health Concerns Assessment Noted Time PHQ-9 Depression Total Score: 2 01/13/20 23 9:40 AM EDT documented as of this encounter Care Teams Hunting Sales Leader Relationship Specialty Start Date End Date Amber Love MD [address] [place] [address] PCP - General Family Medicine 12/29/20 Venita Hannon Community Health Worker 04/01/24 Courtney Lindsay, PETE [address] [place] [address] Packerhead Machine Operator 04/01/24 documented as of this encounter
--- OUTSIDE RECORDS SUMMARY | 2024-12-12 10:42 | XMS_ITS | Encounter Summary ---
Author Organization [email or web address] Address [address] [place] [address] Care Team Providers Care Teaching Music Lessons Name Role Phone Amber Love MD Primary Care Provider [phone] Venita Hannon Unavailable Unavailable Courtney Lindsay RN Unavailable [phone] Reason for Visit * Reason Onset Date Comments Appointment Request 03/27/2023 Med Refill 03/27/2023 Encounter Details Date Type Department Care Team (Late st Contact Info) Description 03/27/2023 Telephone [facility] MEDICINE [address] [place] [address] Amber Love MD [address] [place], [place] [phone] Appointment Request; Med Refill Social History Tobacco Use Types Packs/Day Years [...] encounter Miscellaneous Notes * Telephone Encounter - Gómez Mathews - 03/27/2023 3:57 PM EDT Tc from pt requesting oxyCODONE (Roxicodone) 5 MG immediate release tablet please send to [facility] pharmacy * Telephone Encounter - Dorita Parvez - 03/27/2023 9:17 AM EDT Tc from pt spouse requesting to r/s 03/23/23 CTS appt. documented in this encounter Plan of Treatment Upcoming Encounters Date Type Department Care Team (Late st Contact Info) Description 12/18/2024 1:30 PM EST Clinical Support [facility] CHC MED & PEDS [address] [place] [address] Perlita Candelario RN [address] [place] [address] 12/31/2024 3:30 PM EST Office Visit [facility] ADULT DENTAL [address] [place] [address] Dallin Toth DDS [address] [place] [address] documented as of this encounter Visit Diagnoses Not on filedocumented in this encounter Additional Health Concerns Assessment Noted Time PHQ-9 Depression Total Score: 2 01/13/20 9:40 AM EDT documented as of this encounter Care Teams Teaching Music Lessons Relationship Specialty Start Date End Date Amber Love MD [address] [place] [address] PCP - General Family Medicine 12/29/20 Venita Hannon Community Health Worker 04/01/24 Courtney Lindsay, PETE [address] [place] [address] Process Equipment Operator 04/01/24 documented as of this encounter
--- OUTSIDE RECORDS SUMMARY | 2024-12-12 10:43 | XMS_ITS | Clinical Summary ---
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 Name Role Phone Amber Love MD Primary Care Provider [phone] Venita Hannon Unavailable Unavailable Courtney Lindsay RN Unavailable [phone] Allergies Active Allergy Reactions Criticality Noted Date Comments Aspirin Anaphylaxis High Other reaction(s): Anaphylaxis Clindamycin 12/31/2020 Latex Rash Low 04/03/2023 Other reaction(s): blisters Medications ammonium lactate (Amlactin) 12 % cream APPLY TOPICALLY TO FEET TWICE DAILY 022 Active HM Biotin 5000 MCG capsule TAKE 1 CAPSULE BY MOUTH EVERY DAY 022 Active zoster vaccine-recombina nt adjuvanted (Shingrix) 50 MCG/0.5ML vaccine inject 0.5 milliliter by intramuscular route once 022 Active Acetaminophen Extra Strength 500 MG tablet Take 500 mg by mouth every 4 (four) hours if needed. 023 Active senna (Senokot) 8.6 MG tabletIndications :Constipation, unspecified constipation type TAKE 2 TABLETS BY MOUTH DAILY 180 tablet 1 023 Active melatonin 5 MG tablet TAKE 1 TABLET BY MOUTH 1 HOUR BEFORE BEDTIME 90 tablet 1 023 Active pantoprazole (ProtoNix) 40 MG EC tabletIndications :Gastroesophageal reflux disease without esophagitis TAKE 1 TABLET BY MOUTH TWICE DAILY 180 tablet 1 023 Active ondansetron ODT (Zofran-ODT) 8 MG disintegrating tablet TOME TONNY TABLETA POR V A ORAL COURTNEY VECES AL D A CUANDO SEA NECESARIO PARA LAS N USEAS Y V MITOS 023 Active Polyethyl Glyc-Propyl Glyc PF (Systane Hydration PF) 0.4-0.3 % solution Administer 1 drop into affected eye(s) 2 times daily. 10 each 11 023 Active Citrucel 500 MG tabletIndications :Constipation, unspecified constipation type TAKE 1 TABLET BY MOUTH TWICE DAILY 180 tablet 1 023 Active polyvinyl alcohol (Liquifilm Tears) 1.4 % ophthalmic solution PLACE 1 DROP INTO THE AFFECTED EYE(S) TWICE DAILY 023 Active colestipol (Colestid) 1 g tablet TOME TONNY TABLETA DOS VECES AL D A FOR 30 DAYS 023 Active albuterol 108 (90 Base) MCG/ACT inhalerIndication s:Asthma, unspecified asthma severity, unspecified whether complicated, unspecified whether persistent Inhale 2 puffs every 4 (four) hours if needed for wheezing. 18 g 1 023 Active mupirocin (Bactroban) 2 % ointment APPLY A SMALL AMOUNT TOPICALLY TWICE A DAY 023 Active hydrocortisone (Anusol-HC) 2.5 % rectal creamIndications: Hemorrhoids, unspecified hemorrhoid type Insert into the rectum 2 times daily. 28 g 024 Active nicotine (Nicoderm CQ) 7 MG/24HR patch Place 1 patch on the skin 1 (one) time each day at the same time. 30 patch 1 024 Active amitriptyline (Elavil) 50 MG tablet TOME 1 TABLETA POR V A ORAL TODOS LOS D AL ACOSTARSE 024 Active naloxone (Narcan) 4 mg/0.1 mL nasal spray Administer 1 spray (4 mg) into affected nostril(s) if needed for opioid reversal. May repeat every 2-3 minutes if needed, alternating nostrils, until medical assistance becomes available. 2 each 024 Active meclizine (Antivert) 25 MG tablet TOME 1 TABLETA POR V A ORAL CADA 12 HORAS 024 Active sucralfate (Carafate) 1 g tablet TAKE 1 TABLET BY MOUTH FOUR TIMES DAILY 90 tablet 5 024 Active D3 Super Strength 50 MCG (2000 UT) capsule TAKE 1 CAPSULE BY MOUTH EVERY DAY 90 capsule 3 024 Active gabapentin (Neurontin) 600 MG tablet TAKE 1 TABLET BY MOUTH THREE TIMES DAILY 90 tablet 5 024 Active polyethylene glycol, PEG, 3350 (GaviLAX) 17 GM/SCOOP powderIndications :Constipation, unspecified constipation type TAKE 17 GM MIXED IN 8 OUNCES OF WATER, COFFEE OR TEA ONCE DAILY IN THE MORNING 510 g 3 024 Active pravastatin (Pravachol) 10 MG tabletIndications :Mixed hyperlipidemia TAKE 1 TABLET BY MOUTH EVERY DAY 90 tablet 1 024 Active docusate sodium (Colace) 100 MG capsuleIndication s:Constipation, unspecified constipation type TAKE 1 CAPSULE BY MOUTH TWICE DAILY 180 capsule 1 024 Active oxyCODONE (Roxicodone) 5 MG immediate release tablet TOME TONNY TABLETA POR V A ORAL CADA SEIS HORAS CUANDO SEA NECESARIO PARA EL DOLOR 024 Active albuterol (2.5 MG/3ML) 0.083% nebulizer solution Take 3 mL (2.5 mg) by nebulization every 4 (four) hours if needed for wheezing. 75 mL 3 024 2024 Active methocarbamol (Robaxin) 500 MG tabletIndications :Right arm pain Take 1 tablet (500 mg) by mouth every 6 (six) hours for 14 days. 56 tablet 024 Active Chantix 1 MG tablet TAKE 1 TABLET BY MOUTH TWICE DAILY 56 tablet 1 025 Active ketoconazole (NIZOral) 2 % shampooIndication s:Hair loss,Seborrheic dermatitis Apply topically 2 (two) times a week. 120 mL 3 025 Active zolpidem (Ambien) 5 MG tablet TAKE 1 TABLET BY MOUTH AT BEDTIME NEEDED FOR SLEEP 28 tablet 1 025 Active cyclobenzaprine (Flexeril) 10 MG tablet TAKE 1 TABLET BY MOUTH THREE TIMES DAILY IN THE MORNING, AT NOON, AND AT BEDTIME NEEDED FOR MUSCLE SPASMS 90 tablet 1 025 Active Banophen 25 MG capsuleIndication s:Allergic rhinitis, unspecified seasonality, unspecified trigger TAKE 1 CAPSULE BY MOUTH EVERY 8 HOURS NEEDED FOR ITCHING 30 capsule 1 025 Active oxyCODONE-acetami nophen (Percocet) 5-325 MG tabletIndications :Polyarthralgia Take 1 tablet by mouth every 6 (six) hours if needed for severe pain. 112 tablet 025 Active diphenhydrAMINE (BENADryl) 25 MG capsuleIndication s:Allergic rhinitis, unspecified seasonality, unspecified trigger TAKE 1 CAPSULE BY MOUTH EVERY 8 HOURS NEEDED (for itching) 30 capsule 1 024 2024 Discontinued cyclobenzaprine (Flexeril) 10 MG tablet TAKE 1 TABLET BY MOUTH THREE TIMES DAILY IN THE MORNING, AT NOON, AND AT BEDTIME NEEDED FOR MUSCLE SPASMS 90 tablet 1 024 2024 Discontinued zolpidem (Ambien) 5 MG tablet Take 1 tablet (5 mg) by mouth if needed at bedtime for sleep. 28 tablet 1 024 2024 Discontinued Diclofenac Sodium 1 % gelIndications:Ri ght arm pain Apply 1 g topically if needed in the morning, at noon, and at bedtime (pain). 100 g 024 2024 oxyCODONE-acetami nophen (Percocet) 5-325 MG tabletIndications :Polyarthralgia Take 1 tablet by mouth every 6 (six) hours if needed for severe pain. 112 tablet 025 2024 Discontinued(R eorder (will not trigger notification to Pharmacy)) Active Problems Patient Care Coordination No te Formatting of this note migh t be different from the original. 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 Sialoadenitis 08/28/2024 Epigastric abdominal pain 04/30/2024 Assessment & Plan (04/30/2024 4:19 PM EDT): Discussed current medications and nutritional habits to aid symptoms. Ordering lab work for further evaluation. Fibromyalgia 04/30/2024 Assessment & Plan (04/30/2024 4:18 PM EDT): Discussed treatment options for Fibromyalgia. Discussed current medications as needed. History of malignant neoplasm of breast 04/28/20 Local recurrence of malignant tumor of breast Dental caries 03/06/2024 Positive SERA (antinuclear antibody) 02/12/2024 Malaise and fatigue 12/13/2023 Assessment & Plan (12/13/2023 2:11 PM EST): Patient hasn't been feeling well for the past 2 weeks. She has been having bodyaches, headaches, and fever. She would like to get tested for COVID or Influenza. Labs: C-reactive protein, CBC, Comprehensive Metabolic Panel, Rapid Covid-19, Rapid Influenza A & B, [id number], TSH w/Reflex FT4 Nicotine use 12/13/2023 Assessment & Plan (12/13/2023 2:07 PM EST): Patient reports she has been doing well and has gone to 3 cigarettes a day and I prescribed her nicotine patches to help ween her off cigarettes. Asthma 09/14/2023 Assessment & Plan (09/14/2023 2:47 PM EST): Patient that presented visit with complaints of mild asthma that exacerbates during winter, was given an inhaler Varicose veins of left lower extremity Assessment & Plan (07/23/2023 12:46 PM EDT): Will start patient with compression pantyhose, she requested referral to vas surg. Primary insomnia 07/23/2023 Assessment & Plan (09/14/2023 2:48 PM EST): Patient is doing well with medications, therefore, there will be no changes at this time. Assessment & Plan (07/23/2023 12:46 PM EDT): Was being treated with amitriptyline apparently there is concern of GI side effects with this med, recommend to hold for now and sent trial of ambien. If her GI symptoms are improved then will discontinue med and cont with ambien. Dental abscess 07/09/2023 Missing teeth, acquired 07/09/2023 Periodontal disease 07/09/2023 Polyarthralgia 06/11/2023 Assessment & Plan (02/21/2024 4:07 PM EDT): Discussed options for pain management. Referring to Prototype Technician for further evaluation of symptoms and lab results. Discussed medications and refills as needed. Assessment & Plan (06/11/2023 4:33 PM EDT): Patient with chronic shoulder pain. Offered patient toradol shot, patient denied. No improvement on gabapentin. Will send short course of lyrica and follow up within the month. Closed nondisplaced fracture of phalanx of toe of right foot 01/12/2023 Assessment & Plan (01/12/2023 4:33 PM EDT): Patient will also benefit of use of cane given recent fracture of her 4th toe of the right. Patient? s clinical findings support the need for a cane given the patient has a mobility limitation that significantly impairs her ability to participate in one or more mobility-related activities of daily living (MRADL). Medical condition: right toe fracture (Offset Cane) Patient has capability and willingness to operate a cane safely, he/she needs to intermittently use one upper extremity for weight-bearing . Functional urinary incontinence 01/12/2023 Assessment & Plan (01/12/2023 10:16 AM EDT): Reports she uses pads in bed given she is blind and also now has a boot sp fracture sometimes she doesn't get to the bathroom due to urge incontinence, needs pads for bed at night. Urge incontinence 01/02/2023 Assessment & Plan (01/02/2023 11:19 AM EST): Will send trial of tolterodine. Patient already using absorption devices at home. 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 Asthma: ACT = 19 Reports only using her inhaler in the winter but she does use it almost every day once or twice. This depends on how much time she spend outside because the cold causes her asthma. Smoker 08/16/2015 Resolved Problems Problem Noted Date Diagnosed Date Resolved Date Dental calculus 07/09/2023 04/30/2024 LLQ abdominal pain 12/01/2022 Assessment & Plan (01/02/2023 11:18 AM EST): Tenderness in LLQ but other no guarding or rebound. Recent surgery, will monitor and f/up as needed Celiac disease 08/16/2015 12/13/2023 Dyslipidemia 08/16/2015 11/30/2022 Encounters Date Type Department Care Team Description 12/10/[address] [facility] MEDICINE [address] [place] [address] Amber Love MD Polyarthralgia 12/03/[address] [facility] MED & PEDS [address] [place] [address] Amber Love MD Allergic rhinitis, unspecified seasonality, unspecified trigger 12/01/[address] [facility] MEDICINE [address] [place] [address] Amber Love MD 11/20/2024 Orders Only [facility] [address] [place] [address] Cheri Colvin MD Positive SERA (antinuclear antibody) (Primary Dx); Polyarthralgia 11/18/2024 10:00 AM EST Office Visit [facility] MED & PEDS [address] [place] [address] Rita Shay MD Nevus (Primary Dx); Hair loss; Seborrheic dermatitis 11/18/2024 Travel 11/12/[address] [facility] MEDICINE [address] [place] [phone] Amber Love MD Referral 11/12/[address] [facility] MEDICINE [address] [place] [phone] Amber Love MD Polyarthralgia 11/10/2024 Refill [facility] MED & PEDS [address] [place] [address] Amber Love MD 11/06/2024 1:00 PM EST Office Visit [facility] MED & PEDS [address] [place] [phone] Africa Foster MD Arm pain, anterior, right (Primary Dx); Right elbow pain 11/06/2024 Travel 11/05/2024 Travel 11/05/2024 Telephone [facility] MED & PEDS [address] [place] [phone] Amber Love MD Nurse Triage 11/05/2024 Telephone [facility] MED & PEDS [address] [place] [phone] Amber Love MD Appointment Request 10/27/2024 4:00 PM EST Office Visit [facility] [address] [place] [phone] Estefanía Chadwick NP Right arm pain (Primary Dx) 10/27/2024 Travel 10/27/2024 Telephone [facility] MED & PEDS [address] [place] [phone] Amber Love MD Nurse Triage 10/15/[address] [facility] MEDICINE [address] [place] [phone] Amber Love MD Polyarthralgia 09/30/[address] [facility] MEDICINE [address] [place] [address] Amber Love MD Med Refill 09/17/[address] [facility] MED & PEDS [address] [place] [address] Perlita Candelario RN Polyarthralgia 09/17/[address] [facility] MEDICINE [address] [place] [address] Amber Love MD Med Refill from Last 3 Months Immunizations Name Administration Dates Next Due Hep B, adult 10/11/2000,04/16/2000,05/03/1999 Influenza Injectable Quadriv alant Preservative Free IIV4 MDCK 07/30/2019 Influenza injectable quadriv alent preservative free 09/14/2023,07/19/2022,07/27/2021,11/01 Influenza, IIV3, injectable 11/24/2017,1 12/10/2013,07/08/2009,08/03 Pneumococcal Conjugate PCV 20 04/30/2024 Pneumococcal Polysaccharide PPSV23 11/24/2017, TD (adult), 2 Lf tetanus tox oid, preservative free, adsorbed 04/16/2000 Td (adult), 5 Lf tetanus tox oid, preservative free, adsorbed 03/05/2014 Tdap 04/30/2024,07/08/2009 Zoster, Recombinant 04/10/2022 Zoster, live 04/10/2022 Social History Tobacco Use Types Packs/Day Years Used Date Smoking Tobacco: Every Day Cigarettes Passive Smoke Exposure: Never Smokeless Tobacco: Never Alcohol Use Standard Drinks/Week Comments Never 0 (1 standard drink = 0.6 oz pur e alcohol) Alcohol Answer Date Recorded Frequency of Alcohol Consumption Not on file 08/28/2024 Average Number of Drinks Not on file 024 Frequency of Binge Drinking Not on file 07/31 Score 0 08/28/2024 Depression Answer Date Recorded Patient Health Questionnaire-9 Score 2 01/12/2023 Housing Stability Answer Date Recorded What is your housing situation today? I have bren morales 08/14/[address] you li ve. Do you have problems with any of the following? None of the above 08/14/2023 Food Insecurity Answer Date Recorded Within the past 12 months, y ou worried that your food would run out before you got money to buy more: Never True 08/14/2023 Within the past 12 months,th e food you bought just didn't last and you didn't have enough money to get more: Never True Transportation Answer Date Recorded In the past 12 months, has l ack of transportation kept you from medical appts, meetings, work or from getting things needed for daily living? No 08/14/2023 Utilities Answer Date Recorded In the past 12 months, has t he electric, gas, oil or water company threatened to shut off services in your home? No 08/14/2023 Depression Answer Date Recorded Patient Health Questionnaire-2 Score 2 01/12/2023 Comments No Sex and Gender Information Value Date Recorded Sex Assigned at Female 08/28/2022 10:15 AM EDT Legal Sex Female 10:15 AM EDT Gender Identity Female 08/28/2022 10:15 AM EDT Sexual Orientation Straight 08/28/2022 10 :15 AM EDT Last Filed Vital Signs Vital Sign Reading Time Taken Comments Blood Pressure 140/79 11/18/2024 9:52 AM EST Pulse 66 11/18/2024 9:52 AM EST Temperature 36.6 ??C (97.9 ??F) 11/18/2024 9:52 AM ES T Respiratory Rate 20 11/18/2024 9:52 AM EST Oxygen Saturation 96% 11/18/2024 9:52 AM EST Inhaled Oxygen Concentration - - Weight 72.6 kg (160 lb) 11/18/2024 9:52 AM EST Height 157.5 cm (5' 2 ) 11/18/2024 9:52 AM EST Body Mass Index 29.26 11/18/2024 9:52 AM EST Plan of Treatment Upcoming Encounters Date Type Department Care Team ([facility] st Contact Info) Description 12/18/2024 1:30 PM EST Clinical Support [facility] MED & PEDS [address] [place] [address] Perlita Candelario, RN [address] [place] [address] 12/31/2024 3:30 PM EST Office Visit [facility] ADULT DENTAL [address] [place] [address] Dallin Toth, DDS [address] [place] [address] Health Maintenance Due Date Last Done Comments CT Colonography 1960 FIT DNA/Cologuard 1960 FIT 1960 FOBT 1960 Sigmoidoscopy 1960 Dental Prophylaxis 02/22/2020 08/22/2019, 07/05/2017 Zoster Vaccines (2 of 2) 06/05/2022 04/10/2022, 03/29 RSV Patients and Patients Aged 60 years or older (1 - Risk 60-74 years 1-dose series) 2022 Dental Oral Exam 01/08/2024 07/09/2023, , 08/14/2019, Additional history exists Depression Screening 01/13/2024 01/12/2023, 01/13/20 Dental X-Ray: Full Mouth 02/11/2024 021, 01/26/2021, 01/29/2017 COVID-19 Vaccine ( season) 2024 01/25/2022, 05/11/2021, 02/22/2021 Influenza Vaccine (#1) 2024 , 07/19/2022, 07/27/2021, Additional history exists Dental X-Ray: Bitewings 07/10/2024 07/09/20 23, 08/09/2021, 01/26/2021, Additional history exists SDOH Screening 02/11/2025 02/12/2024 Colonoscopy 06/29/2025 01/04/2021 Colorectal Cancer Screening 06/29/2025 Pap Smear 07/06/2025 07/06/2022 Alcohol/Substance Use Screening 08/28/2025 08/28/2024 Tobacco Screening 08/28/2025 08/28/2024 Cervical Cancer Screening 07/06/2027 HPV/Cotest 07/06/2027 07/06/2022 Lipid Panel 04/30/2029 04/30/2024, 09/26/2021 DTaP/Tdap/Td Vaccines (4 - Td or Tdap) 04/30/2034 04/30/2024, 03/05/2014, 07/08/2009, Additional history exists Hepatitis B Vaccines Completed 10/11/2000, 04/16/2000, 05/03/1999 Hepatitis C Screening Completed 09/26/2021 HIV Screening Completed 02/06/2024, 09/26/2021 Pneumococcal Vaccine: 50+ Years Completed 04/30/2024, 11/24/2017, 02/27/2011 HIB Vaccines Aged Out No longer eligi ble based on patient's age to complete this topic HPV Vaccines Aged Out No longer eligi ble based on patient's age to complete this topic Hepatitis A Vaccines Aged Out No long er eligible based on patient's age to complete this topic IPV Vaccines Aged Out No longer eligi ble based on patient's age to complete this topic Meningococcal Vaccine Aged Out No rubén amrik eligible based on patient's age to complete this topic RSV under 20 months Aged Out No longe r eligible based on patient's age to complete this topic Rotavirus Vaccines Aged Out No longer eligible based on patient's age to complete this topic Procedures Procedure Name Priority Date/Time Associated Diagnosis Comments AMB REFERRAL TO RHEUMATOLOGY Routine 12/08/2024 Positive SERA (antinuclear antibody) Polyarthralgia XR ELBOW 3+ VIEWS RIGHT Routine 11/06/2024 2:59 PM EST Right elbow pain LIPID PANEL, STANDARD Routine 04/30/2024 4:21 PM EDT Epigastric abdominal pain HIV 1/2 ANTIGEN/ANTIBODY, FOURTH GENERATION W/RFL Routine 02/06/2024 10:36 AM EDT Swollen neck BITEWINGS - 3 RADIOGRAPHIC IMAGES Routine 07/09/2023 8:00 AM EDT Dental abscess Missing teeth, acquired Dental calculus Periodontal disease PERIODIC ORAL EVALUATION - ESTABLISHED PATIENT Routine 07/09/2023 8:00 AM EDT HM PAP/HPV Routine 07/06/2022 ZZZ HISTORICAL HEPATITIS PANEL, GENERAL Routine 09/26/2021 9:56 AM EST PANORAMIC RADIOGRAPHIC IMAGE Routine 02/09/2021 12:00 AM EDT HM COLONOSCOPY Routine 01/04/2021 PROPHYLAXIS - ADULT Routine 08/22/2019 1 2:00 AM EDT from Last 3 Months or Most Recently Relevant to Health Maintenance Results * Referral to Rheumatology (12/08/2024) us Cheri Colvin MD OUTPATIENT REFERRAL ORDERABLE S Final Result * XR Elbow 3+ Views Right (11/06/2024 2:59 PM EST) Anatomical Region Laterality Modality Upper Extremities, Elbow Right Radiogr aphic Imaging 11/06/2024 2:59 PM EST Narrative 11/11/2024 2:28 PM EST ? [facility] ?[address] ?[place] [address] ?XRay Report ? Signed ? Patient: Sera Hannon ?MR#: [id number] ?? 2 ? : 1960 ?Acct:[id number] ? Age/Sex: 64 / F ?ADM Date: 11/06/24 ? Loc: HO.XRAY ? Attending Dr: Africa Foster MD ? Ordering Physician: Africa Foster MD ?? Date of Service: 11/06/24 ?? Procedure(s): XR elbow RT min 3V ?? Accession Number(s): [id number] ? cc: Africa Foster MD; Amber Love MD ? EXAMINATION: ??XR ELBOW 3 VIEWS RIGHT ? HISTORY: Severe pain of medial condyle right elbow ? COMPARISON: Comparison is made with the prior examination dated ?? 02/18/2020. ? FINDINGS: ? Three views of the right elbow are submitted. ??Osseous mineralization ?? is normal. ??There is no fracture or dislocation. ??The joint spaces are ?? preserved. ??The soft tissues are unremarkable. ? XR/XR elbow RT min 3V ?? IMPRESSION: ? Unremarkable examination of the right elbow. ? Electronically signed by: ??Sam Gonsalves MD ??11/11/2024 02:25 PM EST ?? RP ? Dictated By: ?Sam Gonsalves MD ? Signed By: ?<Electronically signed by Sam Gonsalves MD in OV> ?11/11/24 1425 ? DD/ 145 ? TD/TT: 11/06/24 1512 ? Factory Helper: ? Procedure Note [place], Image - 11/11/[address] [address] XRay Report Signed Patient: Sera Hannon CMR#: [id number] 2 : 1960cct:[id number] Age/Sex: 64 / FADM Date: 11/06/24 Loc: HO.XRAY Attending Dr: Africa Foster MD Ordering Physician: Africa Foster MD Date of Service: 11/06/24 Procedure(s): XR elbow RT min 3V Accession Number(s): [id number] cc: Africa Foster MD; Amber Love MD EXAMINATION: XR ELBOW 3 VIEWS RIGHT HISTORY: Severe pain of medial condyle right elbow COMPARISON: Comparison is made with the prior examination dated 02/18/2020. FINDINGS: Three views of the right elbow are submitted. Osseous mineralization is normal. There is no fracture or dislocation. The joint spaces are preserved. The soft tissues are unremarkable. XR/XR elbow RT min 3V IMPRESSION: Unremarkable examination of the right elbow. Electronically signed by: Sam Gonsalves MD 11/11/2024 02:25 PM EST Dictated By: Sam Gonsalves MD Signed By: <Electronically signed by Sam Gonsalves MD in OV> 11/11/24 1425 DD/ 1459 TD/TT: 11/06/24 1512 Factory Helper: us Africa Foster MD IMG XR PROCEDURES Final Resul t * (ABNORMAL) Lipid Panel, Standard (04/30/2024 4:21 PM EDT) Triglycerides 270(H) <150 mg/dL [facility] Comment:Desirable Triglyceri de: less than 150 mg/dLBorderline High Triglyceride 150-199 mg/dLHigh Triglyceride: 200-499 mg/dLVery High Triglyceride: greater than or equal to 5OO mg/dL Cholesterol 202(H) <200 mg/dL [facility] Comment:Desirable Cholestero l: less than 200 mg/dLBorderline High Cholesterol: 200-239 mg/dLHigh Cholesterol: greater than 239 mg/dL LDL Cholesterol Calculated 106(H) <100 mg/dL [facility] Comment:Desirable LDL: less than 100 mg/dLNear Optimal/Above Optimal LDL: 110- 129 mg/dLBorderline High LDL: 130-159 mg/dLHigh LDL: 160-189 mg/dLVery High LDL: greater than or equal to 190 mg/dL HDL Cholesterol 42 >40 mg/dL [facility] Comment:Desirable HDL: great er than 40 mg/dL Note: This HDL assay may give artificially low results in patients with liver disease. Blood Venous blood specimen / Unknown 04/30/2024 4:21 PM EDT 04/30/2024 5:20 PM EDT us Amber Love MD LAB BLOOD ORDERABLES Final Re sult [facility] [address] [place] [phone] * HIV-1/2 Antigen and Antibodies, Fourth Generation, with Reflexes (02/06/2024 10:36 AM EDT) HIV AB/AG Nonreactive Nonreactive [facility] Comment:HIV-1 p24 Ag and/or HIV-1/HIV-2 Ab not detected.A test result that is nonreactive does not exclude thepossibility of exposure to or infection with HIV-1 and/orHIV-2. Nonreactive results in this assay for individualswith prior exposure to HIV-1 and/or HIV-2 may be due toantigen and antibody levels that are below the limit ofdetection of this assay.The [employer] HIV Ag/Ab Combo assay result andsupplemental assay results should be interpreted inconjunction with the patient's clinical presentation,history and other laboratory results. If the results areinconsistent with clinical evidence, additional testing issuggested to confirm the result. Blood Venous blood specimen / Unknown 02/06/2024 10:36 AM EDT 02/06/2024 2:32 PM EDT Amber Love MD LAB BLOOD ORDERABLES Final Re sult Performing Organization Address City/[facility]/ZIP Co de Phone Number [facility] [address] [place] [address] [phone] * Pap Smear (07/06/2022) Pap Negative for intraephithelial lesion or malignancy Negative for intraephithelial lesion or malignancy, Other HPV Undetected Historical Provider MD HEALTH MAINTENANCE Final Result * (ABNORMAL) HEPATITIS PANEL, GENERAL (09/26/2021 9:56 AM EST) HEPATITIS A AB, TOTAL REACTIVE( A) NON-REACT [facility] Comment: ?? For additional information, please refer to ?? http://education.[employer]/faq/PZI121 ?? (This link is being provided for informational/ educational purposes only.) ?? HEPATITIS B CORE AB TOTAL NON-REACT [facility] NON-REACT [facility] HEPATITIS B SURFACE ANTIBODY QL REACTIVE( A) NON-REACT [facility] HEPATITIS B SURFACE ANTIGEN NON-REACT [facility] NON-REACT [facility] HEPATITIS C ANTIBODY REACTIVE( A) NON-REACT [facility] INDEX 10.60(H) <1.00 [facility] Comment: ?? Based on this result, the sample will be tested for HCV RNA by a Nucleic Acid Amplification Test (NAAT) to determine if the patient has a current active infection. ?? 09/26/2021 9:56 AM EST Amber Love MD HISTORICAL/NON ORDERABLE LABS Final Result [facility] [address] [place] [address], [place] * Colonoscopy (01/04/2021) Colonoscopy Normal Normal Narrative Mirella Anderson - 01/04/2021 Recommended 4 year follow up per office due 06/2025 us Historical Provider MD HEALTH MAINTENANCE Final Result from Last 3 Months or Most Recently Relevant to Health Maintenance Insurance [employer] [facility] [facility] C3 DENTAL-[employer] [facility] [facility] MEDICAID STAND ADULT Care Teams Production Gear Cutter Relationship Specialty Start Date End Date Amber Love MD [address] [place] [address] PCP - General Family Medicine 12/29/20 Venita Hannon Community Health Worker 04/01/24 Courtney Lindsay RN [address] [place] [address] Customer Service Supervisor 04/01/24
--- OUTSIDE RECORDS SUMMARY | 2024-12-12 10:43 | XMS_ITS | Encounter Summary ---
Author Organization [employer] Address [address] [place] [address] Care Team Providers Care Cryptologic Technician Operator/Analyst Name Role Phone Amber Love MD Primary Care Provider [phone] Venita Hannon Unavailable Unavailable Courtney Lindsay RN Unavailable [phone] Reason for Visit * Reason Onset Date Comments Med Refill 08/20/2024 Encounter Details Date Type Department Care Team ([facility] st Contact Info) Description 08/20/2024 Telephone [facility] PEDS [address] [place], [place] [phone] Amber Love MD [address] [place], [place] [phone] Med Refill Social History Tobacco Use Types Packs/Day Years Used Date Smoking Tobacco: Every Day Cigarettes Passive Smoke Exposure: Never Smokeless Tobacco: Never Alcohol Use Standard Drinks/Week Comments Never 0 (1 standard drink = 0.6 oz pur e alcohol) Depression Answer Date Recorded Patient Health Questionnaire-9 Score 2 01/12/2023 Housing Stability Answer Date Recorded What is your housing situation today? I have bren andrew 08/14/[address] you li [...] encounter Miscellaneous Notes * Telephone Encounter - Debi Arriaga - 08/20/2024 10:16 AM EDT TC from pt requesting medication refill. Medications needing refill : oxyCODONE-acetaminophen (Percocet) 5-325 MG tablet To be sent to: [facility] - [place], [place] - [address] [place] [address] documented in this encounter Plan of Treatment Upcoming Encounters Date Type Department Care Team ([facility] st Contact Info) Description 12/18/2024 1:30 PM EST Clinical Support [facility] MED [facility] PEDS [address] [place] [address] Perlita Candelario, PETE [address] [place] [address] 12/31/2024 3:30 PM EST Office Visit [facility] ADULT DENTAL [address] [place] [address] Dallin Toth DDS [address] [place] [address] documented as of this encounter Visit Diagnoses Not on filedocumented in this encounter Additional Health Concerns Assessment Noted Time PHQ-9 Depression Total Score: 2 01/13/20 9:40 AM EDT documented as of this encounter Care Teams Cryptologic Technician Operator/Analyst Relationship Specialty Start Date End Date Amber Love MD [address] [place] [address] PCP - General Family Medicine 12/29/20 Venita Hannon Community Health Worker 04/01/24 Courtney Lindsay RN [address] [place] [address] Transportation Department Head 04/01/24 documented as of this encounter
--- OUTSIDE RECORDS SUMMARY | 2024-12-12 10:43 | XMS_ITS | Encounter Summary ---
Author Organization [employer] Address [address] [place] [address] Care Team Providers Care All Round Logger Name Role Phone Amber Love MD Primary Care Provider [phone] Venita Hannon Unavailable Unavailable Courtney Lindsay RN Unavailable [phone] Reason for Visit * Reason Onset Date Comments Referral 11/12/2024 Encounter Details Date Type Department Care Team (Late st Contact Info) Description 11/12/2024 Telephone [facility] MED[facility] [address] [place] [address] Amber Love MD [address] [place], [place] [phone] Referral Social History Tobacco Use Types Packs/Day Years [...] the past 12 months, has t he [employer], gas, oil or water company threatened to [...] encounter Miscellaneous Notes * Telephone Encounter - Ratna Mcrae RN - 11/20/2024 1:07 PM EST TC to pt to inform her new referral was sent. No answer. Nurse left detailed message. * Telephone Encounter - Ratna Mcrae RN - 11/20/2024 10:28 AM EST Rheumatology notes obtained from [facility] to be scanned into chart. Pt was referred to [facility] for positive ANGIE on 02/06/24. Pt states she does not agree with diagnosis and would like to see another provider. Nurse to send to covering provider for review per Mayte Madsen * Telephone Encounter - Ratna Mcrae RN - 11/20/2024 9:40 AM EST [place] [id number] to inform her of results and referral information. Pt requesting to be referred to location in [place] for Rheumatology. Pt states that she no longer wants to continue st current office and wants second opinion. Will route to provider to advise. Pt agrees to plan. Advised pt that of pain is too severe to go to WIC or ED. Pt agrees. * Telephone Encounter - Viviana Golden - 11/19/2024 10:01 AM EST Tc from pt returning call. [phone] (japanese) * Telephone Encounter - Martha Neri RN - 11/18/2024 10:31 AM EST Attempted to contact patient via site interpreter. No answer, message left to return call to office. * Telephone Encounter - Viviana Golden - 11/12/2024 3:01 PM EST Tc from pt requesting fiberglass ski maker referral. Also requesting call back regarding Results. Type of results: Dx Arm pain Date when done: 11/06 [facility] documented in this encounter Plan of Treatment Upcoming Encounters Date Type Department Care Team (Late st Contact Info) Description 12/18/2024 1:30 PM EST Clinical Support [facility] MED & PEDS [address] [place] [address] Perlita Candelario, RN [address] [place] [address] 12/31/2024 3:30 PM EST Office Visit [facility] ADULT DENTAL [address] [place] [address] Dallin Toth DDS [address] [place] [address] documented as of this encounter Visit Diagnoses Not on filedocumented in this encounter Additional Health Concerns Assessment Noted Time PHQ-9 Depression Total Score: 2 01/13/20 23 9:40 AM EDT documented as of this encounter Care Teams All Round Logger Relationship Specialty Start Date End Date Amber Love MD [address] [place] [address] PCP - General Family Medicine 12/29/20 Venita Hannon Community Health Worker 04/01/24 Courtney Lindsay RN [address] [place] [phone] Hydraulic Pile Hammer Operator 04/01/24 documented as of this encounter
--- OUTSIDE RECORDS SUMMARY | 2024-12-12 10:43 | XMS_ITS | Encounter Summary ---
Author Organization [employer] Address [address] [place] [address] Care Team Providers Care Medical Field Representative Name Role Phone Amber Love MD Primary Care Provider [phone] Venita Hannon Unavailable Unavailable Courtney Lindsay RN Unavailable [phone] Reason for Visit * Reason Onset Date Comments Med Refill 11/12/2024 Encounter Details Date Type Department Care Team (Late st Contact Info) Description 11/12/2024 Refill [facility] [address] [place] [address] Amber Love MD [address] [place], [place] [phone] Polyarthralgia Social History Tobacco Use Types Packs/Day Years [...] encounter Miscellaneous Notes * Telephone Encounter - Viviana Golden - 11/12/2024 2:56 PM EST TC from pt requesting medication refill. Medications needing refill : oxyCODONE-acetaminophen (Percocet) 5-325 MG tablet To be sent to: [facility] - [address] documented in this encounter Plan of Treatment Upcoming Encounters Date Type Department Care Team (Late st Contact Info) Description 12/18/2024 1:30 PM EST Clinical Support [facility] MED & PEDS [address] [place] [address] Perlita Candelario, RN [address] [place] [address] 12/31/2024 3:30 PM EST Office Visit [facility] ADULT DENTAL [address] [place] [address] Dallin Toth DDS [address] [place], [place] [phone] documented as of this encounter Visit Diagnoses Diagnosis Polyarthralgia Pain in joint, multiple sites documented in this encounter Additional Health Concerns Assessment Noted Time PHQ-9 Depression Total Score: 2 01/13/20 23 9:40 AM EDT documented as of this encounter Care Teams Medical Field Representative Relationship Specialty Start Date End Date Amber Love MD [address] [place] [address] PCP - General Family Medicine 12/29/20 Venita Hannon Community Health Worker 04/01/24 Courtney Lindsay RN [address] [place] [address] Underwear Finisher 04/01/24 documented as of this encounter
--- OUTSIDE RECORDS SUMMARY | 2024-12-12 10:43 | XMS_ITS | Encounter Summary ---
Author Organization [employer] Address [address] [place] [address] Care Team Providers Care Rehabilitation Engineer Name Role Phone Amber Love MD Primary Care Provider [phone] Venita Hannon Unavailable Unavailable Courtney Lindsay RN Unavailable [phone] Encounter Details Date Type Department Care Team (Latest Contact Info) Description 11/18/2024 Travel Social History Tobacco Use Types Packs/Day Years [...] AM EDT documented as of this encounter Plan of Treatment Upcoming Encounters Date Type Department Care Team (Late st Contact Info) Description 12/18/2024 1:30 PM EST Clinical Support [facility] MED & PEDS [address] [place] [address] Perlita Candelario RN [address] [place] [address] 12/31/2024 3:30 PM EST Office Visit [facility] ADULT DENTAL [address] [place] [address] Dallin Toth DDS [address] [place] [address] documented as of this encounter Visit Diagnoses Not on filedocumented in this encounter Additional Health Concerns Assessment Noted Time PHQ-9 Depression Total Score: 2 01/13/20 23 9:40 AM EDT documented as of this encounter Care Teams Rehabilitation Engineer Relationship Specialty Start Date End Date Amber Love MD [address] [place] [address] PCP - General Family Medicine 12/29/20 Venita Hannon Community Health Worker 04/01/24 Courtney Lindsay, PETE [address] [place] [address] Experimental Aircraft Mechanic 04/01/24 documented as of this encounter
--- OUTSIDE RECORDS SUMMARY | 2024-12-12 10:43 | XMS_ITS | Encounter Summary ---
Author Organization [employer] Address [address] [place] [address] Care Team Providers Care Second Cook And Baker Name Role Phone Amber Love MD Primary Care Provider [phone] Venita Hannon Unavailable Unavailable Courtney Lindsay RN Unavailable [phone] Reason for Visit * Reason Onset Date Comments Med Refill 09/17/2024 Encounter Details Date Type Department Care Team (Late st Contact Info) Description 09/17/[address] [facility] [address] [place] [address] Amber Love MD [address] [place], [place] [phone] Med Refill Social History Tobacco Use Types [...] the past 12 months, has t he [employer], gas, oil or water company threatened to [...] encounter Miscellaneous Notes * Telephone Encounter - Fabian Hatfield - 09/17/2024 8:52 AM EST TC from pt requesting medication refill. Medications needing refill : oxyCODONE-acetaminophen (Percocet) 5-325 MG tablet To be sent to: [facility] - [place], [place] - [address] [place] [address] documented in this encounter Plan of Treatment Upcoming Encounters Date Type Department Care Team ([facility] st Contact Info) Description 12/18/2024 1:30 PM EST Clinical Support [facility] MED & PEDS [address] [place] [address] Perlita Candelario, PETE [address] [place] [address] 12/31/2024 3:30 PM EST Office Visit [facility] ADULT DENTAL [address] [place] [address] Dallin Toth DDS [address] [place], [place] [phone] documented as of this encounter Visit Diagnoses Not on filedocumented in this encounter Additional Health Concerns Assessment Noted Time PHQ-9 Depression Total Score: 2 01/13/20 23 9:40 AM EDT documented as of this encounter Care Teams Second Cook And Baker Relationship Specialty Start Date End Date Amber Love MD [address] [place] [address] PCP - General Family Medicine 12/29/20 Venita Hannon Community Health Worker 04/01/24 Courtney Lindsay RN [address] [place] [address] Business Office Technology Instructor 04/01/24 documented as of this encounter
--- OUTSIDE RECORDS SUMMARY | 2024-12-12 10:43 | XMS_ITS | Encounter Summary ---
Author Organization [employer] Address [address] [place] [address] Care Team Providers Care Adult Literacy Instructor Name Role Phone Amber Love MD Primary Care Provider [phone] Venita Hannon Unavailable Unavailable Courtney Lindsay RN Unavailable [phone] Reason for Visit * Reason Comments Med Refill Encounter Details Date Type Department Care Team ([facility] st Contact Info) Description 07/30/2024 Refill [facility] MED & PEDS [address] [place] [address] Amber Love MD [address] [place] [address] Social History Tobacco Use Types Packs/Day Years Used Date Smoking Tobacco: Every Day Cigarettes Passive Smoke Exposure: Never Smokeless Tobacco: Never Alcohol Use Standard Drinks/Week Comments Never 0 (1 standard drink = 0.6 oz pur e alcohol) Depression Answer Date Recorded Patient Health Questionnaire-9 Score 2 01/12/2023 Housing Stability Answer Date Recorded What is your housing situation today? I have brenfe morales 08/14/[address] you [...] Description 12/18/2024 1:30 PM EST Clinical Support [facility] MED & PEDS [address] [place] [address] Perlita Candelario RN [address] [place] [address] 12/31/2024 3:30 PM EST Office Visit [facility] ADULT DENTAL [address] [place] [address] Dallin Toth DDS [address] [place] [address] documented as of this encounter Visit Diagnoses Not on filedocumented in this encounter Additional Health Concerns Assessment Noted Time PHQ-9 Depression Total Score: 2 01/13/20 23 9:40 AM EDT documented as of this encounter Care Teams Adult Literacy Instructor Relationship Specialty Start Date End Date Amber Love MD [address] [place] [address] PCP - General Family Medicine 12/29/20 Venita Hannon Community Health Worker 04/01/24 Courtney Lindsay RN [address] [place] [address] Scrum Coach 04/01/24 documented as of this encounter
--- OUTSIDE RECORDS SUMMARY | 2024-12-12 10:43 | XMS_ITS | Encounter Summary ---
Author Organization [employer] Address [address] [address] Care Team Providers Care Principal Process Engineer Name Role Phone Amber Love MD Primary Care Provider [phone] Venita Hannon Unavailable Unavailable Courtney Lindsay RN Unavailable [phone] Reason for Referral * Consultation (Routine) - Authorized Specialty Diagnoses / Procedures Referred By Alejandro burns Referred To Contact Rheumatology Diagnoses Positive ANGIE (antinuclear antibody) Polyarthralgia Cheri Colvin MD [address] [place] [address] Phone: tel: fax: [facility] [address] [place] [address] Phone: tel: fax: Referral ID Status Reason Start Date Expiration Date Visits Requested Visits Authorized [id number] Authorized Specialty Services Required 11/21/2024 11/21/2025 6 6 Scheduling Instructions [place] rheumatology Encounter Details Date Type Department Care Team (Late Contact Info) Description 11/20/2024 Orders Only [facility] MED & PEDS [address] [place], [place] [phone] Cheri Colvin MD [address] [place] [address] Positive ANGIE (antinuclear antibody) (Primary Dx); Polyarthralgia Social History Tobacco Use Types Packs/Day [...] Upcoming Encounters Date Type Department Care Team ([facility] st Contact Info) Description 12/18/2024 1:30 PM EST Clinical Support [facility] MED & PEDS [address] [place] [address] Perlita Candelario, RN [address] [place] [address] 12/31/2024 3:30 PM EST Office Visit [facility] ADULT DENTAL [address] [place] [address] Dallin Toth DDS [address] [place] [address] documented as of this encounter Procedures Procedure Name Priority Date/Time Associated Diagnosis Comments AMB REFERRAL TO RHEUMATOLOGY Routine 12/08/2024 Positive ANGIE (antinuclear antibody) Polyarthralgia documented in this encounter Results * Referral to Rheumatology (12/08/2024) us Cheri Colvin MD OUTPATIENT REFERRAL ORDERABLE S Final Result documented in this encounter Visit Diagnoses Diagnosis Positive ANGIE (antinuclear antibody)- Primary Other and unspecified nonspecific immunological findings Polyarthralgia Pain in joint, multiple sites documented in this encounter Additional Health Concerns Assessment Noted Time PHQ-9 Depression Total Score: 2 01/13/20 23 9:40 AM EDT documented as of this encounter Care Teams Principal Process Engineer Relationship Specialty Start Date End Date Amber Love MD [address] [place] [address] PCP - General Family Medicine 12/29/20 Venita Hannon Community Health Worker 04/01/24 Courtney Lindsay, PETE [address] [place] [address] Awning Hanger Supervisor 04/01/24 documented as of this encounter
--- OUTSIDE RECORDS SUMMARY | 2024-12-12 10:43 | XMS_ITS | Encounter Summary ---
Author Organization [employer] Address [address] [place] [address] Care Team Providers Care Psychotherapist Social Worker Name Role Phone Amber Love MD Primary Care Provider [phone] Venita Hannon Unavailable Unavailable Courtney Lindsay RN Unavailable [phone] Reason for Visit * Reason Onset Date Comments Med Refill 05/14/2023 Encounter Details Date Type Department Care Team (Late st Contact Info) Description 05/14/2023 Telephone [facility] MEDICINE [address] [place] [address] Amber Love MD [address] [place], [place] [phone] Med Refill Social History Tobacco Use Types [...] the past 12 months, has t he [employer], gas, oil or water company threatened to [...] encounter Miscellaneous Notes * Telephone Encounter - Arjun Davis - 05/14/2023 11:16 AM EDT Tc from pt requesting a med refill for oxyCODONE (Roxicodone) 5 MG immediate release tablet documented in this encounter Plan of Treatment Upcoming Encounters Date Type Department Care Team (Late st Contact Info) Description 12/18/2024 1:30 PM EST Clinical Support [facility] MED & PEDS [address] [place] [address] Perlita Candelario, PETE [address] [place] [address] 12/31/2024 3:30 PM EST Office Visit [facility] ADULT DENTAL [address] [place] [address] Dallin Toth DDS [address] [place] [address] documented as of this encounter Visit Diagnoses Not on filedocumented in this encounter Additional Health Concerns Assessment Noted Time PHQ-9 Depression Total Score: 2 01/13/20 23 9:40 AM EDT documented as of this encounter Care Teams Psychotherapist Social Worker Relationship Specialty Start Date End Date Amber Love MD [address] [place] [address] PCP - General Family Medicine 12/29/20 Venita Hannon Community Health Worker 04/01/24 Courtney Lindsay RN [address] [place] [address] Software Consultant 04/01/24 documented as of this encounter
--- OUTSIDE RECORDS SUMMARY | 2024-12-12 10:43 | XMS_ITS | Encounter Summary ---
Author Organization [employer] Address [address] [facility] 7[address] [place] [address] Care Team Providers Care Car Lot Attendant Name Role Phone Amber Love MD Primary Care Provider [phone] Venita Hannon Unavailable Unavailable Courtney Lindsay RN Unavailable [phone] Encounter Details Date Type Department Care Team ([facility] st Contact Info) Description 11/18/2024 10:00 AM EST Office Visit [facility] [address] [place] [address] Rita Shay MD [address] [place], [place] [id number] Nevus (Primary Dx); Hair loss; Seborrheic dermatitis Social History Tobacco Use Types Packs/Day Years [...] the past 12 months, has t he [employer], gas, oil or water company threatened to [...] AM EDT documented as of this encounter Last Filed Vital Signs Vital Sign Reading [...] Mass Index 29.26 11/18/2024 9:52 AM EST documented in this encounter Progress Notes * Rita Shay MD - 11/18/2024 10:00 AM EST Subjective Patient ID: Angie Hannon is a 64 y.o. female who presents for No chief complaint on file.. HPI Concerned about multiple growths of the skin Also c/o hair loss for several months w/ itchiness of the scalp. Patient Active Problem List Diagnosis Acquired anophthalmos Allergic rhinitis Gastroesophageal reflux disease without esophagitis Keratosis pilaris Malignant neoplasm of female breast (CMS/HCC) Mild persistent asthma Rash Smoker Urge incontinence Closed nondisplaced fracture of phalanx of toe of right foot Functional urinary incontinence Polyarthralgia Dental abscess Missing teeth, acquired Periodontal disease Varicose veins of left lower extremity Primary insomnia Asthma Malaise and fatigue Nicotine use Positive ANGIE (antinuclear antibody) Dental caries History of malignant neoplasm of breast Local recurrence of malignant tumor of breast (CMS/HCC) Epigastric abdominal pain Fibromyalgia Localized swelling, mass and lump, neck Sialoadenitis Nevus Current Outpatient Medications on File Prior to Visit Medication Sig Dispense Refill Acetaminophen Extra Strength 500 MG tablet Take 500 mg by mouth every 4 (four) hours if needed. albuterol (2.5 MG/3ML) 0.083% nebulizer solution Take 3 mL (2.5 mg) by nebulization every 4 (four) hours if needed for wheezing. 75 mL 3 albuterol 108 (90 Base) MCG/ACT inhaler Inhale 2 puffs every 4 (four) hours if needed for wheezing.18 g 1 amitriptyline (Elavil) 50 MG tablet TOME 1 TABLETA POR V A ORAL TODOS LOS D AL ACOSTARSE ammonium lactate (Amlactin) 12 % cream APPLY TOPICALLY TO FEET TWICE DAILY Chantix 1 MG tablet TAKE 1 TABLET BY MOUTH TWICE DAILY 56 tablet 1 Citrucel 500 MG tablet TAKE 1 TABLET BY MOUTH TWICE DAILY 180 tablet 1 colestipol (Colestid) 1 g tablet TOME TONNY TABLETA DOS VECES AL D A FOR 30 DAYS cyclobenzaprine (Flexeril) 10 MG tablet TAKE 1 TABLET BY MOUTH THREE TIMES DAILY IN THE MORNING, ATNOON, AND AT BEDTIME NEEDED FOR MUSCLE SPASMS 90 tablet 1 D3 Super Strength 50 MCG (2000 UT) capsule TAKE 1 CAPSULE BY MOUTH EVERY DAY 90 capsule 3 Diclofenac Sodium 1 % gel Apply 1 g topically if needed in the morning, at noon, and at bedtime (pain). 100 g 0 diphenhydrAMINE (BENADryl) 25 MG capsule TAKE 1 CAPSULE BY MOUTH EVERY 8 HOURS NEEDED (for itching) 30 capsule 1 docusate sodium (Colace) 100 MG capsule TAKE 1 CAPSULE BY MOUTH TWICE DAILY 180 capsule 1 gabapentin (Neurontin) 600 MG tablet TAKE 1 TABLET BY MOUTH THREE TIMES DAILY 90 tablet 5 HM Biotin 5000 MCG capsule TAKE 1 CAPSULE BY MOUTH EVERY DAY hydrocortisone (Anusol-HC) 2.5 % rectal cream Insert into the rectum 2 times daily. 28 g 0 meclizine (Antivert) 25 MG tablet TOME 1 TABLETA POR V A ORAL CADA 12 HORAS melatonin 5 MG tablet TAKE 1 TABLET BY MOUTH 1 HOUR BEFORE BEDTIME 90 tablet 1 methocarbamol (Robaxin) 500 MG tablet Take 1 tablet (500 mg) by mouth every 6 (six) hours for 14 days. 56 tablet 0 mupirocin (Bactroban) 2 % ointment APPLY A SMALL AMOUNT TOPICALLY TWICE A DAY naloxone (Narcan) 4 mg/0.1 mL nasal spray Administer 1 spray (4 mg) into affected nostril(s) if needed for opioid reversal. May repeat every 2-3 minutes if needed, alternating nostrils, until medicalassistance becomes available. 2 each 0 nicotine (Nicoderm CQ) 7 MG/24HR patch Place 1 patch on the skin 1 (one) time each day at the same time. 30 patch 1 ondansetron ODT (Zofran-ODT) 8 MG disintegrating tablet TOME TONNY TABLETA POR V A ORAL COURTNEY VECES ALD A CUANDO SEA NECESARIO PARA LAS N USEAS Y V MITOS oxyCODONE (Roxicodone) 5 MG immediate release tablet TOME TONNY TABLETA POR V A ORAL CADA SEIS HORAS CUANDO SEA NECESARIO PARA EL DOLOR oxyCODONE-acetaminophen (Percocet) 5-325 MG tablet Take 1 tablet by mouth every 6 (six) hours if needed for severe pain. 112 tablet 0 pantoprazole (ProtoNix) 40 MG EC tablet TAKE 1 TABLET BY MOUTH TWICE DAILY 180 tablet 1 Polyethyl Glyc-Propyl Glyc PF (Systane Hydration PF) 0.4-0.3 % solution Administer 1 drop into affected eye(s) 2 times daily. 10 each 11 polyethylene glycol, PEG, 3350 (GaviLAX) 17 GM/SCOOP powder TAKE 17 GM MIXED IN 8 OUNCES OF WATER, COFFEE OR TEA ONCE DAILY IN THE MORNING 510 g 3 polyvinyl alcohol (Liquifilm Tears) 1.4 % ophthalmic solution PLACE 1 DROP INTO THE AFFECTED EYE(S)TWICE DAILY pravastatin (Pravachol) 10 MG tablet TAKE 1 TABLET BY MOUTH EVERY DAY 90 tablet 1 senna (Senokot) 8.6 MG tablet TAKE 2 TABLETS BY MOUTH DAILY 180 tablet 1 sucralfate (Carafate) 1 g tablet TAKE 1 TABLET BY MOUTH FOUR TIMES DAILY 90 tablet 5 zolpidem (Ambien) 5 MG tablet Take 1 tablet (5 mg) by mouth if needed at bedtime for sleep. 28 tablet 1 zoster vaccine-recombinant adjuvanted (Shingrix) 50 MCG/0.5ML vaccine inject 0.5 milliliter by intramuscular route once [DISCONTINUED] oxyCODONE-acetaminophen (Percocet) 5-325 MG tablet Take 1 tablet by mouth every 6 (six) hours if needed for severe pain. 112 tablet 0 No current facility-administered medications on file prior to visit. Review of Systems Constitutional: Negative for appetite change, chills and diaphoresis. Respiratory: Negative for cough and shortness of breath. Skin: Negative for pallor. Hair loss Objective BP 140/79 (BP Location: Left arm, Patient Position: Sitting, BP Cuff Size: Adult) Pulse 66 Temp97.9 ??F (36.6 ??C) (Oral) Resp 20 Ht 5' 2 (1.575 m) Wt 160 lb (72.6 kg) SpO2 96% BMI 29.26 kg/m?? Physical Exam Constitutional: General: She is not in acute distress. Appearance: Normal appearance. She is not ill-appearing, toxic-appearing or diaphoretic. Pulmonary: Effort: Pulmonary effort is normal. Skin: Comments: Pull hair test neg Diffuse scaling of the scalp Scalp is non inflammatory, Non scarring. Neurological: Mental Status: She is alert. Assessment/Plan Diagnoses and all orders for this visit: Nevus Comments: Reassurance No acute intervention needed. Hair loss Comments: Most likely due to seborrheic dermatitis Educated on her current condition. All questions answered Orders: - ketoconazole (NIZOral) 2 % shampoo; Apply topically 2 (two) times a week. Seborrheic dermatitis - ketoconazole (NIZOral) 2 % shampoo; Apply topically 2 (two) times a week. documented in this encounter Plan of Treatment Upcoming Encounters Date Type Department Care Team (Late st Contact Info) Description 12/18/2024 1:30 PM EST Clinical Support [facility] [address] [place] [address] Perlita Candelario, PETE [address] [place] [address] 12/31/2024 3:30 PM EST Office Visit [facility] [address] [place] [address] Dallin Toth DDS [address] [place] [address] documented as of this encounter Visit Diagnoses Diagnosis Nevus- Primary Benign neoplasm of skin, site unspecified Hair loss Unspecified alopecia Seborrheic dermatitis Unspecified seborrheic dermatitis documented in this encounter Additional Health Concerns Assessment Noted Time PHQ-9 Depression Total Score: 2 01/13/20 23 9:40 AM EDT documented as of this encounter Care Teams Car Lot Attendant Relationship Specialty Start Date End Date Amber Love MD [address] [place] [address] PCP - General Family Medicine 12/29/20 Venita Hannon Community Health Worker 04/01/24 Courtney Lindsay RN [address] [place] [address] Corporate Strategist 04/01/24 documented as of this encounter
--- OUTSIDE RECORDS SUMMARY | 2024-12-12 10:44 | XMS_ITS | Encounter Summary ---
Author Organization [employer] Address [address] [facility] [address] [place] [address] Care Team Providers Care Locomotive Engineer Diesel Name Role Phone Amber Love MD Primary Care Provider [phone] Venita Hannon Unavailable Unavailable Courtney Lindsay RN Unavailable [phone] Encounter Details Date Type Department Care Team (Late st Contact Info) Description 09/13/2023 Abstract [facility] [address] [place] [address] Amber Love MD [address] [place], [place] [id number] Social History Tobacco Use Types Packs/Day Years Used Date Smoking Tobacco: Former Cigarettes Passive Smoke Exposure: Never Smokeless Tobacco: [...] Description 12/18/2024 1:30 PM EST Clinical Support [facility] [address] [place] [address] Perlita Candelario, RN [address] [place] [address] 12/31/2024 3:30 PM EST Office Visit [facility] [address] [place] [address] Dallin Toth DDS [address] [place] [address] documented as of this encounter Procedures Procedure Name Priority Date/Time Associated Diagnosis Comments COLONOSCOPY Routine 01/04/2021 documented in this encounter Results * Colonoscopy (01/04/2021) Colonoscopy Normal Normal Narrative Monica Mirella - 01/04/2021 Recommended 4 year follow up per office due 06/2025 Historical Provider HEALTH MAINTENANCE Final Result documented in this encounter Visit Diagnoses Not on filedocumented in this encounter Additional Health Concerns Assessment Noted Time PHQ-9 Depression Total Score: 2 01/13/20 23 9:40 AM EDT documented as of this encounter Care Teams Locomotive Engineer Diesel Relationship Specialty Start Date End Date Amber Love MD [address] [place] [address] PCP - General Family Medicine 12/29/20 Venita Hannon Community Health Worker 04/01/24 Courtney Lindsay RN [address] [place] [address] Repair Technician 04/01/24 documented as of this encounter
--- OUTSIDE RECORDS SUMMARY | 2024-12-12 10:44 | XMS_ITS | Encounter Summary ---
Author Organization [employer] Address [address] [facility] [address] [address] [place] [address] Care Team Providers Care Wireline Supervisor Name Role Phone Amber Love MD Primary Care Provider [phone] Venita Hannon Unavailable Unavailable Courtney Lindsay RN Unavailable [phone] Reason for Visit * Reason Comments Med Refill Encounter Details Date Type Department Care Team (Late Contact Info) Description 06/25/2023 Refill [facility] [address] [place] [address] Amber Love MD [address] [place] [address] Heartburn; Mixed hyperlipidemia; Constipation, unspecified constipation type Social History Tobacco Use Types Packs/Day Years Used Date Smoking Tobacco: Former Cigarettes Smokeless Tobacco: Never Alcohol Use Standard [...] Upcoming Encounters Date Type Department Care Team ([facility] Contact Info) Description 12/18/2024 1:30 PM EST Clinical Support [facility] [address] [place] [address] Perlita Candelario, PETE [address] [place] [address] 12/31/2024 3:30 PM EST Office Visit [facility] [address] [place] [address] Dallin Toth DDS [address] [place] [address] documented as of this encounter Visit Diagnoses Diagnosis Heartburn Mixed hyperlipidemia Constipation, unspecified constipation type documented in this encounter Additional Health Concerns Assessment Noted Time PHQ-9 Depression Total Score: 2 01/13/20 23 9:40 AM EDT documented as of this encounter Care Teams Wireline Supervisor Relationship Specialty Start Date End Date Amber Love MD [address] [place] [address] PCP - General Family Medicine 12/29/20 Venita Hannon Community Health Worker 04/01/24 Courtney Lindsay RN [address] [place] [address] Azure Principal Solution Specialist 04/01/24 documented as of this encounter
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
--- OUTSIDE RECORDS SUMMARY | 2024-12-12 10:44 | XMS_ITS | Encounter Summary ---
Author Organization [employer] Address [address] [facility] [address] [place] [address] Care Team Providers Care Retanner Name Role Phone Amber Love MD Primary Care Provider [phone] Venita Hannon Unavailable Unavailable Courtney Lindsay RN Unavailable [phone] Encounter Details Date Type Department Care Team (Late Contact Info) Description 10/16/2022 Telephone [facility] [address] [place] [address] Amber Love MD [address] [place], [place] [phone] Social History Tobacco Use Types Packs/Day Years Used Date Smoking Tobacco: Never Assessed Comments Unknown Sex and Gender Information Value Date Recorded Sex Assigned at Female 08/28/2022 10:15 AM EDT Legal Sex Female 10:15 AM EDT Gender Identity Female 08/28/2022 10:15 AM EDT Sexual Orientation Straight 08/28/2022 10 :15 AM EDT documented as of this encounter Plan of Treatment Upcoming Encounters Date Type Department Care Team (Late Contact Info) Description 12/18/2024 1:30 PM EST Clinical Support [facility] [address] [place] [address] Perlita Candelario, PETE [address] [place] [address] 12/31/2024 3:30 PM EST Office Visit [facility] [address] [place] [address] Dallin Toth DDS [address] [place] [address] documented as of this encounter Visit Diagnoses Not on filedocumented in this encounter Care Teams Retanner Relationship Specialty Start Date End Date Amber Love MD [address] [place] [address] PCP - General Family Medicine 12/29/20 Venita Hannon Community Health Worker 04/01/24 Courtney Lindsay, PETE [address] [place] [id number] Engineering Group Leader 04/01/24 documented as of this encounter
--- OUTSIDE RECORDS SUMMARY | 2024-12-12 10:44 | XMS_ITS | Encounter Summary ---
Author Organization [employer] Address [address] 7[address] [place] [address] Care Team Providers Care Application Helper Name Role Phone Amber Love MD Primary Care Provider [phone] Venita Hannon Unavailable Unavailable Courtney Lindsay RN Unavailable [phone] Reason for Visit * Reason Onset Date Comments Med Refill 09/17/2023 Encounter Details Date Type Department Care Team (Late st Contact Info) Description 09/17/2023 Telephone [facility] [address] [place] [address] Amber Love MD [address] [place], [place] [id number] Med Refill Social History Tobacco Use Types Packs/Day Years Used Date Smoking Tobacco: Former Cigarettes Passive Smoke Exposure: Never Smokeless Tobacco: Never Alcohol Use Standard Drinks/Week Comments Never 0 (1 standard drink = 0.6 oz pur e alcohol) Depression Answer Date Recorded Patient Health Questionnaire-9 Score 2 01/12/2023 Housing Stability Answer Date Recorded What is your housing situation today? I have bren sing 08/14/[address] you li [...] encounter Miscellaneous Notes * Telephone Encounter - Cameron Parker - 09/17/2023 3:37 PM EST Tc from patient requesting a medication refill for oxyCODONE (Roxicodone) 5 MG immediate release tablet. documented in this encounter Plan of Treatment Upcoming Encounters Date Type Department Care Team (Late st Contact Info) Description 12/18/2024 1:30 PM EST Clinical Support [facility] MED & PEDS [address] [place] [address] Perlita Candelario, RN [address] [place] [address] 12/31/2024 3:30 PM EST Office Visit [facility] ADULT DENTAL [address] [place] [address] Dallin Toth DDS [address] [place] [address] documented as of this encounter Visit Diagnoses Not on filedocumented in this encounter Additional Health Concerns Assessment Noted Time PHQ-9 Depression Total Score: 2 01/13/20 23 9:40 AM EDT documented as of this encounter Care Teams Application Helper Relationship Specialty Start Date End Date Amber Love MD NPI: [id number] [place] [id number] PCP - General Family Medicine 12/29/20 Venita Hannon Community Health Worker 04/01/24 oCurtney Lindsay RN [address] [place] [address] Client Success Manager 04/01/24 documented as of this encounter
--- OUTSIDE RECORDS SUMMARY | 2024-12-12 10:44 | XMS_ITS | Encounter Summary ---
Author Organization [employer] Address [address] [place] [address] Care Team Providers Care Habilitative Interventionist Name Role Phone Amber Love MD Primary Care Provider [phone] Venita Hannon Unavailable Unavailable Courtney Lindsay RN Unavailable Reason for Visit * Reason Onset Date Comments Med Refill 12/10/2024 Encounter Details Date Type Department Care Team (Late st Contact Info) Description 12/10/2024 Refill [facility] [address] [place] [address] Amber Love MD [address] [place], [place] [phone] Polyarthralgia Social History Tobacco Use Types Packs/Day [...] encounter Miscellaneous Notes * Telephone Encounter - Thomas Reynolds - 12/10/2024 4:14 PM EST TC from pt requesting medication refill. Medications needing refill : oxyCODONE-acetaminophen (Percocet) 5-325 MG tablet To be sent to: [facility] - [place], [place] - [address] [place] [address] documented in this encounter Plan of Treatment Upcoming Encounters Date Type Department Care Team (Late st Contact Info) Description 12/18/2024 1:30 PM EST Clinical Support [facility] MED & PEDS [address] [place] [address] Perlita Candelario, RN 505 [place] [address] 12/31/2024 3:30 PM EST Office Visit [facility] ADULT DENTAL [address] [place] [address] Dallin Toth DDS [address] [place] [address] documented as of this encounter Visit Diagnoses Diagnosis Polyarthralgia Pain in joint, multiple sites documented in this encounter Additional Health Concerns Assessment Noted Time PHQ-9 Depression Total Score: 2 01/13/20 23 9:40 AM EDT documented as of this encounter Care Teams Habilitative Interventionist Relationship Specialty Start Date End Date Amber Love MD 230 [place] [address] PCP - General Family Medicine 12/29/20 Venita Hannon Community Health Worker 04/01/24 Courtney Lindsay RN [address] [place] [address] Fluxer 04/01/24 documented as of this encounter
--- OUTSIDE RECORDS SUMMARY | 2024-12-12 10:44 | XMS_ITS | Encounter Summary ---
Author Organization [employer] Address [address] 7t [place] [address] Care Team Providers Care Accounting Instructor Name Role Phone Amber Love MD Primary Care Provider [phone] Venita Hannon Unavailable Unavailable Courtney Lindsay RN Unavailable [phone] Encounter Details Date Type Department Care Team (Late st Contact Info) Description 09/13/[address] [facility] MEDICINE [address] [place] [address] Amber Love MD [address] [place], [place] [phone] Social History Tobacco Use Types Packs/Day Years [...] 12/18/2024 1:30 PM EST Clinical Support [facility] MED & PEDS [address] [place] [address] Perlita Candelario RN 505 [place] [address] 12/31/2024 3:30 PM EST Office Visit [facility] ADULT DENTAL [address] [place] [address] Dallin Toth DDS [address] [place] [address] documented as of this encounter Visit Diagnoses Not on filedocumented in this encounter Additional Health Concerns Assessment Noted Time PHQ-9 Depression Total Score: 2 01/13/20 23 9:40 AM EDT documented as of this encounter Care Teams Accounting Instructor Relationship Specialty Start Date End Date Amber Love MD 230 [place] [address] PCP - General Family Medicine 12/29/20 Venita Hannon Community Health Worker 04/01/24 Courtney Lindsay, PETE [address] [place] [address] Environmental Marketing Representative 04/01/24 documented as of this encounter
--- OUTSIDE RECORDS SUMMARY | 2024-12-12 10:44 | XMS_ITS | Encounter Summary ---
Author Organization [employer] Address [address] 7[address] [place] [address] Care Team Providers Care Recording Studio Setup Worker Name Role Phone Amber Love MD Primary Care Provider [phone] Venita Hannon Unavailable Unavailable Courtney Lindsay RN Unavailable [phone] Reason for Visit * Reason Comments Med Refill Encounter Details Date Type Department Care Team (Late st Contact Info) Description 12/01/2024 Refill [facility] [address] [place] [address] Amber Love MD [address] [place], [place] [phone] Social History Tobacco Use Types Packs/Day Years [...] Description 12/18/2024 1:30 PM EST Clinical Support [facility] MED & PEDS [address] [place] [address] Perlita Candelario, RN 505 [place] [address] 12/31/2024 3:30 PM EST Office Visit [facility] ADULT DENTAL [address] [place] [address] Dallin Toth DDS [address] [place] [address] documented as of this encounter Visit Diagnoses Not on filedocumented in this encounter Additional Health Concerns Assessment Noted Time PHQ-9 Depression Total Score: 2 01/13/20 23 9:40 AM EDT documented as of this encounter Care Teams Recording Studio Setup Worker Relationship Specialty Start Date End Date Amber Love MD [address] [place] [address] PCP - General Family Medicine 12/29/20 Venita Hannon Community Health Worker 04/01/24 Courtney Lindsay RN [address] [place] [address] Junior Programmer 04/01/24 documented as of this encounter
--- OUTSIDE RECORDS SUMMARY | 2024-12-12 10:44 | XMS_ITS | Encounter Summary ---
Author Organization [employer] Address [address] 7[address] [place] [address] Care Team Providers Care Driver Salesman Name Role Phone Amber Love MD Primary Care Provider [phone] Venita Hannon Unavailable Unavailable Courtney Linsday RN Unavailable [phone] Reason for Visit * Reason Comments Med Refill Encounter Details Date Type Department Care Team ([facility] st Contact Info) Description 12/03/2024 Refill [facility] MED & PEDS [address] [place] [address] Amber Love MD [address] [place] [address] Allergic rhinitis, unspecified seasonality, unspecified trigger Social History Tobacco Use Types Packs/Day Years [...] Description 12/18/2024 1:30 PM EST Clinical Support [facility] MED & PEDS 505 [place] [address] Perlita Candelario, RN [address] [place] [address] 12/31/2024 3:30 PM EST Office Visit [facility] ADULT DENTAL [address] [place] [address] Dallin Toth DDS [address] [place] [address] documented as of this encounter Visit Diagnoses Diagnosis Allergic rhinitis, unspecified seasonality, unspecified trigger documented in this encounter Additional Health Concerns Assessment Noted Time PHQ-9 Depression Total Score: 2 01/13/20 23 9:40 AM EDT documented as of this encounter Care Teams Driver Salesman Relationship Specialty Start Date End Date Amber Loev MD 230 [place] [address] PCP - General Family Medicine 12/29/20 Venita Hannon Community Health Worker 04/01/24 Courtney Lindsay RN [address] [place] [address] [place] [address] Associate Quality Engineer 04/01/24 documented as of this encounter
--- OUTSIDE RECORDS SUMMARY | 2024-12-12 10:44 | XMS_ITS | Encounter Summary ---
Author Organization [employer] [facility] Address [address] 7t [place] [address] Care Team Providers Care Vascular Tech Name Role Phone Amber Love MD Primary Care Provider [phone] Venita Hannon Unavailable Unavailable Courtney Lindsay RN Unavailable [phone] Encounter Details Date Type Department Care Team (Latest Contact Info) Description 08/22/2019 Abstract [facility] CONVERSIONS Dental, Provider, DDS Social History Tobacco Use Types Packs/Day Years [...] Description 12/18/2024 1:30 PM EST Clinical Support [facility] CHC MED & PEDS [address] [place] [address] Perlita Candelario, RN [address] [place] [address] 12/31/2024 3:30 PM EST Office Visit [facility] ADULT DENTAL 230 [place] [address] Dallin Toth DDS [address] [place] [address] documented as of this encounter Visit Diagnoses Not on filedocumented in this encounter Care Teams Vascular Tech Relationship Specialty Start Date End Date Amber Love MD [address] [place] [address] PCP - General Family Medicine 12/29/20 Venita Hannon Community Health Worker 04/01/24 Courtney Lindsay RN [address] [place] [address] Welder Apprentice Gas 04/01/24 documented as of this encounter
--- OUTSIDE RECORDS SUMMARY | 2024-12-12 10:44 | XMS_ITS | Encounter Summary ---
Author Organization [employer] Address [address] [place] [address] Care Team Providers Care Outside Plant Cable Engineer Name Role Phone Amber Love MD Primary Care Provider Venita Hannon Unavailable Unavailable Courtney Lindsay RN Unavailable [phone] Reason for Visit * Reason Onset Date Comments Medication Question 11/23/2022 Encounter Details Date Type Department Care Team (Late st Contact Info) Description 11/23/2022 Telephone [facility] MEDICINE [address] [place] [address] Amber Love MD [address] [place], [place] [phone] Medication Question Social History Tobacco Use Types Packs/Day Years Used Date Smoking Tobacco: Every Day Cigarettes Alcohol Use Standard Drinks/Week Comments Never 0 [...] the past 12 months, has t he [employer], gas, oil or water company threatened to [...] suspected to have Coronavirus/COVID-19? No / Unsure 04/11/2023 2:28 PM EDT documented as of this encounter Miscellaneous Notes * Telephone Encounter - Amber Love MD - 11/24/2022 1:02 PM EST Aware of information, as per her contract this was not discuss with us before hand in terms of using medication, I will continue current dosing, as this is a break in the contract, will forward to Perlita to make her aware and inform patient , she will need review of her [employer] DES[employer] contract * Telephone Encounter - Elena Hannon RN - 11/24/2022 11:55 AM EST Call to pt regarding message below. Per pt, had gallbladder surgery at [facility] on 11/15/22. States she was only prescribed tylenol and motrin, not oxycodone. Pt states she informed her surgeon that she has a COT contract with PCP's office. She states she was advised to f/u with PCP regarding the oxycodone. Pt states she was taking oxycodone 4 times a day rather than the prescribed BID due to pain. States she did this for 4 days. Pt states she then started taking Rx TID for several days, and as of 3 days ago she is taking it BID. Per pt, does have supply but may run out before she is due for refill. States she is calling to inform PCP of this. Please see recent tc encounters. RN advised pt of the messages in chart. Per pt, there may have been some miscommunication. RN advised will forward to PCP to inform. Pt also wanting to schedule f/u with PCP. States she missed previous office visit. Reports having apost op visit scheduled with surgeon on 11/28/22. Agrees to f/u with PCP on 12/01/22 @11:30am. * Telephone Encounter - Arjun Davis - 11/23/2022 12:35 PM EST Tc from pt requesting to speak to a nurse In regarding medication of oxycodone and ibuprofen 800, states did not take ibuprofen because they are allergic to Asprin and pt is aware ibuprofen has Asprin . Pt has some further questions and concerns. Please contact at [phone] [employer] documented in this encounter Plan of Treatment Upcoming Encounters Date Type Department Care Team (Late st Contact Info) Description 12/18/2024 1:30 PM EST Clinical Support [facility] CHC MED & PEDS [address] [place] [address] Perlita Candelario, RN [address] [place] [address] 12/31/2024 3:30 PM EST Office Visit [facility] ADULT DENTAL [address] [place] [address] Dallin Toth DDS [address] [place] [address] documented as of this encounter Visit Diagnoses Not on filedocumented in this encounter Care Teams Outside Plant Cable Engineer Relationship Specialty Start Date End Date Amber Love MD [address] [place] [address] PCP - General Family Medicine 12/29/20 Venita Hannon Community Health Worker 04/01/24 Courtney Lindsay RN [address] [place] [address] Newspaper Carrier 04/01/24 documented as of this encounter
--- OUTSIDE RECORDS SUMMARY | 2024-12-12 10:44 | XMS_ITS | Encounter Summary ---
Author Organization [employer] Address [address] [place] [address] Care Team Providers Care Catechist Name Role Phone Amber Love MD Primary Care Provider [phone] Venita Hannon Unavailable Unavailable Courtney Lindsay RN Unavailable [phone] Reason for Visit * Reason Onset Date Comments Appointment 06/14/2023 Encounter Details Date Type Department Care Team (Late st Contact Info) Description 06/14/2023 Telephone [facility] ADULT DENT[facility] [address] [place], [place] [phone] Dallin Toth DDS [address] [place], [place] [phone] Appointment Social History Tobacco Use Types Packs/Day Years [...] encounter Miscellaneous Notes * Telephone Encounter - Sandy Gresham - 06/14/2023 11:45 AM EDT Prophy exam and xrays appt requested for patient today. She is having some discomfort with her partials where she is having nonemergency pain. Can an appt be scheduled for her to come in for denture follow up? No appt avl on PAR side DR documented in this encounter Plan of Treatment Upcoming Encounters Date Type Department Care Team (Late st Contact Info) Description 12/18/2024 1:30 PM EST Clinical Support [facility] MED [facility] PEDS [address] [place] [address] Perlita Candelario, PETE [address] [place] [address] 12/31/2024 3:30 PM EST Office Visit [facility] ADULT DENTAL [address] [place] [address] Dallin Toth DDS [address] [place] [address] documented as of this encounter Visit Diagnoses Not on filedocumented in this encounter Additional Health Concerns Assessment Noted Time PHQ-9 Depression Total Score: 2 01/13/20 23 9:40 AM EDT documented as of this encounter Care Teams Catechist Relationship Specialty Start Date End Date Amber Love MD [address] [place] [address] PCP - General Family Medicine 12/29/20 Venita Hannon Community Health Worker 04/01/24 Courtney Lindsay RN [address] [place] [address] Shoe Stainer 04/01/24 documented as of this encounter
== END 2024-12-12 10:40 | disposition home or self-care (01) ==
PROVIDERS: PCP Family Medicine; Referring Provider Nurse Practitioner Family; Visit Provider Internal Medicine
DX: M54.12 Radiculopathy, cervical region (principal); R22.1 Localized swelling, mass and lump, neck
CPT/HCPCS: 99214

== ENCOUNTER → 2024-12-12 10:01 | Outpatient (BNVA) | payer MEDICAID, SELFPAY | PROVIDERS: PCP Family Medicine; Referring Provider Nurse Practitioner Family; Visit Provider Internal Medicine | DX: M54.12 Radiculopathy, cervical region (principal); R22.1 Localized swelling, mass and lump, neck | CPT/HCPCS: 99212 ==

== ENCOUNTER 2025-01-19 09:22 | Outpatient (REF) | payer MEDICAID, SELFPAY ==
--- NOTE | ~2025-01-19 | CT_ITS ---
EXAMINATION: CT CHEST WITHOUT IV CONTRAST INDICATION: F17.210 - Nicotine dependence, cigarettes, uncomplicated COMPARISON: Comparison is made with the prior examination dated 02/17/2024. TECHNIQUE: Helical CT scan of the chest was performed without intravenous contrast. Coronal and sagittal reformatted images were generated and reviewed. This CT exam was performed with one or more of the following dose reduction techniques: automated exposure control, adjustment of the mA and/or kV according to patient size, use of iterative reconstruction technique. DLP: 132 mGy-cm CHEST: THYROID: The thyroid is unremarkable. LUNGS: There is a 2 mm nodule at the right lung apex (series 4, image 24) without change. There is subpleural fibrosis at the anterior aspect of the left upper lobe without change, likely related to prior left breast radiation therapy. The lungs are otherwise clear. MEDIASTINUM: There is no mediastinal lymphadenopathy. LAWRENCE: Evaluation of the hilar regions is limited by lack of intravenous contrast material. CARDIOVASCULATURE: The heart is normal in size. There is no pericardial effusion. The thoracic aorta is normal in caliber. DEGREE OF CORONARY CALCIFICATION: none PLEURA: There is no pleural effusion. No pneumothorax. MAIN AIRWAYS: The mainstem bronchi and proximal branches are patent. AXILLA: There is no axillary lymphadenopathy. BONES AND SOFT TISSUES: Unremarkable UPPER ABDOMEN: The visualized portion of the liver demonstrates diffusely decreased attenuation, consistent with steatosis. There is focal fatty sparing adjacent to the fissure for the ligamentum teres. The patient is status post cholecystectomy. The visualized portions of the spleen and adrenals have an unremarkable unenhanced appearance. CT/CT chest wo IV con IMPRESSION: 1. Stable 2 mm right apical pulmonary nodule. 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 2. Hepatic steatosis. Electronically signed by: Sam Gonsalves MD 01/19/2025 02:43 PM EDT
== END 2025-01-19 09:23 | disposition home or self-care (01) ==
LOC: HO.CT 09:22
PROVIDERS: PCP Family Medicine; Visit Provider Nurse Practitioner Family
DX: R91.1 Solitary pulmonary nodule (principal); F17.210 Nicotine dependence, cigarettes, uncomplicated
CPT/HCPCS: 71250

== ENCOUNTER → 2025-01-19 09:24 | Outpatient (BNV) | payer MEDICAID, SELFPAY | PROVIDERS: PCP Family Medicine; Visit Provider Radiology Diagnostic Radiology | DX: F17.210 Nicotine dependence, cigarettes, uncomplicated (principal) | CPT/HCPCS: 71250 ==

== ENCOUNTER 2025-02-11 13:29 | Outpatient (AMB) | payer MEDICAID, SELFPAY ==
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
[2025-02-11 13:53] VITALS: BP 126/68; PULSE 72; O2SAT 97; BMI 29.4
--- OUTSIDE RECORDS SUMMARY | 2025-02-11 16:04 | XMS_ITS | Encounter Summary ---
Author Organization [employer] Address [address] [place] [address] Care Team Providers Care Slitting And Shipping Supervisor Name Role Phone Amber Love MD Primary Care Provider [phone] Venita Hannon Unavailable Unavailable Courtney Lindsay RN Unavailable [phone] Reason for Visit * Reason Comments Med Refill Encounter Details Date Type Department Care Team ([facility] st Contact Info) Description 12/27/2022 Refill [facility] CHC MED & PEDS [address] [place] [address] Amber Love MD [address] [place], [place] [phone] Chronic back pain, unspecified back location, unspecified [...] Love MD - 12/27/2022 3:46 PM EST Meagan Bhat, I had discussed with patient plan of weaning her off opiates, will not start this month but will discuss again on next upcoming appt and start at that point. documented in this encounter Plan of Treatment Upcoming Encounters Date Type Department Care Team (Late st Contact Info) Description 02/24/2025 1:30 PM EDT Clinical Support [facility] MED & PEDS [address] [place] [address] Perlita Candelario RN [address] [place] [address] documented as of this encounter Visit Diagnoses Diagnosis Chronic back pain, unspecified back location, unspecified back pain laterality documented in this encounter Care Teams Slitting And Shipping Supervisor Relationship Specialty Start Date End Date Amber Love MD [address] [place] [address] PCP - General Family Medicine 12/29/20 Venita Hannon Community Health Worker 04/01/24 Courtney Lindsay RN [address] [place] [address] Classification Clerk 04/01/24 documented as of this encounter
--- OUTSIDE RECORDS SUMMARY | 2025-02-11 16:04 | XMS_ITS | Encounter Summary ---
Author Organization [employer] Address [address] [place] [address] Care Team Providers Care Central Supply Supervisor Name Role Phone Amber Love MD Primary Care Provider [phone] Venita Hannon Unavailable Unavailable Courtney Lindsay RN Unavailable [phone] Reason for Visit * Reason Onset Date Comments F follow up 03/29/2023 Encounter Details Date Type Department Care Team (Late st Contact Info) Description 03/29/2023 Telephone [facility] [address] [place] [address] Amber Love MD [address] [place], [place] [phone] HDF follow up Social History Tobacco Use [...] - 03/29/2023 3:15 PM EDT TC from [place] stated pt received a Call today to schedule a Hdf follow up. PCP DR. Love documented in this encounter Plan of Treatment Upcoming Encounters Date Type Department Care Team ([facility] st Contact Info) Description 02/24/2025 1:30 PM EDT Clinical Support [facility] MED & PEDS [address] [place] [address] Perlita Candelario, PETE [address] [place] [address] documented as of this encounter Visit Diagnoses Not on filedocumented in this encounter Additional Health Concerns Assessment Noted Time PHQ-9 Depression Total Score: 2 01/13/20 23 9:40 AM EDT documented as of this encounter Care Teams Central Supply Supervisor Relationship Specialty Start Date End Date Amber Love MD [address] [place] [address] PCP - General Family Medicine 12/29/20 Venita Hannon Community Health Worker 04/01/24 Courtney Lindsay, PETE [address] [place] [address] Residential Care Officer 04/01/24 documented as of this encounter
--- OUTSIDE RECORDS SUMMARY | 2025-02-11 16:04 | XMS_ITS | Encounter Summary ---
Author Organization [employer] Address [address] [place] [address] Care Team Providers Care Lace And Textiles Restorer Name Role Phone Amber Love MD Primary Care Provider [phone] Venita Hannon Unavailable Unavailable Courtney Lindsay RN Unavailable [phone] Reason for Visit * Reason Comments Med Refill Encounter Details Date Type Department Care Team (Late Contact Info) Description 06/25/2023 Refill [facility] CHC MED & PEDS [address] [place] [address] Amber Love MD [address] [place] [address] Heartburn; Mixed hyperlipidemia; Constipation, unspecified constipation type [...] Upcoming Encounters Date Type Department Care Team ([facility] Contact Info) Description 02/24/2025 1:30 PM EDT Clinical Support [facility] MED & PEDS [address] [place] [address] Perlita Candelario, PETE [address] [place] [address] documented as of this encounter Visit Diagnoses Diagnosis Heartburn Mixed hyperlipidemia Constipation, unspecified constipation type documented in this encounter Additional Health Concerns Assessment Noted Time PHQ-9 Depression Total Score: 2 01/13/20 23 9:40 AM EDT documented as of this encounter Care Teams Lace And Textiles Restorer Relationship Specialty Start Date End Date Amber Love MD [address] [place] [address] PCP - General Family Medicine 12/29/20 Venita Hannon Community Health Worker 04/01/24 Courtney Lindsay RN [address] [place] [address] Bus Assistant 04/01/24 documented as of this encounter
--- OUTSIDE RECORDS SUMMARY | 2025-02-11 16:04 | XMS_ITS | Encounter Summary ---
Author Organization [employer] Address [address] [place] [address] Care Team Providers Care High School Assistant Principal Name Role Phone Amber Love MD Primary Care Provider [phone] Venita Hannon Unavailable Unavailable Courtney Lindsay RN Unavailable [phone] Reason for Visit * Reason Onset Date Comments Appointment 06/14/2023 Encounter Details Date Type Department Care Team (Late st Contact Info) Description 06/14/2023 Telephone [facility] ADULT D[facility] [address] [place], [place] [phone] Dallin Toth DDS [address] [place], [place] [phone] Appointment Social History Tobacco Use Types Packs/Day [...] 1:30 PM EDT Clinical Support [facility] MED & PEDS [address] [place] [address] Perlita Candelario, PETE [address] [place] [address] documented as of this encounter Visit Diagnoses Not on filedocumented in this encounter Additional Health Concerns Assessment Noted Time PHQ-9 Depression Total Score: 2 01/13/20 23 9:40 AM EDT documented as of this encounter Care Teams High School Assistant Principal Relationship Specialty Start Date End Date Amber Love MD [address] [place] [address] PCP - General Family Medicine 12/29/20 Venita Hannon Community Health Worker 04/01/24 Courtney Lindsay, PETE [address] [place] [address] Engineering Programmer 04/01/24 documented as of this encounter
--- OUTSIDE RECORDS SUMMARY | 2025-02-11 16:04 | XMS_ITS | Clinical Summary ---
Author Organization [facility] Address [address] [place] [address] Care Team Providers Care Piston Maker Name Role Phone Unavailable Primary Care Provider Unavailabl e Social History Tobacco Use Types Packs/Day Years Used Date Smoking Tobacco: Never Assessed Comments Unknown Sex and Gender Information Value Date Recorded Sex Assigned at Not on file Legal Sex Female 5:36 AM EST Gender Identity Not on file Sexual Orientation Not on file Plan of Treatment Health Maintenance Due Date Last Done Comments Breast Cancer Screening 1960 DTaP,Tdap,and Td Vaccines (1 - Tdap) 1981 Cervical Cancer Screening: P ap Smear 1983 Pneumococcal Vaccine: 50+ Ye ars (1 of 1 - PCV) 2012 Zoster Vaccines (1 of 2) 2012 COVID-19 Vaccine ( - 2023-2 5 season) 2024 Influenza Vaccine (Season Ended) 2025 RSV Immunization Adult Patie nts (1 - 1-dose 75+ series) 2037 HIB Vaccines Aged Out No longer eligi ble based on patient's age to complete this topic HPV Vaccines Aged Out No longer eligi ble based on patient's age to complete this topic Hepatitis A Vaccines Aged Out No long er eligible based on patient's age to complete this topic Hepatitis B Vaccines Aged Out No long er eligible based on patient's age to complete this topic IPV Vaccines Aged Out No longer eligi ble based on patient's age to complete this topic MMR Vaccines Aged Out No longer eligi ble based on patient's age to complete this topic Meningococcal ACWY Vaccine Aged Out N o longer eligible based on patient's age to complete this topic Meningococcal B Vaccine Aged Out No l onger eligible based on patient's age to complete this topic Pneumococcal Vaccine: Pediat rics (0 to 5 Years) and At-Risk Patients (6 to 64 Years) Aged Out No longer eligible b ased on patient's age to complete this topic RSV Immunization Patients Un shawn 20 months Aged Out No longer eligible b ased on patient's age to complete this topic Varicella Vaccines Aged Out No longer eligible based on patient's age to complete this topic
--- OUTSIDE RECORDS SUMMARY | 2025-02-11 16:04 | XMS_ITS | Encounter Summary ---
Author Organization [employer] Address [address] [place] [address] Care Team Providers Care Flatwork Tier Name Role Phone Amber Love MD Primary Care Provider [phone] Venita Hannon Unavailable Unavailable Courtney Lindsay RN Unavailable [phone] Reason for Visit * Reason Onset Date Comments Med Refill 08/20/2024 Encounter Details Date Type Department Care Team ([facility] st Contact Info) Description 08/20/2024 Telephone [facility] CHC MED & PEDS [address] [place], [place] [phone] Amber Love MD [address] [place], [place] [phone] Med Refill Social History Tobacco Use Types [...] 5-325 MG tablet To be sent to: [facility] - [place], [place] - [address] [facility] documented in this encounter Plan of Treatment Upcoming Encounters Date Type Department Care Team ([facility] st Contact Info) Description 02/24/2025 1:30 PM EDT Clinical Support [facility] MED & PEDS [address] [place] [address] Perlita Candelario, PETE [address] [place] [address] documented as of this encounter Visit Diagnoses Not on filedocumented in this encounter Additional Health Concerns Assessment Noted Time PHQ-9 Depression Total Score: 2 01/13/20 23 9:40 AM EDT documented as of this encounter Care Teams Flatwork Tier Relationship Specialty Start Date End Date Amber Love MD [address] [place] [address] PCP - General Family Medicine 12/29/20 Venita Hannon Community Health Worker 04/01/24 Courtney Lindsay RN [address] [place] [address] Real Estate Acquisition Analyst 04/01/24 documented as of this encounter
--- OUTSIDE RECORDS SUMMARY | 2025-02-11 16:04 | XMS_ITS | Data Portability ---
Author Organization [place] [facility], Allergy Address [address] [place] [phone] Assessment Encounter Date Assessment Date Assessment LastModified [...] Address Organization Details Recorded Time Chronic sialadenitis [id number] Active 2023 HANS OCONNOR MD [address] [place] [address], [phone], [facility] - [facility] 4 12:14:37 Problem Notes None recorded. Medical [...] Updated DateTime 08/29/2024 157.48 cm 27.8 kg/m2 59882.04 g Debbi Bragg [place] - [facility] 08/29/2024 11:14:22 Social History None recorded. Functional [...] - Angie Hannon Date of - 1960 [facility] - [id number] Date of Service - 02/22/2024 [...] SNOMED-CT Code Diagnosis ICD10 Code Diagnosis Note [id number] HANS OCONNOR MD [facility] of [address] [address] 08/29/2024 11:02:14 08/29/2024 12:22:02 Chronic sialadenitis [id number] K11.23 Tobacco user 304316493 Z 72.0 Health Concerns Section Related Observation LastModified by Organization Detai ls LastModified Time None Recorded Concern Status LastModified by Organization Details LastModified Time None Recorded Advance Directives Directive None Recorded Payers Encounter Date Sequence Insurance Name Policy Number Policy Aviles Covered Member ID Aviles Member ID Guarantor Name 08/29/2024 1 [place]: [facility] Angie Hannon [id number] Angie Hannon Notes Date Note Type Note Provider Name and Address Organization Details Recorded Time 08/29/2024 text/html Patient reports that swelling is worse since her last visit. Has done a lot testing. Drinking more water. Still smoking. Gave chantix yesterday. The rehabilitation technician did a lot of blood work and [...] without any acute abnormality. HANS OCONNOR MD [address] [place] [address], [phone], [facility] - [facility] 08/29/2024 12:15:58 OBGyn Episode No OBEpisode recorded.
--- OUTSIDE RECORDS SUMMARY | 2025-02-11 16:04 | XMS_ITS | Clinical Summary ---
Author Organization [employer] Address [address] [facility] 7t [place] [address] Care Team Providers Care Sample Builder Name Role Phone Amber Love MD Primary Care Provider [phone] Venita Hannon Unavailable Unavailable Courtney Lindsay RN Unavailable [phone] Allergies Active Allergy Reactions Criticality Noted [...] milliliter by intramuscular route once 022 Active senna (Senokot) 8.6 MG tabletIndications :Constipation, [...] 024 Active D3 Super Strength 50 MCG (1999 UT) capsule TAKE 1 CAPSULE BY MOUTH [...] SEA NECESARIO PARA EL DOLOR 024 Active methocarbamol (Robaxin) 500 MG tabletIndications :Right arm pain Take 1 tablet (500 mg) by mouth every 6 (six) hours for 14 days. 56 tablet 024 Active ketoconazole (NIZOral) 2 % shampooIndication s:Hair loss,Seborrheic dermatitis Apply topically 2 (two) times a week. 120 mL 3 025 Active cyclobenzaprine (Flexeril) 10 MG tablet TAKE 1 TABLET BY MOUTH THREE TIMES DAILY IN THE MORNING, AT NOON, AND AT BEDTIME NEEDED FOR MUSCLE SPASMS 90 tablet 1 025 Active albuterol (2.5 MG/3ML) 0.083% nebulizer solution INHALE 1 AMPULE USING A NEBULIZER BY MOUTH EVERY 4 HOURS NEEDED FOR WHEEZING 90 mL 3 025 Active Banophen 25 MG capsuleIndication s:Allergic rhinitis, unspecified seasonality, unspecified trigger TAKE 1 CAPSULE BY MOUTH EVERY 8 HOURS NEEDED FOR ITCHING 30 capsule 1 025 Active acetaminophen (Tylenol) 500 MG tablet Take 1 tablet (500 mg) by mouth every 6 (six) hours if needed for mild pain for up to 20 doses. 20 tablet 025 Active chlorhexidine (Peridex) 0.12 % solution Swish 15 mL morning and night for 1 minute. Spit, do not swallow. Do not eat or drink for 30 minutes following use. 473 mL Active varenicline (Chantix) 1 MG tablet TAKE 1 TABLET BY MOUTH TWICE DAILY 56 tablet 1 025 Active zolpidem (Ambien) 5 MG tablet TAKE 1 TABLET BY MOUTH AT BEDTIME NEEDED FOR SLEEP 28 tablet 1 025 Active oxyCODONE-acetami nophen (Percocet) 5-325 MG tabletIndications :Polyarthralgia Take 1 tablet by mouth every 6 (six) hours if needed for severe pain. 112 tablet 025 Active zolpidem (Ambien) 5 MG tablet TAKE 1 TABLET BY MOUTH AT BEDTIME NEEDED FOR SLEEP 28 tablet 1 025 2024 Discontinued oxyCODONE-acetami nophen (Percocet) 5-325 MG tabletIndications :Polyarthralgia Take 1 tablet by mouth every 6 (six) hours if needed for severe pain. 112 tablet 025 2024 Discontinued(R eorder (will not trigger notification to Pharmacy)) Active Problems Patient Care Coordination No te Formatting of this note migh t be different from the original. C3/CM Susanne Allen RN Problem Noted Date Diagnosed Date Mandible pain 12/31/2024 Nevus 11/18/2024 Localized swelling, mass and lump, neck 08/28/20 Assessment & Plan (08/29/2024 5:06 PM EDT): Patients concern is about her chronic neck swelling for which is has had imaging (US/CT) and visits with ENT, indeed she has an upcoming appt, explained to patient that director agricultural services will not be able to assist with [...] Rapid Covid-19, Rapid Influenza A & B, [id number], TSH w/Reflex FT4 Nicotine use 12/13/2023 Assessment [...] Discussed options for pain management. Referring to Collections Attorney for further evaluation of symptoms and lab [...] Encounters Date Type Department Care Team Description 02/04/2025 Refill [facility] MED & PEDS [address] [place] [address] Amber Love MD Polyarthralgia 01/30/2025 2:00 PM EDT Office Visit [facility] ADULT DENTAL [address] [place] [address] Jocelyn Hardin Dental calculus (Primary Dx); Periodontal disease; Gingival recession, localized; Missing teeth, acquired; Excessive attrition of teeth, limited to enamel; Fractured dental advent with loss of material; Abfraction 01/29/2025 Refill [facility] MEDICINE [address] [place] [address] Frannie Ron MD 01/19/2025 Orders Only [facility] External Provider, [facility] 01/09/2025 Population Health Risk Score [facility] Department [address] [phone] Provider, Population Health Generic 01/08/2025 Refill [facility] MED & PEDS [address] [place] [address] Amber Love MD Polyarthralgia 01/02/2025 Refill [facility] MED & PEDS [address] [place] [address] Amber Love MD 12/31/2024 3:30 PM EST Office Visit [facility] ADULT DENTAL [address] [place] [address] Dallin Toth DDS Mandible pain (Primary Dx) 12/31/2024 Refill [facility] MEDICINE [address] [place] [address] Haile Miner MD Polyarthralgia 12/28/2024 Refill [facility] MED & PEDS [address] [place], [place] [phone] Rita Shay MD Allergic rhinitis, unspecified seasonality, unspecified trigger 12/25/2024 Refill [facility] MED[facility] [address] [place] [address] Amber Love MD 12/18/2024 1:30 PM EST Clinical Support [facility] MED & PEDS [address] [place] [address] Perlita Candelario, PETE Fibromyalgia 12/18/2024 Travel 12/10/2024 Refill [facility] MED[facility] [address] [place] [address] Amber Love MD Polyarthralgia 12/03/2024 Refill [facility] MED & PEDS [address] [place], [place] [phone] Amber Love MD Allergic rhinitis, unspecified seasonality, unspecified trigger 12/01/[address] [address] Amber Love MD 11/20/2024 Orders Only [facility] MED & PEDS [address] [place] [address] Cheri Colvin MD Positive SERA (antinuclear antibody) (Primary Dx); Polyarthralgia 11/18/2024 10:00 AM EST Office Visit [facility] MED & PEDS [address] [place] [address] Rita Shay MD Nevus (Primary Dx); Hair loss; Seborrheic dermatitis 11/18/2024 Travel from Last 3 Months Immunizations Name Administration [...] Sign Reading Time Taken Comments Blood Pressure 122/76 01/30/2025 2:11 PM EDT Pulse 66 11/18/2024 9:52 AM EST Temperature [...] Description 02/24/2025 1:30 PM EDT Clinical Support [facility] MED & PEDS [address] [place] [address] Perlita Candelario, RN [address] [place] [address] Health Maintenance Due Date Last Done Comments CT Colonography 1960 FIT DNA/Cologuard 1960 FIT 1960 FOBT 1960 Mammogram 1960 Sigmoidoscopy 1960 Zoster Vaccines (2 of 2) 06/05/2022 04/10/2022, 03/29 RSV Patients and Patients Aged 60 years or older (1 - Risk 60-74 years 1-dose series) 2022 Depression Screening 01/13/2024 01/12/2023, 01/13/20 23 COVID-19 Vaccine (4 - 2023- season) 2024 01/25/2022, 05/11/2021, 02/22/2021 Influenza Vaccine (#1) 2024 , 07/19/2022, 07/27/2021, Additional history exists SDOH Screening 02/11/2025 02/12/2024 Colonoscopy 06/29/2025 01/04/2021 Colorectal Cancer Screening 06/29/2025 Pap Smear 07/06/2025 07/06/2022 Dental Oral Exam 08/02/2025 01/30/2025, 08/2023, 01/26/2021, Additional history exists Dental Prophylaxis 08/02/2025 01/30/2025, 1 , 07/05/2017 Alcohol/Substance Use Screening 08/28/2025 08/28/2024 Tobacco Screening 01/30/2026 01/30/2025 Dental X-Ray: Bitewings 01/31/2026 01/31/20, 12/31/2024, 07/09/2023, Additional history exists Cervical Cancer Screening 07/06/2027 HPV/Cotest 07/06/2027 07/06/2022 Dental X-Ray: Full Mouth 02/01/2028 025, 02/09/2021, 01/26/2021, Additional history exists Lipid Panel 04/30/2029 04/30/2024, 09/26/2021 DTaP/Tdap/Td Vaccines [...] Procedure Name Priority Date/Time Associated Diagnosis Comments COMPREHENSIVE PERIODONTAL EVALUATION - NEW OR ESTABLISHED PATIENT Routine 01/30/2025 2:00 PM EDT PERIODIC ORAL EVALUATION - ESTABLISHED PATIENT Routine 01/30/2025 2:00 PM EDT CASE PRESENTATION, DETAILED AND EXTENSIVE TREATMENT PLANNING Routine 01/30/2025 2:00 PM EDT Dental calculus Periodontal disease Gingival recession, localized Missing teeth, acquired ORAL HYGIENE INSTRUCTIONS Routine 01/30/2025 2:00 PM EDT Dental calculus Periodontal disease Gingival recession, localized Missing teeth, acquired INTRAORAL - COMPLETE SERIES OF RADIOGRAPHIC IMAGES Routine 01/30/2025 2:00 PM EDT Dental calculus Periodontal disease Gingival recession, localized Missing teeth, acquired PROPHYLAXIS - ADULT Routine 01/30/2025 2 :00 PM EDT Dental calculus Periodontal disease CT CHEST WO CONTRAST Routine 01/19/2025 9:27 AM EDT CASE PRESENTATION, DETAILED AND EXTENSIVE TREATMENT PLANNING Routine 12/31/2024 3:30 PM EST LIMITED ORAL EVALUATION - PROBLEM FOCUSED Routine 12/31/2024 3:30 PM EST INTRAORAL - PERIAPICAL EACH ADDITIONAL RADIOGRAPHIC IMAGE Routine 12/31/2024 3:30 PM EST INTRAORAL - PERIAPICAL FIRST RADIOGRAPHIC IMAGE Routine 12/31/2024 3:30 PM EST BITEWINGS - 4 RADIOGRAPHIC IMAGES Routine 12/31/2024 3:30 PM EST POCT JAIRO-14 URINE DRUG SCREEN Routine 12/18/2024 1:40 PM EST Fibromyalgia AMB REFERRAL TO RHEUMATOLOGY Routine 12/08/2024 Positive SERA (antinuclear antibody) Polyarthralgia LIPID PANEL, STANDARD Routine 04/30/2024 4:21 PM EDT Epigastric abdominal pain HIV 1/2 ANTIGEN/ANTIBODY, FOURTH GENERATION W/RFL Routine 02/06/2024 10:36 AM EDT Swollen neck HM PAP/HPV Routine 07/06/2022 MARKO HISTORICAL HEPATITIS PANEL, GENERAL Routine 09/26/2021 9:56 AM EST HM COLONOSCOPY Routine 01/04/2021 from Last 3 Months or Most Recently Relevant to Health Maintenance Results * CT Chest w/o Contrast (01/19/2025 9:27 AM EDT) Anatomical Region Laterality Modality Body, Chest Computed Tomogra phy 01/19/2025 9:27 AM EDT Narrative 01/19/2025 2:46 PM EDT ? [facility] ?[address] ?[place] [address] ? CT Scan Report ? Signed ? Patient: Parvez,Sera C ?MR#: [id number] ?? 2 ? : 1960 ?Acct:[id number] ? Age/Sex: 64 / F ?ADM Date: 01/19/25 ? Loc: HO.CT ? Attending Dr: Marisela Felipe STOREROOM ATTENDANT ? Ordering Physician: Marisela Felipe NP ?? Date of Service: 01/19/25 ?? Procedure(s): CT chest wo IV con ?? Accession Number(s): [id number] ? cc: Marisela Felipe STOREROOM ATTENDANT; Amber Love MD ? Report Number: ?? [id number]: Total DLP = ??132.00 mGy-cm ?? EXAMINATION: CT CHEST WITHOUT IV CONTRAST ? INDICATION: F17.210 - Nicotine dependence, cigarettes, uncomplicated ? COMPARISON: Comparison is made with the prior examination dated ?? 02/17/2024. ? TECHNIQUE: Helical CT scan of the chest was performed without ?? intravenous contrast. ??Coronal and sagittal reformatted images were ?? generated and reviewed. ? This CT exam was performed with one or more of the following dose ?? reduction techniques: automated exposure control, adjustment of the mA ?? and/or kV according to patient size, use of iterative reconstruction ?? technique. ? DLP: 132 mGy-cm ? CHEST: ? THYROID: The thyroid is unremarkable. ? LUNGS: There is a 2 mm nodule at the right lung apex (series 4, image ?? 24) without change. There is subpleural fibrosis at the anterior aspect ?? of the left upper lobe without change, likely related to prior left ?? breast radiation therapy. The lungs are otherwise clear. ? MEDIASTINUM: There is no mediastinal lymphadenopathy. ? LAWRENCE: Evaluation of the hilar regions is limited by lack of intravenous ?? contrast material. ? CARDIOVASCULATURE: The heart is normal in size. ??There is no ?? pericardial effusion. ??The thoracic aorta is normal in caliber. ? DEGREE OF CORONARY CALCIFICATION: ??none ? PLEURA: ??There is no pleural effusion. ??No pneumothorax. ? MAIN AIRWAYS: The mainstem bronchi and proximal branches are patent. ? AXILLA: There is no axillary lymphadenopathy. ? BONES AND SOFT TISSUES: Unremarkable ? UPPER ABDOMEN: The visualized portion of the liver demonstrates ?? diffusely decreased attenuation, consistent with steatosis. There is ?? focal fatty sparing adjacent to the fissure for the ligamentum teres. ?? The patient is status post cholecystectomy. The visualized portions of ?? the spleen and adrenals have an unremarkable unenhanced appearance. ? CT/CT chest wo IV con ?? IMPRESSION: ?? 1. Stable 2 mm right apical pulmonary nodule. Postradiation fibrosis in ?? the left upper lobe. ? 2. Hepatic steatosis. ? Electronically signed by: ??Sam Gonsalves MD ??01/19/2025 02:43 PM EDT ?? RP ? Dictated By: ?Sam Gonsalves MD ? Signed By: ?<Electronically signed by Sam Gonsalves MD in OV> ?01/19/25 1443 ? DD/ 6 ? TD/TT: 01/19/25 1016 ? Tree Killer: ? Procedure Note Donotuseinterpreter, Image - 01/19/[address] [address] [address] Scan Report Signed Patient: Sera Hannon CMR#: [id number] 2 : 1960cct:[id number] Age/Sex: 64 / FADM Date: 01/19/25 Loc: HO.CT Attending Dr: Marisela Felipe NP Ordering Physician: Marisela Felipe NP Date of Service: 01/19/25 Procedure(s): CT chest wo IV con Accession Number(s): [id number] cc: Marisela Felipe NP; Amber Love MD Report Number: [id number]: Total DLP = 132.00 mGy-cm EXAMINATION: CT CHEST WITHOUT IV CONTRAST INDICATION: F17.210 - Nicotine dependence, cigarettes, uncomplicated COMPARISON: Comparison is made with the prior examination dated 02/17/2024. TECHNIQUE: Helical CT scan of the chest was performed without intravenous contrast. Coronal and sagittal reformatted images were generated and reviewed. This CT exam was performed with one or more of the following dose reduction techniques: automated exposure control, adjustment of the mA and/or kV according to patient size, use of iterative reconstruction technique. DLP: 132 mGy-cm CHEST: THYROID: The thyroid is unremarkable. LUNGS: There is a 2 mm nodule at the right lung apex (series 4, image 24) without change. There is subpleural fibrosis at the anterior aspect of the left upper lobe without change, likely related to prior left breast radiation therapy. The lungs are otherwise clear. MEDIASTINUM: There is no mediastinal lymphadenopathy. LAWRENCE: Evaluation of the hilar regions is limited by lack of intravenous contrast material. CARDIOVASCULATURE: The heart is normal in size. There is no pericardial effusion. The thoracic aorta is normal in caliber. DEGREE OF CORONARY CALCIFICATION: none PLEURA: There is no pleural effusion. No pneumothorax. MAIN AIRWAYS: The mainstem bronchi and proximal branches are patent. AXILLA: There is no axillary lymphadenopathy. BONES AND SOFT TISSUES: Unremarkable UPPER ABDOMEN: The visualized portion of the liver demonstrates diffusely decreased attenuation, consistent with steatosis. There is focal fatty sparing adjacent to the fissure for the ligamentum teres. The patient is status post cholecystectomy. The visualized portions of the spleen and adrenals have an unremarkable unenhanced appearance. CT/CT chest wo IV con IMPRESSION: 1. Stable 2 mm right apical pulmonary nodule. 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 2. Hepatic steatosis. Electronically signed by: Sam Gonsalves MD 01/19/2025 02:43 PM EDT RP Dictated By: Sam Gonsalves MD Signed By: <Electronically signed by Sam Gonsalves MD in OV> 01/19/25 1443 DD/ 0927 TD/TT: 01/19/25 1016 Tree Killer: [facility] External Provider IMG CT PROCEDURES Final Result * POCT JAIRO-14 Urine Drug Screen (12/18/2024 1:40 PM EST) Pathologist [facility] THC Positive Oxycodone Screen, Urine Positive Urine Urine specimen obtained by clean catch procedure / Unknown 12/18/2024 1:40 PM EST Narrative Perlita Candelario RN - 12/18/2024 1:40 PM EST Lot# [id number] Exp: 06-17-26 Amber Love MD POINT OF CARE TEST ENTER/EDIT ORDERABLES Final Result * Referral to Rheumatology (12/08/2024) Cheri Colvin MD OUTPATIENT REFERRAL ORDERABLE S Final Result * (ABNORMAL) Lipid Panel, Standard (04/30/2024 4:21 PM EDT) Pathologist [facility] Triglycerides 270(H) <150 mg/dL [facility] Comment:Desirable Triglyceri de: less than 150 mg/dLBorderline High Triglyceride 150-199 mg/dLHigh Triglyceride: 200-499 mg/dLVery High Triglyceride: greater than or equal to 5OO mg/dL Cholesterol 202(H) <200 mg/dL [facility] Comment:Desirable Cholestero l: less than 200 mg/dLBorderline High Cholesterol: 200-239 mg/dLHigh Cholesterol: greater than 239 mg/dL LDL Cholesterol Calculated 106(H) <100 mg/dL [facility] Comment:Desirable LDL: less than 100 mg/dLNear Optimal/Above Optimal LDL: 110- 129 mg/dLBorderline High LDL: 130-159 mg/dLHigh LDL: 160-189 mg/dLVery High LDL: greater than or equal to 190 mg/dL HDL Cholesterol 42 >40 mg/dL [facility] Comment:Desirable HDL: great er than 40 mg/dL Note: This HDL assay may give artificially low results in patients with liver disease. Blood Venous blood specimen / Unknown 04/30/2024 4:21 PM EDT 04/30/2024 5:20 PM EDT us Amber Love MD LAB BLOOD ORDERABLES Final Re sult [facility] [address] [place] [phone] * HIV-1/2 Antigen and Antibodies, Fourth Generation, with Reflexes (02/06/2024 10:36 AM EDT) HIV AB/AG Nonreactive Nonreactive [facility] Comment:HIV-1 p24 Ag and/or HIV-1/HIV-2 Ab not detected.A test result that is nonreactive does not exclude thepossibility of exposure to or infection with HIV-1 and/orHIV-2. Nonreactive results in this assay for individualswith prior exposure to HIV-1 and/or HIV-2 may be due toantigen and antibody levels that are below the limit ofdetection of this assay.The [employer] ([employer]) HIV Ag/Ab Combo assay result andsupplemental assay results should be interpreted inconjunction with the patient's clinical presentation,history and other laboratory results. If the results areinconsistent with clinical evidence, additional testing issuggested to confirm the result. Blood Venous blood specimen / Unknown 02/06/2024 10:36 AM EDT 02/06/2024 2:32 PM EDT Amber Love MD LAB BLOOD ORDERABLES Final Re sult Performing Organization Address [facility] Co de Phone Number [facility] [address] [place] [address] [phone] * Hm Pap Smear (07/06/2022) Pap Negative for intraephithelial lesion or malignancy Negative for intraephithelial lesion or malignancy, Other HPV Undetected Historical Provider MD HEALTH MAINTENANCE Final Result * (ABNORMAL) HEPATITIS PANEL, GENERAL (09/26/2021 9:56 AM EST) HEPATITIS A AB, TOTAL REACTIVE( A) NON-REACT [facility] Comment: ?? For additional information, please refer to ?? http://education.Trusper.Kenshoo/faq/GXV150 ?? (This link is being provided for [...] active infection. ?? 09/26/2021 9:56 AM EST us Amber Love MD HISTORICAL/NON ORDERABLE LABS Final Result Performing Organization Address City/[facility]/ZIP Co de Phone Number [facility] [address] [place] [phone], * Colonoscopy (01/04/2021) Colonoscopy Normal Normal Narrative Mirella Anderson - 01/04/2021 Recommended 4 year follow up per office due 06/2025 us Historical Provider MD HEALTH MAINTENANCE Final Result from Last 3 Months or Most Recently Relevant to Health Maintenance Insurance [facility] AD[facility] - [facility] MEDICAID DDS ADULT Care Teams Sample Builder Relationship Specialty Start Date End Date Amber Love MD [address] [place] [phone] PCP - General Family Medicine 12/29/20 Venita Hannon Community Health Worker 04/01/24 Courtney Lindsay RN [address] [place] [address] Patrol Deputy Sheriff 04/01/24
--- OUTSIDE RECORDS SUMMARY | 2025-02-11 16:04 | XMS_ITS | Encounter Summary ---
Author Organization [employer] Address [address] [place] [address] Care Team Providers Care Seasonal Recruiter Name Role Phone Amber Love MD Primary Care Provider [phone] Venita Hannon Unavailable Unavailable Courtney Lindsay RN Unavailable [phone] Reason for Visit * Reason Comments Med Refill Encounter Details Date Type Department Care Team (Late st Contact Info) Description 12/31/2024 Refill [facility] MED[facility] [address] [place] [address] Haile Miner MD [address] [place], [place] [phone] Polyarthralgia Social History Tobacco Use Types Packs/Day [...] [facility] [address] [place] [address] Perlita Candelario RN [address] [place] [address] documented as of this encounter Visit Diagnoses Diagnosis Polyarthralgia Pain in joint, multiple sites documented in this encounter Additional Health Concerns Assessment Noted Time PHQ-9 Depression Total Score: 2 01/13/20 23 9:40 AM EDT documented as of this encounter Care Teams Seasonal Recruiter Relationship Specialty Start Date End Date Amber Love MD [address] [place] [address] PCP - General Family Medicine 12/29/20 Venita Hannon Community Health Worker 04/01/24 Courtney Lindsay, PETE [address] [place] [address] Roof Painter 04/01/24 documented as of this encounter
--- OUTSIDE RECORDS SUMMARY | 2025-02-11 16:04 | XMS_ITS | Encounter Summary ---
Author Organization [employer] [facility] Address [address] [facility] [place] [address] Care Team Providers Care Machine Repairman Name Role Phone Amber Love MD Primary Care Provider [phone] Venita Hannon Unavailable Unavailable Courtney Lindsay RN Unavailable [phone] Encounter Details Date Type Department Care Team (Latest Contact Info) Description 08/22/2019 Abstract [facility] CONVERSIONS Dental, Provider, DDS Social History [...] Upcoming Encounters Date Type Department Care Team ( st Contact Info) Description 02/24/2025 1:30 PM EDT Clinical Support [facility] MED & PEDS [address] [place] [address] Perlita Candelario, RN [address] [place] [address] documented as of this encounter Visit Diagnoses Not on filedocumented in this encounter Care Teams Machine Repairman Relationship Specialty Start Date End Date Amber Love MD [address] [place] [address] PCP - General Family Medicine 12/29/20 Venita Hannon Community Health Worker 04/01/24 Courtney Lindsay RN [address] [place] [phone] Save All Operator 04/01/24 documented as of this encounter
--- OUTSIDE RECORDS SUMMARY | 2025-02-11 16:04 | XMS_ITS | Encounter Summary ---
Author Organization [employer] Address [address] [facility] [address] [facility] [address] [place] [address] Care Team Providers Care Sports Betting Manager Name Role Phone Amber Love MD Primary Care Provider [phone] Venita Hannon Unavailable Unavailable Courtney Lindsay RN Unavailable [phone] Encounter Details Date Type Department Care Team (Late st Contact Info) Description 09/13/2023 Abstract [facility] MEDICINE [address] [place] [address] Amber Love MD [address] [place], [place] [phone] Social History Tobacco Use Types Packs/Day Years [...] Upcoming Encounters Date Type Department Care Team ([facility] st Contact Info) Description 02/24/2025 1:30 PM EDT Clinical Support [facility] MED & PEDS [address] [place] [address] Perlita Candelario RN [address] [place] [address] documented as of this encounter Procedures Procedure [...] documented as of this encounter Care Teams Sports Betting Manager Relationship Specialty Start Date End Date Amber Love MD [address] [place] [address] PCP - General Family Medicine 12/29/20 Vneita Hannon Community Health Worker 04/01/24 Courtney Lindsay RN [address] [facility] [place] [place] [address] Truck Engine Technician 04/01/24 documented as of this encounter
--- OUTSIDE RECORDS SUMMARY | 2025-02-11 16:04 | XMS_ITS | Encounter Summary ---
Author Organization [employer] Address [address] 7[address] [place] [address] Care Team Providers Care Rig Welder Name Role Phone Amber Love MD Primary Care Provider [phone] Venita Hannon Unavailable Unavailable Courtney Lindsay RN Unavailable [phone] Reason for Visit * Reason Onset Date Comments Appointment Request 03/27/2023 Med Refill 03/27/2023 Encounter Details Date Type Department Care Team (Late st Contact Info) Description 03/27/2023 Telephone [facility] MEDICINE [address] [place] [address] Amber Love MD [address] [place], [place] [phone] Appointment Request; Med Refill Social History Tobacco [...] MG immediate release tablet please send to [facility] pharmacy * Telephone Encounter - Dorita Parvez - 03/27/2023 9:17 AM EDT Tc from pt spouse requesting to r/s 03/23/23 CTS appt. documented in this encounter Plan of Treatment Upcoming Encounters Date Type Department Care Team (Late st Contact Info) Description 02/24/2025 1:30 PM EDT Clinical Support [facility] MED & PEDS 505 [place] [address] Perlita Candelario RN 505 [place] [address] documented as of this encounter Visit Diagnoses Not on filedocumented in this encounter Additional Health Concerns Assessment Noted Time PHQ-9 Depression Total Score: 2 01/13/20 23 9:40 AM EDT documented as of this encounter Care Teams Rig Welder Relationship Specialty Start Date End Date Amber Love MD [address] [place] [address] PCP - General Family Medicine 12/29/20 Venita Hannon Community Health Worker 04/01/24 Courtney Lindsay RN 505 [place] [address] Assembler Bicycle 04/01/24 documented as of this encounter
--- OUTSIDE RECORDS SUMMARY | 2025-02-11 16:04 | XMS_ITS | Encounter Summary ---
Author Organization [employer] Address [address] 7[address] [place] [address] Care Team Providers Care Fly Rail Operator Name Role Phone Amber Love MD Primary Care Provider [phone] Venita Hannon Unavailable Unavailable Courtney Lindsay RN Unavailable [phone] Reason for Visit * Reason Onset Date Comments Med Refill 09/17/2023 Encounter Details Date Type Department Care Team (Late st Contact Info) Description 09/17/2023 Telephone [facility] MEDICINE 230 [place] [address] Amber Love MD [address] [place], [place] [phone] Med Refill Social History Tobacco Use Types [...] Description 02/24/2025 1:30 PM EDT Clinical Support [facility] MED & PEDS 505 [place] [address] Perlita Candelario RN 505 [place] [address] documented as of this encounter Visit Diagnoses Not on filedocumented in this encounter Additional Health Concerns Assessment Noted Time PHQ-9 Depression Total Score: 2 01/13/20 23 9:40 AM EDT documented as of this encounter Care Teams Fly Rail Operator Relationship Specialty Start Date End Date Amber Love MD 230 [place] [address] PCP - General Family Medicine 12/29/20 Venita Hannon Community Health Worker 04/01/24 Courtney Lindsay RN [address] [place] [address] Screw Machine Adjuster Automatic 04/01/24 documented as of this encounter
--- OUTSIDE RECORDS SUMMARY | 2025-02-11 16:04 | XMS_ITS | Encounter Summary ---
Author Organization [employer] Address [address] 7[address] [place] [address] Care Team Providers Care Technology Professional Name Role Phone Amber Love MD Primary Care Provider Venita Hannon Unavailable Unavailable Courtney Lindsay RN Unavailable [phone] Encounter Details Date Type Department Care Team (Late st Contact Info) Description 09/13/2023 Abstract [facility] MEDICINE [address] [place] [address] Amber Love MD [address] [place], [place] [phone] Social History Tobacco Use Types Packs/Day Years [...] Upcoming Encounters Date Type Department Care Team ([facility] st Contact Info) Description 02/24/2025 1:30 PM EDT Clinical Support [facility] MED & PEDS 505 [place] [address] Perlita Candelario RN 505 [place] [address] documented as of this encounter Visit Diagnoses Not on filedocumented in this encounter Additional Health Concerns Assessment Noted Time PHQ-9 Depression Total Score: 2 01/13/20 23 9:40 AM EDT documented as of this encounter Care Teams Technology Professional Relationship Specialty Start Date End Date Amber Love MD 230 [place] [address] PCP - General Family Medicine 12/29/20 Venita Hannon Community Health Worker 04/01/24 Courtney Lindsay RN [address] [place] [address] Professional Engineer 04/01/24 documented as of this encounter
--- OUTSIDE RECORDS SUMMARY | 2025-02-11 16:04 | XMS_ITS | Encounter Summary ---
Author Organization [employer] Address [address] 7[address] [place] [address] Care Team Providers Care Well Logging Operator Mud Analysis Name Role Phone Amber Love MD Primary Care Provider [phone] Venita Hannon Unavailable Unavailable Courtney Lindsay RN Unavailable [phone] Reason for Visit * Reason Onset Date Comments Med Refill 09/17/2024 Encounter Details Date Type Department Care Team (Late st Contact Info) Description 09/17/2024 Telephone [facility] MEDICINE 230 [place] [address] Amber Love MD [address] [place], [place] [phone] Med Refill Social History Tobacco Use Types [...] the past 12 months, has t he [employer], gas, oil or water company threatened to [...] 5-325 MG tablet To be sent to: [facility] - [place], [place] - [address] [facility] documented in this encounter Plan of Treatment Upcoming Encounters Date Type Department Care Team ([facility] st Contact Info) Description 02/24/2025 1:30 PM EDT Clinical Support [facility] MED & PEDS 505 [place] [address] Perlita Candelario, PETE 505 [place] [address] documented as of this encounter Visit Diagnoses Not on filedocumented in this encounter Additional Health Concerns Assessment Noted Time PHQ-9 Depression Total Score: 2 01/13/20 23 9:40 AM EDT documented as of this encounter Care Teams Well Logging Operator Mud Analysis Relationship Specialty Start Date End Date Amber Love MD 230 [place] [address] PCP - General Family Medicine 12/29/20 Venita Hannon Community Health Worker 04/01/24 Courtney Lindsay RN [address] [place] [address] Road Mixer Operator 04/01/24 documented as of this encounter
--- OUTSIDE RECORDS SUMMARY | 2025-02-11 16:04 | XMS_ITS | Encounter Summary ---
Author Organization [employer] Address [address] 7[address] [place] [address] Care Team Providers Care [place] Boatman Name Role Phone Amber Love MD Primary Care Provider [phone] Venita Hannon Unavailable Unavailable Courtney Lindsay RN Unavailable [phone] Encounter Details Date Type Department Care Team (Late Contact Info) Description 10/16/2022 Telephone [facility] MEDICINE 230 [place] [address] Amber Love MD 505 [place] [address] Social History Tobacco Use Types Packs/Day Years [...] Department Care Team (Late Contact Info) Description 02/24/2025 1:30 PM EDT Clinical Support [facility] CH[facility] MED & PEDS 505 [place] [address] Perlita Candelario RN 505 [place], [place] [phone] documented as of this encounter Visit Diagnoses Not on filedocumented in this encounter Care Teams [place] Boatman Relationship Specialty Start Date End Date Amber Love MD 230 [place] [address] PCP - General Family Medicine 12/29/20 Venita Hannon Community Health Worker 04/01/24 Courtney Lindsay RN [address] [place] [address] Conduit Reamer Operator 04/01/24 documented as of this encounter
--- OUTSIDE RECORDS SUMMARY | 2025-02-11 16:04 | XMS_ITS | Encounter Summary ---
Author Organization [employer] Address [address] 7[address] [place] [address] Care Team Providers Care Instrument And Controls Technician Name Role Phone Amber Love MD Primary Care Provider [phone] Venita Hannon Unavailable Unavailable Courtney Lindsay RN Unavailable [phone] Reason for Visit * Reason Comments Med Refill Encounter Details Date Type Department Care Team ([facility] st Contact Info) Description 07/30/2024 Refill [facility] CHC MED & PEDS 505 [place] [address] Amber Love MD 505 [place] [address] Social History Tobacco Use Types Packs/Day Years [...] Description 02/24/2025 1:30 PM EDT Clinical Support [facility] CHC MED & PEDS 505 [place] [address] Perlita Candelario RN 505 [place] [address] documented as of this encounter Visit Diagnoses Not on filedocumented in this encounter Additional Health Concerns Assessment Noted Time PHQ-9 Depression Total Score: 2 01/13/20 23 9:40 AM EDT documented as of this encounter Care Teams Instrument And Controls Technician Relationship Specialty Start Date End Date Amber Love MD [address] [place] [address] PCP - General Family Medicine 12/29/20 Venita Hannon Community Health Worker 04/01/24 Courtney Lindsay RN 505 [place] [address] Apparel Rental Clerk 04/01/24 documented as of this encounter
== END 2025-02-11 14:12 | disposition home or self-care (01) ==
PROVIDERS: PCP Family Medicine; Visit Provider Nurse Practitioner Family
DX: J45.909 Unspecified asthma, uncomplicated (principal); R91.1 Solitary pulmonary nodule; F17.210 Nicotine dependence, cigarettes, uncomplicated
CPT/HCPCS: 99214

== ENCOUNTER → 2025-02-11 13:29 | Outpatient (BNVA) | payer MEDICAID, SELFPAY | PROVIDERS: PCP Family Medicine; Visit Provider Nurse Practitioner Family | DX: R91.1 Solitary pulmonary nodule (principal); J45.909 Unspecified asthma, uncomplicated; F17.210 Nicotine dependence, cigarettes, uncomplicated | CPT/HCPCS: 99212 ==

== ENCOUNTER 2025-07-10 15:25 | Outpatient (REF) | payer MEDICAID, SELFPAY ==
--- OUTSIDE RECORDS SUMMARY | 2025-07-10 15:15 | XMS_ITS | Encounter Summary ---
Author Organization [employer] Address [address] [facility] [address], [place] [address] Care Team Providers Care Television Production Clerk Name Role Phone Amber Love MD Primary Care Provider [phone] Venita Hannon Unavailable Courtney Lindsay RN Unavailable [phone] Reason for Referral * Consultation (Routine) - Pending Review Specialty Diagnoses / Procedures Referred By Alejandro burns Referred To Contact Allergy Diagnoses Urticaria Rita Shay MD [address] [place] [address] Phone: tel: fax: Referral ID Status Reason Start Date Expiration Date Visits Requested Visits Authorized [id number] Pending Review Specialty Services Required 07/10/2025 07/10/2026 1 1 Encounter Details Date Type Department Care Team (Late st Contact Info) Description 07/10/2025 3:15 PM EDT Office Visit [facility] MED & PEDS [address] [place], [place] [phone] Rita Shay MD [address] [place], [place] [phone] Urticaria (Primary Dx); Unintentional weight loss Social History Tobacco Use Types Packs/Day Years [...] housing situation today? I have bren morales 05/13/[address] you li ve. Do you have problems with any of the following? None of the above 05/13/2025 Food Insecurity Answer Date Recorded Within the past 12 months, y ou worried that your food would run out before you got money to buy more: Never True 05/13/2025 Within the past 12 months,th e food you bought just didn't last and you didn't have enough money to get more: Never True Transportation Answer Date Recorded In the past 12 months, has l ack of transportation kept you from medical appts, meetings, work or from getting things needed for daily living? No 05/13/2025 Utilities Answer Date Recorded In the past 12 months, has t he electric, gas, oil or water company threatened to shut off services in your home? No 05/13/2025 Depression Answer Date Recorded Patient Health Questionnaire-2 Score 2 01/12/2023 Internet Access Answer Date Recorded Internet Access Q1 Yes 05/13/2025 Internet Access Q2 Not on file 05/13/2025 Comments No Sex and Gender Information Value Date Recorded Sex Assigned at Female 08/28/2022 10:15 AM EDT Legal Sex Female 10:15 AM EDT Gender Identity Female 08/28/2022 10:15 AM EDT Sexual Orientation Straight 08/28/2022 10 :15 AM EDT documented as of this encounter Last Filed Vital Signs Vital Sign Reading Time Taken Comments Blood Pressure 129/77 07/10/2025 3:07 PM EDT Pulse 63 07/10/2025 3:07 PM EDT Temperature - - Respiratory Rate 20 07/10/2025 3:07 PM EDT Oxygen Saturation 96% 07/10/2025 3:07 PM EDT Inhaled Oxygen Concentration - - Weight 66.7 kg (147 lb) 07/10/2025 3:07 PM EDT Height 157.5 cm (5' 2 ) 07/10/2025 3:07 PM EDT Body Mass Index 26.89 07/10/2025 3:07 PM EDT documented in this encounter Progress Notes * Rita Shay MD - 07/10/2025 3:15 PM EDT SUBJECTIVE Angie Hannon is a 64 y.o. female who presents for No chief complaint on file.. HPI 1) history of itchiness of the body associated with presence of hives on and off for several days. The itchiness and hives are controlled with the use of Benadryl. No associated upper respiratory symptoms. 2) patient is also concerned about an intentional weight loss after she had the flu about 1 month ago. On reviewing the chart she has lost 9 pounds Since May 13, 2025. Problem List[1] Allergies[2] Medications Ordered Prior to Encounter[3] Review of Systems Constitutional: Negative for appetite change, chills and diaphoresis. Eyes: Negative for pain and redness. Respiratory: Negative for cough, choking and shortness of breath. Gastrointestinal: Negative for blood in stool, constipation and diarrhea. Skin: Positive for rash. Negative for pallor. OBJECTIVE Vitals: 07/10/25 1507 BP: 129/77 BP Location: Right arm Patient Position: Sitting BP Cuff Size: Adult Pulse: 63 Resp: 20 SpO2: 96% Weight: 147 lb (66.7 kg) Height: 5' 2 (1.575 m) Physical Exam Constitutional: General: She is not in acute distress. Appearance: Normal appearance. She is not ill-appearing, toxic-appearing or diaphoretic. Cardiovascular: Rate and Rhythm: Normal rate. Pulmonary: Effort: Pulmonary effort is normal. Skin: Comments: erythematous wheals of around 1 cm of diameter located on the right elbow and forearm. The rest of the skin is clear. Neurological: Mental Status: She is alert. Assessment/Plan Assessment/Plan Diagnoses and all orders for this visit: Urticaria - Comprehensive Metabolic Panel; Future - CBC auto differential; Future - TSH W/Reflex to FT4; Future - fexofenadine (Nadira) 180 MG tablet; Take 1 tablet (180 mg) by mouth if needed each day (Allergies). - diphenhydrAMINE (BENADryl) 25 MG tablet; 1 to 2 tab at bedtime - Referral to Allergy; Future Unintentional weight loss - Comprehensive Metabolic Panel; Future - CBC auto differential; Future - TSH W/Reflex to FT4; Future Patient reports that she has lost her appetite during her acute illness about a month ago. Further workup will be decided if she continues to lose weight. Will be scheduled for follow-up in a month with her PCP. [1] Patient Active Problem List Diagnosis Acquired anophthalmos Allergic rhinitis Gastroesophageal reflux disease without esophagitis Keratosis pilaris Malignant neoplasm of female breast (CMS/HCC) Mild persistent asthma Rash Smoker Urge incontinence Closed nondisplaced fracture of phalanx of toe of right foot Functional urinary incontinence Polyarthralgia Missing teeth, acquired Periodontal disease Varicose veins of left lower extremity Primary insomnia Asthma Malaise and fatigue Nicotine use Positive ANGIE (antinuclear antibody) Dental caries Local recurrence of malignant tumor of breast (CMS/HCC) Epigastric abdominal pain Fibromyalgia Localized swelling, mass and lump, neck Sialoadenitis Nevus Mandible pain Long-term current use of opiate analgesic Uses Hungarian as primary spoken language Class 1 obesity Chronic right shoulder pain Disorder of both eustachian tubes [2] Allergies Allergen Reactions Aspirin Anaphylaxis Other reaction(s): Anaphylaxis Clindamycin Iodinated Contrast Media Latex Rash Other reaction(s): blisters [3] Current Outpatient Medications on File Prior to Visit Medication Sig Dispense Refill acetaminophen (Tylenol) 500 MG tablet Take 1 tablet (500 mg) by mouth every 6 (six) hours if neededfor mild pain for up to 20 doses. 20 tablet 0 Advair HFA 115-21 MCG/ACT inhaler INHALE DANDO DOS SOPLIDOS CADA DOCE HORAS albuterol (2.5 MG/3ML) 0.083% nebulizer solution INHALE 1 AMPULE USING A NEBULIZER BY MOUTH EVERY 4HOURS NEEDED FOR WHEEZING 90 mL 3 albuterol 108 (90 Base) MCG/ACT inhaler Inhale 2 puffs every 4 (four) hours if needed for wheezing.18 g 1 amitriptyline (Elavil) 50 MG tablet TOME 1 TABLETA POR V A ORAL TODOS LOS D AL ACOSTARSE ammonium lactate (Amlactin) 12 % cream APPLY TOPICALLY TO FEET TWICE DAILY chlorhexidine (Peridex) 0.12 % solution Swish 15 mL morning and night for 1 minute. Spit, do not swallow. Do not eat or drink for 30 minutes following use. 473 mL 0 Citrucel 500 MG tablet TAKE 1 TABLET [...] BY MOUTH EVERY DAY 90 capsule 3 diphenhydrAMINE (BENADryl) 25 MG capsule TAKE 1 CAPSULE BY MOUTH EVERY 8 HOURS NEEDED FOR ITCHING 30 capsule 1 docusate sodium (Colace) 100 MG capsule TAKE 1 CAPSULE BY MOUTH TWICE DAILY 180 capsule 1 famotidine (Pepcid) 40 MG tablet Take 40 mg by mouth at bedtime. gabapentin (Neurontin) 600 MG tablet TAKE 1 TABLET BY MOUTH THREE TIMES DAILY 90 tablet 5 HM Biotin 5000 MCG capsule TAKE 1 CAPSULE BY MOUTH EVERY DAY hydrocortisone (Anusol-HC) 2.5 % rectal cream Insert into the rectum 2 times daily. 28 g 0 ketoconazole (NIZOral) 2 % shampoo APPLY TOPICALLY TO THE AFFECTED AREA(S) TWICE A WEEK [id number] mL 3 loratadine (Claritin) 10 MG tablet Take 1 tablet (10 mg) by mouth Once per day. 10 tablet 0 meclizine (Antivert) 25 MG tablet TOME 1 TABLETA POR V A ORAL CADA 12 HORAS melatonin 5 MG tablet TAKE 1 TABLET BY MOUTH 1 HOUR BEFORE BEDTIME 90 tablet 1 meloxicam (Mobic) 15 MG tablet TOME 1 TABLETA POR V A ORAL TODOS LOS D methocarbamol (Robaxin) 500 MG tablet Take 1 [...] at the same time. 30 patch 1 omeprazole (PriLOSEC) [address] capsule Take 40 mg by mouth. ondansetron ODT (Zofran-ODT) 8 MG disintegrating tablet TOME TONNY TABLETA POR V A ORAL COURTNEY VECES ALD A CUANDO SEA NECESARIO PARA LAS N USEAS Y V MITOS oxyCODONE-acetaminophen (Percocet) 5-325 MG tablet Take 1 [...] 1 DROP INTO THE AFFECTED EYE(S)TWICE DAILY 15 mL 7 pravastatin (Pravachol) 10 MG tablet TAKE 1 TABLET BY MOUTH EVERY DAY 90 tablet 1 senna (Senokot) 8.6 MG tablet TAKE 2 TABLETS BY MOUTH DAILY 180 tablet 1 sucralfate (Carafate) 1 g tablet TAKE 1 TABLET BY MOUTH FOUR TIMES DAILY 90 tablet 5 varenicline (Chantix) 1 MG tablet TAKE 1 TABLET BY MOUTH TWICE DAILY 56 tablet 1 zolpidem (Ambien) 5 MG tablet TAKE 1 TABLET BY MOUTH AT BEDTIME NEEDED FOR SLEEP 28 tablet 1 zoster vaccine-recombinant adjuvanted (Shingrix) 50 MCG/0.5ML vaccine inject 0.5 milliliter by intramuscular route once No current facility-administered medications on file prior to visit. documented in this encounter Plan of Treatment Upcoming Encounters Date Type Department Care Team (Late st Contact Info) Description 07/23/2025 11:00 AM EDT Clinical Support [facility] MED & PEDS [address] [place] [address] Perlita Candelario RN 505 [place] [address] 08/07/2025 3:15 PM EDT Office Visit [facility] MED & PEDS [address] [place], [place] [phone] Rita Shay MD [address] [place] [address] Scheduled Orders Name Type Priority Associated Diagnoses Orde r Schedule Comprehensive Metabolic Panel Lab Routine Urticaria Unintentional weight loss Expected: 07/10/2025 (Approximate), Expires: 07/10/2026 CBC auto differential Lab Routine Urticaria Unintentional weight loss Expected: 07/10/2025 (Approximate), Expires: 07/10/2026 TSH W/Reflex to FT4 Lab Routine Urticaria Unintentional weight loss Expected: 07/10/2025 (Approximate), Expires: 07/10/2026 Scheduled Referrals Name Type Priority Associated Diagnoses Orde r Schedule Referral to Allergy Outpatient Referral Routine Urticaria Expected: 07/10/2025 (Approximate), Expires: 07/10/2026 documented as of this encounter Visit Diagnoses Diagnosis Urticaria- Primary Unspecified urticaria Unintentional weight loss Loss of weight documented in this encounter Additional Health Concerns Assessment Noted Time PHQ-9 Depression Total Score: 2 01/13/20 23 9:40 AM EDT documented as of this encounter Care Teams Television Production Clerk Relationship Specialty Start Date End Date Amber Love MD [address] [place] [address] PCP - General Family Medicine 12/29/20 Venita Hannon Community Health Worker 04/01/24 Courtney Lindsay RN [address] [place] [address] Resource Management Planner 04/01/24 documented as of this encounter
--- OUTSIDE RECORDS SUMMARY | 2025-07-10 17:41 | XMS_ITS | Encounter Summary ---
Author Organization [employer] Address [address] 7t [place] [address] Care Team Providers Care Gas Scrubber Operator Name Role Phone Amber Love MD Primary Care Provider [phone] Venita Hannon Unavailable Courtney Lindsay RN Unavailable [phone] Reason for Visit * Reason Onset Date Comments Appointment Request 07/06/2025 Encounter Details Date Type Department Care Team ([facility] st Contact Info) Description 07/06/2025 Telephone [facility] CHC MED & PEDS [address] [place], [place] [phone] Amber Love MD [address] [place], [place] [phone] Appointment Request Social History Tobacco Use Types Packs/Day Years [...] encounter Miscellaneous Notes * Telephone Encounter - Sandrita Silver RN - 07/06/2025 10:10 AM EDT Pt spouse (on HIPAA) walked in stating that OTC allergy medications are not providing allergy symptom relief of congestion, fullness in head, and dizziness. Pt not currently in office. Advised due tomedications not working, pt will need to be evaluated. Appt scheduled for 07/10/25. Pt spouse verbalized understanding and agreement with plan. documented in this encounter Plan of Treatment Upcoming Encounters Date Type Department Care Team ([facility] st Contact Info) Description 07/23/2025 11:00 AM EDT Clinical Support [facility] MED & PEDS [address] [place] [address] Perlita Candelario, RN [address] [place] [address] 08/07/2025 3:15 PM EDT Office Visit [facility] MED & PEDS [address] [place] [address] Rita Shay MD 505 [place] [address] documented as of this encounter Visit Diagnoses Not on filedocumented in this encounter Additional Health Concerns Assessment Noted Time PHQ-9 Depression Total Score: 2 01/13/20 23 9:40 AM EDT documented as of this encounter Care Teams Gas Scrubber Operator Relationship Specialty Start Date End Date Amber Love MD [address] [place] [address] PCP - General Family Medicine 12/29/20 Venita Hannon Community Health Worker 04/01/24 Courtney Lindsay RN [address] [place] [address] Porcelain Enamel Installer 04/01/24 documented as of this encounter
--- OUTSIDE RECORDS SUMMARY | 2025-07-10 17:41 | XMS_ITS | Encounter Summary ---
Author Organization [employer] Address [address] [facility] 7t [place] [address] Care Team Providers Care Fiberglass Ski Maker Name Role Phone Amber Love MD Primary Care Provider [phone] Venita Hannon Unavailable Courtney Lindsay RN Unavailable [phone] Encounter Details Date Type Department Care Team ([facility] Contact Info) Description 10/16/2022 Telephone [facility] MEDICINE [address] [place] [address] Amber Love MD 505 [place] [address] Social History Tobacco Use Types Packs/Day Years [...] Upcoming Encounters Date Type Department Care Team ([facility] Contact Info) Description 07/23/2025 11:00 AM EDT Clinical Support [facility] CHC MED & PEDS [address] [place] [address] Perlita Candelario RN [address] [place] [address] 08/07/2025 3:15 PM EDT Office Visit [facility] MED & PEDS [address] [place], [place] [phone] Rita Shay MD [address] [place], [place] [phone] documented as of this encounter Visit Diagnoses Not on filedocumented in this encounter Care Teams Fiberglass Ski Maker Relationship Specialty Start Date End Date Amber Love MD [address] [place] [address] PCP - General Family Medicine 12/29/20 Venita Hannon Community Health Worker 04/01/24 Courtney Lindsay RN [address] [place] [id number] Packer Fuser 04/01/24 documented as of this encounter
--- OUTSIDE RECORDS SUMMARY | 2025-07-10 17:41 | XMS_ITS | Encounter Summary ---
Author Organization [employer] Address [address] 7t [place] [address] Care Team Providers Care Liquor Bridge Operator Name Role Phone Amber Love MD Primary Care Provider [phone] Venita Hannon Unavailable Courtney Lindsay RN Unavailable [phone] Reason for Visit * Reason Comments Med Refill Encounter Details Date Type Department Care Team (Late st Contact Info) Description 03/25/2025 Refill [facility] MEDICINE 230 [place] [address] Frannie Ron MD [address] [place], [place] [id number] Social History Tobacco Use Types Packs/Day Years [...] the past 12 months, has t he [employer], gas, oil or water company threatened to [...] Description 07/23/2025 11:00 AM EDT Clinical Support [facility] MED & PEDS 505 [place] [address] Perlita Candelario RN 505 [place] [address] 08/07/2025 3:15 PM EDT Office Visit [facility] MED & PEDS 505 [place] [address] Rita Shay MD 505 [place] [address] documented as of this encounter Visit Diagnoses Not on filedocumented in this encounter Additional Health Concerns Assessment Noted Time PHQ-9 Depression Total Score: 2 01/13/20 23 9:40 AM EDT documented as of this encounter Care Teams Liquor Bridge Operator Relationship Specialty Start Date End Date Amber Love MD [address] [place] [address] PCP - General Family Medicine 12/29/20 Venita Hannon Community Health Worker 04/01/24 Courtney Lindsay RN [address] [place] [address] [place] [id number] Commercial Airline Pilot 04/01/24 documented as of this encounter
--- OUTSIDE RECORDS SUMMARY | 2025-07-10 17:41 | XMS_ITS | Encounter Summary ---
Author Organization [employer] Address [address] 7t [place] [address] Care Team Providers Care Supervisor Diagnostic Name Role Phone Amber Love MD Primary Care Provider [phone] Venita Hannon Unavailable Courtney Lindsay RN Unavailable [phone] Encounter Details Date Type Department Care Team (Latest Contact Info) Description 07/10/2025 Travel Social History Tobacco Use Types Packs/Day [...] housing situation today? I have brenfe morales 05/13/[address] you [...] Description 07/23/2025 11:00 AM EDT Clinical Support [facility] MED & PEDS 505 [place] [address] Perlita Candelario RN 505 [place] [address] 08/07/2025 3:15 PM EDT Office Visit [facility] MED & PEDS 505 [place] [address] Rita Shay MD 505 [place] [address] documented as of this encounter Visit Diagnoses Not on filedocumented in this encounter Additional Health Concerns Assessment Noted Time PHQ-9 Depression Total Score: 2 01/13/20 23 9:40 AM EDT documented as of this encounter Care Teams Supervisor Diagnostic Relationship Specialty Start Date End Date Amber Love MD [address] [place] [address] PCP - General Family Medicine 12/29/20 Venita Hannon Community Health Worker 04/01/24 Courtney Lindsay RN 505 [facility] JUDY Galarza [address] Business Continuity Coordinator 04/01/24 documented as of this encounter
--- OUTSIDE RECORDS SUMMARY | 2025-07-10 17:41 | XMS_ITS | Encounter Summary ---
Author Organization [email or web address] Address [address] 7t [place] [address] Care Team Providers Care Custom Miller Name Role Phone Amber Love MD Primary Care Provider [phone] Venita Hannon Unavailable Courtney Lindsay RN Unavailable [phone] Encounter Details Date Type Department Care Team (Late st Contact Info) Description 09/13/2023 Abstract [facility] MEDICINE 230 [place] [address] Amber Love MD [address] [place], [place] [phone] Social History Tobacco Use Types Packs/Day Years [...] Description 07/23/2025 11:00 AM EDT Clinical Support [facility] MED & PEDS [address] [place] [address] Perlita Candelario RN 505 [place] [address] 08/07/2025 3:15 PM EDT Office Visit [facility] MED & PEDS [address] [place] [address] Rita Shay MD 505 [place] [address] documented as of this encounter Visit Diagnoses Not on filedocumented in this encounter Additional Health Concerns Assessment Noted Time PHQ-9 Depression Total Score: 2 01/13/20 23 9:40 AM EDT documented as of this encounter Care Teams Custom Miller Relationship Specialty Start Date End Date Amber Love MD [address] [place] [address] PCP - General Family Medicine 12/29/20 Venita Hannon Community Health Worker 04/01/24 Courtney Lindsay RN [address] [place] [address] Supervisor Heat Treating 04/01/24 documented as of this encounter
--- OUTSIDE RECORDS SUMMARY | 2025-07-10 17:41 | XMS_ITS | Encounter Summary ---
Author Organization [employer] Address [address] 7t [place] [address] Care Team Providers Care Senior International Tax Manager Name Role Phone Amber Love MD Primary Care Provider [phone] Venita Hannon Unavailable Courtney Lindsay RN Unavailable [phone] Reason for Visit * Reason Onset Date Comments Med Refill 09/17/2024 Encounter Details Date Type Department Care Team (Late st Contact Info) Description 09/17/2024 Telephone [facility] MEDICINE 230 [place] [address] Amber Love MD [address] [place], [place] [phone] Med Refill Social History Tobacco Use Types [...] the past 12 months, has t he [employer], gas, oil or water [employer] threatened to shut off services in your [...] 5-325 MG tablet To be sent to: [facility] - [place], [place] - [address] [place] [address] documented in this encounter Plan of Treatment Upcoming Encounters Date Type Department Care Team (Late st Contact Info) Description 07/23/2025 11:00 AM EDT Clinical Support [facility] MED & PEDS 505 [place] [address] Perlita Candelario RN 505 [place] [address] 08/07/2025 3:15 PM EDT Office Visit [facility] MED & PEDS 505 [place] [address] Rita Shay MD 505 [place] [address] documented as of this encounter Visit Diagnoses Not on filedocumented in this encounter Additional Health Concerns Assessment Noted Time PHQ-9 Depression Total Score: 2 01/13/20 23 9:40 AM EDT documented as of this encounter Care Teams Senior International Tax Manager Relationship Specialty Start Date End Date Amber Love MD 230 [place] [address] PCP - General Family Medicine 12/29/20 Venita Hannon Community Health Worker 04/01/24 Courtney Lindsay RN 505 [place] [address] Glost Tile Sorter 04/01/24 documented as of this encounter
--- OUTSIDE RECORDS SUMMARY | 2025-07-10 17:41 | XMS_ITS | Encounter Summary ---
Author Organization [employer] Address [address] 7t [place] [address] Care Team Providers Care Car Whacker Name Role Phone Amber Love MD Primary Care Provider [phone] Venita Hannon Unavailable Courtney Lindsay RN Unavailable [phone] Reason for Visit * Reason Onset Date Comments Appointment Request 03/27/2023 Med Refill 03/27/2023 Encounter Details Date Type Department Care Team (Late st Contact Info) Description 03/27/2023 Telephone [facility] MEDICINE 230 [place] [address] Amber Love MD [address] [place], [place] [phone] Appointment Request; Med Refill Social History Tobacco [...] MG immediate release tablet please send to [facility] pharmacy * Telephone Encounter - Dorita Parvez - 03/27/2023 9:17 AM EDT Tc from pt spouse requesting to r/s 03/23/23 CTS appt. documented in this encounter Plan of Treatment Upcoming Encounters Date Type Department Care Team (Late st Contact Info) Description 07/23/2025 11:00 AM EDT Clinical Support [facility] MED & PEDS 505 [place] [address] Perlita Candelario RN 505 [place] [address] 08/07/2025 3:15 PM EDT Office Visit [facility] MED & PEDS 505 [place] [address] Rita Shay MD 505 [place] [address] documented as of this encounter Visit Diagnoses Not on filedocumented in this encounter Additional Health Concerns Assessment Noted Time PHQ-9 Depression Total Score: 2 01/13/20 23 9:40 AM EDT documented as of this encounter Care Teams Car Whacker Relationship Specialty Start Date End Date Amber Love MD 230 [place] [address] PCP - General Family Medicine 12/29/20 Venita Hannon Community Health Worker 04/01/24 Courtney Lindsay RN 505 [place] [address] Instructional Resource Teacher 04/01/24 documented as of this encounter
--- OUTSIDE RECORDS SUMMARY | 2025-07-10 17:41 | XMS_ITS | Encounter Summary ---
Author Organization [employer] Address [address] 7t [place] [address] Care Team Providers Care Delivery Of Shopping News Name Role Phone Amber Love MD Primary Care Provider [phone] Venita Hannon Unavailable Courtney Lindsay RN Unavailable [phone] Reason for Visit * Reason Comments Med Refill Encounter Details Date Type Department Care Team ([facility] st Contact Info) Description 07/30/2024 Refill [facility] MED & PEDS 505 [place], [place] [phone] Amber Love MD 505 [place], [place] [phone] Social History Tobacco Use Types Packs/Day Years [...] Upcoming Encounters Date Type Department Care Team ([facility] st Contact Info) Description 07/23/2025 11:00 AM EDT Clinical Support [facility] MED & PEDS 505 [place] [address] Perlita Candelario RN 505 [place] [address] 08/07/2025 3:15 PM EDT Office Visit [facility] MED & PEDS 505 [place] [address] Rita Shay MD 505 [place] [address] documented as of this encounter Visit Diagnoses Not on filedocumented in this encounter Additional Health Concerns Assessment Noted Time PHQ-9 Depression Total Score: 2 01/13/20 23 9:40 AM EDT documented as of this encounter Care Teams Delivery Of Shopping News Relationship Specialty Start Date End Date Amber Love MD 230 [place] [address] PCP - General Family Medicine 12/29/20 Venita Hannon Community Health Worker 04/01/24 Courtney Lindsay RN [address] [place] [address] Tissue Recovery Technician 04/01/24 documented as of this encounter
--- OUTSIDE RECORDS SUMMARY | 2025-07-10 17:41 | XMS_ITS | Encounter Summary ---
Author Organization [employer] Address [address] 7t [place] [address] Care Team Providers Care Settlement Clerk Name Role Phone Amber Love MD Primary Care Provider [phone] Venita Hannon Unavailable Courtney Lindsay RN Unavailable [phone] Reason for Visit * Reason Onset Date Comments Med Refill 06/26/2025 Encounter Details Date Type Department Care Team (Late st Contact Info) Description 06/26/2025 Telephone [facility] MEDICINE 230 [place] [address] Amber Love MD [address] [place], [place] [phone] Med Refill Social History Tobacco Use Types [...] encounter Miscellaneous Notes * Telephone Encounter - Ronit Worley LPN - 06/26/2025 11:36 AM EDT Medication was sent to [facility] on 05/29/25 #28 with 1 refill. CLOTH WASHER checked on 06/26/25 patient has 1 refill left. * Telephone Encounter - Jemma Barksdale - 06/26/2025 11:18 AM EDT TC from pt requesting medication refill. Medications needing refill : - zolpidem (Ambien) 5 MG tablet To be sent to: - [facility] - [place], [place] - [address] documented in this encounter Plan of Treatment Upcoming Encounters Date Type Department Care Team (Late st Contact Info) Description 07/23/2025 11:00 AM EDT Clinical Support [facility] MED & PEDS 505 [place] [address] Perlita Candelario RN 505 [place] [address] 08/07/2025 3:15 PM EDT Office Visit [facility] MED & PEDS 505 [place] [address] Rita Shay MD 505 [place] [address] documented as of this encounter Visit Diagnoses Not on filedocumented in this encounter Additional Health Concerns Assessment Noted Time PHQ-9 Depression Total Score: 2 01/13/20 23 9:40 AM EDT documented as of this encounter Care Teams Settlement Clerk Relationship Specialty Start Date End Date Amber Love MD [address] [place] [address] PCP - General Family Medicine 12/29/20 Venita Hannon Community Health Worker 04/01/24 Courtney Lindsay RN [address] [place] [address] Barista 04/01/24 documented as of this encounter
--- OUTSIDE RECORDS SUMMARY | 2025-07-10 17:41 | XMS_ITS | Encounter Summary ---
Author Organization [employer] Address [address] 7t [place] [address] Care Team Providers Care Home Health Care Worker Name Role Phone Amber Love MD Primary Care Provider [phone] Venita Hannon Unavailable Courtney Lindsay RN Unavailable [phone] Reason for Visit * Reason Comments Med Refill Encounter Details Date Type Department Care Team (Late st Contact Info) Description 12/31/2024 Refill [facility] MEDICINE 230 [place] [address] Haile Miner MD 505 [place], [place] [phone] Polyarthralgia Social History Tobacco Use Types Packs/Day [...] Description 07/23/2025 11:00 AM EDT Clinical Support [facility] MED & PEDS 505 [place] [address] Perlita Candelario RN 505 [place] [address] 08/07/2025 3:15 PM EDT Office Visit [facility] MED & PEDS 505 [place] [address] Rita Shay MD 505 [place] [address] documented as of this encounter Visit Diagnoses Diagnosis Polyarthralgia Pain in joint, multiple sites documented in this encounter Additional Health Concerns Assessment Noted Time PHQ-9 Depression Total Score: 2 01/13/20 23 9:40 AM EDT documented as of this encounter Care Teams Home Health Care Worker Relationship Specialty Start Date End Date Amber Love MD [address] [place] [address] PCP - General Family Medicine 12/29/20 Venita Hannon Community Health Worker 04/01/24 Courtney Lindsay RN [address] [place] [address] International Marketing Executive 04/01/24 documented as of this encounter
--- OUTSIDE RECORDS SUMMARY | 2025-07-10 17:41 | XMS_ITS | Encounter Summary ---
Author Organization [employer] Address [address] 7t [place] [address] Care Team Providers Care Welt Slasher Name Role Phone Amber Love MD Primary Care Provider [phone] Venita Hannon Unavailable Courtney Lindsay RN Unavailable [phone] Reason for Visit * Reason Comments Med Refill Encounter Details Date Type Department Care Team (Late st Contact Info) Description 05/19/2025 Telephone [facility] MEDICINE 230 [place] [address] Amber Love MD [address] [place], [place] [phone] Med Refill Social History Tobacco Use Types [...] encounter Miscellaneous Notes * Telephone Encounter - Pushpa Huff - 05/19/2025 2:42 PM EDT Oleg Love, please sign chart notes of 05/13 in order to proceed with referral. Thank you. documented in this encounter Plan of Treatment Upcoming Encounters Date Type Department Care Team ([facility] st Contact Info) Description 07/23/2025 11:00 AM EDT Clinical Support [facility] MED & PEDS 505 [place] [address] Perlita Candelario RN 505 [place] [address] 08/07/2025 3:15 PM EDT Office Visit [facility] MED & PEDS 505 [place] [address] Rita Shay MD 505 [place] [address] documented as of this encounter Visit Diagnoses Not on filedocumented in this encounter Additional Health Concerns Assessment Noted Time PHQ-9 Depression Total Score: 2 01/13/20 23 9:40 AM EDT documented as of this encounter Care Teams Welt Slasher Relationship Specialty Start Date End Date Amber Love MD 230 [place] [address] PCP - General Family Medicine 12/29/20 Venita Hannon Community Health Worker 04/01/24 Courtney Lindsay RN [address] [place] [address] Solar Installer 04/01/24 documented as of this encounter
--- OUTSIDE RECORDS SUMMARY | 2025-07-10 17:41 | XMS_ITS | Encounter Summary ---
Author Organization [employer] Address [address] 7t [place] [address] Care Team Providers Care Marketing Operations Specialist Name Role Phone Amber Love MD Primary Care Provider [phone] Venita Hannon Unavailable Courtney Lindsay RN Unavailable [phone] Reason for Visit * Reason Onset Date Comments Med Refill 08/20/2024 Encounter Details Date Type Department Care Team ([facility] Contact Info) Description 08/20/2024 Telephone [facility] MED & PEDS 505 [place], [place] [phone] Amber Love MD 505 [place], [place] [phone] Med Refill Social History Tobacco Use Types [...] 5-325 MG tablet To be sent to: [facility] - [place], [place] - [address] [facility] documented in this encounter Plan of Treatment Upcoming Encounters Date Type Department Care Team (Late st Contact Info) Description 07/23/2025 11:00 AM EDT Clinical Support [facility] MED & PEDS 505 [place] [address] Perlita Candelario RN 505 [place] [address] 08/07/2025 3:15 PM EDT Office Visit [facility] MED & PEDS 505 [place] [address] Rita Shay MD 505 [place] [address] documented as of this encounter Visit Diagnoses Not on filedocumented in this encounter Additional Health Concerns Assessment Noted Time PHQ-9 Depression Total Score: 2 01/13/20 23 9:40 AM EDT documented as of this encounter Care Teams Marketing Operations Specialist Relationship Specialty Start Date End Date Amber Love MD 230 [place] [address] PCP - General Family Medicine 12/29/20 Venita Hannon Community Health Worker 04/01/24 Courtney Lindsay RN [address] [place] [address] Wine Pasteurizer 04/01/24 documented as of this encounter
--- OUTSIDE RECORDS SUMMARY | 2025-07-10 17:41 | XMS_ITS | Encounter Summary ---
Author Organization [employer] Address [address] 7t [place] [address] Care Team Providers Care Bail Bond Agent Name Role Phone Abmer Love MD Primary Care Provider [phone] Venita Hannon Unavailable Courtney Lindsay RN Unavailable [phone] Encounter Details Date Type Department Care Team (Late st Contact Info) Description 09/13/2023 Abstract [facility] MEDICINE 230 [place] [address] Amber Love MD [address] [place], [place] [phone] Social History Tobacco Use Types Packs/Day Years [...] Description 07/23/2025 11:00 AM EDT Clinical Support [facility] MED & PEDS 505 [place] [address] Perlita Candelario RN 505 [place] [address] 08/07/2025 3:15 PM EDT Office Visit [facility] MED & PEDS 505 [place] [address] Rita Shay MD 505 [place] [address] documented as of this encounter Procedures Procedure Name Priority Date/Time Associated Diagnosis Comments COLONOSCOPY Routine 01/04/2021 documented in this encounter Results * Colonoscopy (01/04/2021) Colonoscopy Normal Normal Narrative MonicaMirella - 01/04/2021 Recommended 4 year follow up per office due 06/2025 us Historical Provider HEALTH MAINTENANCE Final Result documented in this encounter Visit Diagnoses Not on filedocumented in this encounter Additional Health Concerns Assessment Noted Time PHQ-9 Depression Total Score: 2 01/13/20 23 9:40 AM EDT documented as of this encounter Care Teams Bail Bond Agent Relationship Specialty Start Date End Date Amber Love MD 230 [place] [address] PCP - General Family Medicine 12/29/20 Venita Hannon Community Health Worker 04/01/24 Courtney Lindsay RN [address] [place] [address] Extruder Operator Helper 04/01/24 documented as of this encounter
--- OUTSIDE RECORDS SUMMARY | 2025-07-10 17:41 | XMS_ITS | Encounter Summary ---
Author Organization [employer] Address [address] [facility] 7t [place] [address] Care Team Providers Care Provider Relations Advocate Name Role Phone Amber Love MD Primary Care Provider [phone] Venita Hannon Unavailable Courtney Lindsay RN Unavailable [phone] Reason for Visit * Reason Comments Med Refill Encounter Details Date Type Department Care Team (Late Contact Info) Description 06/25/2023 Refill [facility] MED & PEDS 505 [place], [place] [phone] Amber Love MD 505 [place], [place] [phone] Heartburn; Mixed hyperlipidemia; Constipation, unspecified constipation type [...] Department Care Team (Late Contact Info) Description 07/23/2025 11:00 AM EDT Clinical Support [facility] MED & PEDS 505 [place] [address] Perlita Candelario RN 505 [place] [address] 08/07/2025 3:15 PM EDT Office Visit [facility] MED & PEDS 505 [place] [address] Rita Shay MD 505 [place] [address] documented as of this encounter Visit Diagnoses Diagnosis Heartburn Mixed hyperlipidemia Constipation, unspecified constipation type documented in this encounter Additional Health Concerns Assessment Noted Time PHQ-9 Depression Total Score: 2 01/13/20 23 9:40 AM EDT documented as of this encounter Care Teams Provider Relations Advocate Relationship Specialty Start Date End Date Amber Love MD [address] [place] [address] PCP - General Family Medicine 12/29/20 Venita Hannon Community Health Worker 04/01/24 Courtney Lindsay RN [address] [place] [address] Pipe Fitter Supervisor Maintenance 04/01/24 documented as of this encounter
--- OUTSIDE RECORDS SUMMARY | 2025-07-10 17:41 | XMS_ITS | Clinical Summary ---
Author Organization [facility] ity Address [address] [place] [address] Care Team Providers Care Commodities Broker Name Role Phone Unavailable Primary Care Provider [...] 2012 Zoster Vaccines (1 of 2) 2012 Depression Screening 10/29/2024 COVID-19 Vaccine (1 - 2023-2 5 season) 2025 Influenza Vaccine (#1) 2025 RSV Immunization Adult Patie nts (1 [...]
--- OUTSIDE RECORDS SUMMARY | 2025-07-10 17:41 | XMS_ITS | Encounter Summary ---
Author Organization [employer] Address [address] 7t [place] [address] Care Team Providers Care Mattress Renovator Name Role Phone Amber Love MD Primary Care Provider [phone] Venita Hannon Unavailable Courtney Lindsay RN Unavailable [phone] Reason for Visit * Reason Comments Med Refill Encounter Details Date Type Department Care Team (Late st Contact Info) Description 12/27/2022 Refill [facility] MED & PEDS 505 [place], [place] [phone] Amber Love MD 505 [place], [place] [phone] Chronic back pain, unspecified back location, unspecified [...] [facility] MED & PEDS 505 [place] [address] Perlita Candelario RN 505 [place] [address] 08/07/2025 3:15 PM EDT Office Visit [facility] MED & PEDS 505 [place] [address] Rita Shay MD 505 [place] [address] documented as of this encounter Visit Diagnoses Diagnosis Chronic back pain, unspecified back location, unspecified back pain laterality documented in this encounter Care Teams Mattress Renovator Relationship Specialty Start Date End Date Amber Love MD [address] [place] [address] PCP - General Family Medicine 12/29/20 Venita Hannon Community Health Worker 04/01/24 Courtney Lindsay RN 505 [place] [address] Cable Former 04/01/24 documented as of this encounter
--- OUTSIDE RECORDS SUMMARY | 2025-07-10 17:41 | XMS_ITS | Encounter Summary ---
Author Organization [employer] Address [address] 7[address] [place] [address] Care Team Providers Care Adult Neuropsychologist Name Role Phone Amber Love MD Primary Care Provider [phone] Venita Hannon Unavailable Courtney Lindsay RN Unavailable [phone] Reason for Visit * Reason Onset Date Comments HDF follow up 03/29/2023 Encounter Details Date Type Department Care Team (Late st Contact Info) Description 03/29/2023 Telephone [facility] [address] [place] [address] Amber Love MD [address] [place], [place] [phone] HDF follow up Social History Tobacco Use [...] - 03/29/2023 3:15 PM EDT TC from [place] stated pt received a Call today to schedule a Hdf follow up. PCP DR. Love documented in this encounter Plan of Treatment Upcoming Encounters Date Type Department Care Team (Late st Contact Info) Description 07/23/2025 11:00 AM EDT Clinical Support [facility] [address] [place] [address] Perlita Candelario, PETE [address] [place] [address] 08/07/2025 3:15 PM EDT Office Visit [facility] [address] [place] [address] Rita Shay MD [address] [place], [place] [phone] documented as of this encounter Visit Diagnoses Not on filedocumented in this encounter Additional Health Concerns Assessment Noted Time PHQ-9 Depression Total Score: 2 01/13/20 23 9:40 AM EDT documented as of this encounter Care Teams Adult Neuropsychologist Relationship Specialty Start Date End Date Amber Love MD [address] [place] [address] PCP - General Family Medicine 12/29/20 Venita Hannon Community Health Worker 04/01/24 Courtney Lindsay RN [address] [place] [address] Retail Seasonal Specialist 04/01/24 documented as of this encounter
--- OUTSIDE RECORDS SUMMARY | 2025-07-10 17:41 | XMS_ITS | Encounter Summary ---
Author Organization [employer] Address [address] 7[address] [place] [address] Care Team Providers Care Wine Sales Representative Name Role Phone Amber Love MD Primary Care Provider [phone] Venita Hannon Unavailable Courtney Lindsay RN Unavailable [phone] Reason for Visit * Reason Onset Date Comments Appointment 06/14/2023 Encounter Details Date Type Department Care Team (Late st Contact Info) Description 06/14/2023 Telephone [facility] [address] [place], [place] [phone] Dallin Toth DDS [address] [place], [place] [phone] Appointment Social History Tobacco Use Types Packs/Day [...] 11:00 AM EDT Clinical Support [facility] [address] [place] [address] Perlita Candelario, PETE [address] [place] [address] 08/07/2025 3:15 PM EDT Office Visit [facility] [address] [place] [address] Rita Shay MD 505 [place] [address] documented as of this encounter Visit Diagnoses Not on filedocumented in this encounter Additional Health Concerns Assessment Noted Time PHQ-9 Depression Total Score: 2 01/13/20 23 9:40 AM EDT documented as of this encounter Care Teams Wine Sales Representative Relationship Specialty Start Date End Date Amber Love MD [address] [place] [address] PCP - General Family Medicine 12/29/20 Venita Hannon Community Health Worker 04/01/24 Courtney Lindsay RN 505 [place] [address] Childcare Provider 04/01/24 documented as of this encounter
--- OUTSIDE RECORDS SUMMARY | 2025-07-10 17:41 | XMS_ITS | Clinical Summary ---
Author Organization [employer] Address [address] 7t [place] [address] Care Team Providers Care Livestock Feeder Name Role Phone Amber Love MD Primary Care Provider [phone] Venita Hannon Unavailable Courtney Lindsay RN Unavailable [phone] Allergies Active Allergy Reactions Criticality Noted Date Comments Aspirin Anaphylaxis High Other reaction(s): Anaphylaxis Clindamycin 12/31/2020 Iodinated Contrast Media 05/13/2025 Latex Rash Low 04/03/2023 Other reaction(s): blisters [...] TWICE DAILY 180 tablet 1 023 Active colestipol (Colestid) 1 g tablet [...] BY MOUTH EVERY DAY 90 capsule 3 10/11/2 024 Active gabapentin (Neurontin) 600 MG tablet TAKE 1 TABLET BY MOUTH THREE TIMES DAILY 90 tablet 5 024 Active methocarbamol (Robaxin) 500 MG tabletIndications :Right arm pain Take 1 tablet (500 mg) by mouth every 6 (six) hours for 14 days. 56 tablet 024 Active albuterol (2.5 MG/3ML) 0.083% nebulizer solution INHALE 1 AMPULE USING A NEBULIZER BY MOUTH EVERY 4 HOURS NEEDED FOR WHEEZING 90 mL 3 025 Active acetaminophen (Tylenol) 500 MG tablet Take 1 tablet (500 mg) by mouth every 6 (six) hours if needed for mild pain for up to 20 doses. 20 tablet Active chlorhexidine (Peridex) 0.12 % solution Swish 15 mL morning and night for 1 minute. Spit, do not swallow. Do not eat or drink for 30 minutes following use. 473 mL 025 Active varenicline (Chantix) 1 MG tablet TAKE 1 TABLET BY MOUTH TWICE DAILY 56 tablet 1 025 Active pravastatin (Pravachol) 10 MG tabletIndications :Mixed hyperlipidemia TAKE 1 TABLET BY MOUTH EVERY DAY 90 tablet 1 025 Active docusate sodium (Colace) 100 MG capsuleIndication s:Constipation, unspecified constipation type TAKE 1 CAPSULE BY MOUTH TWICE DAILY 180 capsule 1 025 Active cyclobenzaprine (Flexeril) 10 MG tablet TAKE 1 TABLET BY MOUTH THREE TIMES DAILY IN THE MORNING, AT NOON, AND AT BEDTIME NEEDED FOR MUSCLE SPASMS 90 tablet 1 025 Active polyethylene glycol, PEG, 3350 (GaviLAX) 17 GM/SCOOP powderIndications :Constipation, unspecified constipation type TAKE 17 GM MIXED IN 8 OUNCES OF WATER, COFFEE OR TEA ONCE DAILY IN THE MORNING 510 g 3 025 Active polyvinyl alcohol (Liquifilm Tears) 1.4 % ophthalmic solution PLACE 1 DROP INTO THE AFFECTED EYE(S) TWICE DAILY 15 mL 7 025 Active famotidine (Pepcid) 40 MG tablet Take 40 mg by mouth at bedtime. Active Advair HFA 115-21 MCG/ACT inhaler INHALE DANDO DOS SOPLIDOS CADA DOCE HORAS 025 Active meloxicam (Mobic) 15 MG tablet TOME 1 TABLETA POR V A ORAL TODOS LOS D Active omeprazole (PriLOSEC) [address] capsule Take 40 mg by mouth. 023 Active loratadine (Claritin) 10 MG tablet Take 1 tablet (10 mg) by mouth Once per day. 10 tablet 025 Active zolpidem (Ambien) 5 MG tablet TAKE 1 TABLET BY MOUTH AT BEDTIME NEEDED FOR SLEEP 28 tablet 1 025 Active ketoconazole (NIZOral) 2 % shampooIndication s:Hair loss,Seborrheic dermatitis APPLY TOPICALLY TO THE AFFECTED AREA(S) TWICE A WEEK DIRECTED 120 mL 3 025 Active oxyCODONE-acetami nophen (Percocet) 5-325 MG tabletIndications :Polyarthralgia Take 1 tablet by mouth every 6 (six) hours if needed for severe pain. 112 tablet 025 Active diphenhydrAMINE (BENADryl) 25 MG capsuleIndication s:Allergic rhinitis, unspecified seasonality, unspecified trigger TAKE 1 CAPSULE BY MOUTH EVERY 8 HOURS NEEDED FOR ITCHING 30 capsule 1 025 Active fexofenadine (Nadira) 180 MG tabletIndications :Urticaria Take 1 tablet (180 mg) by mouth if needed each day (Allergies). 30 tablet 1 025 2024 Active diphenhydrAMINE (BENADryl) 25 MG tabletIndications :Urticaria 1 to 2 tab at bedtime 30 tablet 025 Active diphenhydrAMINE (BENADryl) 25 MG capsuleIndication s:Allergic rhinitis, unspecified seasonality, unspecified trigger TAKE 1 CAPSULE BY MOUTH EVERY 8 HOURS NEEDED FOR ITCHING 30 capsule 1 025 2024 Discontinued oxyCODONE-acetami nophen (Percocet) [...] Allen RN Problem Noted Date Diagnosed Date Uses Georgian as primary spoken language 05/13/20 25 Class 1 obesity 05/13/2025 Chronic right shoulder pain 05/13/2025 Disorder of both eustachian tubes 05/13/2025 Long-term current use of opiate analgesic 2024 Mandible pain 12/31/2024 Nevus 11/18/2024 Localized swelling, mass and lump, neck 08/28/20 24 Assessment & Plan (08/29/2024 5:06 PM EDT): Patients concern is about her chronic neck swelling for which is has had imaging (US/CT) and visits with ENT, indeed she has an upcoming appt, explained to patient that manager night will not be able to assist with [...] for Fibromyalgia. Discussed current medications as needed. Local recurrence of malignant tumor of breast [...] Rapid Covid-19, Rapid Influenza A & B, [id number], TSH w/Reflex FT4 Nicotine use 12/13/2023 Assessment [...] will discontinue med and cont with ambien. Missing teeth, acquired 07/09/2023 Periodontal disease 07/09/2023 Polyarthralgia 06/11/2023 Assessment & Plan (02/21/2024 4:07 PM EDT): Discussed options for pain management. Referring to Pony Worker for further evaluation of symptoms and lab [...] of her 4th toe of the right. Patient s clinical findings support the need for [...] Problem Noted Date Diagnosed Date Resolved Date History of malignant neoplasm of breast 04/28/2024 05/13/2025 Dental abscess 07/09/2023 05/13/2025 Dental calculus 07/09/2023 04/30/2024 LLQ abdominal pain 12/01/2022 Assessment & Plan (01/02/2023 11:18 AM EST): Tenderness in LLQ but other no guarding or rebound. Recent surgery, will monitor and f/up as needed Celiac disease 08/16/2015 12/13/2023 Dyslipidemia 08/16/2015 11/30/2022 Encounters Date Type Department Care Team Description 07/10/2025 3:15 PM EDT Office Visit [facility] [address] [place] [address] Rita Shay MD Urticaria (Primary Dx); Unintentional weight loss 07/10/2025 Travel 07/06/2025 Telephone [facility] [address] [place] [address] Amber Love MD Appointment Request 07/03/2025 Refill [facility] [address] [place] [address] Amber Love MD Allergic rhinitis, unspecified seasonality, unspecified trigger 06/26/2025 Refill [facility] [address] [place] [address] Perlita Candelario RN Polyarthralgia 06/26/2025 Telephone [facility] [address] [place] [address] Amber Love MD Med Refill 06/26/2025 Telephone [facility] [address] [place] [address] Amber Love MD Med Refill 05/31/2025 Refill [facility] [address] [place] [address] Rita Shay MD Hair loss; Seborrheic dermatitis 05/28/2025 Refill [facility] [address] [place] [address] Amber Love MD 05/28/2025 Refill [facility] [address] [place] [address] Amber Love MD Polyarthralgia 05/19/2025 Telephone [facility] [address] [place] [address] Amber Love MD Med Refill 05/14/2025 Telephone [facility] [address] [place] [address] Amber Love MD Prior Authorization 05/13/2025 11:15 AM EDT Office Visit [facility] [address] [place] [address] Amber Love MD Fibromyalgia (Primary Dx); Chronic right shoulder pain; Varicose veins of left lower extremity, unspecified whether complicated; Overweight (BMI 25.0-29.9); Disorder of both eustachian tubes 05/13/2025 Travel 05/12/2025 Telephone [facility] [address] [place] [address] Amber Love MD Chart Prep 05/11/2025 Refill [facility] [address] [place] [address] MedinaHaile Jaffe MD Allergic rhinitis, unspecified seasonality, unspecified trigger 05/08/2025 Refill [facility] [address] [place] [address] Amber Love MD 05/06/2025 Patient Outreach [facility] [address] [place] [address] Amber Love MD Pre-visit Planning (Pre visit planning LVM ) 04/30/2025 1:30 PM EDT Clinical Support [facility] [address] [place] [address] Perlita Candelario, RN Long-term current use of opiate analgesic 04/30/2025 Telephone [facility] [address] [place] [address] Perlita Candelario, PETE 04/30/2025 Travel 04/28/2025 Refill [facility] [address] [place] [address] Amber Love MD Polyarthralgia from Last 3 Months Immunizations Immunization Administration Dates Next Due Hep B, adult [...] Pulse 63 07/10/2025 3:07 PM EDT Temperature 36.3 C (97.4 F) 05/13/2025 11:10 AM EDT Respiratory Rate 20 07/10/2025 3:07 PM EDT Oxygen Saturation 96% 07/10/2025 3:07 PM EDT Inhaled Oxygen Concentration - - Weight 66.7 kg (147 lb) 07/10/2025 3:07 PM EDT Height 157.5 cm (5' 2 ) 07/10/2025 3:07 PM EDT Body Mass Index 26.89 07/10/2025 3:07 PM EDT Plan of Treatment Upcoming Encounters Date Type Department Care Team (Late st Contact Info) Description 07/23/2025 11:00 AM EDT Clinical Support [facility] [address] [place] [address] Perlita Candelario, PETE [address] [place] [address] 08/07/2025 3:15 PM EDT Office Visit [facility] [address] [place] [address] Rita Shay MD [address] [place] [address] Health Maintenance Due Date Last Done Comments CT Colonography 1962 FIT DNA/Cologuard 1962 FIT 1962 FOBT 1962 Mammogram 1962 Sigmoidoscopy 1962 Disability Screening 1962 Zoster Vaccines (2 of 2) 06/05/2022 04/10/2022, 03/29 RSV Patients and Patients Aged 60 years or older (1 - Risk 60-74 years 1-dose series) 2022 Depression Screening 01/13/2024 01/12/2023, 01/13/20 23 COVID-19 Vaccine ( - 2024- season) 2025 01/25/2022, 05/11/2021, 02/22/2021 Colonoscopy 06/29/2025 01/04/2021 Colorectal Cancer Screening 06/29/2025 Influenza Vaccine (#1) 2025 , 07/19/2022, 07/27/2021, Additional history exists Pap Smear 07/06/2025 07/06/2022 Dental Oral Exam 08/02/2025 01/30/2025, 08/2023, 01/26/2021, Additional history exists Dental Prophylaxis 08/02/2025 01/30/2025, 1 , 07/05/2017 Dental X-Ray: Bitewings 01/31/2026 01/31/20 25, 12/31/2024, 07/09/2023, Additional history exists Alcohol/Substance Use Screening 05/13/2026 05/13/2025 SDOH Screening 05/13/2026 05/13/2025 Tobacco Screening 05/13/2026 05/13/2025 Cervical Cancer Screening 07/06/2027 HPV/Cotest 07/06/2027 07/06/2022 [...] Procedure Name Priority Date/Time Associated Diagnosis Comments POCT JAIRO-14 URINE DRUG SCREEN Routine 04/30/2025 1:10 PM EDT Long-term current use of opiate analgesic PROPHYLAXIS - ADULT Routine 01/30/2025 2 :00 PM EDT Dental calculus Periodontal disease INTRAORAL - COMPLETE SERIES OF RADIOGRAPHIC IMAGES Routine 01/30/2025 2:00 PM EDT Dental calculus Periodontal disease Gingival recession, localized Missing teeth, acquired PERIODIC ORAL EVALUATION - ESTABLISHED PATIENT Routine 01/30/2025 2:00 PM EDT LIPID PANEL, STANDARD Routine 04/30/2024 4:21 PM EDT Epigastric abdominal pain HIV 1/2 ANTIGEN/ANTIBODY, FOURTH GENERATION W/RFL Routine 02/06/2024 10:36 AM EDT Swollen neck HM PAP/HPV Routine 07/06/2022 ZZZ HISTORICAL HEPATITIS PANEL, GENERAL Routine 09/26/2021 9:56 AM EST COLONOSCOPY Routine 01/04/2021 from Last 3 Months or Most Recently Relevant to Health Maintenance Results * (ABNORMAL) POCT JAIRO-14 Urine Drug Screen (04/30/2025 1:10 PM EDT) THC Positive(A) Negative Cocaine Screen, Urine Negative Negative Opiate Screen, Urine Negative Negative Methamphetamine Screen Urine Negative Negative Amphetamine Screen, Urine Negative Negative Benzodiazepines Screen, Urine Negative Negative Barbiturate Screen, Urine Negative Negative Methadone Screen, Urine Negative Negative Buprenophine Screen, Urine Negative Negative TCA, Urine Positive(A) Negative MDMA Urine Negative Negative ng/mL Oxycodone Screen, Urine Positive(A) Negative Phencyclidine (PCP), Urine Negative Negative Propoxyphene, Urine Negative Negative Fentanyl, Urine Negative Negative Urine Urine specimen obtained by clean catch procedure / Unknown 04/30/2025 1:10 PM EDT Narrative Perlita Candelario RN - 04/30/2025 1:10 PM EDT Internal Pass Control Lot# [id number] Exp: 08-28-26 us Amber Love MD POINT OF CARE TEST ENTER/EDIT ORDERABLES Edited Result - Final * (ABNORMAL) Lipid Panel, Standard (04/30/2024 4:21 PM EDT) Triglycerides 270(H) <150 mg/dL [facility] Comment:Desirable Triglyceri de: less than 150 [...] 190 mg/dL HDL Cholesterol 42 >40 mg/dL [facility] Comment:Desirable HDL: great er than 40 mg/dL Note: This HDL assay may give artificially low results in patients with liver disease. Blood Venous blood specimen / Unknown 04/30/2024 4:21 PM EDT 04/30/2024 5:20 PM EDT Amber Love MD LAB BLOOD ORDERABLES Final Re sult Performing Organization Address [facility] Co de Phone Number [facility] [address] [place] [phone] * HIV-1/2 Antigen and Antibodies, Fourth Generation, with Reflexes (02/06/2024 10:36 AM EDT) Pathologist [facility] HIV AB/AG Nonreactive Nonreactive [facility] Comment:HIV-1 p24 Ag and/or HIV-1/HIV-2 Ab not detected.A test result that is nonreactive does not exclude thepossibility of exposure to or infection with HIV-1 and/orHIV-2. Nonreactive results in this assay for individualswith prior exposure to HIV-1 and/or HIV-2 may be due toantigen and antibody levels that are below the limit ofdetection of this assay.The [employer] HIV Ag/Ab Combo assay result andsupplemental assay results should be interpreted inconjunction with the patient's clinical presentation,history and other laboratory results. If the results areinconsistent with clinical evidence, additional testing issuggested to confirm the result. Blood Venous blood specimen / Unknown 02/06/2024 10:36 AM EDT 02/06/2024 2:32 PM EDT Amber Love MD LAB BLOOD ORDERABLES Final Re sult Performing Organization Address [facility] Co de Phone Number [facility] [address] [place] [address] [phone] * Hm Pap Smear (07/06/2022) Pathologist [facility] Pap Negative for intraephithelial lesion or malignancy Negative for intraephithelial lesion or malignancy, Other HPV Undetected Mounika Chowdary MD HEALTH MAINTENANCE Final Result * (ABNORMAL) HEPATITIS PANEL, GENERAL (09/26/2021 9:56 AM EST) HEPATITIS A AB, TOTAL REACTIVE( A) NON-REACT [facility] Comment: For additional information, please refer to http://education.Medico.com/faq/IQX998 (This link is being provided for informational/ educational purposes only.) HEPATITIS B CORE AB TOTAL NON-REACT [facility] NON-REACT [facility] HEPATITIS B SURFACE ANTIBODY QL REACTIVE( A) NON-REACT [facility] HEPATITIS B SURFACE ANTIGEN NON-REACT [facility] NON-REACT [facility] HEPATITIS C ANTIBODY REACTIVE( A) NON-REACT [facility] INDEX 10.60(H) <1.00 [facility] Comment: Based on this result, the sample will be tested for HCV RNA by a Nucleic Acid Amplification Test (NAAT) to determine if the patient has a current active infection. 09/26/2021 9:56 AM EST Amber Love MD HISTORICAL/NON ORDERABLE LABS Final Result Performing Organization Address City/State/[facility] Co de Phone Number [facility] [address] * Colonoscopy (01/04/2021) Colonoscopy Normal Normal Narrative Mirella Anderson - 01/04/2021 Recommended 4 year follow up per office due 06/2025 Historical Provider HEALTH MAINTENANCE Final Result from Last 3 Months or Most Recently Relevant to Health Maintenance Insurance [facility] C[facility] STAND ADULT Care Teams Livestock Feeder Relationship Specialty Start Date End Date Amber Love MD [address] [place] [address] PCP - General Family Medicine 12/29/20 Venita Hannon Community Health Worker 04/01/24 Courtney Lindsay RN [address] [place] [address] Psychological Operations 04/01/24
--- OUTSIDE RECORDS SUMMARY | 2025-07-10 17:41 | XMS_ITS | Encounter Summary ---
Author Organization [employer] Address [address] 7[address] [place] [address] Care Team Providers Care Finance Insurance Manager Name Role Phone Amber Love MD Primary Care Provider [phone] Venita Hannon Unavailable Courtney Lindsay RN Unavailable [phone] Reason for Visit * Reason Onset Date Comments Med Refill 09/17/2023 Encounter Details Date Type Department Care Team (Late st Contact Info) Description 09/17/2023 Telephone [facility] [address] [place] [address] Amber Love MD [address] [place], [place] [phone] Med Refill Social History Tobacco Use Types [...] Upcoming Encounters Date Type Department Care Team ([facility] st Contact Info) Description 07/23/2025 11:00 AM EDT Clinical Support [facility] [address] [place] [address] Perlita Candelario RN [address] [place] [address] 08/07/2025 3:15 PM EDT Office Visit [facility] [address] [place] [address] Rita Shay MD [address] [place] [address] documented as of this encounter Visit Diagnoses Not on filedocumented in this encounter Additional Health Concerns Assessment Noted Time PHQ-9 Depression Total Score: 2 01/13/20 23 9:40 AM EDT documented as of this encounter Care Teams Finance Insurance Manager Relationship Specialty Start Date End Date Amber Love MD [address] [place] [address] PCP - General Family Medicine 12/29/20 Venita Hannon Community Health Worker 04/01/24 Courtney Lindsay RN [address] [place] [address] Safety And Health Consultant 04/01/24 documented as of this encounter
--- OUTSIDE RECORDS SUMMARY | 2025-07-10 17:41 | XMS_ITS | Encounter Summary ---
Author Organization [employer] Address [address] [place] [address] Care Team Providers Care Dredgemaster Name Role Phone Amber Love MD Primary Care Provider Venita Hannon Unavailable Courtney Lindsay RN Unavailable [phone] Reason for Visit * Reason Onset Date Comments Med Refill 06/26/2025 Encounter Details Date Type Department Care Team (Late st Contact Info) Description 06/26/2025 Telephone [facility] [address] [place] [address] Amber Love MD [address] [place], [place] [phone] Med Refill Social History Tobacco Use Types [...] encounter Miscellaneous Notes * Telephone Encounter - Jemma Barksdale - 06/26/2025 11:24 AM EDT TC from pt requesting medication refill. Medications needing refill : - oxyCODONE-acetaminophen (Percocet) 5-325 MG tablet To be sent to: - [facility] [place] - [address] [facility] documented in this encounter Plan of Treatment Upcoming Encounters Date Type Department Care Team (Late st Contact Info) Description 07/23/2025 11:00 AM EDT Clinical Support [facility] [address] [place] [address] Perlita Candelario, RN [address] [place] [address] 08/07/2025 3:15 PM EDT Office Visit [facility] [address] [place] [address] Rita Shay MD [address] [place] [address] documented as of this encounter Visit Diagnoses Not on filedocumented in this encounter Additional Health Concerns Assessment Noted Time PHQ-9 Depression Total Score: 2 01/13/20 23 9:40 AM EDT documented as of this encounter Care Teams Dredgemaster Relationship Specialty Start Date End Date Amber Love MD [address] [place] [address] PCP - General Family Medicine 12/29/20 Venita Hannon Community Health Worker 04/01/24 Courtney Lindsay, PETE [address] [place] [phone] Process Architect 04/01/24 documented as of this encounter
--- OUTSIDE RECORDS SUMMARY | 2025-07-10 17:41 | XMS_ITS | Encounter Summary ---
Author Organization [employer] Address [address] [facility] 7t [place] [address] Care Team Providers Care Balance Wheel Screw Hole Tapper Name Role Phone Amber Love MD Primary Care Provider [phone] Venita Hannon Unavailable Courtney Lindsay RN Unavailable [phone] Encounter Details Date Type Department Care Team (Latest Contact Info) Description 08/22/2019 Abstract [facility] CONVERSIONS Dental, Provider, DDS Social History [...] Description 07/23/2025 11:00 AM EDT Clinical Support [facility] MED & PEDS [address] [place] [address] Perlita Candelario RN 505 [place] [address] 08/07/2025 3:15 PM EDT Office Visit [facility] MED & PEDS [address] [place] [address] Rita Shay MD 505 [place] [address] documented as of this encounter Visit Diagnoses Not on filedocumented in this encounter Care Teams Balance Wheel Screw Hole Tapper Relationship Specialty Start Date End Date Amber Love MD [address] [place] [address] PCP - General Family Medicine 12/29/20 Venita Hannon Community Health Worker 04/01/24 Courtney Lindsay RN [address] [place] [address] Therapeutic Assistant 04/01/24 documented as of this encounter
[2025-07-10 18:11] LABS: MANUAL DIFF FLAG NO
[2025-07-10 18:22] LABS: Hematocrit 41.7 % (37.0-47.0); Hemoglobin 13.4 g/dl (12.0-16.0); Imm Gran Abs Auto 0.04 X10*3/uL (0.00-0.03); Imm Gran Pct Auto 0.5 % (0.0-0.4); Lymphocytes Absolute Auto 2.6 X10*3/uL (1.2-4.9); Mean Corpuscular HGB Conc 32.1 g/dl (31.0-35.0); Mean Corpuscular Hemoglobin 29.8 pg (27.0-33.0); Mean Corpuscular Volume 92.7 fL (80.0-98.0); NRBC Abs Auto 0.000 X10*3/uL (0.0-0.012); NRBC Pct Auto 0.0 /100WBC (0.0-0.2); Platelet Count 291 X10*3/uL (160-400); Red Blood Count 4.50 X10*6/uL (4.20-5.50); White Blood Count 8.1 X10*3/uL (4.8-10.8)
[2025-07-10 18:50] LABS: Alanine Aminotransferase 23 U/L (0-31); Albumin Level 4.2 g/dL (3.5-5.0); Alkaline Phosphatase 108 U/L (39-117); Anion Gap 11 (12-20); Aspartate Amino Transferase 21 U/L (5-31); Blood Urea Nitrogen 12 mg/dL (9-16); Calcium 9.5 mg/dL (8.4-10.2); Carbon Dioxide 27 mmol/L (22-29); Chloride 111 mmol/L (96-108); Estimated Glomerular Filt Rate 59; Potassium 4.0 mmol/L (3.3-5.1); Sodium 145 mmol/L (135-145); Total Protein 6.5 g/dL (6.5-8.0)
== END 2025-07-10 15:26 | disposition home or self-care (01) ==
LOC: HO.CHCLDS 15:25
PROVIDERS: Visit Provider Internal Medicine
DX: L50.9 Urticaria, unspecified (principal); R63.4 Abnormal weight loss
CPT/HCPCS: 36415; 80053; 84443; 85025

== ENCOUNTER 2025-08-12 14:01 | Outpatient (AMB) | payer MEDICAID, SELFPAY ==
[2025-08-12 14:08] VITALS: BP 120/68; PULSE 78; O2SAT 94; BMI 30.3
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
--- OUTSIDE RECORDS SUMMARY | 2025-08-12 17:46 | XMS_ITS | Encounter Summary ---
Author Organization [employer] Address [address] [facility] [address] [place] [address] Care Team Providers Care Fleecer Name Role Phone Amber Love MD Primary Care Provider Venita Hannon Unavailable Courtney Lindsay RN Unavailable [phone] Encounter Details Date Type Department Care Team (Late Contact Info) Description 10/16/2022 Telephone [facility] MEDICINE [address] [place] [address] Amber Love MD [address] [place] [address] Social History Tobacco Use Types Packs/Day Years [...] Upcoming Encounters Date Type Department Care Team ([facility] Contact Info) Description 08/25/2025 1:45 PM EDT Office Visit [facility] CHC MED & PEDS [address] [place] [address] Rita Shay MD 505 [place] [address] 09/15/2025 10:30 AM EST Clinical Support [facility] CH[facility] MED & PEDS [address] [place] [address] Perlita Candelario, PETE [address] [place] [address] documented as of this encounter Visit Diagnoses Not on filedocumented in this encounter Care Teams Fleecer Relationship Specialty Start Date End Date Amber Love MD [address] [place] [address] PCP - General Family Medicine 12/29/20 Venita Hannon Community Health Worker 04/01/24 Courtney Lindsay RN [address] [place] [address] Church Musician 04/01/24 documented as of this encounter
--- OUTSIDE RECORDS SUMMARY | 2025-08-12 17:46 | XMS_ITS | Encounter Summary ---
Author Organization [employer] Address 75 [facility] 7t [place] [address] Care Team Providers Care Photographer'S Assistant Name Role Phone Amber Love MD Primary Care Provider [phone] Venita Hannon Unavailable Courtney Lindsay RN Unavailable [phone] Encounter Details Date Type Department Care Team (Latest Contact Info) Description 08/22/2019 Abstract [facility] CONVERSIONS Dental, Provider, DDS Social History [...] Care Team (Late st Contact Info) Description 08/25/2025 1:45 PM EDT Office Visit [facility] MED & PEDS 505 [place] [address] Rita Shay MD [address] [place] [address] 09/15/2025 10:30 AM EST Clinical Support [facility] MED & PEDS [address] [place] [address] Perlita Candelario RN [address] [place] [address] documented as of this encounter Visit Diagnoses Not on filedocumented in this encounter Care Teams Photographer'S Assistant Relationship Specialty Start Date End Date Amber Love MD [address] [place] [address] PCP - General Family Medicine 12/29/20 Venita Hannon Community Health Worker 04/01/24 Courtney Lindsay RN [address] [place] [address] Sweep Press Operator 04/01/24 documented as of this encounter
--- OUTSIDE RECORDS SUMMARY | 2025-08-12 17:46 | XMS_ITS | Encounter Summary ---
Author Organization [employer] Address [address] [facility] [address] 7t [place] [address] Care Team Providers Care Set Up Mechanic Coating Machines Name Role Phone Amber Love MD Primary Care Provider [phone] Venita Hannon Unavailable Courtney Lindsay RN Unavailable [phone] Reason for Visit * Reason Comments Med Refill Encounter Details Date Type Department Care Team (Late st Contact Info) Description 12/27/2022 Refill [facility] CHC MED & PEDS [address] [place], [place] [phone] Amber Love MD 505 [place], [place] [phone] Chronic back pain, unspecified back location, unspecified [...] Description 08/25/2025 1:45 PM EDT Office Visit [facility] MED & PEDS [address] [place] [address] Rita Shay MD 505 [place] [address] 09/15/2025 10:30 AM EST Clinical Support [facility] MED & PEDS [address] [place] [address] Perlita Candelario RN [address] [place] [address] documented as of this encounter Visit Diagnoses Diagnosis Chronic back pain, unspecified back location, unspecified back pain laterality documented in this encounter Care Teams Set Up Mechanic Coating Machines Relationship Specialty Start Date End Date Amber Love MD [address] [place] [address] PCP - General Family Medicine 12/29/20 Venita Hannon Community Health Worker 04/01/24 Courtney Lindsay RN [address] [place] [address] Solar Project Coordination Specialist 04/01/24 documented as of this encounter
--- OUTSIDE RECORDS SUMMARY | 2025-08-12 17:46 | XMS_ITS | Encounter Summary ---
Author Organization [employer] Address [address] [facility] [address] 7t [place] [address] Care Team Providers Care Home Care Associate Name Role Phone Amber Love MD Primary Care Provider [phone] Venita Hannon Unavailable Courtney Lindsay RN Unavailable [phone] Reason for Visit * Reason Comments Med Refill Encounter Details Date Type Department Care Team (Late st Contact Info) Description 12/31/[address] [facility] MEDICINE [address] [place] [address] Haile Miner MD [address] [place], [place] [phone] Polyarthralgia Social History Tobacco Use Types Packs/Day [...] Description 08/25/2025 1:45 PM EDT Office Visit [facility] MED & PEDS [address] [place] [address] Rita Shay MD 505 [place] [address] 09/15/2025 10:30 AM EST Clinical Support [facility] MED & PEDS [address] [place] [address] Perlita Candelario RN 505 [place] [address] documented as of this encounter Visit Diagnoses Diagnosis Polyarthralgia Pain in joint, multiple sites documented in this encounter Additional Health Concerns Assessment Noted Time PHQ-9 Depression Total Score: 2 01/13/20 23 9:40 AM EDT documented as of this encounter Care Teams Home Care Associate Relationship Specialty Start Date End Date Amber Love MD [address] [place] [address] PCP - General Family Medicine 12/29/20 Venita Hannon Community Health Worker 04/01/24 Courtney Lindsay RN [address] [place] [address] Rn Outpatient Surgery 04/01/24 documented as of this encounter
--- OUTSIDE RECORDS SUMMARY | 2025-08-12 17:46 | XMS_ITS | Encounter Summary ---
Author Organization [employer] Address [address] [facility] [address] 7[address] [place] [address] Care Team Providers Care Superintendent Building Name Role Phone Amber Love MD Primary Care Provider [phone] Venita Hannon Unavailable Courtney Lindsay RN Unavailable [phone] Reason for Visit * Reason Onset Date Comments Med Refill 09/17/2023 Encounter Details Date Type Department Care Team (Late st Contact Info) Description 09/17/2023 Telephone [facility] MEDICINE [address] [place] [address] Amber Love MD [address] [place], [place] [address] Med Refill Social History Tobacco Use Types [...] Upcoming Encounters Date Type Department Care Team ([facility] st Contact Info) Description 08/25/2025 1:45 PM EDT Office Visit [facility] MED & PEDS [address] [place] [address] Rita Shay MD 505 [place] [address] 09/15/2025 10:30 AM EST Clinical Support [facility] MED & PEDS [address] [place] [address] Perlita Candelario, PETE [address] [place] [address] documented as of this encounter Visit Diagnoses Not on filedocumented in this encounter Additional Health Concerns Assessment Noted Time PHQ-9 Depression Total Score: 2 01/13/20 23 9:40 AM EDT documented as of this encounter Care Teams Superintendent Building Relationship Specialty Start Date End Date Amber Love MD 230 [place] [address] PCP - General Family Medicine 12/29/20 Venita Hannon Community Health Worker 04/01/24 Courtney Lindsay RN [address] [place] [address] Household Chores 04/01/24 documented as of this encounter
--- OUTSIDE RECORDS SUMMARY | 2025-08-12 17:46 | XMS_ITS | Encounter Summary ---
Author Organization [employer] Address [address] [facility] [address] 7[address] [place] [address] Care Team Providers Care Gear Cutter Name Role Phone Amber Love MD Primary Care Provider [phone] Venita Hannon Unavailable Courtney Lindsay RN Unavailable [phone] Reason for Visit * Reason Comments Med Refill Encounter Details Date Type Department Care Team (Late st Contact Info) Description 03/25/2025 Refill [facility] MEDICINE [address] [place] [address] Frannie Ron MD [address] [place], [place] [phone] Social History Tobacco Use Types Packs/Day Years [...] the past 12 months, has t he [employer], gas, oil or water company threatened to [...] Description 08/25/2025 1:45 PM EDT Office Visit [facility] MED & PEDS [address] [place] [address] Rita Shay MD [address] [place] [address] 09/15/2025 10:30 AM EST Clinical Support [facility] MED & PEDS [address] [place] [address] Perlita Candelario, PETE [address] [place] [address] documented as of this encounter Visit Diagnoses Not on filedocumented in this encounter Additional Health Concerns Assessment Noted Time PHQ-9 Depression Total Score: 2 01/13/20 23 9:40 AM EDT documented as of this encounter Care Teams Gear Cutter Relationship Specialty Start Date End Date Amber Love MD [address] [place] [address] PCP - General Family Medicine 12/29/20 Venita Hannon Community Health Worker 04/01/24 Courtney Lindsay RN [address] [place] [address] [place] [address] Barrel Painter 04/01/24 documented as of this encounter
--- OUTSIDE RECORDS SUMMARY | 2025-08-12 17:46 | XMS_ITS | Encounter Summary ---
Author Organization [employer] Address [address] [facility] [address] [place] [address] Care Team Providers Care Mechanical Maintenance Instructor Name Role Phone Amber Love MD Primary Care Provider [phone] Venita Hannon Unavailable Courtney Lindsay RN Unavailable [phone] Reason for Visit * Reason Onset Date Comments HDF follow up 03/29/2023 Encounter Details Date Type Department Care Team (Late st Contact Info) Description 03/29/2023 Telephone [facility] MEDICINE [address] [place] [address] Amber Love MD [address] [place], [place] [phone] HDF follow up Social History Tobacco Use [...] - 03/29/2023 3:15 PM EDT TC from [place] stated pt received a Call today to schedule a Hdf follow up. PCP DR. Love documented in this encounter Plan of Treatment Upcoming Encounters Date Type Department Care Team (Late st Contact Info) Description 08/25/2025 1:45 PM EDT Office Visit [facility] MED & PEDS [address] [place] [address] Rita Shay MD 505 [place], [place] [phone] 09/15/2025 10:30 AM EST Clinical Support [facility] MED & PEDS [address] [place] [address] Perlita Candelario RN [address] [place], [place] [phone] documented as of this encounter Visit Diagnoses Not on filedocumented in this encounter Additional Health Concerns Assessment Noted Time PHQ-9 Depression Total Score: 2 01/13/20 23 9:40 AM EDT documented as of this encounter Care Teams Mechanical Maintenance Instructor Relationship Specialty Start Date End Date Amber Love MD [address] [place] [address] PCP - General Family Medicine 12/29/20 Venita Hannon Community Health Worker 04/01/24 Courtney Lindsay RN [address] [place], [place] [phone] Complaint Supervisor 04/01/24 documented as of this encounter
--- OUTSIDE RECORDS SUMMARY | 2025-08-12 17:46 | XMS_ITS | Encounter Summary ---
Author Organization [employer] Address [address] [facility] [address] 7t [place] [address] Care Team Providers Care Plate Setter Name Role Phone Amber Love MD Primary Care Provider [phone] Venita Hannon Unavailable Courtney Lindsay RN Unavailable [phone] Reason for Visit * Reason Onset Date Comments Appointment 06/14/2023 Encounter Details Date Type Department Care Team (Late st Contact Info) Description 06/14/2023 Telephone [facility] D[facility] [address] [place], [place] [phone] Dallin Toth DDS [address] [place], [place] [phone] Appointment Social History Tobacco Use Types Packs/Day [...] Description 08/25/2025 1:45 PM EDT Office Visit [facility] MED & PEDS [address] [place] [address] Rita Shay MD 505 [place] [address] 09/15/2025 10:30 AM EST Clinical Support [facility] MED & PEDS [address] [place] [address] Perlita Candelario, PETE [address] [place] [address] documented as of this encounter Visit Diagnoses Not on filedocumented in this encounter Additional Health Concerns Assessment Noted Time PHQ-9 Depression Total Score: 2 01/13/20 23 9:40 AM EDT documented as of this encounter Care Teams Plate Setter Relationship Specialty Start Date End Date Amber Love MD [address] [place] [address] PCP - General Family Medicine 12/29/20 Venita Hannon Community Health Worker 04/01/24 Courtney Lindsay, PETE [address] [place] [address] Incubator Machine Operator 04/01/24 documented as of this encounter
--- OUTSIDE RECORDS SUMMARY | 2025-08-12 17:46 | XMS_ITS | Encounter Summary ---
Author Organization [employer] Address [address] [facility] [address] [place] [address] Care Team Providers Care Decorator Hand Name Role Phone Amber Love MD Primary Care Provider [phone] Venita Hannon Unavailable Courtney Lindsay RN Unavailable [phone] Reason for Visit * Reason Onset Date Comments Med Refill 08/20/2024 Encounter Details Date Type Department Care Team ([facility] Contact Info) Description 08/20/2024 Telephone [facility] [address] [place], [place] [phone] Amber Love MD [address] [place], [place] [phone] Med Refill Social History Tobacco Use Types [...] 5-325 MG tablet To be sent to: [facility] - [place], [place] - [address] [place] [address] documented in this encounter Plan of Treatment Upcoming Encounters Date Type Department Care Team (Late st Contact Info) Description 08/25/2025 1:45 PM EDT Office Visit [facility] [address] [place] [address] Rita Shay MD [address] [place] [address] 09/15/2025 10:30 AM EST Clinical Support [facility] [address] [place] [address] Perlita Candelario RN [address] [place] [address] documented as of this encounter Visit Diagnoses Not on filedocumented in this encounter Additional Health Concerns Assessment Noted Time PHQ-9 Depression Total Score: 2 01/13/20 23 9:40 AM EDT documented as of this encounter Care Teams Decorator Hand Relationship Specialty Start Date End Date Amber Love MD [address] [place] [address] PCP - General Family Medicine 12/29/20 Venita Hannon Community Health Worker 04/01/24 Courtney Lindsay RN [address] [place] [phone] Capacity Planning Engineer 04/01/24 documented as of this encounter
--- OUTSIDE RECORDS SUMMARY | 2025-08-12 17:46 | XMS_ITS | Clinical Summary ---
Author Organization [employer] Address [address] [employer] 7t [place] [address] Care Team Providers Care Rubber Off Name Role Phone Amber Love MD Primary Care Provider [phone] Venita Hannon Unavailable Courtney Lindsay RN Unavailable Allergies Active Allergy Reactions Criticality Noted Date [...] A ORAL CADA 12 HORAS 024 Active D3 Super Strength 50 MCG (2000 UT) capsule TAKE 1 CAPSULE BY MOUTH EVERY DAY 90 capsule 3 024 Active methocarbamol (Robaxin) 500 MG tabletIndications [...] TWICE DAILY 180 capsule 1 025 Active polyethylene glycol, PEG, 3350 [...] Once per day. 10 tablet 025 Active ketoconazole (NIZOral) 2 % shampooIndication s:Hair loss,Seborrheic dermatitis APPLY TOPICALLY TO THE AFFECTED AREA(S) TWICE A WEEK DIRECTED 120 mL 3 025 Active diphenhydrAMINE (BENADryl) 25 MG capsuleIndication s:Allergic rhinitis, unspecified seasonality, unspecified trigger TAKE 1 CAPSULE BY MOUTH EVERY 8 HOURS NEEDED FOR ITCHING 30 capsule 1 025 Active fexofenadine (Nadira) 180 MG tabletIndications :Urticaria Take 1 tablet (180 mg) by mouth if needed each day (Allergies). 30 tablet 025 2024 Active diphenhydrAMINE (BENADryl) 25 MG tabletIndications :Urticaria 1 to 2 tab at bedtime 30 tablet 025 Active sucralfate (Carafate) 1 g tablet TAKE 1 TABLET BY MOUTH FOUR TIMES DAILY 120 tablet 025 Active zolpidem (Ambien) 5 MG tablet TAKE 1 TABLET BY MOUTH AT BEDTIME NEEDED for SLEEP 28 tablet 1 025 Active cyclobenzaprine (Flexeril) 10 MG tablet TAKE 1 TABLET BY MOUTH THREE TIMES DAILY IN THE MORNING, AT NOON, AND AT BEDTIME NEEDED FOR MUSCLE SPASMS 90 tablet 1 025 Active gabapentin (Neurontin) 600 MG tablet TAKE 1 TABLET BY MOUTH THREE TIMES DAILY 90 tablet 5 025 Active oxyCODONE-acetami nophen (Percocet) 5-325 MG tabletIndications :Polyarthralgia Take 1 tablet by mouth every 6 (six) hours if needed for severe pain. Do not start before July 27, 2025. 112 tablet 025 Active sucralfate (Carafate) 1 g tablet TAKE 1 TABLET BY MOUTH FOUR TIMES DAILY 90 tablet 5 024 2024 Discontinued gabapentin (Neurontin) 600 MG tablet TAKE 1 TABLET BY MOUTH THREE TIMES DAILY 90 tablet 5 024 2024 Discontinued cyclobenzaprine (Flexeril) 10 MG tablet TAKE 1 TABLET BY MOUTH THREE TIMES DAILY IN THE MORNING, AT NOON, AND AT BEDTIME NEEDED FOR MUSCLE SPASMS 90 tablet 1 05/30/2 025 2024 Discontinued zolpidem (Ambien) 5 MG tablet TAKE 1 TABLET BY MOUTH AT BEDTIME NEEDED FOR SLEEP 28 tablet 1 025 2024 Discontinued oxyCODONE-acetami nophen (Percocet) 5-325 MG tabletIndications :Polyarthralgia Take 1 tablet by mouth every 6 (six) hours if needed for severe pain. 112 tablet 025 2024 Discontinued Active Problems Patient Care Coordination No te Formatting of this note migh t be different from the original. C3/CM Susanne Allen RN Problem Noted Date Diagnosed Date Uses Kyrgyz as primary spoken language 05/13/20 Class 1 obesity 05/13/2025 Chronic right shoulder [...] an upcoming appt, explained to patient that bulk sealer will not be able to assist with [...] Local recurrence of malignant tumor of breast (C MS/HCC) 04/28/2024 Dental caries 03/06/2024 Positive SERA (antinuclear antibody) 02/12/2024 Malaise and fatigue 12/13/2023 Assessment & Plan (12/13/2023 2:11 PM EST): Patient hasn't been feeling well for the past 2 weeks. She has been having bodyaches, headaches, and fever. She would like to get tested for COVID or Influenza. Labs: C-reactive protein, CBC, Comprehensive Metabolic Panel, Rapid Covid-19, Rapid Influenza A & B, [id number], TSH w/Reflex FT4 Nicotine use 12/13/2023 Assessment [...] Discussed options for pain management. Referring to Cma Or Lpn for further evaluation of symptoms and lab [...] tis 08/16/2015 Malignant neoplasm of female breast ([facility]) Mild persistent asthma 08/16/2015 Assessment & Plan [...] Encounters Date Type Department Care Team Description 07/23/2025 11:00 AM EDT Clinical Support [facility] [address] [place] [address] Perlita Candelario RN Fibromyalgia (Primary Dx) 07/23/2025 Travel 07/23/2025 Refill [facility] [address] [place] [address] Amber Love MD Polyarthralgia 07/21/2025 Refill [facility] [address] [place] [address] Amber Love MD 07/16/2025 Refill [facility] [address] [place] [address] Amber Love MD 2025 Telephone [facility] [address] [place] [address] Rita Shay MD Results 07/10/2025 3:15 PM EDT Office Visit [facility] [address] [place] [address] Rita Shay MD Urticaria (Primary Dx); Unintentional weight loss 07/10/2025 Travel 07/06/2025 Telephone [facility] [address] [place] [address] Amber Love MD Appointment Request 07/03/2025 Refill [facility] [address] [place] [address] Amber Love MD Allergic rhinitis, unspecified seasonality, unspecified trigger 06/26/2025 Refill [facility] [address] [place] [address] Perlita Candelario RN Polyarthralgia 06/26/2025 Telephone [facility] [address] [place] [address] Amber Love MD Med Refill 06/26/2025 Telephone [facility] [address] [place] [address] Amber Love MD Med Refill 05/31/2025 Refill [facility] [address] [place] [address] Rita Shay MD Hair loss; Seborrheic dermatitis 05/28/2025 Refill [facility] [address] [place] [address] Amber Love MD 05/28/2025 Refill [facility] [address] [place] [address] Amber Love MD Polyarthralgia 05/19/2025 Telephone [facility] [address] [place] [address] Amber Love MD Med Refill 05/14/2025 Telephone [facility] [address] [place] [address] Amber Love MD Prior Authorization 05/13/2025 11:15 AM EDT Office Visit [facility] [address] [place] [address] Amber Love MD Fibromyalgia (Primary Dx); Chronic right shoulder pain; Varicose veins of left lower extremity, unspecified whether complicated; Overweight (BMI 25.0-29.9); Disorder of both eustachian tubes 05/13/2025 Travel 05/12/2025 Telephone [facility] [address] [place] [address] Amber Love MD Chart Prep from Last 3 Months Immunizations Immunization Administration [...] Description 08/25/2025 1:45 PM EDT Office Visit [facility] [address] [place] [address] Rita Shay MD [address] [place] [address] 09/15/2025 10:30 AM EST Clinical Support [facility] [address] [place] [address] Perlita Candelario RN [address] [place] [address] Health Maintenance Due Date Last Done Comments CT Colonography 1962 FIT DNA/Cologuard 1962 FIT 1962 FOBT 1960 Mammogram 1960 Sigmoidoscopy 1960 Disability Screening 1962 Zoster Vaccines (2 of 2) 06/05/2022 04/10/2022, 03/29 RSV Patients and Patients Aged 60 years or older (1 - Risk 60-74 years 1-dose series) 2022 Depression Screening 01/13/2024 01/12/2023, 01/13/20 23 COVID-19 Vaccine (4 - season) 2025 01/25/2022, 05/11/2021, 02/22/2021 Colonoscopy 06/29/2025 [...] Comments POCT JAIRO-14 URINE DRUG SCREEN Routine 07/23/2025 11:16 AM EDT Fibromyalgia TSH W/REFLEX TO FT4 Routine 07/10/2025 3 :27 PM EDT Urticaria Unintentional weight loss CBC WITH AUTO DIFFERENTIAL Routine 07/10/2025 3:27 PM EDT Urticaria Unintentional weight loss COMPREHENSIVE METABOLIC PANEL Routine 07/10/2025 3:27 PM EDT Urticaria Unintentional weight loss PROPHYLAXIS - ADULT Routine 01/30/2025 2 :00 [...] Routine 02/06/2024 10:36 AM EDT Swollen neck PAP/HPV Routine 07/06/2022 MARKO HISTORICAL HEPATITIS PANEL, GENERAL Routine 09/26/2021 9:56 AM EST COLONOSCOPY Routine 01/04/2021 from Last 3 Months or Most Recently Relevant to Health Maintenance Results * (ABNORMAL) POCT JAIRO-14 Urine Drug Screen (07/23/2025 11:16 AM EDT) THC Positive(A) Negative Cocaine Screen, Urine Negative Negative Opiate Screen, Urine Negative Negative Methamphetamine Screen Urine Negative Negative Amphetamine Screen, Urine Negative Negative Benzodiazepines Screen, Urine Negative Negative Barbiturate Screen, Urine Negative Negative Methadone Screen, Urine Negative Negative Buprenophine Screen, Urine Negative Negative TCA, Urine Negative Negative MDMA Urine Negative Negative ng/mL Oxycodone Screen, Urine Positive(A) Negative Phencyclidine (PCP), Urine Negative Negative Propoxyphene, Urine Negative Negative Fentanyl, Urine Negative Negative Urine Urine specimen obtained by clean catch procedure / Unknown 07/23/2025 11:16 AM EDT Amber Love MD POINT OF CARE TEST ENTER/EDIT ORDERABLES Final Result * TSH W/Reflex to FT4 (07/10/2025 3:27 PM EDT) TSH reflex Free T4 0.90 0.32 - 4.0 uIU/mL [facility] Blood Venous blood specimen / Unknown 07/10/2025 3:27 PM EDT 07/10/2025 6:09 PM EDT us Rita Shay MD LAB BLOOD ORDERABLES Final Result [facility] [address] [place] [phone] * (ABNORMAL) CBC auto differential (07/10/2025 3:27 PM EDT) White Blood Count 8.1 4.8 - 10.8 X10*3/uL [facility] Red Blood Count 4.50 4.20 - 5.50 X10*6/uL [facility] Hemoglobin 13.4 12.0 - 16.0 g/dl [facility] Hematocrit 41.7 37.0 - 47.0 % [facility] Mean Corpuscular Volume 92.7 80.0 - 98.0 fL [facility] Mean Corpuscular Hemoglobin 29.8 27.0 - 33.0 pg [facility] Mean Corpuscular HGB Conc 32.1 31.0 - 35.0 g/dl [facility] Red Cell Distribution Width 13.6 11.0 - 16.0 % [facility] Platelet Count 291 160 - 400 X10*3/uL [facility] Mean Platelet Volume 10.0 9.4 - 12.3 fL [facility] Neutrophils Percent Auto 60.8 45 - 73 % [facility] Imm Gran Pct Auto 0.5(H) 0.0 - 0.4 % [facility] Lymphocytes Percent Auto 31.7 20 - 40 % [facility] Monocytes Percent Auto 5.9 2 - 11 % [facility] Eosinophils Percent Auto 1.0 0 - 4 % [facility] Basophils Percent Auto 0.1 0 - 2 % [facility] NRBC Pct Auto 0.0 0.0 - 0.2 /100WBC [facility] Neutrophils Absolute Auto 4.9 2.0 - 8.3 x10*3/uL [facility] Imm Gran Abs Auto 0.04(H) 0.00 - 0.03 X10*3/uL [facility] Lymphocytes Absolute Auto 2.6 1.2 - 4.9 X10*3/uL [facility] Monocytes Absolute Auto 0.5 0.1 - 1.2 X10*3/uL [facility] Eosinophils Absolute Auto 0.1 0.0 - 0.4 X10*3/uL [facility] Basophils Absolute Auto 0.0 0.0 - 0.2 X10*3/uL [facility] NRBC Abs Auto 0.000 0.0 - 0.012 X10*3/uL [facility] Blood Venous blood specimen / Unknown 07/10/2025 3:27 PM EDT 07/10/2025 6:09 PM EDT Rita Shay MD LAB BLOOD ORDERABLES Final Result [facility] [address] [place] [phone] [phone] * (ABNORMAL) Comprehensive Metabolic Panel (07/10/2025 3:27 PM EDT) Sodium 145 135 - 145 mmol/L [facility] Potassium 4.0 3.3 - 5.1 mmol/L [facility] Chloride 111(H) 96 - 108 mmol/L [facility] Carbon Dioxide 27 22 - 29 mmol/L [facility] Anion Gap 11(L) 12 - 20 [facility] Urea Nitrogen (BUN) 12 9 - 16 mg/dL [facility] Creatinine, Serum 0.96 0.5 - 1.4 mg/dL [facility] Estimated Glomerular Filt Rate 59 [facility] Comment:Chronic Kidney Disea se: Estimated GFR < 60 mL/min/1.12u7Xtvgyy Kidney Disease: Estimated GFR < 15 mL/min/1.73m2 Glucose 108 60 - 115 mg/dL [facility] Calcium 9.5 8.4 - 10.2 mg/dL [facility] Bilirubin, Total 0.2 0.0 - 1.0 mg/dL [facility] Aspartate Amino Transferase 21 5 - 31 U/L [facility] Alanine Aminotransferase 23 0 - 31 U/L [facility] Total Protein 6.5 6.5 - 8.0 g/dL [facility] Albumin Level 4.2 3.5 - 5.0 g/dL [facility] Alkaline Phosphatase 108 39 - 117 U/L [facility] Blood Venous blood specimen / Unknown 07/10/2025 3:27 PM EDT 07/10/2025 6:09 PM EDT us Rita Shay MD LAB BLOOD ORDERABLES Final Result Performing Organization Address [facility]/ZIP Co de Phone Number [facility] [address] [place] [address] [phone] * (ABNORMAL) Lipid Panel, Standard (04/30/2024 4:21 PM EDT) Triglycerides 270(H) <150 mg/dL [facility] Comment:Desirable Triglyceri de: less than 150 mg/dLBorderline High Triglyceride 150-199 mg/dLHigh Triglyceride: 200-499 mg/dLVery High Triglyceride: greater than or equal to 5OO mg/dL Cholesterol 202(H) <200 mg/dL [facility] Comment:Desirable Cholestero l: less than 200 mg/dLBorderline High Cholesterol: 200-239 mg/dLHigh Cholesterol: greater than 239 mg/dL LDL Cholesterol Calculated 106(H) <100 mg/dL [facility] Comment:Desirable LDL: less than 100 mg/dLNear Optimal/Above Optimal LDL: 110- 129 mg/dLBorderline High LDL: 130-159 mg/dLHigh LDL: 160-189 mg/dLVery High LDL: greater than or equal to 190 mg/dL HDL Cholesterol 42 >40 mg/dL [facility] Comment:Desirable HDL: great er than 40 mg/dL Note: This HDL assay may give artificially low results in patients with liver disease. Blood Venous blood specimen / Unknown 04/30/2024 4:21 PM EDT 04/30/2024 5:20 PM EDT us Amber Love MD LAB BLOOD ORDERABLES Final Re sult Performing Organization Address City/[facility]/ZIP Co de Phone Number [facility] [address] [place] [address] [phone] * HIV-1/2 Antigen and Antibodies, Fourth Generation, with Reflexes (02/06/2024 10:36 AM EDT) HIV AB/AG Nonreactive Nonreactive [facility] Comment:HIV-1 p24 Ag and/or HIV-1/HIV-2 Ab not detected.A test result that is nonreactive does not exclude thepossibility of exposure to or infection with HIV-1 and/orHIV-2. Nonreactive results in this assay for individualswith prior exposure to HIV-1 and/or HIV-2 may be due toantigen and antibody levels that are below the limit ofdetection of this assay.The Nitch HIV Ag/Ab Combo assay result andsupplemental assay results should be interpreted inconjunction with the patient's clinical presentation,history and other laboratory results. If the results areinconsistent with clinical evidence, additional testing issuggested to confirm the result. Blood Venous blood specimen / Unknown 02/06/2024 10:36 AM EDT 02/06/2024 2:32 PM EDT Amber Love MD LAB BLOOD ORDERABLES Final Re sult [facility] [address] [place] [address] [phone] * Hm Pap Smear (07/06/2022) Pap Negative for intraephithelial lesion or malignancy Negative for intraephithelial lesion or malignancy, Other HPV Undetected Historical Provider HEALTH MAINTENANCE Final Result * (ABNORMAL) HEPATITIS PANEL, GENERAL (09/26/2021 9:56 AM EST) HEPATITIS A AB, TOTAL REACTIVE( A) NON-REACT [facility] Comment: For additional information, please refer to http://education.Vigix/faq/TML671 (This link is being provided for informational/ [...] [facility] [address] [place] [address], * Colonoscopy (01/04/2021) Colonoscopy Normal Normal Narrative Mirella Anderson - 01/04/2021 Recommended 4 year follow up per office due 06/2025 Historical Provider HEALTH MAINTENANCE Final Result from Last 3 Months or Most Recently Relevant to Health Maintenance Insurance [facility] C3 DENTAL-[facility] MEDICAID STAND ADULT Care Teams Rubber Off Relationship Specialty Start Date End Date Amber Love MD [address] [place] [phone] PCP - General Family Medicine 12/29/20 Venita Hannon Community Health Worker 04/01/24 Courtney Lindsay RN [address] [place] [phone] Stockroom Helper 04/01/24
--- OUTSIDE RECORDS SUMMARY | 2025-08-12 17:46 | XMS_ITS | Data Portability ---
Author Organization [place] - [facility], Allergy Address [address] [address] Assessment Encounter Date Assessment Date Assessment LastModified [...] Address Organization Details Recorded Time Chronic sialadenitis 753055525 Active 2023 HANS OCONNOR MD [address] [place] [address], [place], [phone], [facility] 4 12:14:37 Problem Notes None recorded. Medical [...] Updated DateTime 08/29/2024 157.48 cm 27.8 kg/m2 23114.04 g Debbi Bragg [place] - [facility] 08/29/2024 11:14:22 Social History None recorded. Functional Status None recorded. Mental Status None recorded. Family History Nothing Reported Notes:Problems with anesthes ia: negative. Cancer: Unspecified type of cancer - father, mother, brother(s), and sister(s). Pertinent negatives: lung cancer, thyroid cancer. Ears:. Pertinent negatives: hearing loss after age 20, hearing loss before age 20. Cardiovascular: Heart disease in a female, diagnosed at unknown age - mother. Hypertension - mother and brother(s). Respiratory:. Pertinent negatives: asthma. Patient Name - Angie Hannon Date of - 1960 [facility] - [id number] Date of Service - 02/22/2024 Current Date 08/29/2024 11:26:59 AM EDT Chart Number [id number] Page Number 2 of 5 Neurologic:. Pertinent negatives: stroke. Endocrine: Diabetes, age at onset unspecified - mother. Hematologic/Lymphatic: Bleeding or blood clotting problems - mother. Medical History No medical history recorded. Gynecological HistoryNo gynecological history recorded. Obstetrics History GPAL:G 0 P 0 0 0 0 Past Encounters Encounter ID Performer Location Encounter Start Date Encounter Closed Date Diagnosis/Indication Diagnosis SNOMED-CT Code Diagnosis ICD10 Code Diagnosis IMO Codes Diagnosis Note [id number] HANS OCONNOR MD [facility] [address] [place] [address] 08/29/2024 11:02:14 08/29/2024 12:22:02 Chronic sialadenitis 886970463 K11.23 Tobacco user 486229215 Z 72.0 Health Concerns Section Related Observation LastModified by Organization Detai ls LastModified Time None Recorded Concern Status LastModified by Organization Details LastModified Time None Recorded Advance Directives Directive None Recorded Payers Insurance Date Sequence Insurance Name Policy Number Policy Aviles Covered Member ID Aviles Member ID Guarantor Name 08/29/2024 1 [place] [facility] Angie Hannon [id number] Angie Parvez Notes Date Note Type Note Provider Name and Address Organization Details Recorded Time 08/29/2024 text/html ROS as noted in the HPI Patient reports that swelling is worse since her last visit. Has done a lot testing. Drinking more water. Still smoking. Gave chantix yesterday. The radiation physicist did a lot of blood work and [...] without any acute abnormality. HANS OCONNOR MD [address] [place] [address], [place], [phone], [facility] - [facility] 08/29/2024 12:15:58 OBGyn Episode No OBEpisode recorded.
--- OUTSIDE RECORDS SUMMARY | 2025-08-12 17:46 | XMS_ITS | Encounter Summary ---
Author Organization [employer] Address [address] [place] [address] Care Team Providers Care Brush Clearing Laborer Name Role Phone Amber Love MD Primary Care Provider [phone] Venita Hannon Unavailable Courtney Lindsay RN Unavailable [phone] Reason for Visit * Reason Comments Med Refill Encounter Details Date Type Department Care Team (Late st Contact Info) Description 05/19/2025 Telephone [facility] [address] [place] [address] Amber Love MD [address] [place], [place] [phone] Med Refill Social History Tobacco Use Types [...] Upcoming Encounters Date Type Department Care Team ([facility] st Contact Info) Description 08/25/2025 1:45 PM EDT Office Visit [facility] [address] [place] [address] Rita Shay MD [address] [place] [address] 09/15/2025 10:30 AM EST Clinical Support [facility] [address] [place] [address] Perlita Candelario RN [address] [place] [address] documented as of this encounter Visit Diagnoses Not on filedocumented in this encounter Additional Health Concerns Assessment Noted Time PHQ-9 Depression Total Score: 2 01/13/20 23 9:40 AM EDT documented as of this encounter Care Teams Brush Clearing Laborer Relationship Specialty Start Date End Date Amber Love MD [address] [place] [address] PCP - General Family Medicine 12/29/20 Venita Hannon Community Health Worker 04/01/24 Courtney Lindsay RN [address] [place] [phone] Blurb Writer 04/01/24 documented as of this encounter
--- OUTSIDE RECORDS SUMMARY | 2025-08-12 17:46 | XMS_ITS | Encounter Summary ---
Author Organization [employer] Address [address] [facility] [address] [place] [address] Care Team Providers Care Director Life Name Role Phone Amber Love MD Primary Care Provider [phone] Venita Hannon Unavailable Courtney Lindsay RN Unavailable [phone] Reason for Visit * Reason Onset Date Comments Appointment Request 03/27/2023 Med Refill 03/27/2023 Encounter Details Date Type Department Care Team (Late st Contact Info) Description 03/27/2023 Telephone [facility] [address] [place] [address] Amber Love MD [address] [place], [place] [phone] Appointment Request; Med Refill Social History Tobacco [...] MG immediate release tablet please send to [facility] pharmacy * Telephone Encounter - Dorita Parvez - 03/27/2023 9:17 AM EDT Tc from pt spouse requesting to r/s 03/23/23 CTS appt. documented in this encounter Plan of Treatment Upcoming Encounters Date Type Department Care Team (Late st Contact Info) Description 08/25/2025 1:45 PM EDT Office Visit [facility] [address] [place] [address] Rita Shay MD 505 [place] [address] 09/15/2025 10:30 AM EST Clinical Support [facility] [address] [place] [address] Perlita Candelario RN 505 [place] [address] documented as of this encounter Visit Diagnoses Not on filedocumented in this encounter Additional Health Concerns Assessment Noted Time PHQ-9 Depression Total Score: 2 01/13/20 23 9:40 AM EDT documented as of this encounter Care Teams Director Life Relationship Specialty Start Date End Date Amber Love MD [address] [place] [address] PCP - General Family Medicine 12/29/20 Venita Hannon Community Health Worker 04/01/24 Courtney Lindsay RN 505 [place] [address] Legal Document Specialist 04/01/24 documented as of this encounter
--- OUTSIDE RECORDS SUMMARY | 2025-08-12 17:46 | XMS_ITS | Encounter Summary ---
Author Organization [employer] Address [address] 7[address] [place] [address] Care Team Providers Care Public Safety Telecommunicator Name Role Phone Amber Love MD Primary Care Provider [phone] Venita Hannon Unavailable Courtney Lindsay RN Unavailable [phone] Encounter Details Date Type Department Care Team (Late st Contact Info) Description 09/13/2023 Abstract [facility] MEDICINE [address] [place] [address] Amber Love MD [address] [place], [place] [phone] Social History Tobacco Use Types Packs/Day Years [...] Description 08/25/2025 1:45 PM EDT Office Visit [facility] [address] [place] [address] Rita Shay MD 505 [place] [address] 09/15/2025 10:30 AM EST Clinical Support [facility] [address] [place] [address] Perlita Candelario RN 505 [place] [address] documented as of this encounter Procedures Procedure Name Priority Date/Time Associated Diagnosis Comments COLONOSCOPY Routine 01/04/2021 documented in this encounter Results * Colonoscopy (01/04/2021) Colonoscopy Normal Normal Narrative MonicaMirella mcknight - 01/04/2021 Recommended 4 year follow up per office due 06/2025 us Historical Provider HEALTH MAINTENANCE Final Result documented in this encounter Visit Diagnoses Not on filedocumented in this encounter Additional Health Concerns Assessment Noted Time PHQ-9 Depression Total Score: 2 01/13/20 23 9:40 AM EDT documented as of this encounter Care Teams Public Safety Telecommunicator Relationship Specialty Start Date End Date Amber Love MD 230 [place] [address] PCP - General Family Medicine 12/29/20 Venita Hannon Community Health Worker 04/01/24 Courtney Lindsay RN [address] [place] [address] Hog Pusher 04/01/24 documented as of this encounter
--- OUTSIDE RECORDS SUMMARY | 2025-08-12 17:46 | XMS_ITS | Encounter Summary ---
Author Organization [employer] Address [address] [facility] 7t [place] [address] Care Team Providers Care Teletypesetter Name Role Phone Amber Love MD Primary Care Provider [phone] Venita Hannon Unavailable Courtney Lindsay RN Unavailable [phone] Reason for Visit * Reason Comments Med Refill Encounter Details Date Type Department Care Team (Late Contact Info) Description 06/25/2023 Refill [facility] MED & PEDS [address] [place], [place] [phone] Amber Love MD 505 [place], [place] [phone] Heartburn; Mixed hyperlipidemia; Constipation, unspecified constipation type [...] Department Care Team (Late Contact Info) Description 08/25/2025 1:45 PM EDT Office Visit [facility] [address] [place] [address] Rita Shay MD 505 [place] [address] 09/15/2025 10:30 AM EST Clinical Support [facility] 505 [place] [address] Perlita Candelario, PETE 505 [place] [address] documented as of this encounter Visit Diagnoses Diagnosis Heartburn Mixed hyperlipidemia Constipation, unspecified constipation type documented in this encounter Additional Health Concerns Assessment Noted Time PHQ-9 Depression Total Score: 2 01/13/20 23 9:40 AM EDT documented as of this encounter Care Teams Teletypesetter Relationship Specialty Start Date End Date Amber Love MD [address] [place] [address] PCP - General Family Medicine 12/29/20 Venita Hannon Community Health Worker 04/01/24 Courtney Lindsay, PETE [address] [place] [address] Head Of Digital 04/01/24 documented as of this encounter
--- OUTSIDE RECORDS SUMMARY | 2025-08-12 17:46 | XMS_ITS | Encounter Summary ---
Author Organization [employer] Address [address] 7[address] [place] [address] Care Team Providers Care Conference Services Coordinator Name Role Phone Amber Love MD Primary Care Provider [phone] Venita Hannon Unavailable Courtney Lindsay RN Unavailable [phone] Encounter Details Date Type Department Care Team (Late st Contact Info) Description 09/13/2023 Abstract [facility] MEDICINE [address] [place] [address] Amber Love MD [address] [place], [place] [phone] Social History Tobacco Use Types Packs/Day Years [...] 08/25/2025 1:45 PM EDT Office Visit [facility] 505 [place] [address] Rita Shay MD 505 [place] [address] 09/15/2025 10:30 AM EST Clinical Support [facility] [address] [place] [address] Perlita Candelario RN 505 [place] [address] documented as of this encounter Visit Diagnoses Not on filedocumented in this encounter Additional Health Concerns Assessment Noted Time PHQ-9 Depression Total Score: 2 01/13/20 23 9:40 AM EDT documented as of this encounter Care Teams Conference Services Coordinator Relationship Specialty Start Date End Date Amber Love MD 230 [place] [address] PCP - General Family Medicine 12/29/20 Venita Hannon Community Health Worker 04/01/24 Courtney Lindsay RN [address] [place] [address] Nut And Bolt Assembler 04/01/24 documented as of this encounter
--- OUTSIDE RECORDS SUMMARY | 2025-08-12 17:46 | XMS_ITS | Encounter Summary ---
Author Organization [employer] Address [address] 7[address] [place] [address] Care Team Providers Care Chair Installer Name Role Phone Amber Love MD Primary Care Provider [phone] Venita Hannon Unavailable Courtney Lindsay RN Unavailable [phone] Reason for Visit * Reason Onset Date Comments Med Refill 06/26/2025 Encounter Details Date Type Department Care Team (Late st Contact Info) Description 06/26/[address] [facility] MEDICINE [address] [place] [address] Amber Love MD [address] [place], [place] [phone] Med Refill Social History Tobacco Use Types [...] 11:36 AM EDT Medication was sent to [facility] Pharm[facility] on 05/29/25 #28 with 1 refill. FARMWORKER CRANBERRY checked on 06/26/25 patient has 1 refill left. * Telephone Encounter - Jemma Barksdale - 06/26/2025 11:18 AM EDT TC from pt requesting medication refill. Medications needing refill : - zolpidem (Ambien) 5 MG tablet To be sent to: - [facility] - [place], [place] - [address] documented in this encounter Plan of Treatment Upcoming Encounters Date Type Department Care Team (Late st Contact Info) Description 08/25/2025 1:45 PM EDT Office Visit [facility] MED [facility] P[facility] 505 [place] [address] Rita Shay MD 505 [place] [address] 09/15/2025 10:30 AM EST Clinical Support [facility] 505 [place] [address] Perlita Candelario, PETE 505 [place] [address] documented as of this encounter Visit Diagnoses Not on filedocumented in this encounter Additional Health Concerns Assessment Noted Time PHQ-9 Depression Total Score: 2 01/13/20 23 9:40 AM EDT documented as of this encounter Care Teams Chair Installer Relationship Specialty Start Date End Date Amber Love MD [address] [place] [address] PCP - General Family Medicine 12/29/20 Venita Hannon Community Health Worker 04/01/24 Courtney Lindsay, PETE [address] [place] [address] Powder Line Repairer 04/01/24 documented as of this encounter
--- OUTSIDE RECORDS SUMMARY | 2025-08-12 17:46 | XMS_ITS | Encounter Summary ---
Author Organization [employer] Address [address] [facility] [address] 7[address] [place] [address] Care Team Providers Care Coke Production Heater Name Role Phone Amber Love MD Primary Care Provider [phone] Venita Hannon Unavailable Courtney Lindsay RN Unavailable [phone] Reason for Visit * Reason Comments Med Refill Encounter Details Date Type Department Care Team ([facility] st Contact Info) Description 07/30/2024 Refill [facility] MED [facility] PEDS 505 [place], [place] [phone] Amber Love MD 505 [place], [place] [phone] Social History Tobacco Use Types Packs/Day Years [...] Upcoming Encounters Date Type Department Care Team ([facility] st Contact Info) Description 08/25/2025 1:45 PM EDT Office Visit [facility] 505 [place] [address] Rita Shay MD 505 [place] [address] 09/15/2025 10:30 AM EST Clinical Support [facility] 505 [place] [address] Perlita Candelario RN 505 [place] [address] documented as of this encounter Visit Diagnoses Not on filedocumented in this encounter Additional Health Concerns Assessment Noted Time PHQ-9 Depression Total Score: 2 01/13/20 23 9:40 AM EDT documented as of this encounter Care Teams Coke Production Heater Relationship Specialty Start Date End Date Amber Love MD 230 [place] [address] PCP - General Family Medicine 12/29/20 Venita Hannon Community Health Worker 04/01/24 Courtney Lindsay RN [address] [place] [address] Wafer Fab Technician 04/01/24 documented as of this encounter
--- OUTSIDE RECORDS SUMMARY | 2025-08-12 17:46 | XMS_ITS | Encounter Summary ---
Author Organization [employer] Address [address] 7[address] [place] [address] Care Team Providers Care Surgical Nurse Practitioner Name Role Phone Amber Love MD Primary Care Provider Venita Hannon Unavailable Courtney Lindsay RN Unavailable [phone] Reason for Visit * Reason Onset Date Comments Med Refill 09/17/2024 Encounter Details Date Type Department Care Team (Late st Contact Info) Description 09/17/2024 Telephone [facility] MEDICINE [address] [place] [address] Amber Love MD [address] [place], [place] [phone] Med Refill Social History Tobacco Use Types [...] the past 12 months, has t he [employer], gas, oil or water [employer] threatened to shut off services in your [...] 5-325 MG tablet To be sent to: [facility] - [place], [place] - [address] [place] [address] documented in this encounter Plan of Treatment Upcoming Encounters Date Type Department Care Team (Late st Contact Info) Description 08/25/2025 1:45 PM EDT Office Visit [facility] 505 [place] [address] Rita Shay MD 505 [place] [address] 09/15/2025 10:30 AM EST Clinical Support [facility] 505 [place] [address] Perlita Candelario RN 505 [place] [address] documented as of this encounter Visit Diagnoses Not on filedocumented in this encounter Additional Health Concerns Assessment Noted Time PHQ-9 Depression Total Score: 2 01/13/20 23 9:40 AM EDT documented as of this encounter Care Teams Surgical Nurse Practitioner Relationship Specialty Start Date End Date Amber Love MD 230 [place] [address] PCP - General Family Medicine 12/29/20 Venita Hannon Community Health Worker 04/01/24 Courtney Lindsay RN 505 [place] [address] Scada Technician 04/01/24 documented as of this encounter
--- OUTSIDE RECORDS SUMMARY | 2025-08-12 17:46 | XMS_ITS | Clinical Summary ---
Author Organization [facility] ity Address [address] [place] [address] Care Team Providers Care Process Chemist Name Role Phone Unavailable Primary Care Provider [...]
--- OUTSIDE RECORDS SUMMARY | 2025-08-12 17:46 | XMS_ITS | Encounter Summary ---
Author Organization [employer] Address [address] 7[address] [place] [address] Care Team Providers Care Brazer Crawler Torch Name Role Phone Amber Love MD Primary Care Provider Venita Hannon Unavailable Courtney Lindsay RN Unavailable [phone] Reason for Visit * Reason Onset Date Comments Med Refill 06/26/2025 Encounter Details Date Type Department Care Team (Late st Contact Info) Description 06/26/2025 Telephone [facility] MEDICINE [address] [place] [address] Amber Love MD [address] [place], [place] [phone] Med Refill Social History Tobacco Use Types [...] MG tablet To be sent to: - [facility] - [place] - [address] documented in this encounter Plan of Treatment Upcoming Encounters Date Type Department Care Team (Late st Contact Info) Description 08/25/2025 1:45 PM EDT Office Visit [facility] MED & PEDS 505 [place] [address] Rita Shay MD 505 [place] [address] 09/15/2025 10:30 AM EST Clinical Support [facility] 505 [place] [address] Perlita Candelario, PETE 505 [place] [address] documented as of this encounter Visit Diagnoses Not on filedocumented in this encounter Additional Health Concerns Assessment Noted Time PHQ-9 Depression Total Score: 2 01/13/20 23 9:40 AM EDT documented as of this encounter Care Teams Brazer Crawler Torch Relationship Specialty Start Date End Date Amber Love MD [address] [place] [address] PCP - General Family Medicine 12/29/20 Venita Hannon Community Health Worker 04/01/24 Courtney Lindsay RN 505 [place] [address] Digital Account Supervisor 04/01/24 documented as of this encounter
== END 2025-08-12 14:32 | disposition home or self-care (01) ==
LOC: HO.HPSW 14:01
PROVIDERS: PCP Family Medicine; Visit Provider Nurse Practitioner Family
DX: J45.909 Unspecified asthma, uncomplicated (principal); R91.1 Solitary pulmonary nodule; F17.210 Nicotine dependence, cigarettes, uncomplicated
CPT/HCPCS: 99214

== ENCOUNTER → 2025-08-12 14:01 | Outpatient (BNVA) | payer MEDICAID, SELFPAY | PROVIDERS: PCP Family Medicine; Visit Provider Nurse Practitioner Family | DX: R91.1 Solitary pulmonary nodule (principal); J45.909 Unspecified asthma, uncomplicated; F17.210 Nicotine dependence, cigarettes, uncomplicated | CPT/HCPCS: 99212 ==

== ENCOUNTER 2025-09-10 15:09 | Outpatient (AMB) | payer MEDICAID, SELFPAY ==
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
[2025-09-10 15:27] VITALS: BMI 28.3
--- OUTSIDE RECORDS SUMMARY | 2025-09-10 18:20 | XMS_ITS | Encounter Summary ---
Author Organization [employer] Address [address] [facility] 7t [place] [address] Care Team Providers Care Cloth Pattern Maker Name Role Phone Amber Love MD Primary Care Provider [phone] Venita Hannon Unavailable Courtney Lindsay RN Unavailable Unavailable Reason for Visit * Reason Comments Med Refill Encounter Details Date Type Department Care Team (Late Contact Info) Description 06/25/2023 Refill [facility] PEDS [address] [place] [address] Amber Love MD 505 [place] [address] Heartburn; Mixed hyperlipidemia; Constipation, unspecified constipation type [...] Upcoming Encounters Date Type Department Care Team ([facility] Contact Info) Description 09/15/2025 10:30 AM EST Clinical Support [facility]EDS [address] [place] [address] Perlita Candelario, RN 505 [place] [address] 10/06/2025 1:30 PM EST Office Visit [facility] [address] [place] [address] Dallin Toth DDS [address] [place] [address] documented as of this encounter Visit Diagnoses Diagnosis Heartburn Mixed hyperlipidemia Constipation, unspecified constipation type documented in this encounter Additional Health Concerns Assessment Noted Time PHQ-9 Depression Total Score: 2 01/13/20 23 9:40 AM EDT documented as of this encounter Care Teams Cloth Pattern Maker Relationship Specialty Start Date End Date Amber Love MD [address] [place] [address] PCP - General Family Medicine 12/29/20 Venita Hannon Community Health Worker 04/01/24 Courtney Lindsay RN Equipment Validation Specialist 04/01/24 documented as of this encounter
--- OUTSIDE RECORDS SUMMARY | 2025-09-10 18:20 | XMS_ITS | Encounter Summary ---
Author Organization [employer] Address [address] [facility] [address]t [place] [address] Care Team Providers Care Vp Integration Name Role Phone Amber Love MD Primary Care Provider [phone] Venita Hannon Unavailable Courtney Lindsay RN Unavailable Unavailable Reason for Visit * Reason Onset Date Comments Med Refill 08/24/2025 Encounter Details Date Type Department Care Team ([facility] st Contact Info) Description 08/24/2025 Telephone [facility]EDS [address] [place], [place] [phone] Amber Love MD 505 [place], [place] [phone] Med Refill Social History Tobacco Use Types [...] encounter Miscellaneous Notes * Telephone Encounter - Bronwyn Braxton - 08/24/2025 12:59 PM EDT TC from pt requesting medication refill. Medications needing refill : oxyCODONE-acetaminophen (Percocet) 5-325 MG tablet To be sent to: [facility] - [place], [place] - [address] [facility] documented in this encounter Plan of Treatment Upcoming Encounters Date Type Department Care Team (Late st Contact Info) Description 09/15/2025 10:30 AM EST Clinical Support [facility] MED [facility]EDS 505 [place] [address] Perlita Candelario, PETE 505 [place] [address] 10/06/2025 1:30 PM EST Office Visit [facility] ADULT DENTAL 230 [place] [address] Dallin Toth DDS 230 [place] [address] documented as of this encounter Visit Diagnoses Not on filedocumented in this encounter Additional Health Concerns Assessment Noted Time PHQ-9 Depression Total Score: 2 01/13/20 23 9:40 AM EDT documented as of this encounter Care Teams Vp Integration Relationship Specialty Start Date End Date Amber Love MD 230 [place] [address] PCP - General Family Medicine 12/29/20 Venita Hannon Community Health Worker 04/01/24 Courtney Lindsay, PETE Senior Compensation Consultant 04/01/24 documented as of this encounter
--- OUTSIDE RECORDS SUMMARY | 2025-09-10 18:20 | XMS_ITS | Encounter Summary ---
Author Organization [employer] Address [address] [facility] [address] [facility] [address] 7t [place] [address] Care Team Providers Care Pipe Washer Name Role Phone Amber Love MD Primary Care Provider [phone] Venita Hannon Unavailable Courtney Lindsay RN Unavailable Unavailable Reason for Visit * Reason Comments Med Refill Encounter Details Date Type Department Care Team (Late st Contact Info) Description 05/19/2025 Telephone [facility] 230 [place] [address] Amber Love MD [address] [place], [place] [phone] Med Refill Social History Tobacco Use Types [...] Huff - 05/19/2025 2:42 PM EDT Oleg afternoon Dr. Love, please sign chart notes of 05/13 in order to proceed with referral. Thank you. documented in this encounter Plan of Treatment Upcoming Encounters Date Type Department Care Team (Late st Contact Info) Description 09/15/2025 10:30 AM EST Clinical Support [facility] MED & PEDS 505 [place] [address] Perlita Candelario, RN 505 [place] [address] 10/06/2025 1:30 PM EST Office Visit [facility] ADULT DENTAL 230 [place] [address] Dallin Toth DDS [address] [place] [address] documented as of this encounter Visit Diagnoses Not on filedocumented in this encounter Additional Health Concerns Assessment Noted Time PHQ-9 Depression Total Score: 2 01/13/20 23 9:40 AM EDT documented as of this encounter Care Teams Pipe Washer Relationship Specialty Start Date End Date Amber Love MD 230 [place] [address] PCP - General Family Medicine 12/29/20 Venita Hannon Community Health Worker 04/01/24 Courtney Lindsay RN Motor Home Electrical Foreman 04/01/24 documented as of this encounter
--- OUTSIDE RECORDS SUMMARY | 2025-09-10 18:20 | XMS_ITS | Encounter Summary ---
Author Organization [employer] Address [address] [facility] 7 [place] [address] Care Team Providers Care Telegraph Service Rater Name Role Phone Amber Love MD Primary Care Provider [phone] Venita Hannon Unavailable Courtney Lindsay RN Unavailable Unavailable Reason for Visit * Reason Comments Med Refill Encounter Details Date Type Department Care Team (Late st Contact Info) Description 12/31/2024 Refill [facility] 230 [place] [address] Haile Miner MD 505 [place], [place] [phone] Polyarthralgia Social History Tobacco Use Types Packs/Day [...] the past 12 months, has t he [employer], gas, oil or water company threatened to [...] Description 09/15/2025 10:30 AM EST Clinical Support [facility] CH[facility] MED & PEDS 505 [place] [address] Perlita Candelario, RN 505 [place] [address] 10/06/2025 1:30 PM EST Office Visit [facility] ADULT DENTAL 230 [place] [address] Dallin Toth DDS [address] [place] [address] documented as of this encounter Visit Diagnoses Diagnosis Polyarthralgia Pain in joint, multiple sites documented in this encounter Additional Health Concerns Assessment Noted Time PHQ-9 Depression Total Score: 2 01/13/20 23 9:40 AM EDT documented as of this encounter Care Teams Telegraph Service Rater Relationship Specialty Start Date End Date Amber Love MD 230 [place] [address] PCP - General Family Medicine 12/29/20 Venita Hannon Community Health Worker 04/01/24 Courtney Lindsay, PETE Faith Healer 04/01/24 documented as of this encounter
--- OUTSIDE RECORDS SUMMARY | 2025-09-10 18:20 | XMS_ITS | Encounter Summary ---
Author Organization [employer] Address [address] [facility] [address] 7[address] [place] [address] Care Team Providers Care Counter Tacker Name Role Phone Amber Love MD Primary Care Provider [phone] Venita Hannon Unavailable Courtney Lindsay RN Unavailable Unavailable Reason for Visit * Reason Onset Date Comments Med Refill 09/17/2023 Encounter Details Date Type Department Care Team (Late st Contact Info) Description 09/17/2023 Telephone [facility] MED[facility]INE 230 [place] [address] Amber Love MD [address] [place], [place] [phone] Med Refill Social History Tobacco Use Types [...] Description 09/15/2025 10:30 AM EST Clinical Support [facility] MED & PEDS 505 [place] [address] Perlita Candelario, RN 505 [place] [address] 10/06/2025 1:30 PM EST Office Visit [facility] ADULT DENTAL 230 [place] [address] Dallin Toth DDS [address] [place] [address] documented as of this encounter Visit Diagnoses Not on filedocumented in this encounter Additional Health Concerns Assessment Noted Time PHQ-9 Depression Total Score: 2 01/13/20 23 9:40 AM EDT documented as of this encounter Care Teams Counter Tacker Relationship Specialty Start Date End Date Amber Love MD 230 [place] [address] PCP - General Family Medicine 12/29/20 Venita Hannon Community Health Worker 04/01/24 Courtney Lindsay, PETE Lead Fire Protection Engineer 04/01/24 documented as of this encounter
--- OUTSIDE RECORDS SUMMARY | 2025-09-10 18:20 | XMS_ITS | Encounter Summary ---
Author Organization [employer] Address [address] 7[address] [place] [address] Care Team Providers Care Credit Analysis Manager Name Role Phone Amber Love MD Primary Care Provider [phone] Venita Hannon Unavailable Courtney Lindsay RN Unavailable Unavailable Reason for Visit * Reason Comments Med Refill Encounter Details Date Type Department Care Team ([facility] st Contact Info) Description 07/30/2024 Refill [facility] MED & PEDS 505 [place] [address] Amber Love MD 505 [place] [address] Social History Tobacco Use Types Packs/Day Years [...] Description 09/15/2025 10:30 AM EST Clinical Support [facility] MED & PEDS [address] [place] [address] Perlita Candelario RN 505 [place] [address] 10/06/2025 1:30 PM EST Office Visit [facility] ADULT DENTAL 230 [place] [address] Dallin Toth DDS [address] [place] [address] documented as of this encounter Visit Diagnoses Not on filedocumented in this encounter Additional Health Concerns Assessment Noted Time PHQ-9 Depression Total Score: 2 01/13/20 23 9:40 AM EDT documented as of this encounter Care Teams Credit Analysis Manager Relationship Specialty Start Date End Date Amber Love MD 230 [place] [address] PCP - General Family Medicine 12/29/20 Venita Hannon Community Health Worker 04/01/24 Courtney Lindsay RN Form Drafter 04/01/24 documented as of this encounter
--- OUTSIDE RECORDS SUMMARY | 2025-09-10 18:20 | XMS_ITS | Encounter Summary ---
Author Organization [employer] Address [address] 7t [place] [address] Care Team Providers Care Onion Farmer Name Role Phone Amber Love MD Primary Care Provider [phone] Venita Hannon Unavailable Courtney Lindsay RN Unavailable Unavailable Encounter Details Date Type Department Care Team (Late st Contact Info) Description 09/13/2023 Abstract [facility] MEDICINE [address] [place] [address] Amber Love MD [address] [place], [place] [phone] Social History Tobacco Use Types Packs/Day Years [...] Description 09/15/2025 10:30 AM EST Clinical Support [facility] CH[facility] MED & PEDS 505 [place] [address] Perlita Candelario RN 505 [place] [address] 10/06/2025 1:30 PM EST Office Visit [facility] ADULT DENTAL 230 [place] [address] Dallin Toth DDS [address] [place] [address] documented as of this encounter Visit Diagnoses Not on filedocumented in this encounter Additional Health Concerns Assessment Noted Time PHQ-9 Depression Total Score: 2 01/13/20 23 9:40 AM EDT documented as of this encounter Care Teams Onion Farmer Relationship Specialty Start Date End Date Amber Love MD 230 [place] [address] PCP - General Family Medicine 12/29/20 Venita Hannon Community Health Worker 04/01/24 Courtney Lindsay RN Temperature Regulator 04/01/24 documented as of this encounter
--- OUTSIDE RECORDS SUMMARY | 2025-09-10 18:20 | XMS_ITS | Encounter Summary ---
Author Organization [employer] Address [address] [facility] [address] 7t [place] [address] Care Team Providers Care Top And Trim Worker Name Role Phone Amber Love MD Primary Care Provider [phone] Venita Hannon Unavailable Courtney Lindsay RN Unavailable Unavailable Reason for Visit * Reason Comments Med Refill Encounter Details Date Type Department Care Team (Late st Contact Info) Description 03/25/2025 Refill [facility] MED[facility]INE 230 [place] [address] Frannie Ron MD [address] [place], [place] [phone] Social History Tobacco Use Types Packs/Day Years [...] Description 09/15/2025 10:30 AM EST Clinical Support [facility] CHC MED & PEDS 505 [place] [address] Perlita Candelario, RN 505 [place] [address] 10/06/2025 1:30 PM EST Office Visit [facility] ADULT DENTAL 230 [place] [address] Dallin Toth DDS 230 [place], [place] documented as of this encounter Visit Diagnoses Not on filedocumented in this encounter Additional Health Concerns Assessment Noted Time PHQ-9 Depression Total Score: 2 01/13/20 23 9:40 AM EDT documented as of this encounter Care Teams Top And Trim Worker Relationship Specialty Start Date End Date Amber Love MD 230 [place] [address] PCP - General Family Medicine 12/29/20 Venita Hannon Community Health Worker 04/01/24 Courtney Lindsay, PETE Graphic User Interface Designer 04/01/24 documented as of this encounter
--- OUTSIDE RECORDS SUMMARY | 2025-09-10 18:20 | XMS_ITS | Encounter Summary ---
Author Organization [employer] Address [address] [facility] 7t [place] [address] Care Team Providers Care Light Truck Driver Name Role Phone Amber Love MD Primary Care Provider [phone] Venita Hannon Unavailable Courtney Lindsay RN Unavailable Unavailable Reason for Visit * Reason Onset Date Comments Appointment 06/14/2023 Encounter Details Date Type Department Care Team (Late st Contact Info) Description 06/14/2023 Telephone [facility] ADULT DENTAL 230 [place], [place] [phone] Dallin Toth DDS 230 [place], [place] [phone] Appointment Social History Tobacco Use Types Packs/Day [...] Description 09/15/2025 10:30 AM EST Clinical Support [facility] CH[facility] MED & PEDS 505 [place] [address] Perlita Candelario, PETE 505 [place], [place] [phone] 10/06/2025 1:30 PM EST Office Visit [facility] ADULT DENTAL 230 [place] [address] Dallin Toth DDS [address] [place] [address] documented as of this encounter Visit Diagnoses Not on filedocumented in this encounter Additional Health Concerns Assessment Noted Time PHQ-9 Depression Total Score: 2 01/13/20 23 9:40 AM EDT documented as of this encounter Care Teams Light Truck Driver Relationship Specialty Start Date End Date Amber Love MD 230 [place] [address] PCP - General Family Medicine 12/29/20 Venita Hannon Community Health Worker 04/01/24 Courtney Lindsay RN Mine Engineering Superintendent 04/01/24 documented as of this encounter
--- OUTSIDE RECORDS SUMMARY | 2025-09-10 18:20 | XMS_ITS | Encounter Summary ---
Author Organization [employer] Address [address] [facility] [address] 7t [place] [address] Care Team Providers Care Communications Writer Name Role Phone Amber Love MD Primary Care Provider [phone] Venita Hannon Unavailable Courtney Lindsay RN Unavailable Unavailable Reason for Visit * Reason Comments Med Refill Encounter Details Date Type Department Care Team ([facility] st Contact Info) Description 12/27/2022 Refill [facility] MED & PEDS 505 [place] [address] Amber Love MD 505 [place], [place] [phone] Chronic back pain, unspecified back location, unspecified [...] MD - 12/27/2022 3:46 PM EST Meagan Perlita, I had discussed with patient plan of weaning her off opiates, will not start this month but will discuss again on next upcoming appt and start at that point. documented in this encounter Plan of Treatment Upcoming Encounters Date Type Department Care Team (Late st Contact Info) Description 09/15/2025 10:30 AM EST Clinical Support [facility] MED & PEDS 505 [place] [address] Perlita Candelario RN 505 [place] [address] 10/06/2025 1:30 PM EST Office Visit [facility] ADULT DENTAL 230 [place] [address] Dallin Toth DDS [address] [place] [address] documented as of this encounter Visit Diagnoses Diagnosis Chronic back pain, unspecified back location, unspecified back pain laterality documented in this encounter Care Teams Communications Writer Relationship Specialty Start Date End Date Amber Love MD 230 [place] [address] PCP - General Family Medicine 12/29/20 Venita Hannon Community Health Worker 04/01/24 Courtney Lindsay RN Nuclear Medicine Pet Ct Technologist 04/01/24 documented as of this encounter
--- OUTSIDE RECORDS SUMMARY | 2025-09-10 18:20 | XMS_ITS | Encounter Summary ---
Author Organization [employer] Address [address] [facility] [place] [address] Care Team Providers Care Medical Records Secretary Name Role Phone Amber Love MD Primary Care Provider [phone] Venita Hannon Unavailable Courtney Lindsay RN Unavailable Unavailable Reason for Visit * Reason Onset Date Comments Appointment Request 03/27/2023 Med Refill 03/27/2023 Encounter Details Date Type Department Care Team (Late st Contact Info) Description 03/27/2023 Telephone [facility] MEDICINE [address] [place] [address] Amber Love MD [address] [place], [place] [phone] Appointment Request; Med Refill Social History Tobacco [...] MG immediate release tablet please send to [facility] pharmacy * Telephone Encounter - Dorita Hannon - 03/27/2023 9:17 AM EDT Tc from pt spouse requesting to r/s 03/23/23 CTS appt. documented in this encounter Plan of Treatment Upcoming Encounters Date Type Department Care Team (Late st Contact Info) Description 09/15/2025 10:30 AM EST Clinical Support [facility] CH[facility] MED & PEDS 505 [place] [address] Perlita Candelario RN 505 [place] [address] 10/06/2025 1:30 PM EST Office Visit [facility] ADULT DENTAL [address] [place] [address] Dallin Toth DDS [address] [place] [address] documented as of this encounter Visit Diagnoses Not on filedocumented in this encounter Additional Health Concerns Assessment Noted Time PHQ-9 Depression Total Score: 2 01/13/20 23 9:40 AM EDT documented as of this encounter Care Teams Medical Records Secretary Relationship Specialty Start Date End Date Amber Love MD 230 [place] [address] PCP - General Family Medicine 12/29/20 Venita Hannon Community Health Worker 04/01/24 Courtney Lindsay, PETE Machine Design Teacher 04/01/24 documented as of this encounter
--- OUTSIDE RECORDS SUMMARY | 2025-09-10 18:20 | XMS_ITS | Encounter Summary ---
Author Organization [employer] Address [address] 7[address] [place] [address] Care Team Providers Care Caddie Supervisor Name Role Phone Amber Love MD Primary Care Provider [phone] Venita Hannon Unavailable Courtney Lindsay RN Unavailable Unavailable Reason for Visit * Reason Onset Date Comments Med Refill 09/17/2024 Encounter Details Date Type Department Care Team (Late st Contact Info) Description 09/17/2024 Telephone [facility] MEDICINE 230 [place] [address] Amber Love MD [address] [place], [place] [phone] Med Refill Social History Tobacco Use Types [...] the past 12 months, has t he [employer], gas, oil or water company threatened to [...] 5-325 MG tablet To be sent to: [facility] - [place], [place] - [address] [place] [address] documented in this encounter Plan of Treatment Upcoming Encounters Date Type Department Care Team ([facility] st Contact Info) Description 09/15/2025 10:30 AM EST Clinical Support [facility] MED & PEDS 505 [place] [address] Perlita Candelario, PETE 505 [place] [address] 10/06/2025 1:30 PM EST Office Visit [facility] ADULT DENTAL 230 [place] [address] Dallin Toth DDS [address] [place] [address] documented as of this encounter Visit Diagnoses Not on filedocumented in this encounter Additional Health Concerns Assessment Noted Time PHQ-9 Depression Total Score: 2 01/13/20 23 9:40 AM EDT documented as of this encounter Care Teams Caddie Supervisor Relationship Specialty Start Date End Date Amber Love MD 230 [place] [address] PCP - General Family Medicine 12/29/20 Venita Hannon Community Health Worker 04/01/24 Courtney Lindsay RN Bell Attendant 04/01/24 documented as of this encounter
--- OUTSIDE RECORDS SUMMARY | 2025-09-10 18:20 | XMS_ITS | Clinical Summary ---
Author Organization [employer] Address [address] [facility] 7[address] [place] [address] Care Team Providers Care Supervisor Pig Machine Name Role Phone Amber Love MD Primary Care Provider [phone] Venita Hannon Unavailable Courtney Lindsay RN Unavailable Unavailable Allergies Active Allergy Reactions Criticality Noted [...] FOR WHEEZING 90 mL 3 025 Active varenicline (Chantix) 1 MG tablet [...] FOR ITCHING 30 capsule 1 025 Active diphenhydrAMINE (BENADryl) 25 MG tabletIndications :Urticaria 1 to 2 tab at bedtime 30 tablet Active sucralfate (Carafate) 1 g tablet TAKE 1 TABLET BY MOUTH FOUR TIMES DAILY 120 tablet 5 025 Active cyclobenzaprine (Flexeril) 10 MG tablet TAKE 1 TABLET BY MOUTH THREE TIMES DAILY IN THE MORNING, AT NOON, AND AT BEDTIME NEEDED FOR MUSCLE SPASMS 90 tablet 1 Active gabapentin (Neurontin) 600 MG tablet TAKE 1 TABLET BY MOUTH THREE TIMES DAILY 90 tablet 5 Active oxyCODONE-acetami nophen (Percocet) 5-325 MG tabletIndications :Polyarthralgia Take 1 tablet by mouth every 6 (six) hours if needed for severe pain. 112 tablet Active zolpidem (Ambien) 5 MG tablet Take 1 tablet (5 mg) by mouth if needed at bedtime for sleep. 28 tablet 1 Active acetaminophen (Tylenol 8 Hour) 650 MG ER tablet Take 1 tablet (650 mg) by mouth every 8 (eight) hours if needed for mild pain. Do not crush, chew, or split. 30 tablet Active chlorhexidine (Peridex) 0.12 % solution Swish 15 mL morning and night for 1 minute. Spit, do not swallow. Do not eat or drink for 30 minutes following use. 473 mL Active fexofenadine (Nadira) 180 MG tabletIndications :Urticaria TAKE 1 TABLET BY MOUTH EVERY DAY NEEDED FOR ALLERGIES 90 tablet 1 Active acetaminophen (Tylenol) 500 MG tablet Take 1 tablet (500 mg) by mouth every 6 (six) hours if needed for mild pain for up to 20 doses. 20 tablet 2024 Discontinued chlorhexidine (Peridex) 0.12 % solution Swish 15 mL morning and night for 1 minute. Spit, do not swallow. Do not eat or drink for 30 minutes following use. 473 mL 025 2024 Discontinued fexofenadine (Nadira) 180 MG tabletIndications :Urticaria Take 1 tablet (180 mg) by mouth if needed each day (Allergies). 30 tablet 1 025 2024 Discontinued zolpidem (Ambien) 5 MG tablet TAKE 1 TABLET BY MOUTH AT BEDTIME NEEDED for SLEEP 28 tablet 1 025 2024 Discontinued(R eorder (will not trigger notification to Pharmacy)) oxyCODONE-acetami nophen (Percocet) 5-325 MG tabletIndications :Polyarthralgia Take 1 tablet by mouth every 6 (six) hours if needed for severe pain. Do not start before July 27, 2025. 112 tablet 025 2024 Discontinued(R eorder (will not trigger notification to Pharmacy)) amoxicillin (Amoxil) 500 MG capsule Take 1 capsule (500 mg) by mouth every 8 (eight) hours for 7 days. 21 capsule 025 2024 Active Problems Patient Care Coordination No te Formatting of this note migh t be different from the original. C3/CM Susanne Allen RN Problem Noted Date Diagnosed Date Dental abscess 08/27/2025 Uses Kinyarwanda as primary spoken language 05/13/20 25 Class [...] an upcoming appt, explained to patient that wire rope sling maker will not be able to assist with [...] Rapid Covid-19, Rapid Influenza A & B, [id number], TSH w/Reflex FT4 Nicotine use 12/13/2023 Assessment [...] Discussed options for pain management. Referring to Industrial Spraypainter for further evaluation of symptoms and lab [...] tis 08/16/2015 Malignant neoplasm of female breast ([facility]) Mild persistent asthma 08/16/2015 Assessment & Plan [...] Encounters Date Type Department Care Team Description 09/01/2025 Refill [facility] [address] [place] [address] Rita Shay MD Urticaria 08/27/2025 11:30 AM EDT Office Visit [facility] [address] [place] [address] Dallin Toth DDS Dental abscess (Primary Dx) 08/25/2025 1:45 PM EDT Office Visit [facility] [address] [place] [address] Rita Shay MD Unintentional weight loss (Primary Dx); Rash 08/25/2025 Travel 08/24/2025 Refill [facility] [address] [place] [address] Amber Love MD Polyarthralgia 08/24/2025 Telephone [facility] [address] [place] [address] Amber Love MD Med Refill 08/24/2025 Telephone [facility] [address] [place] [address] Amber Love MD Chart Prep 07/23/2025 11:00 AM EDT Clinical Support [facility] [address] [place] [address] Perlita Candelario, RN Fibromyalgia (Primary Dx) 07/23/2025 Travel 07/23/2025 Refill [facility] [address] [place] [address] Amber Love MD Polyarthralgia 07/21/2025 Refill [facility] [address] [place] [address] Amber Love MD 07/16/2025 Refill [facility] [address] [place] [address] Amber Love MD 2025 Telephone [facility] [address] [place] [address] Rita Shay MD Results 07/10/2025 3:15 PM EDT Office Visit [facility] [address] [place] [address] Rita Shay MD Urticaria (Primary Dx); Unintentional weight loss 07/10/2025 Travel 07/06/2025 Telephone [facility] [address] [place] [address] Amber Love MD Appointment Request 07/03/2025 Refill [facility] [address] [place] [address] Amber Love MD Allergic rhinitis, unspecified seasonality, unspecified trigger 06/26/2025 Refill [facility] [address] [place] [address] Perlita Candelario, PETE Polyarthralgia 06/26/2025 Telephone [facility] [address] [place] [address] Amber Love MD Med Refill 06/26/2025 Telephone [facility] [address] [place] [address] Amber Love MD Med Refill from Last 3 Months Immunizations Immunization Administration [...] housing situation today? I have bren sing 05/13/[address] you li [...] Sign Reading Time Taken Comments Blood Pressure 120/80 08/27/2025 11:23 AM EDT Pulse 80 08/25/2025 1:46 PM EDT Temperature 37.1 C (98.7 F) 08/25/2025 1:46 PM EDT Respiratory Rate 20 08/25/2025 1:46 PM EDT Oxygen Saturation 96% 07/10/2025 3:07 PM EDT Inhaled Oxygen Concentration - - Weight 68.9 kg (152 lb) 08/25/2025 1:46 PM EDT Height 157.5 cm (5' 2 ) 08/25/2025 1:46 PM EDT Body Mass Index 27.8 08/25/2025 1:46 PM EDT Plan of Treatment Upcoming Encounters Date Type Department Care Team (Late st Contact Info) Description 09/15/2025 10:30 AM EST Clinical Support [facility] [address] [place] [address] Perlita Candelario, RN [address] [place] [address] 10/06/2025 1:30 PM EST Office Visit [facility] [address] [place] [address] Dallin Toth DDS [address] [place] [address] Health Maintenance Due Date Last Done Comments CT Colonography 1962 FIT DNA/Cologuard 1962 FIT 1962 FOBT 1960 Mammogram 1960 Sigmoidoscopy 1960 Disability Screening 1962 Hepatitis A Vaccines (1 of 2 - Risk 2-dose series) 1981 RSV Patients and Patients Aged 60 years or older (1 - Risk 50-74 years 1-dose series) 2012 Zoster Vaccines (2 of 2) 06/05/2022 04/10/2022, 03/29 Depression Screening 01/13/2024 01/12/2023, 01/13/20 23 COVID-19 Vaccine ( season) 2025 01/25/2022, 05/11/2021, 02/22/2021 Colonoscopy 06/29/2025 [...] 05/13/2025 SDOH Screening 05/13/2026 05/13/2025 Tobacco Screening 08/27/2026 08/27/2025 Cervical Cancer Screening 07/06/2027 HPV/Cotest 07/06/2027 07/06/2022 Dental X-Ray: Full Mouth 02/01/2028 04 025, 02/09/2021, 01/26/2021, Additional history exists Lipid [...] Procedure Name Priority Date/Time Associated Diagnosis Comments CASE PRESENTATION, DETAILED AND EXTENSIVE TREATMENT PLANNING Routine 08/27/2025 11:30 AM EDT INTRAORAL - PERIAPICAL FIRST RADIOGRAPHIC IMAGE Routine 08/27/2025 11:30 AM EDT LIMITED ORAL EVALUATION - PROBLEM FOCUSED Routine 08/27/2025 11:30 AM EDT POCT JAIRO-14 URINE DRUG SCREEN Routine 07/23/2025 [...] procedure / Unknown 07/23/2025 11:16 AM EDT us Amber Love MD POINT OF CARE TEST ENTER/EDIT ORDERABLES Final Result * TSH W/Reflex to FT4 (07/10/2025 3:27 PM EDT) TSH reflex Free T4 0.90 0.32 - 4.0 uIU/mL [facility] Blood Venous blood specimen / Unknown 07/10/2025 3:27 PM EDT 07/10/2025 6:09 PM EDT us Rita Shay MD LAB BLOOD ORDERABLES Final Result [facility] [address] [place] [address] [phone] * (ABNORMAL) CBC auto differential (07/10/2025 3:27 PM EDT) White Blood Count 8.1 4.8 - 10.8 X10*3/uL [facility] Red Blood Count 4.50 4.20 - 5.50 X10*6/uL [facility] Hemoglobin 13.4 12.0 - 16.0 g/dl [facility] Hematocrit 41.7 37.0 - 47.0 % [facility] Mean Corpuscular Volume 92.7 80.0 - 98.0 fL [facility] Mean Corpuscular Hemoglobin 29.8 27.0 - 33.0 pg [facility] Mean Corpuscular HGB Conc 32.1 31.0 - 35.0 g/dl [facility] Red Cell Distribution Width 13.6 11.0 - 16.0 % [facility] Platelet Count 291 160 - 400 X10*3/uL [facility] Mean Platelet Volume 10.0 9.4 - 12.3 fL [facility] Neutrophils Percent Auto 60.8 45 - 73 % [facility] Imm Gran Pct Auto 0.5(H) 0.0 - 0.4 % [facility] Lymphocytes Percent Auto 31.7 20 - 40 % [facility] Monocytes Percent Auto 5.9 2 - 11 % [facility] Eosinophils Percent Auto 1.0 0 - 4 % [facility] Basophils Percent Auto 0.1 0 - 2 % [facility] NRBC Pct Auto 0.0 0.0 - 0.2 /100WBC [facility] Neutrophils Absolute Auto 4.9 2.0 - 8.3 x10*3/uL [facility] Imm Gran Abs Auto 0.04(H) 0.00 - 0.03 X10*3/uL [facility] Lymphocytes Absolute Auto 2.6 1.2 - 4.9 X10*3/uL [facility] Monocytes Absolute Auto 0.5 0.1 - 1.2 X10*3/uL [facility] Eosinophils Absolute Auto 0.1 0.0 - 0.4 X10*3/uL [facility] Basophils Absolute Auto 0.0 0.0 - 0.2 X10*3/uL [facility] NRBC Abs Auto 0.000 0.0 - 0.012 X10*3/uL [facility] Blood Venous blood specimen / Unknown 07/10/2025 3:27 PM EDT 07/10/2025 6:09 PM EDT us Rita Shay MD LAB BLOOD ORDERABLES Final Result [facility] [address] [place] [address] [phone] * (ABNORMAL) Comprehensive Metabolic Panel (07/10/2025 3:27 PM EDT) Sodium 145 135 - 145 mmol/L [facility] Potassium 4.0 3.3 - 5.1 mmol/L [facility] Chloride 111(H) 96 - 108 mmol/L [facility] Carbon Dioxide 27 22 - 29 mmol/L [facility] Anion Gap 11(L) 12 - 20 [facility] Urea Nitrogen (BUN) 12 9 - 16 mg/dL [facility] Creatinine, Serum 0.96 0.5 - 1.4 mg/dL [facility] Estimated Glomerular Filt Rate 59 [facility] Comment:Chronic Kidney Disea se: Estimated GFR < 60 mL/min/1.63m2Wjoinj Kidney Disease: Estimated GFR < 15 mL/min/1.73m2 Glucose 108 60 - 115 mg/dL [facility] Calcium 9.5 8.4 - 10.2 mg/dL [facility] Bilirubin, Total 0.2 0.0 - 1.0 mg/dL [facility] Aspartate Amino Transferase 21 5 - 31 U/L [facility] Alanine Aminotransferase 23 0 - 31 U/L [facility] Total Protein 6.5 6.5 - 8.0 g/dL [facility] Albumin Level 4.2 3.5 - 5.0 g/dL [facility] Alkaline Phosphatase 108 39 - 117 U/L [facility] Blood Venous blood specimen / Unknown 07/10/2025 3:27 PM EDT 07/10/2025 6:09 PM EDT us Rita Shay MD LAB BLOOD ORDERABLES Final Result [facility] [address] [place] [address] [phone] * (ABNORMAL) Lipid Panel, Standard (04/30/2024 4:21 PM EDT) Triglycerides 270(H) <150 mg/dL [facility] Comment:Desirable Triglyceri de: less than 150 mg/dLBorderline High Triglyceride 150-199 mg/dLHigh Triglyceride: 200-499 mg/dLVery High Triglyceride: greater than or equal to 5OO mg/dL Cholesterol 202(H) <200 mg/dL [facility] Comment:Desirable Cholestero l: less than 200 mg/dLBorderline High Cholesterol: 200-239 mg/dLHigh Cholesterol: greater than 239 mg/dL LDL Cholesterol Calculated 106(H) <100 mg/dL [facility] Comment:Desirable LDL: less than 100 mg/dLNear Optimal/Above Optimal LDL: 110- 129 mg/dLBorderline High LDL: 130-159 mg/dLHigh LDL: 160-189 mg/dLVery High LDL: greater than or equal to 190 mg/dL HDL Cholesterol 42 >40 mg/dL [facility] Comment:Desirable HDL: great er than 40 mg/dL Note: This HDL assay may give artificially low results in patients with liver disease. Blood Venous blood specimen / Unknown 04/30/2024 4:21 PM EDT 04/30/2024 5:20 PM EDT Amber Love MD LAB BLOOD ORDERABLES Final Re sult Performing Organization Address [facility] Co de Phone Number [facility] [address] [place] [phone] * HIV-1/2 Antigen and Antibodies, Fourth Generation, with Reflexes (02/06/2024 10:36 AM EDT) Pathologist [facility] HIV AB/AG Nonreactive Nonreactive [facility] Comment:HIV-1 p24 Ag and/or HIV-1/HIV-2 Ab not detected.A test result that is nonreactive does not exclude thepossibility of exposure to or infection with HIV-1 and/orHIV-2. Nonreactive results in this assay for individualswith prior exposure to HIV-1 and/or HIV-2 may be due toantigen and antibody levels that are below the limit ofdetection of this assay.The [employer] HIV Ag/Ab Combo assay result andsupplemental assay results should be interpreted inconjunction with the patient's clinical presentation,history and other laboratory results. If the results areinconsistent with clinical evidence, additional testing issuggested to confirm the result. Blood Venous blood specimen / Unknown 02/06/2024 10:36 AM EDT 02/06/2024 2:32 PM EDT Amber Love MD LAB BLOOD ORDERABLES Final Re sult Performing Organization Address City/[facility] Co de Phone Number [facility] [address] [place] [phone] * Hm Pap Smear (07/06/2022) Pathologist [facility] Pap Negative for intraephithelial lesion or malignancy Negative for intraephithelial lesion or malignancy, Other HPV Undetected Historical Epi [facility] Final Result * (ABNORMAL) HEPATITIS PANEL, GENERAL (09/26/2021 9:56 AM EST) HEPATITIS A AB, TOTAL REACTIVE( A) NON-REACT [facility] Comment: For additional information, please refer to http://education.[employer].Heart [employer]abolics/faq/HKJ555 (This link is being provided for informational/ [...] ORDERABLE LABS Final Result Performing Organization Address City/State/[facility] Co de Phone Number [facility] [address] * Colonoscopy (01/04/2021) Colonoscopy Normal Normal Narrative Mirella Anderson - 01/04/2021 Recommended 4 year follow up per office due 06/2025 Historical Provider HEALTH MAINTENANCE Final Result from Last 3 Months or Most Recently Relevant to Health Maintenance Insurance [facility] STAND ADULT Care Teams Supervisor Pig Machine Relationship Specialty Start Date End Date Amber Love MD [address] [place] [phone] PCP - General Family Medicine 12/29/20 Venita Hannon Community Health Worker 04/01/24 Courtney Lindsay RN Rigging Engineer 04/01/24
--- OUTSIDE RECORDS SUMMARY | 2025-09-10 18:20 | XMS_ITS | Clinical Summary ---
Author Organization [facility] ity Address [address] [place] [address] Care Team Providers Care Crown Ironer Name Role Phone Unavailable Primary Care Provider [...] Depression Screening 10/29/2024 COVID-19 Vaccine (1 - 2024-2 6 season) 2025 Influenza Vaccine (#1) 2025 RSV [...]
--- OUTSIDE RECORDS SUMMARY | 2025-09-10 18:20 | XMS_ITS | Encounter Summary ---
Author Organization [employer] Address [address] [facility] 7[address] [place] [address] Care Team Providers Care Spreader Operator Automatic Name Role Phone Amber Love MD Primary Care Provider [phone] Venita Hannon Unavailable Courtney Lindsay RN Unavailable Unavailable Encounter Details Date Type Department Care Team (Late Contact Info) Description 10/16/2022 Telephone [facility] [address] [place] [address] Amber Love MD [address] [place] [address] Social History Tobacco Use Types Packs/Day Years [...] Upcoming Encounters Date Type Department Care Team ([facility] Contact Info) Description 09/15/2025 10:30 AM EST Clinical Support [facility] [address] [place] [address] Perlita Candelario, PETE [address] [place] [address] 10/06/2025 1:30 PM EST Office Visit [facility] [address] [place] [address] Dallin Toth DDS [address] [place] [address] documented as of this encounter Visit Diagnoses Not on filedocumented in this encounter Care Teams Spreader Operator Automatic Relationship Specialty Start Date End Date Amber oLve MD [address] [place] [address] PCP - General Family Medicine 12/29/20 Venita Hannon Community Health Worker 04/01/24 Courtney Lindsay RN Product Safety Technician 04/01/24 documented as of this encounter
--- OUTSIDE RECORDS SUMMARY | 2025-09-10 18:20 | XMS_ITS | Encounter Summary ---
Author Organization [employer] Address [address] [place] [address] Care Team Providers Care Tool Supervisor Name Role Phone Amber Love MD Primary Care Provider [phone] Venita Hannon Unavailable Courtney Lindsay RN Unavailable Unavailable Encounter Details Date Type Department Care Team (Late st Contact Info) Description 09/13/2023 Abstract [facility] [address] [place] [address] Amber Love MD [address] [place], [place] [phone] Social History Tobacco Use Types Packs/Day Years [...] Description 09/15/2025 10:30 AM EST Clinical Support [facility] [address] [place] [address] Perlita Candelario, RN [address] [place] [address] 10/06/2025 1:30 PM EST Office Visit [facility] AD[facility] [address] [place] [address] Dallin Toth DDS [address] [place] [address] documented as of this encounter Procedures Procedure [...] documented as of this encounter Care Teams Tool Supervisor Relationship Specialty Start Date End Date Amber Love MD [address] [place] [address] PCP - General Family Medicine 12/29/20 Venita Hannon Community Health Worker 04/01/24 Courtney Lindsay RN Logistics Management Specialist 04/01/24 documented as of this encounter
--- OUTSIDE RECORDS SUMMARY | 2025-09-10 18:20 | XMS_ITS | Encounter Summary ---
Author Organization [employer] Address [address] [place] [address] Care Team Providers Care Draw Off Worker Name Role Phone Amber Love MD Primary Care Provider [phone] Venita Hannon Unavailable Courtney Lindsay RN Unavailable Unavailable Reason for Visit * Reason Onset Date Comments Med Refill 08/20/2024 Encounter Details Date Type Department Care Team ([facility] st Contact Info) Description 08/20/2024 Telephone [facility] [address] [place], [place] [phone] Amber Love MD [address] [place], [place] [phone] Med Refill Social History Tobacco Use Types [...] 5-325 MG tablet To be sent to: [facility] - [place], [place] - [address] [facility] documented in this encounter Plan of Treatment Upcoming Encounters Date Type Department Care Team ([facility] st Contact Info) Description 09/15/2025 10:30 AM EST Clinical Support [facility] [address] [place] [address] Perlita Candelario, PETE [address] [place] [address] 10/06/2025 1:30 PM EST Office Visit [facility] ADULT [facility] [address] [place] [address] Dallin Toth DDS [address] [place] [address] documented as of this encounter Visit Diagnoses Not on filedocumented in this encounter Additional Health Concerns Assessment Noted Time PHQ-9 Depression Total Score: 2 01/13/20 23 9:40 AM EDT documented as of this encounter Care Teams Draw Off Worker Relationship Specialty Start Date End Date Amber Love MD [address] [place] [address] PCP - General Family Medicine 12/29/20 Venita Hannon Community Health Worker 04/01/24 Courtney Lindsay RN Sheet Rocker 04/01/24 documented as of this encounter
--- OUTSIDE RECORDS SUMMARY | 2025-09-10 18:20 | XMS_ITS | Data Portability ---
Author Organization [place] 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 4 12:14:37 Problem Notes None [...] Updated DateTime 08/29/2024 157.48 cm 27.8 kg/m2 36886.04 g Debbi Bragg [place] - [facility] 08/29/2024 11:14:22 Social History None [...] - Angie Hannon Date of - 1960 [facility] - [id number] Date of Service - 02/22/2024 [...] ICD10 Code Diagnosis IMO Codes Diagnosis Note [id number] HANS OCONNOR MD [facility] [address] [place] [address] 08/29/2024 11:02:14 08/29/2024 12:22:02 Chronic sialadenitis [id number] K11.23 Tobacco user [id number] Z 72.0 Health Concerns Section Related Observation LastModified by Organization Detai ls LastModified Time None Recorded Concern Status LastModified by Organization Details LastModified Time None Recorded Advance Directives Directive None Recorded Payers Insurance Date Sequence Insurance Name Policy Number Policy Aviles Covered Member ID Aviles Member ID Guarantor Name 08/29/2024 1 [place]: [facility] Angie Hannon [id number] Angie Parvez Notes Date Note Type Note Provider Name and Address Organization Details Recorded Time 08/29/2024 text/html ROS as noted in the HPI Patient reports that swelling is worse since her last visit. Has done a lot testing. Drinking more water. Still smoking. Gave chantix yesterday. The director of medical review did a lot of blood work and [...] without any acute abnormality. HANS OCONNOR MD [address] [place] [address], [place], [address], [facility] - [facility] 08/29/2024 12:15:58 OBGyn Episode No OBEpisode recorded.
--- OUTSIDE RECORDS SUMMARY | 2025-09-10 18:20 | XMS_ITS | Encounter Summary ---
Author Organization [employer] Address [address] [facility] [address] [place] [address] Care Team Providers Care Industrial Safety And Health Specialist Name Role Phone Amber Love MD Primary Care Provider [phone] Venita Hannon Unavailable oCurtney Lindsay RN Unavailable Unavailable Encounter Details Date Type Department Care Team (Latest Contact Info) Description 08/22/2019 Abstract [facility] CONVERSIONS Dental, Provider, DDS Social History Tobacco [...] Description 09/15/2025 10:30 AM EST Clinical Support [facility] MED & PEDS [address] [place] [address] Perlita Candelario, RN [address] [place] [address] 10/06/2025 1:30 PM EST Office Visit [facility] ADULT DENTAL [address] [place] [address] Dallin Toth DDS [address] [place] [address] documented as of this encounter Visit Diagnoses Not on filedocumented in this encounter Care Teams Industrial Safety And Health Specialist Relationship Specialty Start Date End Date Amber Love MD [address] [place] [address] PCP - General Family Medicine 12/29/20 Venita Hannon Community Health Worker 04/01/24 Courtney Lindsay RN Solution Consultant 04/01/24 documented as of this encounter
--- OUTSIDE RECORDS SUMMARY | 2025-09-10 18:20 | XMS_ITS | Encounter Summary ---
Author Organization [employer] Address [address] [place] [address] Care Team Providers Care Cloud Consultant Name Role Phone Amber Love MD Primary Care Provider [phone] Venita Hannon Unavailable Courtney Lindsay RN Unavailable Unavailable Reason for Visit * Reason Onset Date Comments F follow up 03/29/2023 Encounter Details Date Type Department Care Team (Late st Contact Info) Description 03/29/2023 Telephone [facility] MEDICINE [address] [place] [address] Amber Love MD [address] [place], [place] [id number] HDF follow up Social History Tobacco Use [...] - 03/29/2023 3:15 PM EDT TC from [employer] stated pt received a Call today to schedule a Hdf follow up. PCP DR. Love documented in this encounter Plan of Treatment Upcoming Encounters Date Type Department Care Team (Late st Contact Info) Description 09/15/2025 10:30 AM EST Clinical Support [facility] CH[facility] MED & PEDS [address] [place] [address] Perlita Candelario, PETE [address] [place] [address] 10/06/2025 1:30 PM EST Office Visit [facility] ADULT DENTAL [address] [place] [address] Dallin Toth DDS [address] [place] [address] documented as of this encounter Visit Diagnoses Not on filedocumented in this encounter Additional Health Concerns Assessment Noted Time PHQ-9 Depression Total Score: 2 01/13/20 23 9:40 AM EDT documented as of this encounter Care Teams Cloud Consultant Relationship Specialty Start Date End Date Amber Love MD [address] [place] [address] PCP - General Family Medicine 12/29/20 Venita Hannon Community Health Worker 04/01/24 Courtney Lindsay, PETE Transaction Manager 04/01/24 documented as of this encounter
== END 2025-09-11 07:18 | disposition home or self-care (01) ==
LOC: HO.HVS 15:10
PROVIDERS: PCP Family Medicine; Visit Provider Surgery Vascular Surgery
DX: I83.11 Varicose veins of right lower extremity with inflammation (principal)
CPT/HCPCS: 99204

== ENCOUNTER → 2025-09-10 15:09 | Outpatient (BNVA) | payer MEDICAID, SELFPAY | PROVIDERS: PCP Family Medicine; Visit Provider Surgery Vascular Surgery | DX: I83.11 Varicose veins of right lower extremity with inflammation (principal) | CPT/HCPCS: 99202 ==

== ENCOUNTER 2025-10-01 09:11 | Emergency (ER) | payer MEDICAID, SELFPAY ==
--- NOTE | ~2025-10-01 | CT_ITS ---
EXAMINATION: CT ANGIOGRAM HEAD AND NECK CLINICAL INFORMATION: burning FRIEDMAN, L arm weakness COMPARISON: None available. TECHNIQUE: Noncontrast axial imaging of the head was performed. This was followed by test bolus sequences and head and neck intravenous bolus administration of 70mL of Omnipaque 350. Helical imaging was performed in the axial plane from the aortic arch to the skull vertex. The data was processed at the nanotechnology engineering technologist's workstation for generation of MIP sequences. Angled MIPs and volume rendered reformatted images were also generated at an offline 3D workstation. Stenoses are assessed in accordance with NASCET criteria unless otherwise indicated. This CT examination was performed using dose optimization techniques as appropriate, variously including the following: *Automated exposure control *Adjustment of mA and/or kV according to patient size (this includes techniques or standardized protocols for targeted exams where dose is matched to indication/reason for exam; i.e. extremities or head) *Use of iterative reconstruction technique FINDINGS: NONCONTRAST HEAD CT: There is no evidence of intracranial hemorrhage or extra-axial fluid collection. There is no mass effect, or edema. No CT evidence of acute territorial infarct. Ventricles, sulci, and cisterns are normal in size and configuration for patient age. No hydrocephalus. No midline shift. No significant white matter abnormalities. Bilateral eye prostheses are present along with metal shrapnel, both intra- Extraconal. There are surgical clips in the cephalad region of the ethmoid sinuses or floor of the frontal lobes Changes from remote craniotomy are present. No extracranial soft tissue abnormalities. NECK CTA: -AORTIC ARCH: Normal in caliber. Mild atheromatous calcification. Three-vessel branching pattern. -GREAT VESSEL ORIGINS: Widely patent. No stenosis. -RIGHT COMMON CAROTID ARTERY: Normal in course and caliber to the level of the bifurcation. -CERVICAL RIGHT INTERNAL CAROTID ARTERY: Normal opacification without focal stenosis or occlusion. -LEFT COMMON CAROTID ARTERY: Normal in course and caliber to the level of the bifurcation. -CERVICAL LEFT INTERNAL CAROTID ARTERY: Normal opacification without focal stenosis or occlusion. -CERVICAL RIGHT VERTEBRAL ARTERY: Codominant. Normal in course and caliber into the skull base. -CERVICAL LEFT VERTEBRAL ARTERY: Codominant. Normal in course and caliber into the skull base. OTHER, SOFT TISSUES: -No lymphadenopathy or mass. No abnormal fluid collection or soft tissue swelling. -Normal thyroid. -Imaged superior mediastinal structures normal. -Imaged lung apices clear with dependent atelectasis. CTA OF THE BRAIN: -INTRACRANIAL INTERNAL CAROTID ARTERIES: No focal stenosis or occlusion with multifocal atherosclerotic calcifications in the carotid siphons. -RIGHT ANTERIOR CEREBRAL ARTERY: Normal A1 segment.. Normal arborization of the distal segments. -LEFT ANTERIOR CEREBRAL ARTERY: Normal A1 segment.. Normal arborization of the distal segments. -ANTERIOR COMMUNICATING ARTERY: Normal. -RIGHT MIDDLE CEREBRAL ARTERY: Normal M1 segment of the MCA without focal stenosis or occlusion. Normal bifurcation. Normal arborization of the distal segments. -LEFT MIDDLE CEREBRAL ARTERY: Normal M1 segment of the MCA without focal stenosis or occlusion. Normal bifurcation. Normal arborization of the distal segments. -RIGHT VERTEBRAL ARTERY V4: Normal in course and caliber. Normal PICA branch. -LEFT VERTEBRAL ARTERY V4: Normal in course and caliber. Normal PICA branch. -BASILAR ARTERY: Normal without focal stenosis or occlusion. Normal appearance of the proximal superior cerebellar arteries. Normal basilar tip. -RIGHT POSTERIOR CEREBRAL ARTERY: Normal P1 segment. Normal opacification of the distal PRINCIPAL ADMINISTRATIVE CLERK segments. -LEFT POSTERIOR CEREBRAL ARTERY: Normal P1 segment. Normal opacification of the distal PRINCIPAL ADMINISTRATIVE CLERK segments. -POSTERIOR COMMUNICATING ARTERIES: Right is not clearly identified in the left is thready. Normal opacification of the superior sagittal, straight, transverse, and sigmoid sinuses. No venous thrombosis. No space-occupying hemorrhage or definite evolving infarct. CT/CT angio head neck IMPRESSION: NONCONTRAST HEAD CT: No acute intracranial abnormality. Changes from prior penetrating trauma involving the orbits and remote right frontal craniotomy. CTA NECK: No hemodynamically significant stenosis. CTA HEAD: No hemodynamically significant stenosis. HAILEY Ireland notified via [place] 3:58pm EST Electronically signed by: Zaid Ledesma MD 10/01/2025 04:00 PM EST
[2025-10-01 09:22] VITALS: BP 143/67; PULSE 64; RESP 16; TEMP 36.6; O2SAT 98; BMI 27.8
--- NOTE | 2025-10-01 10:16 | ECG_ITS ---
Test Reason : weakness Blood Pressure : */* mmHG Vent. Rate : 52 BPM Atrial Rate : 52 BPM P-R Int : 188 ms QRS Dur : 84 ms QT Int : 446 ms P-R-T Axes : 68 11 28 degrees QTcB Int : 414 ms Sinus bradycardia Minimal voltage criteria for LVH, may be normal variant ( Ewing product ) Borderline ECG When compared with ECG of 17-Feb-2024 18:09, No significant change was found Referred By: Meme Escobar Electronically Signed By: SHWETA [place]
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
--- NOTE | 2025-10-01 10:45 | MHC.EDTECH ---
attempted to do lab draw, pt preferably wait for iv insertion.
[2025-10-01 11:12] LABS: MANUAL DIFF FLAG NO
[2025-10-01 11:13] LABS: Hematocrit 45.4 % (37.0-47.0); Hemoglobin 15.2 g/dl (12.0-16.0); Imm Gran Abs Auto 0.03 X10*3/uL (0.00-0.03); Imm Gran Pct Auto 0.4 % (0.0-0.4); Lymphocytes Absolute Auto 2.5 X10*3/uL (1.2-4.9); Mean Corpuscular HGB Conc 33.5 g/dl (31.0-35.0); Mean Corpuscular Hemoglobin 30.6 pg (27.0-33.0); Mean Corpuscular Volume 91.5 fL (80.0-98.0); NRBC Abs Auto 0.000 X10*3/uL (0.0-0.012); NRBC Pct Auto 0.0 /100WBC (0.0-0.2); Platelet Count 290 X10*3/uL (160-400); Red Blood Count 4.96 X10*6/uL (4.20-5.50); White Blood Count 8.4 X10*3/uL (4.8-10.8)
[2025-10-01 11:31] LABS: Alanine Aminotransferase 23 U/L (0-31); Albumin Level 4.8 g/dL (3.5-5.0); Alkaline Phosphatase 95 U/L (39-117); Anion Gap 10 (12-20); Aspartate Amino Transferase 23 U/L (5-31); Blood Urea Nitrogen 12 mg/dL (9-16); Calcium 9.7 mg/dL (8.4-10.2); Carbon Dioxide 28 mmol/L (22-29); Chloride 111 mmol/L (96-108); Creatinine Clr Calc Pharmacy 62.3; Estimated Glomerular Filt Rate > 60; Magnesium 2.1 mg/dL (1.6-2.6); Potassium 4.7 mmol/L (3.3-5.1); Sodium 144 mmol/L (135-145); Total Protein 7.3 g/dL (6.5-8.0)
[2025-10-01 11:46] LABS: Troponin-I High Sensitivity < 2.7 ng/L (<3.5-17.0)
[2025-10-01 11:57] LABS: Erythrocyte Sedimentation Rate 6 MM/HR (0-20)
[2025-10-01 12:00] LABS: Resp Syncy Virus RNA Qual PCR NEGATIVE (Negative); SARS COV2 PCR INHOUSE NEGATIVE (Negative)
--- NOTE | 2025-10-01 15:00 | PC.NURSE ---
pt being taken to CT- needed premedicicated d/t contrast allg
[2025-10-01] MEDS: iohexoL 350 MG/ML 100 ML INFUS..BTL IV (15:25)
[2025-10-01 15:37] VITALS: BP 143/72; PULSE 59; RESP 18; TEMP 36.4; O2SAT 100
[2025-10-01] MEDS: Butalb/Acetamin/Caff 50/325/40 TABLET 1 TAB PO (16:34)
[2025-10-01 17:13] VITALS: BP 143/72; PULSE 59; RESP 18; TEMP 36.4; O2SAT 100
== END 2025-10-01 17:13 | disposition home or self-care (01) ==
PROVIDERS: Physician Assistant Medical; Emergency Provider Emergency Medicine; PCP Family Medicine
DX: R51.9 Headache, unspecified (principal); M79.7 Fibromyalgia; J45.909 Unspecified asthma, uncomplicated; K21.9 Gastro-esophageal reflux disease without esophagitis; Z87.820 Personal history of traumatic brain injury; F20.9 Schizophrenia, unspecified; H54.8 Legal blindness, as defined in USA; F17.210 Nicotine dependence, cigarettes, uncomplicated
CPT/HCPCS: 36415; 70496; 70498; 80053; 83735; 84484; 85025; 85652; 86140; 87637; 93005; 96361; 96374; 96375; 99285; J1200; J2270; Q9967

== ENCOUNTER → 2025-10-01 10:16 | Outpatient (BNV) | payer MEDICAID, SELFPAY | PROVIDERS: Emergency Provider Emergency Medicine; PCP Family Medicine; Visit Provider Internal Medicine | DX: R00.1 Bradycardia, unspecified (principal) | CPT/HCPCS: 93010 ==

== ENCOUNTER → 2025-10-01 10:18 | Outpatient (BNV) | payer MEDICAID, SELFPAY | PROVIDERS: Emergency Provider Emergency Medicine; PCP Family Medicine; Visit Provider Radiology Diagnostic Radiology | DX: R51.9 Headache, unspecified (principal); R53.1 Weakness | CPT/HCPCS: 70496; 70498 ==

== ENCOUNTER 2025-10-16 10:22 | Outpatient (REF) | payer MEDICAID, SELFPAY ==
--- OUTSIDE RECORDS SUMMARY | 2025-10-14 09:00 | XMS_ITS | Encounter Summary ---
Author Organization [employer] Address [address] [place] [address] Care Team Providers Care Elementary Vocal Music Teacher Name Role Phone Amber Love MD Primary Care Provider [phone] Venita Hannon Unavailable Courtney Lindsay RN Unavailable Unavailable Reason for Visit * Reason Comments Extraction Ext on tooth#9 , 10 Encounter Details Date Type Department Care Team (Late st Contact Info) Description 10/14/2025 9:00 AM EST Office Visit [facility] [address], [place] [phone] Dallin Toth DDS [address], [place] [phone] Dental abscess (Primary Dx) Social History Tobacco Use Types Packs/Day Years Used Date Smoking Tobacco: Every Day Cigarettes Passive Smoke Exposure: Never Smokeless Tobacco: Never Tobacco Cessation:Ready to Q uit: Not Asked; Counseling Given: Not Answered Alcohol Use Standard Drinks/Week Comments Never 0 (1 standard drink = 0.6 oz pur e alcohol) Alcohol Answer Date Recorded Frequency of Alcohol Consumption Not on file 08/28/2024 Average Number of Drinks Not on file 024 Frequency of Binge Drinking Not on file 07/31 Score 0 08/28/2024 Depression Answer Date Recorded Patient Health Questionnaire-9 Score 4 10/09/2025 Patient Health Questionnaire-9 Score 4 10/09/2025 Last PHQ-9: Questionnaire Data Not on file 1 12/10/2024 Housing Stability Answer Date Recorded What is [...] Date Recorded Patient Health Questionnaire-2 Score 2 10/09/2025 Internet Access Answer Date Recorded Internet Access [...] Sign Reading Time Taken Comments Blood Pressure 148/84 10/14/2025 9:03 AM EST Pulse - - Temperature - - Respiratory Rate - - Oxygen Saturation - - Inhaled Oxygen Concentration - - Weight - - Height - - Body Mass Index - - documented in this encounter Progress Notes * Dallin Toth, SONALS - 10/14/2025 9:00 AM EST 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 Since she has metal on different portions of her body, I don't think that today justin good day to proceed with the planned extractions. Blood Pressure was 184/84 P 67 A mutual decision was made, to reschedule, we gave priority to consult her PCP prior planning another appointment to complete extractions. Pt would like to decide if toproceed with local anesthesia here or in other other / referral to deep sedation. She will call when ready for an answer. [place] - Mariela pt call ? Assistants: Justyna Morillo and Kieran Toth documented in this encounter Plan of Treatment Upcoming Encounters Date Type Department Care Team (Late st Contact Info) Description 10/21/2025 3:30 PM EST Office Visit [facility] [address] [place] [address] Amber Love MD [address] [place] [address] 12/02/2025 3:15 PM EST Clinical Support [facility] [address] [place] [address] Perlita Candelario RN [address] [place] [address] documented as of this encounter Procedures Procedure Name Priority Date/Time Associated Diagnosis Comments NO CHARGE VISIT Routine 10/14/2025 9:00 AM EST documented in this encounter Visit Diagnoses Diagnosis Dental abscess- Primary Periapical abscess without sinus documented in this encounter Additional Health Concerns Assessment Noted Time PHQ-9 Depression Total Score: 4 10/09/20 25 9:42 AM EST documented as of this encounter Care Teams Elementary Vocal Music Teacher Relationship Specialty Start Date End Date Amber Love MD [address] [place] [address] PCP - General Family Medicine 12/29/20 Venita Hannon Community Health Worker 04/01/24 Courtney Lindsay RN Cabana Attendant 04/01/24 documented as of this encounter
--- NOTE | ~2025-10-16 | US_ITS ---
EXAMINATION: US LOWER EXTREMITY VENOUS (REFLUX EXAM), BILATERAL CLINICAL INFORMATION: Varicose veins of the lower extremity with inflammation COMPARISON: None. TECHNIQUE: Color flow triplex imaging and compression Doppler was performed to evaluate both the deep and the superficial systems bilaterally. To evaluate the superficial system, the examination was performed in the upright position. Color-flow Doppler ultrasound and compression ultrasound were utilized. In addition, maneuvers were utilized to demonstrate reflux. FINDINGS: 1. DEEP VENOUS ULTRASOUND OF THE RIGHT LOWER EXTREMITY: Common Femoral Vein: Compressible, normal respiratory variation and augmented flow. Femoral Vein: Compressible, normal color flow and augmentation. Popliteal Vein: Compressible, normal augmentation. Deep Reflux: There is no evidence of reflux in the deep system in either the common femoral vein, superficial femoral or the popliteal vein. 2. SUPERFICIAL ULTRASOUND WITH DOPPLER OF RIGHT LOWER EXTREMITY: GREAT SAPHENOUS VEIN: Saphenofemoral Junction: 0.5 cm; Reflux: 0 ms Proximal Thigh: 0.5 cm; Reflux: 0 ms Mid Thigh: 0.4 cm; Reflux: 1450 ms Distal Thigh: 0.4 cm; Reflux: 440 ms At Knee: 0.3 cm; Reflux: 0 ms Below Knee/Proximal Calf: 0.4 cm; Reflux: 800 ms Mid Calf: 0.2 cm; Reflux: 0 ms Ankle/Distal Calf: 0.3 cm; Reflux: 0 ms Medial accessory GREAT SAPHENOUS VEIN: Saphenofemoral Junction: 0.3 cm; Reflux: 0 ms Mid Thigh: 0.2 cm; Reflux: 0 ms SMALL SAPHENOUS VEIN: Drainage: Thigh extension Saphenopopliteal Junction: 0.1 cm; Reflux: 0 ms Mid calf: 0.1 cm; Reflux: 0 ms Distal: 0.2 cm; Reflux: 0 ms VEIN OF GIACOMINI: Size: NA cm Reflux: NA ms PERFORATORS: Location: Greater saphenous vein master certified rv technician into varicosity, mid calf Size: 0.2 cm Reflux: 0 ms VARICOSITIES > 3mm: None 3. DEEP VENOUS ULTRASOUND OF THE LEFT LOWER EXTREMITY: Common Femoral Vein: Compressible, normal respiratory variation and augmented flow. Femoral Vein: Compressible, normal color flow and augmentation. Popliteal Vein: Compressible, normal augmentation. Deep Reflux: There is no evidence of reflux in the deep system in either the common femoral vein, superficial femoral or the popliteal vein. 4. SUPERFICIAL ULTRASOUND WITH DOPPLER OF LEFT LOWER EXTREMITY: GREAT SAPHENOUS VEIN: Saphenofemoral Junction: 0.6 cm; Reflux: 0 ms Proximal Thigh: 0.5 cm; Reflux: 0 ms Mid Thigh: 0.4 cm; Reflux: 0 ms Distal Thigh: 0.3 cm; Reflux: 0 ms At Knee: 0.3 cm; Reflux: 900 ms Below Knee/Proximl calf: 0.3 cm; Reflux: 0 ms Mid Calf: 0.2 cm; Reflux: 0 ms Distal Calf/Ankle: 0.2 cm; Reflux: 0 ms Lateral accessory GREAT SAPHENOUS VEIN: Saphenofemoral Junction: 0.2 cm; Reflux: 0 ms SMALL SAPHENOUS VEIN: Drainage: Gastrocnemius vein Saphenopopliteal Junction: 0.4 cm; Reflux: 0 ms Mid calf: 0.2 cm; Reflux: 0 ms Distal calf: 0.2 cm; Reflux: 0 ms VEIN OF GIACOMINI: Size: 0.2 Reflux: 0 PERFORATORS: Location: Greater saphenous vein, mid thigh Size: 0.1 cm Reflux: 0 ms Location: Greater saphenous vein, mid calf Size: 0.1 cm Reflux: 0 ms VARICOSITIES > 3mm: Location: None Imaged US/US venous duplex LE BI IMPRESSION: Right: There is venous incompetence in the great saphenous vein, as detailed above. Left: There is venous incompetence in the great saphenous vein at the knee. Electronically signed by: Zaid Ledesma MD 10/16/2025 11:31 AM [facility]
--- OUTSIDE RECORDS SUMMARY | 2025-10-16 11:50 | XMS_ITS | Encounter Summary ---
Author Organization [employer] Address [address] [place] [address] Care Team Providers Care Cold Roll Packer Sheet Iron Name Role Phone Amber Love MD Primary Care Provider [phone] Venita Hannon Unavailable Courtney Lindsay RN Unavailable Unavailable Reason for Visit * Reason Comments Med Refill Encounter Details Date Type Department Care Team ([facility] st Contact Info) Description 12/27/2022 Refill [facility] [address] [place], [place] [phone] Amber Love MD [address] [place], [place] [phone] Chronic back pain, unspecified back location, unspecified [...] Description 10/21/2025 3:30 PM EST Office Visit [facility] [address] [place] [address] Amber Love MD [address] [place] [address] 12/02/2025 3:15 PM EST Clinical Support [facility] [address] [place] [address] Perlita Candelario, PETE [address] [place] [address] documented as of this encounter Visit Diagnoses Diagnosis Chronic back pain, unspecified back location, unspecified back pain laterality documented in this encounter Care Teams Cold Roll Packer Sheet Iron Relationship Specialty Start Date End Date Amber Love MD [address] [place] [id number] PCP - General Family Medicine 12/29/20 Venita Hannon Community Health Worker 04/01/24 Courtney Lindsay RN Supervisor Pastry 04/01/24 documented as of this encounter
--- OUTSIDE RECORDS SUMMARY | 2025-10-16 11:51 | XMS_ITS | Encounter Summary ---
Author Organization [employer] Address [address] [place] [address] Care Team Providers Care Legal Operations Manager Name Role Phone Amber Love MD Primary Care Provider Venita Hannon Unavailable Courtney Lindsay RN Unavailable Unavailable Reason for Visit * Reason Onset Date Comments Med Refill 09/21/2025 Encounter Details Date Type Department Care Team ([facility] st Contact Info) Description 09/21/2025 Telephone [facility] [address] [place], [place] [phone] Amber Love MD [address] [place], [place] [phone] Med Refill Social History Tobacco Use Types [...] encounter Miscellaneous Notes * Telephone Encounter - Luis Colby - 09/21/2025 10:26 AM EST TC from pt requesting medication refill. Medications needing refill : oxyCODONE-acetaminophen (Percocet) 5-325 MG tablet To be sent to: [facility] - [place], [place] - [address] [facility] documented in this encounter Plan of Treatment Upcoming Encounters Date Type Department Care Team (Late st Contact Info) Description 10/21/2025 3:30 PM EST Office Visit [facility] [address] [place] [address] Amber Love MD [address] [place] [address] 12/02/2025 3:15 PM EST Clinical Support [facility] [address] [place] [address] Perlita Candelario RN [address] [place] [address] documented as of this encounter Visit Diagnoses Not on filedocumented in this encounter Additional Health Concerns Assessment Noted Time PHQ-9 Depression Total Score: 2 01/13/20 23 9:40 AM EDT documented as of this encounter Care Teams Legal Operations Manager Relationship Specialty Start Date End Date Amber Love MD [address] [place] [phone] PCP - General Family Medicine 12/29/20 Venita Hannon Community Health Worker 04/01/24 Courtney Lindsay RN Impregnation Operator 04/01/24 documented as of this encounter
--- OUTSIDE RECORDS SUMMARY | 2025-10-16 11:51 | XMS_ITS | Encounter Summary ---
Author Organization [employer] Address [address] [place] [address] Care Team Providers Care Digital Marketing Analyst Name Role Phone Amber Love MD Primary Care Provider [phone] Venita Hannon Unavailable Courtney Lindsay RN Unavailable Unavailable Encounter Details Date Type Department Care Team (Latest Contact Info) Description 08/22/2019 Abstract [facility] CONVERSIONS Dental, Provider, DDS Social History [...] Care Team ( st Contact Info) Description 10/21/2025 3:30 PM EST Office Visit [facility] [address] [place] [address] Amber Love MD [address] [place] [address] 12/02/2025 3:15 PM EST Clinical Support [facility] [address] [place] [address] Perlita Candelario RN [address] [place] [address] documented as of this encounter Visit Diagnoses Not on filedocumented in this encounter Care Teams Digital Marketing Analyst Relationship Specialty Start Date End Date Amber Love MD [address] [place] [phone] PCP - General Family Medicine 12/29/20 Venita Hannon Community Health Worker 04/01/24 Courtney Lindsay RN Metallurgy Laboratory Technician 04/01/24 documented as of this encounter
--- OUTSIDE RECORDS SUMMARY | 2025-10-16 11:51 | XMS_ITS | Encounter Summary ---
Author Organization [employer] Address [address] [place] [address] Care Team Providers Care Auger Operator Name Role Phone Amber Love MD Primary Care Provider [phone] Venita Hannon Unavailable Courtney Lindsay RN Unavailable Unavailable Reason for Visit * Reason Comments Med Refill Encounter Details Date Type Department Care Team ([facility] st Contact Info) Description 07/30/2024 Refill [facility] PEDS [address] [place] [address] Amber Love MD [address] [place] [address] Social History Tobacco Use Types Packs/Day Years [...] 3:30 PM EST Office Visit [facility] PED[facility] [address] [place] [address] Amber Love MD [address] [place] [address] 12/02/2025 3:15 PM EST Clinical Support [facility] MED [facility] PED[facility] [address] [place] [address] Perlita Candelario RN [address] [place] [address] documented as of this encounter Visit Diagnoses Not on filedocumented in this encounter Additional Health Concerns Assessment Noted Time PHQ-9 Depression Total Score: 2 01/13/20 23 9:40 AM EDT documented as of this encounter Care Teams Auger Operator Relationship Specialty Start Date End Date Amber Love MD [address] [place] [address] PCP - General Family Medicine 12/29/20 Venita Hannon Community Health Worker 04/01/24 Courtney Lindsay RN Range Scientist 04/01/24 documented as of this encounter
--- OUTSIDE RECORDS SUMMARY | 2025-10-16 11:51 | XMS_ITS | Encounter Summary ---
Author Organization [email or web address] Address [address] [facility] [address] [place] [address] Care Team Providers Care Community Health Educator Name Role Phone Amber Love MD Primary Care Provider [phone] Venita Hannon Unavailable Courtney Lindsay RN Unavailable Unavailable Reason for Visit * Reason Comments Med Refill Encounter Details Date Type Department Care Team (Late Contact Info) Description 06/25/2023 Refill [facility] MED & PEDS [address] [place] [address] Amber Love MD [address] [place] [address] Heartburn; Mixed hyperlipidemia; Constipation, unspecified constipation type [...] Upcoming Encounters Date Type Department Care Team ([facility] Contact Info) Description 10/21/2025 3:30 PM EST Office Visit [facility] MED & PEDS [address] [place] [address] Amber Love MD [address] [place] [address] 12/02/2025 3:15 PM EST Clinical Support [facility] MED & PEDS [address] [place] [address] Perlita Candelario RN [address] [place] [address] documented as of this encounter Visit Diagnoses Diagnosis Heartburn Mixed hyperlipidemia Constipation, unspecified constipation type documented in this encounter Additional Health Concerns Assessment Noted Time PHQ-9 Depression Total Score: 2 01/13/20 23 9:40 AM EDT documented as of this encounter Care Teams Community Health Educator Relationship Specialty Start Date End Date Amber Love MD [address] [place] [id number] PCP - General Family Medicine 12/29/20 Venita Hannon Community Health Worker 04/01/24 Courtney Lindsay RN Rn Informatics 04/01/24 documented as of this encounter
--- OUTSIDE RECORDS SUMMARY | 2025-10-16 11:51 | XMS_ITS | Data Portability ---
Author Organization [place] - [facility], Allergy Address [address] [address] Assessment Encounter Date Assessment Date Assessment LastModified [...] Address Organization Details Recorded Time Chronic sialadenitis 652409647 Active 2023 HANS OCONNOR MD [address] [place] [address], [place], [phone], [facility] 4 12:14:37 Problem Notes None recorded. Medical [...] morphine 15 mg immediate release tablet TOME TONYN TABLETA POR V A ORAL CADA SEIS [...] Updated DateTime 08/29/2024 157.48 cm 27.8 kg/m2 74135.04 g Debbi Bragg [place] - [facility] 08/29/2024 11:14:22 Social History None recorded. Functional [...] - Angie Hannon Date of - 1960 [facility] - [id number] Date of Service [...] ICD10 Code Diagnosis IMO Codes Diagnosis Note [id number] HANS OCONNOR MD [facility] [address] [place] [address] 08/29/2024 11:02:14 08/29/2024 12:22:02 Chronic sialadenitis 413390236 K11.23 Tobacco user 279526258 Z 72.0 Health Concerns Section Related Observation LastModified by Organization Detai ls LastModified Time None Recorded Concern Status LastModified by Organization Details LastModified Time None Recorded Advance Directives Directive None Recorded Payers Insurance Date Sequence Insurance Name Policy Number Policy Aviles Covered Member ID Aviles Member ID Guarantor Name 08/29/2024 1 [place] [facility] Angie Hannon [id number] Angie Parvez Notes Date Note Type Note Provider Name and Address Organization Details Recorded Time 08/29/2024 text/html ROS as noted in the HPI Patient reports that swelling is worse since her last visit. Has done a lot testing. Drinking more water. Still smoking. Gave chantix yesterday. The garment examiner did a lot of blood work and [...] without any acute abnormality. HANS OCONNOR MD [address] [place] [address], [place], [address], [facility] - [facility] 08/29/2024 12:15:58 OBGyn Episode No OBEpisode recorded.
--- OUTSIDE RECORDS SUMMARY | 2025-10-16 11:51 | XMS_ITS | Encounter Summary ---
Author Organization [employer] Address [address] [facility] [address] [place] [address] Care Team Providers Care Metal Model Builder Name Role Phone Amber Love MD Primary Care Provider [phone] Venita Hannon Unavailable Courtney Lindsay RN Unavailable Unavailable Reason for Visit * Reason Onset Date Comments Appointment 06/14/2023 Encounter Details Date Type Department Care Team (Late st Contact Info) Description 06/14/2023 Telephone [facility] ADULT DENTAL [address] [place], [place] [phone] Dallin Toth DDS [address] [place], [place] [phone] Appointment Social History Tobacco Use Types Packs/Day [...] 3:30 PM EST Office Visit [facility] MED & PEDS [address] [place] [address] Amber Love MD [address] [place] [address] 12/02/2025 3:15 PM EST Clinical Support [facility] MED & PEDS [address] [place] [address] Perlita Candelario RN [address] [place] [address] documented as of this encounter Visit Diagnoses Not on filedocumented in this encounter Additional Health Concerns Assessment Noted Time PHQ-9 Depression Total Score: 2 01/13/20 23 9:40 AM EDT documented as of this encounter Care Teams Metal Model Builder Relationship Specialty Start Date End Date Amber Love MD [address] [place] [address] PCP - General Family Medicine 12/29/20 Venita Hannon Community Health Worker 04/01/24 Courtney Lindsay RN Export Packer 04/01/24 documented as of this encounter
--- OUTSIDE RECORDS SUMMARY | 2025-10-16 11:51 | XMS_ITS ---
Dizziness 09/30/2025 Telephone [facility] [address] [place] [address] Amber Love MD Nurse Triage 09/30/2025 Travel 09/21/2025 Refill [facility] [address] [place] [address] Amber Love MD Polyarthralgia 09/21/2025 Telephone [facility] [address] [place] [address] Amber Love MD Med Refill 09/21/2025 Refill [facility] [address] [place] [address] Amber Love MD Constipation, unspecified constipation type; Mixed hyperlipidemia 09/17/2025 Refill [facility] [address] [place] [address] Amber Love MD 09/15/2025 10:30 AM EST Clinical Support [facility] [address] [place] [address] Perlita Candelario RN Long-term current use of opiate analgesic (Primary Dx) 09/15/2025 Telephone [facility] [address] [place] [address] Perlita Candelario RN 09/15/2025 Travel 09/01/2025 Refill [facility] [address] [place] [address] Rita Shay MD Urticaria 08/27/2025 11:30 AM EDT Office Visit [facility] [address] [place] [address] Dallin Toth DDS Dental abscess (Primary Dx) 08/25/2025 1:45 PM EDT Office Visit [facility] [address] [place] [address] Rita Shay MD Unintentional weight loss (Primary Dx); Rash 08/25/2025 Travel 08/24/2025 Refill [facility] [address] [place] [address] Amber Love MD Polyarthralgia 08/24/2025 Telephone [facility] [address] [place] [address] Amber Love MD Med Refill 08/24/2025 Telephone [facility] [address] [place] [address] Amber Love MD Chart Prep 07/23/2025 11:00 AM EDT Clinical Support [facility] [address] [place] [address] Perlita Candelario RN Fibromyalgia (Primary Dx) 07/23/2025 Travel 07/23/2025 Refill [facility] [address] [place] [address] Amber Love MD Polyarthralgia 07/21/2025 Refill [facility] [address], [place] [phone] Amber Love MD from Last 3 Months Immunizations Immunization Administration [...] Pressure 148/84 10/14/2025 9:03 AM EST Pulse 74 10/09/2025 9:41 AM EST Temperature 36.6 C (97.8 F) 10/09/2025 9:41 AM EST Respiratory Rate 20 10/09/2025 9:41 AM EST Oxygen Saturation 98% 10/09/2025 9:41 AM EST Inhaled Oxygen Concentration - - Weight 70.8 kg (156 lb) 10/09/2025 9:41 AM EST Height 157.5 cm (5' 2 ) 10/09/2025 9:41 AM EST Body Mass Index 28.53 10/09/2025 9:41 AM EST Plan of Treatment Upcoming Encounters Date Type Department Care Team (Late st Contact Info) Description 10/21/2025 3:30 PM EST Office Visit [facility] [address] [place] [address] Amber Love MD [address] [place] [address] 12/02/2025 3:15 PM EST Clinical Support [facility] [address] [place] [address] Perlita Candelario RN [address] [place] [address] Health Maintenance Due Date Last Done Comments CT Colonography 1960 FIT DNA/Cologuard 1960 FIT 1960 FOBT 1960 Sigmoidoscopy 1960 Disability Screening 1960 Hepatitis A Vaccines (1 of 2 - Risk 2-dose series) 1981 RSV Patients and Patients Aged 60 years or older (1 - Risk 50-74 years 1-dose series) 2012 Zoster Vaccines (2 of 2) 06/05/2022 04/10/2022, 03/29 COVID-19 Vaccine ( season) 2025 01/25/2022, 05/11/2021, 02/22/2021 Colonoscopy 06/29/2025 01/04/2021 Colorectal Cancer Screening 06/29/2025 Influenza Vaccine (#1) 2025 , 07/19/2022, 07/27/2021, Additional history exists Pap Smear 07/06/2025 07/06/2022 Dental Oral Exam 08/02/2025 01/30/2025, 08/2023, 01/26/2021, Additional history exists Dental Prophylaxis 08/02/2025 01/30/2025, 1 , 07/05/2017 Mammogram 08/20/2025 08/20/2024 Dental X-Ray: Bitewings 01/31/2026 01/31/20, 12/31/2024, 07/09/2023, Additional history exists Alcohol/Substance Use Screening 05/13/2026 05/13/2025 SDOH Screening 05/13/2026 05/13/2025 Depression Screening 10/09/2026 10/09/2025, 10/09/20 Tobacco Screening 10/14/2026 10/14/2025 Cervical Cancer Screening 07/06/2027 HPV/Cotest 07/06/2027 07/06/2022 Dental X-Ray: Full Mouth 02/01/2028 025, 06/05/2024, 02/09/2021, Additional history exists Lipid Panel 04/30/2029 04/30/2024, [...] Procedure Name Priority Date/Time Associated Diagnosis Comments VASC US LOWER EXTREMITY VENOUS DUPLEX BILATERAL Routine 10/16/2025 10:41 AM EST NO CHARGE VISIT Routine 10/14/2025 9:00 AM EST NO CHARGE VISIT Routine 10/06/2025 1:30 PM EST CTA HEAD NECK W AND WO CONTRAST Routine 10/01/2025 3:09 PM EST SED RATE BY MODIFIED WESTERGREN Routine 10/01/2025 11:04 AM EST HIGH SENSITIVITY TROPONIN I Routine 10/01/2025 11:04 AM EST C-REACTIVE PROTEIN Routine 10/01/2025 11 :04 AM EST MAGNESIUM Routine 10/01/2025 11:04 AM EST COMPREHENSIVE METABOLIC PANEL Routine 10/01/2025 11:04 AM EST CBC WITH AUTO DIFFERENTIAL Routine 10/01/2025 11:04 AM EST SARS COV2/INFLUENZA A/B AND RSV RNA QL NAAT Routine 10/01/2025 11:01 AM EST POCT JAIRO-14 URINE DRUG SCREEN Routine 09/15/2025 10:36 AM EST Long-term current use of opiate analgesic CASE PRESENTATION, DETAILED AND EXTENSIVE TREATMENT PLANNING Routine 08/27/2025 11:30 AM EDT INTRAORAL - PERIAPICAL FIRST RADIOGRAPHIC IMAGE Routine 08/27/2025 11:30 AM EDT LIMITED ORAL EVALUATION - PROBLEM FOCUSED Routine 08/27/2025 11:30 AM EDT POCT JAIRO-14 URINE DRUG SCREEN Routine 07/23/2025 11:16 AM EDT Fibromyalgia PROPHYLAXIS - ADULT Routine 01/30/2025 2 :00 [...] Recently Relevant to Health Maintenance Results * [facility] US Lower Extremity Venous Duplex Bilateral (10/16/2025 10:41 AM EST) 10/16/2025 10:4 1 AM EST [facility] - 10/16/2025 11:34 AM EST [place] [address] Ultrasound Report Signed Patient: Sera Hannon MR#: [id number] 2 : 1960 Acct:[id number] Age/Sex: 65 / F ADM Date: 10/16/25 Loc: . Attending Dr: Jose Puri MD Ordering Physician: Jose Puri MD Date of Service: 10/16/25 Procedure(s): US venous duplex LE Accession Number(s): [id number] cc: Jose Puri MD; Amber Love MD Reason for Exam: I83.11 - Varicose veins of right lower extremity with inflammation EXAMINATION: US LOWER EXTREMITY VENOUS (REFLUX EXAM), BILATERAL CLINICAL INFORMATION: Varicose veins of the lower extremity with inflammation COMPARISON: None. TECHNIQUE: Color flow triplex imaging and compression Doppler was performed to evaluate both the deep and the superficial systems bilaterally. To evaluate the superficial system, the examination was performed in the upright position. Color-flow Doppler ultrasound and compression ultrasound were utilized. In addition, maneuvers were utilized to demonstrate reflux. FINDINGS: 1. DEEP VENOUS ULTRASOUND OF THE RIGHT LOWER EXTREMITY: Common Femoral Vein: Compressible, normal respiratory variation and augmented flow. Femoral Vein: Compressible, normal color flow and augmentation. Popliteal Vein: Compressible, normal augmentation. Deep Reflux: There is no evidence of reflux in the deep system in either the common femoral vein, superficial femoral or the popliteal vein. 2. SUPERFICIAL ULTRASOUND WITH DOPPLER OF RIGHT LOWER EXTREMITY: GREAT SAPHENOUS VEIN: Saphenofemoral Junction: 0.5 cm; Reflux: 0 ms Proximal Thigh: 0.5 cm; Reflux: 0 ms Mid Thigh: 0.4 cm; Reflux: 1450 ms Distal Thigh: 0.4 cm; Reflux: 440 ms At Knee: 0.3 cm; Reflux: 0 ms Below Knee/Proximal Calf: 0.4 cm; Reflux: 800 ms Mid Calf: 0.2 cm; Reflux: 0 ms Ankle/Distal Calf: 0.3 cm; Reflux: 0 ms Medial accessory GREAT SAPHENOUS VEIN: Saphenofemoral Junction: 0.3 cm; Reflux: 0 ms Mid Thigh: 0.2 cm; Reflux: 0 ms SMALL SAPHENOUS VEIN: Drainage: Thigh extension Saphenopopliteal Junction: 0.1 cm; Reflux: 0 ms Mid calf: 0.1 cm; Reflux: 0 ms Distal: 0.2 cm; Reflux: 0 ms VEIN OF GIACOMINI: Size: NA cm Reflux: NA ms PERFORATORS: Location: Greater saphenous vein nurses' aide into varicosity, mid calf Size: 0.2 cm Reflux: 0 ms VARICOSITIES > 3mm: None 3. DEEP VENOUS ULTRASOUND OF THE LEFT LOWER EXTREMITY: Common Femoral Vein: Compressible, normal respiratory variation and augmented flow. Femoral Vein: Compressible, normal color flow and augmentation. Popliteal Vein: Compressible, normal augmentation. Deep Reflux: There is no evidence of reflux in the deep system in either the common femoral vein, superficial femoral or the popliteal vein. 4. SUPERFICIAL ULTRASOUND WITH DOPPLER OF LEFT LOWER EXTREMITY: GREAT SAPHENOUS VEIN: Saphenofemoral Junction: 0.6 cm; Reflux: 0 ms Proximal Thigh: 0.5 cm; Reflux: 0 ms Mid Thigh: 0.4 cm; Reflux: 0 ms Distal Thigh: 0.3 cm; Reflux: 0 ms At Knee: 0.3 cm; Reflux: 900 ms Below Knee/Proximl calf: 0.3 cm; Reflux: 0 ms Mid Calf: 0.2 cm; Reflux: 0 ms Distal Calf/Ankle: 0.2 cm; Reflux: 0 ms Lateral accessory GREAT SAPHENOUS VEIN: Saphenofemoral Junction: 0.2 cm; Reflux: 0 ms SMALL SAPHENOUS VEIN: Drainage: Gastrocnemius vein Saphenopopliteal Junction: 0.4 cm; Reflux: 0 ms Mid calf: 0.2 cm; Reflux: 0 ms Distal calf: 0.2 cm; Reflux: 0 ms VEIN OF GIACOMINI: Size: 0.2 Reflux: 0 PERFORATORS: Location: Greater saphenous vein, mid thigh Size: 0.1 cm Reflux: 0 ms Location: Greater saphenous vein, mid calf Size: 0.1 cm Reflux: 0 ms VARICOSITIES > 3mm: Location: None Imaged US/US venous duplex LE BI IMPRESSION: Right: There is venous incompetence in the great saphenous vein, as detailed above. Left: There is venous incompetence in the great saphenous vein at the knee. Electronically signed by: Zaid Ledesma MD 10/16/2025 11:31 AM EST Dictated By: Zaid Ledesma MD Signed By: <Electronically signed by Zaid Ledesma MD in [place]> 10/16/25 1131 DD/ 1041 TD/TT: 10/16/25 1114 Ingot Weigher: Procedure Note Donotuseinterpreter, Image - 10/16/2025 [place] [address] Ultrasound Report Signed Patient: Sera Hannon CMR#: [id number] 2 : 1960cct:[id number] Age/Sex: 65 / FADM Date: 10/16/25 Loc: HO.US Attending Dr: Jose Puri MD Ordering Physician: Jose Puri MD Date of Service: 10/16/25 Procedure(s): US venous duplex LE BI Accession Number(s): [id number] cc: Jose Puri MD; Amber Love MD Reason for Exam: I83.11 - Varicose veins of right lower extremity withinflammation EXAMINATION: US LOWER EXTREMITY VENOUS (REFLUX EXAM), BILATERAL CLINICAL INFORMATION: Varicose veins of the lower extremity with inflammation COMPARISON: None. TECHNIQUE: Color flow triplex imaging and compression Doppler was performed to evaluate both the deep and the superficial systems bilaterally. To evaluate the superficial system, the examination was performed in the upright position. Color-flow Doppler ultrasound and compression ultrasound were utilized. In addition, maneuvers were utilized to demonstrate reflux. FINDINGS: 1. DEEP VENOUS ULTRASOUND OF THE RIGHT LOWER EXTREMITY: Common Femoral Vein: Compressible, normal respiratory variation and augmented flow. Femoral Vein: Compressible, normal color flow and augmentation. Popliteal Vein: Compressible, normal augmentation. Deep Reflux: There is no evidence of reflux in the deep system in either the common femoral vein, superficial femoral or the popliteal vein. 2. SUPERFICIAL ULTRASOUND WITH DOPPLER OF RIGHT LOWER EXTREMITY: GREAT SAPHENOUS VEIN: Saphenofemoral Junction: 0.5 cm; Reflux: 0 ms Proximal Thigh: 0.5 cm; Reflux: 0 ms Mid Thigh: 0.4 cm; Reflux: 1450 ms Distal Thigh: 0.4 cm; Reflux: 440 ms At Knee: 0.3 cm; Reflux: 0 ms Below Knee/Proximal Calf: 0.4 cm; Reflux: 800 ms Mid Calf: 0.2 cm; Reflux: 0 ms Ankle/Distal Calf: 0.3 cm; Reflux: 0 ms Medial accessory GREAT SAPHENOUS VEIN: Saphenofemoral Junction: 0.3 cm; Reflux: 0 ms Mid Thigh: 0.2 cm; Reflux: 0 ms SMALL SAPHENOUS VEIN: Drainage: Thigh extension Saphenopopliteal Junction: 0.1 cm; Reflux: 0 ms Mid calf: 0.1 cm; Reflux: 0 ms Distal: 0.2 cm; Reflux: 0 ms VEIN OF GIACOMINI: Size: NA cm Reflux: NA ms PERFORATORS: Location: Greater saphenous vein nurses' aide into varicosity, mid calf Size: 0.2 cm Reflux: 0 ms VARICOSITIES > 3mm: None 3. DEEP VENOUS ULTRASOUND OF THE LEFT LOWER EXTREMITY: Common Femoral Vein: Compressible, normal respiratory variation and augmented flow. Femoral Vein: Compressible, normal color flow and augmentation. Popliteal Vein: Compressible, normal augmentation. Deep Reflux: There is no evidence of reflux in the deep system in either the common femoral vein, superficial femoral or the popliteal vein. 4. SUPERFICIAL ULTRASOUND WITH DOPPLER OF LEFT LOWER EXTREMITY: GREAT SAPHENOUS VEIN: Saphenofemoral Junction: 0.6 cm; Reflux: 0 ms Proximal Thigh: 0.5 cm; Reflux: 0 ms Mid Thigh: 0.4 cm; Reflux: 0 ms Distal Thigh: 0.3 cm; Reflux: 0 ms At Knee: 0.3 cm; Reflux: 900 ms Below Knee/Proximl calf: 0.3 cm; Reflux: 0 ms Mid Calf: 0.2 cm; Reflux: 0 ms Distal Calf/Ankle: 0.2 cm; Reflux: 0 ms Lateral accessory GREAT SAPHENOUS VEIN: Saphenofemoral Junction: 0.2 cm; Reflux: 0 ms SMALL SAPHENOUS VEIN: Drainage: Gastrocnemius vein Saphenopopliteal Junction: 0.4 cm; Reflux: 0 ms Mid calf: 0.2 cm; Reflux: 0 ms Distal calf: 0.2 cm; Reflux: 0 ms VEIN OF GIACOMINI: Size: 0.2 Reflux: 0 PERFORATORS: Location: Greater saphenous vein, mid thigh Size: 0.1 cm Reflux: 0 ms Location: Greater saphenous vein, mid calf Size: 0.1 cm Reflux: 0 ms VARICOSITIES > 3mm: Location: None Imaged US/US venous duplex LE BI IMPRESSION: Right: There is venous incompetence in the great saphenous vein, as detailed above. Left: There is venous incompetence in the great saphenous vein at the knee. Electronically signed by: Zaid Ledesma MD 10/16/2025 11:31 AM EST Dictated By: Zaid Ledesma MD Signed By: <Electronically signed by Zaid Ledesma MD in OV> 10/16/25 1131 DD/ 1041 TD/TT: 10/16/25 1114 Ingot Weigher: us [facility] External Provider CV VASC ULAR PROCEDURES Final Result [facility] [address] [place] [id number] * CTA Head Neck w/ and w/o Contrast (10/01/2025 3:09 PM EST) Anatomical Region Laterality Modality Head, Neck Computed Tomogra phy 10/01/2025 3:09 PM EST Narrative 10/01/2025 4:03 PM EST [address] [address] [address] Scan Report Signed Patient: Sera Hannon MR#: [id number] 2 : 1960 Acct:[id number] Age/Sex: 65 / F ADM Date: 10/01/25 Loc: HO.ED Attending Dr: Ordering Physician: Meme Escobar Date of Service: 10/01/25 Procedure(s): CT angio head neck Accession Number(s): [id number] cc: Meme Escobar; Amber Love MD Report Number: [id number]: Total DLP = 1536.00 mGy-cm Reason for Exam: burning FRIEDMAN, L arm weakness EXAMINATION: CT ANGIOGRAM HEAD AND NECK CLINICAL INFORMATION: burning FRIEDMAN, L arm weakness COMPARISON: None available. TECHNIQUE: Noncontrast axial imaging of the head was performed. This was followed by test bolus sequences and head and neck intravenous bolus administration of 70mL of Omnipaque 350. Helical imaging was performed in the axial plane from the aortic arch to the skull vertex. The data was processed at the cytometry technologist's workstation for generation of MIP sequences. Angled MIPs and volume rendered reformatted images were also generated at an offline 3D workstation. Stenoses are assessed in accordance with NASCET criteria unless otherwise indicated. This CT examination was performed using dose optimization techniques as appropriate, variously including the following: *Automated exposure control *Adjustment of mA and/or kV according to patient size (this includes techniques or standardized protocols for targeted exams where dose is matched to indication/reason for exam; i.e. extremities or head) *Use of iterative reconstruction technique FINDINGS: NONCONTRAST HEAD CT: There is no evidence of intracranial hemorrhage or extra-axial fluid collection. There is no mass effect, or edema. No CT evidence of acute territorial infarct. Ventricles, sulci, and cisterns are normal in size and configuration for patient age. No hydrocephalus. No midline shift. No significant white matter abnormalities. Bilateral eye prostheses are present along with metal shrapnel, both intra- Extraconal. There are surgical clips in the cephalad region of the ethmoid sinuses or floor of the frontal lobes Changes from remote craniotomy are present. No extracranial soft tissue abnormalities. NECK CTA: -AORTIC ARCH: Normal in caliber. Mild atheromatous calcification. Three-vessel branching pattern. -GREAT VESSEL ORIGINS: Widely patent. No stenosis. -RIGHT COMMON CAROTID ARTERY: Normal in course and caliber to the level of the bifurcation. -CERVICAL RIGHT INTERNAL CAROTID ARTERY: Normal opacification without focal stenosis or occlusion. -LEFT COMMON CAROTID ARTERY: Normal in course and caliber to the level of the bifurcation. -CERVICAL LEFT INTERNAL CAROTID ARTERY: Normal opacification without focal stenosis or occlusion. -CERVICAL RIGHT VERTEBRAL ARTERY: Codominant. Normal in course and caliber into the skull base. -CERVICAL LEFT VERTEBRAL ARTERY: Codominant. Normal in course and caliber into the skull base. OTHER, SOFT TISSUES: -No lymphadenopathy or mass. No abnormal fluid collection or soft tissue swelling. -Normal thyroid. -Imaged superior mediastinal structures normal. -Imaged lung apices clear with dependent atelectasis. CTA OF THE BRAIN: -INTRACRANIAL INTERNAL CAROTID ARTERIES: No focal stenosis or occlusion with multifocal atherosclerotic calcifications in the carotid siphons. -RIGHT ANTERIOR CEREBRAL ARTERY: Normal A1 segment.. Normal arborization of the distal segments. -LEFT ANTERIOR CEREBRAL ARTERY: Normal A1 segment.. Normal arborization of the distal segments. -ANTERIOR COMMUNICATING ARTERY: Normal. -RIGHT MIDDLE CEREBRAL ARTERY: Normal M1 segment of the MCA without focal stenosis or occlusion. Normal bifurcation. Normal arborization of the distal segments. -LEFT MIDDLE CEREBRAL ARTERY: Normal M1 segment of the MCA without focal stenosis or occlusion. Normal bifurcation. Normal arborization of the distal segments. -RIGHT VERTEBRAL ARTERY V4: Normal in course and caliber. Normal PICA branch. -LEFT VERTEBRAL ARTERY V4: Normal in course and caliber. Normal PICA branch. -BASILAR ARTERY: Normal without focal stenosis or occlusion. Normal appearance of the proximal superior cerebellar arteries. Normal basilar tip. -RIGHT POSTERIOR CEREBRAL ARTERY: Normal P1 segment. Normal opacification of the distal SENIOR SALES EXECUTIVE segments. -LEFT POSTERIOR CEREBRAL ARTERY: Normal P1 segment. Normal opacification of the distal SENIOR SALES EXECUTIVE segments. -POSTERIOR COMMUNICATING ARTERIES: Right is not clearly identified in the left is thready. Normal opacification of the superior sagittal, straight, transverse, and sigmoid sinuses. No venous thrombosis. No space-occupying hemorrhage or definite evolving infarct. CT/CT angio head neck IMPRESSION: NONCONTRAST HEAD CT: No acute intracranial abnormality. Changes from prior penetrating trauma involving the orbits and remote right frontal craniotomy. CTA NECK: No hemodynamically significant stenosis. CTA HEAD: No hemodynamically significant stenosis. Meme Escobar PAC notified via [facility] 3:58pm EST Electronically signed by: Zaid Ledesma MD 10/01/2025 04:00 PM EST RP Dictated By: Zaid Ledesma MD Signed By: <Electronically signed by Zaid Ledesma MD in OV> 10/01/25 1600 DD/ 1509 TD/TT: 10/01/25 1533 Ingot Weigher: Procedure Note Donotuseinterpreter, Image - 10/01/[address] [place] [address] [address] Scan Report Signed Patient: Sera Hannon CMR#: [id number] 2 : 2Acct:[id number] Age/Sex: 65 / FADM Date: 10/01/25 Loc: .ED Attending Dr: Ordering Physician: Meme Escobar Date of Service: 10/01/25 Procedure(s): CT angio head neck Accession Number(s): [id number] cc: Meme Escobar; Amber Love MD Report Number: [id number]: Total DLP = 1536.00 mGy-cm Reason for Exam: burning FRIEDMAN, L arm weakness EXAMINATION: CT ANGIOGRAM HEAD AND NECK CLINICAL INFORMATION: burning FRIEDMAN, L arm weakness COMPARISON: None available. TECHNIQUE: Noncontrast axial imaging of the head was performed. This was followed by test bolus sequences and head and neck intravenous bolus administration of 70mL of Omnipaque 350. Helical imaging was performed in the axial plane from the aortic arch to the skull vertex. The data was processed at the cytometry technologist's workstation for generation of MIP sequences. Angled MIPs and volume rendered reformatted images were also generated at an offline 3D workstation. Stenoses are assessed in accordance with NASCET criteria unless otherwise indicated. This CT examination was performed using dose optimization techniques as appropriate, variously including the following: *Automated exposure control *Adjustment of mA and/or kV according to patient size (this includes techniques or standardized protocols for targeted exams where dose is matched to indication/reason for exam; i.e. extremities or head) *Use of iterative reconstruction technique FINDINGS: NONCONTRAST HEAD CT: There is no evidence of intracranial hemorrhage or extra-axial fluid collection. There is no mass effect, or edema. No CT evidence of acute territorial infarct. Ventricles, sulci, and cisterns are normal in size and configuration for patient age. No hydrocephalus. No midline shift. No significant white matter abnormalities. Bilateral eye prostheses are present along with metal shrapnel, both intra- Extraconal. There are surgical clips in the cephalad region of the ethmoid sinuses or floor of the frontal lobes Changes from remote craniotomy are present. No extracranial soft tissue abnormalities. NECK CTA: -AORTIC ARCH: Normal in caliber. Mild atheromatous calcification. Three-vessel branching pattern. -GREAT VESSEL ORIGINS: Widely patent. No stenosis. -RIGHT COMMON CAROTID ARTERY: Normal in course and caliber to the level of the bifurcation. -CERVICAL RIGHT INTERNAL CAROTID ARTERY: Normal opacification without focal stenosis or occlusion. -LEFT COMMON CAROTID ARTERY: Normal in course and caliber to the level of the bifurcation. -CERVICAL LEFT INTERNAL CAROTID ARTERY: Normal opacification without focal stenosis or occlusion. -CERVICAL RIGHT VERTEBRAL ARTERY: Codominant. Normal in course and caliber into the skull base. -CERVICAL LEFT VERTEBRAL ARTERY: Codominant. Normal in course and caliber into the skull base. OTHER, SOFT TISSUES: -No lymphadenopathy or mass. No abnormal fluid collection or soft tissue swelling. -Normal thyroid. -Imaged superior mediastinal structures normal. -Imaged lung apices clear with dependent atelectasis. CTA OF THE BRAIN: -INTRACRANIAL INTERNAL CAROTID ARTERIES: No focal stenosis or occlusion with multifocal atherosclerotic calcifications in the carotid siphons. -RIGHT ANTERIOR CEREBRAL ARTERY: Normal A1 segment.. Normal arborization of the distal segments. -LEFT ANTERIOR CEREBRAL ARTERY: Normal A1 segment.. Normal arborization of the distal segments. -ANTERIOR COMMUNICATING ARTERY: Normal. -RIGHT MIDDLE CEREBRAL ARTERY: Normal M1 segment of the MCA without focal stenosis or occlusion. Normal bifurcation. Normal arborization of the distal segments. -LEFT MIDDLE CEREBRAL ARTERY: Normal M1 segment of the MCA without focal stenosis or occlusion. Normal bifurcation. Normal arborization of the distal segments. -RIGHT VERTEBRAL ARTERY V4: Normal in course and caliber. Normal PICA branch. -LEFT VERTEBRAL ARTERY V4: Normal in course and caliber. Normal PICA branch. -BASILAR ARTERY: Normal without focal stenosis or occlusion. Normal appearance of the proximal superior cerebellar arteries. Normal basilar tip. -RIGHT POSTERIOR CEREBRAL ARTERY: Normal P1 segment. Normal opacification of the distal SENIOR SALES EXECUTIVE segments. -LEFT POSTERIOR CEREBRAL ARTERY: Normal P1 segment. Normal opacification of the distal SENIOR SALES EXECUTIVE segments. -POSTERIOR COMMUNICATING ARTERIES: Right is not clearly identified in the left is thready. Normal opacification of the superior sagittal, straight, transverse, and sigmoid sinuses. No venous thrombosis. No space-occupying hemorrhage or definite evolving infarct. CT/CT angio head neck IMPRESSION: NONCONTRAST HEAD CT: No acute intracranial abnormality. Changes from prior penetrating trauma involving the orbits and remote right frontal craniotomy. CTA NECK: No hemodynamically significant stenosis. CTA HEAD: No hemodynamically significant stenosis. Meme Escobar, PAC notified via Vale 3:58pm EST Electronically signed by: Zaid Ledesma MD 10/01/2025 04:00 PM EST RP Dictated By: Zaid Ledesma MD Signed By: <Electronically signed by Zaid Ledesma MD in OV> 10/01/25 1600 DD/ 1509 TD/TT: 10/01/25 1533 Ingot Weigher: [facility] External Provider IMG CT PROCEDURES Edited Result - Final * High Sensitivity Troponin I (10/01/2025 11:04 AM EST) TROPONIN I HIGH SENSITIVITY <2.7 <3.5 - 17.0 ng/L [facility] Comment:The [place] high sens itivity Troponin-I results should beused in conjunction with other diagnostic information suchas ECG, clinical observations and information, and patientsymptoms to aid in the diagnosis of ND. 10/01/2025 11:0 4 AM EST 10/01/2025 11:09 AM EST us Generic External Data Provider LAB BLOOD ORDERAB LES Final Result [facility] [address] [place] [phone] [phone] * (ABNORMAL) CBC auto differential (10/01/2025 11:04 AM EST) White Blood Count 8.4 4.8 - 10.8 X10*3/uL [facility] Red Blood Count 4.96 4.20 - 5.50 X10*6/uL [facility] Hemoglobin 15.2 12.0 - 16.0 g/dl [facility] Hematocrit 45.4 37.0 - 47.0 % [facility] Mean Corpuscular Volume 91.5 80.0 - 98.0 fL [facility] Mean Corpuscular Hemoglobin 30.6 27.0 - 33.0 pg [facility] Mean Corpuscular HGB Conc 33.5 31.0 - 35.0 g/dl [facility] Red Cell Distribution Width 13.3 11.0 - 16.0 % [facility] Platelet Count 290 160 - 400 X10*3/uL [facility] Mean Platelet Volume 9.0(L) 9.4 - 12.3 fL [facility] Neutrophils Percent Auto 60.5 45 - 73 % [facility] Imm Gran Pct Auto 0.4 0.0 - 0.4 % [facility] Lymphocytes Percent Auto 29.7 20 - 40 % [facility] Monocytes Percent Auto 8.2 2 - 11 % [facility] Eosinophils Percent Auto 1.0 0 - 4 % [facility] Basophils Percent Auto 0.2 0 - 2 % [facility] NRBC Pct Auto 0.0 0.0 - 0.2 /100WBC [facility] Neutrophils Absolute Auto 5.1 2.0 - 8.3 x10*3/uL [facility] Imm Gran Abs Auto 0.03 0.00 - 0.03 X10*3/uL [facility] Lymphocytes Absolute Auto 2.5 1.2 - 4.9 X10*3/uL [facility] Monocytes Absolute Auto 0.7 0.1 - 1.2 X10*3/uL [facility] Eosinophils Absolute Auto 0.1 0.0 - 0.4 X10*3/uL [facility] Basophils Absolute Auto 0.0 0.0 - 0.2 X10*3/uL [facility] NRBC Abs Auto 0.000 0.0 - 0.012 X10*3/uL [facility] 10/01/2025 11:0 4 AM EST 10/01/2025 11:09 AM EST us Generic External Data Provider LAB BLOOD ORDERAB LES Final Result Performing Organization Address [facility] Co de Phone Number [facility] [address] [place] [phone] * Sed Rate by Modified Rereren (10/01/2025 11:04 AM EST) Erythrocyte Sedimentation Rate 6 0 - 20 MM/HR [facility] Comment:Patients with polycy themia and many hemoglobin abnormalitiesmay have depressed sed rates whereas patients with anemiamay have elevated sed rates. 10/01/2025 11:0 4 AM EST 10/01/2025 11:09 AM EST us Generic External Data Provider LAB BLOOD ORDERAB LES Final Result Performing Organization Address [facility] Co de Phone Number [facility] [address] [place] [phone] * (ABNORMAL) C-reactive Protein (10/01/2025 11:04 AM EST) C Reactive Protein 0.64(H) < or = 0.50 mg/dL [facility] 10/01/2025 11:0 4 AM EST 10/01/2025 11:09 AM EST us Generic External Data Provider LAB BLOOD ORDERAB LES Final Result Performing Organization Address City/[facility]/ZIP Co de Phone Number [facility] [address] [place] [phone] [phone] * Magnesium (10/01/2025 11:04 AM EST) Magnesium 2.1 1.6 - 2.6 mg/dL [facility] 10/01/2025 11:0 4 AM EST 10/01/2025 11:09 AM EST Generic External Data Provider LAB BLOOD ORDERAB LES Final Result Performing Organization Address [facility] Co de Phone Number [facility] [address] [place] [phone] * (ABNORMAL) Comprehensive Metabolic Panel (10/01/2025 11:04 AM EST) Sodium 144 135 - 145 mmol/L [facility] Potassium 4.7 3.3 - 5.1 mmol/L [facility] Chloride 111(H) 96 - 108 mmol/L [facility] Carbon Dioxide 28 22 - 29 mmol/L [facility] Anion Gap 10(L) 12 - 20 [facility] Urea Nitrogen (BUN) 12 9 - 16 mg/dL [facility] Creatinine, Serum 0.84 0.5 - 1.4 mg/dL [facility] Creatinine Clr Calc Pharmacy 62.3 [facility] Comment:Provided height and weight: 157.48 cm,68.946 kg.eGFR (calculated from the MDRD study equation) and eCrCl(calculated from the Cockcroft-Gault equation) are based ondifferent parameters and may not yield comparable results.If eCrCl result is absurd, please check patient'sheight/weight. Estimated Glomerular Filt Rate >60 [facility] Comment:Chronic Kidney Disea se: Estimated GFR < 60 mL/min/1.98e3Tpxfpl Kidney Disease: Estimated GFR < 15 mL/min/1.73m2 Glucose 108 60 - 115 mg/dL [facility] Calcium 9.7 8.4 - 10.2 mg/dL [facility] Bilirubin, Total 0.2 0.0 - 1.0 mg/dL [facility] Aspartate Amino Transferase 23 5 - 31 U/L [facility] Alanine Aminotransferase 23 0 - 31 U/L [facility] Total Protein 7.3 6.5 - 8.0 g/dL [facility] Albumin Level 4.8 3.5 - 5.0 g/dL [facility] Alkaline Phosphatase 95 39 - 117 U/L [facility] 10/01/2025 11:0 4 AM EST 10/01/2025 11:09 AM EST us Generic External Data Provider LAB BLOOD ORDERAB LES Final Result [facility] [address] [place] [phone] * SARS-CoV-2 RNA, Influenza A/B, and RSV RNA, Ql NAAT (10/01/2025 11:01 AM EST) Influenza A PCR NEGATIVE Negative [facility] Influenza B PCR NEGATIVE Negative [facility] Resp Syncy Virus RNA Qual PCR NEGATIVE Negative [facility] SARS COV2 PCR NEGATIVE Negative [facility] Comment:All test results mus t be correlated with clinical findings.Negative results do not preclude SARS-CoV2, influenza Avirus, influenza B virus and/or RSV infectionand should not be used as the sole basis for treatment orother patient management decisions. Negative results must becombined with clinical observations, patient history, andepidemiological information.This test has not been evaluated for monitoring treatment ofinfection.This test has been authorized by the FDA under an EmergencyUse Authorization (EUA) for use by authorized laboratories.Testing performed on the [employer] GeneXpert utilizingreal-time RT-PCR.All SARS CoV2 and positive influenza A/B results arereported to [facility]. 10/01/2025 11:0 1 AM EST 10/01/2025 11:09 AM EST us Generic External Data Provider LAB MICROBIOLOGY - GENERAL ORDERABLES Final Result [facility] [address] [place] [phone] * (ABNORMAL) POCT JAIRO-14 Urine Drug Screen (09/15/2025 10:36 AM EST) Only the most recent of2 resultswithin the time period is included. THC Positive(A) Negative Cocaine Screen, Urine Negative Negative Opiate Screen, Urine Negative Negative Methamphetamine Screen Urine Negative Negative Amphetamine Screen, Urine Negative Negative Benzodiazepines Screen, Urine Negative Negative Barbiturate Screen, Urine Negative Negative Methadone Screen, Urine Negative Negative Buprenophine Screen, Urine Negative Negative TCA, Urine Negative Negative MDMA Urine Negative Negative ng/mL Oxycodone Screen, Urine Positive(A) Negative Comment:Rx Phencyclidine (PCP), Urine Negative Negative Propoxyphene, Urine Negative Negative Fentanyl, Urine Negative Negative Urine Urine specimen obtained by clean catch procedure / Unknown 09/15/2025 10:36 AM EST Narrative Perlita Candelario RN - 09/15/2025 10:36 AM EST . Internal Pass Control Lot# [id number] Exp: 08-04-26 us Amber Love MD POINT OF CARE TEST ENTER/EDIT ORDERABLES Final Result * (ABNORMAL) Lipid Panel, Standard (04/30/2024 4:21 PM EDT) Triglycerides 270(H) <150 mg/dL [facility] Comment:Desirable Triglyceri de: less than 150 mg/dLBorderline High Triglyceride 150-199 mg/dLHigh Triglyceride: 200-499 mg/dLVery High Triglyceride: greater than or equal to 5OO mg/dL Cholesterol 202(H) <200 mg/dL [facility] Comment:Desirable Cholestero l: less than 200 mg/dLBorderline High Cholesterol: 200-239 mg/dLHigh Cholesterol: greater than 239 mg/dL LDL Cholesterol Calculated 106(H) <100 mg/dL [facility] Comment:Desirable LDL: less than 100 mg/dLNear Optimal/Above Optimal LDL: 110- 129 mg/dLBorderline High LDL: 130-159 mg/dLHigh LDL: 160-189 mg/dLVery High LDL: greater than or equal to 190 mg/dL HDL Cholesterol 42 >40 mg/dL [facility] Comment:Desirable HDL: great er than 40 mg/dL Note: This HDL assay may give artificially low results in patients with liver disease. Blood Venous blood specimen / Unknown 04/30/2024 4:21 PM EDT 04/30/2024 5:20 PM EDT us Amber Love MD LAB BLOOD ORDERABLES Final Re sult Performing Organization Address City/[facility]/ZIP Co de Phone Number [facility] [address] [place] [phone] * HIV-1/2 Antigen and Antibodies, Fourth Generation, with Reflexes (02/06/2024 10:36 AM EDT) [facility] HIV AB/AG Nonreactive Nonreactive [facility] Comment:HIV-1 p24 Ag and/or HIV-1/HIV-2 Ab not detected.A test result that is nonreactive does not exclude thepossibility of exposure to or infection with HIV-1 and/orHIV-2. Nonreactive results in this assay for individualswith prior exposure to HIV-1 and/or HIV-2 may be due toantigen and antibody levels that are below the limit ofdetection of this assay.The [email or web address] HIV Ag/Ab Combo assay result andsupplemental assay results should be interpreted inconjunction with the patient's clinical presentation,history and other laboratory results. If the results areinconsistent with clinical evidence, additional testing issuggested to confirm the result. Blood Venous blood specimen / Unknown 02/06/2024 10:36 AM EDT 02/06/2024 2:32 PM EDT us Amber Love MD LAB BLOOD ORDERABLES Final Re sult [facility] [address] [place] [phone] * Pap Smear (07/06/2022) Pap Negative for intraephithelial lesion or malignancy Negative for intraephithelial lesion or malignancy, Other HPV Undetected Historical Provider HEALTH MAINTENANCE Final Result * (ABNORMAL) HEPATITIS PANEL, GENERAL (09/26/2021 9:56 AM EST) HEPATITIS A AB, TOTAL REACTIVE( A) NON-REACT [facility] Comment: For additional information, please refer to http://education.[employer]/faq/TQH704 (This link is being provided for informational/ [...] Love MD HISTORICAL/NON ORDERABLE LABS Final Result [facility] [address] [place] [address], * Colonoscopy (01/04/2021) Colonoscopy Normal Normal Narrative Mirella Anderson - 01/04/2021 Recommended 4 year follow up per office due 06/2025 Historical Provider HEALTH MAINTENANCE Final Result from Last 3 Months or Most Recently Relevant to Health Maintenance Insurance [place] [facility] MEDICAID STAND ADULT Care Teams Rotor Casting Machine Operator Relationship Specialty Start Date End Date Amber Love MD [address] [place] [phone] PCP - General Family Medicine 12/29/20 Venita Hannon Community Health Worker 04/01/24 Courtney Lindsay, RN Business Process Lead 04/01/24 Clinical Summary Created on: October 16, 2025 Sera Hannon : 1960 Sex: Female Author Organization [employer] Address [address] [facility] 7 [place] [address] Care Team Providers Care Rotor Casting Machine Operator Name Role Phone Amber Love MD Primary Care Provider [phone] Venita Hannon Unavailable Courtney Lindsay RN Unavailable Unavailable Allergies Active Allergy Reactions Criticality Noted Date Comments Aspirin Anaphylaxis High Other reaction(s): Anaphylaxis Other Reaction(s): SWELLING AIRWAY, SOB, anaphylaxis Clindamycin 12/31/2020 Ibuprofen Low 10/01/2025 Other Reaction(s): NAUSEA & VOMITING LARGE QUANTITIES Iodinated Contrast Media 05/13/2025 Latex Rash Low 04/03/2023 Other reaction(s): blisters Wound Dressing Adhesive Rash High 10/01/2025 Other Reaction(s): BLISTERS Medications ammonium lactate (Amlactin) 12 % cream APPLY TOPICALLY TO FEET TWICE DAILY Active HM Biotin 5000 MCG capsule TAKE 1 CAPSULE BY MOUTH EVERY DAY Active zoster vaccine-recombina nt adjuvanted (Shingrix) 50 MCG/0.5ML vaccine inject 0.5 milliliter by intramuscular route once Active senna (Senokot) 8.6 MG tabletIndications :Constipation, [...] A ORAL CADA 12 HORAS 024 Active methocarbamol (Robaxin) 500 MG tabletIndications :Right arm pain Take 1 tablet (500 mg) by mouth every 6 (six) hours for 14 days. 56 tablet 024 Active Additional Information Patient not taking.Reported on 10/14/2025 albuterol (2.5 MG/3ML) 0.083% nebulizer solution INHALE 1 AMPULE USING A NEBULIZER BY MOUTH EVERY 4 HOURS NEEDED FOR WHEEZING 90 mL 3 025 Active varenicline (Chantix) 1 MG tablet TAKE 1 TABLET BY MOUTH TWICE DAILY 56 tablet 1 025 Active polyethylene glycol, PEG, [...] HOURS NEEDED FOR ITCHING 30 capsule 1 Active diphenhydrAMINE (BENADryl) 25 MG tabletIndications :Urticaria 1 to 2 tab at bedtime 30 tablet Active sucralfate (Carafate) 1 g tablet TAKE 1 TABLET BY MOUTH FOUR TIMES DAILY 120 tablet 5 Active gabapentin (Neurontin) 600 MG tablet TAKE 1 TABLET BY MOUTH THREE TIMES DAILY 90 tablet 5 Active chlorhexidine (Peridex) 0.12 % solution Swish 15 mL morning and night for 1 minute. Spit, do not swallow. Do not eat or drink for 30 minutes following use. 473 mL Active fexofenadine (Nadira) 180 MG tabletIndications :Urticaria TAKE 1 TABLET BY MOUTH EVERY DAY NEEDED FOR ALLERGIES 90 tablet 1 Active cyclobenzaprine (Flexeril) 10 MG tablet TAKE 1 TABLET BY MOUTH THREE TIMES DAILY IN THE MORNING, AT NOON, AND AT BEDTIME NEEDED FOR MUSCLE SPASMS 90 tablet 1 Active D3 Super Strength 50 MCG (2000 UT) capsule TAKE 1 CAPSULE BY MOUTH EVERY DAY 90 capsule 3 Active docusate sodium (Colace) 100 MG capsuleIndication s:Constipation, unspecified constipation type TAKE 1 CAPSULE BY MOUTH TWICE DAILY 180 capsule 1 09/23/20 11:13 AM EST Active pravastatin (Pravachol) 10 MG tabletIndications :Mixed hyperlipidemia TAKE 1 TABLET BY MOUTH EVERY DAY 90 tablet 1 09/23/20 11:13 AM EST Active oxyCODONE-acetami nophen (Percocet) 5-325 MG tabletIndications :Polyarthralgia Take 1 tablet by mouth every 6 (six) hours if needed for severe pain. 112 tablet 09/23/20 11:13 AM EST Active acetaminophen (Tylenol 8 Hour) 650 MG ER tablet Take 1 tablet (650 mg) by mouth every 8 (eight) hours if needed for mild pain. Do not crush, chew, or split. 30 tablet 10/07/20 3:39 PM EST Active Blood Pressure kitIndications:El evated blood pressure reading 1 Units Once per day. 1 kit Active SUMAtriptan (Imitrex) 100 MG tablet Take 1 tablet (100 mg) by mouth 1 (one) time if needed for migraine. 9 tablet Active zolpidem (Ambien) 5 MG tablet TAKE 1 TABLET BY MOUTH AT BEDTIME NEEDED FOR SLEEP 28 tablet 1 Active D3 Super Strength 50 MCG (2000 UT) capsule TAKE 1 CAPSULE BY MOUTH EVERY DAY 90 capsule 3 024 2024 Discontinued pravastatin (Pravachol) 10 MG tabletIndications :Mixed hyperlipidemia TAKE 1 TABLET BY MOUTH EVERY DAY 90 tablet 1 2024 Discontinued docusate sodium (Colace) 100 MG capsuleIndication s:Constipation, unspecified constipation type TAKE 1 CAPSULE BY MOUTH TWICE DAILY 180 capsule 1 2024 Discontinued cyclobenzaprine (Flexeril) 10 MG tablet TAKE 1 TABLET BY MOUTH THREE TIMES DAILY IN THE MORNING, AT NOON, AND AT BEDTIME NEEDED FOR MUSCLE SPASMS 90 tablet 1 2024 Discontinued oxyCODONE-acetami nophen (Percocet) 5-325 MG tabletIndications :Polyarthralgia Take 1 tablet by mouth every 6 (six) hours if needed for severe pain. 112 tablet 2024 Discontinued(R eorder (will not trigger notification to Pharmacy)) zolpidem (Ambien) 5 MG tablet Take 1 tablet (5 mg) by mouth if needed at bedtime for sleep. 28 tablet 1 09/23/20 11:13 AM EST 2024 Discontinued acetaminophen (Tylenol 8 Hour) 650 MG ER tablet Take 1 tablet (650 mg) by mouth every 8 (eight) hours if needed for mild pain. Do not crush, chew, or split. 30 tablet 2024 Discontinued(R eorder (will not trigger notification to Pharmacy)) meclizine (Antivert) 25 MG tabletIndications :Dizziness Take 1 tablet (25 mg) by mouth if needed in the morning, at noon, and at bedtime for dizziness or nausea for up to 7 days. 20 tablet 025 2024 Additional Information Patient not taking.Reported on 10/14/2025 amoxicillin (Amoxil) 500 MG capsule Take 1 capsule (500 mg) by mouth every 8 (eight) hours for 7 days. 21 capsule 10/07/20 25 3:39 PM EST 025 2024 butalbital-acetam inophen-caffeine (Fioricet) 50-300-40 MG capsule TOME 1 C PSULA POR V A ORAL CADA OCHO HORAS CUANDO SEA NECESARIO PARA EL DOLOR 2024 Discontinued(T herapy completed) Active Problems Patient Care Coordination No te Formatting of this note migh t be different from the original. C3/CM Susanne Allen RN Problem Noted Date Diagnosed Date Headache 10/09/2025 Spondyloarthropathy of lumbar spine 10/09/2025 Trigger finger of left thumb 10/09/2025 Sciatica of left side 10/09/2025 Sacroiliitis 10/09/2025 Pulmonary nodule 10/09/2025 Post-mastectomy pain 10/09/2025 Peptic ulcer disease 10/09/2025 Numbness and tingling in both hands 10/09/2025 Nicotine dependence, cigarettes, uncomplicated 1 12/10/2024 Muscle spasm 10/09/2025 Knee pain 10/09/2025 Hx of appendectomy 10/09/2025 History of brain shunt 10/09/2025 Overview (10/09/2025): Per 12/[address] [facility], no obstruction or malfunction Giant cell arteritis (CMS/HCC) 10/09/2025 Fibroid, uterine 10/09/2025 Cubital tunnel syndrome on left 10/09/2025 Pleuritic pain 10/09/2025 Chest pain 10/09/2025 Abdominal pain 10/09/2025 Cervical radicular pain 10/09/2025 Carpal tunnel syndrome on both sides 10/09/2025 Arm pain, left 10/09/2025 Acute neck sprain 10/09/2025 Dental abscess 08/27/2025 Uses Malaysian as primary spoken language 07/16/20 25 Class 1 obesity 05/13/2025 Chronic right shoulder pain 05/13/2025 Disorder of both eustachian tubes 05/13/2025 Long-term current use of opiate analgesic 2024 Pain, dental 12/31/2024 Nevus 11/18/2024 Neck swelling 08/28/2024 Assessment & Plan (08/29/2024 5:06 PM EDT): Patients concern is about her chronic neck swelling for which is has had imaging (US/CT) and visits with ENT, indeed she has an upcoming appt, explained to patient that building contractor will not be able to assist with [...] Rapid Covid-19, Rapid Influenza A & B, [id number], TSH w/Reflex FT4 Nicotine use 12/13/2023 Assessment [...] Discussed options for pain management. Referring to Youth Accommodation Support Worker for further evaluation of symptoms and lab results. Discussed medications and refills as needed. Assessment & Plan (06/11/2023 4:33 PM EDT): Patient with chronic shoulder pain. Offered patient toradol shot, patient denied. No improvement on gabapentin. Will send short course of lyrica and follow up within the month. Toe fracture, right 01/12/2023 Assessment & Plan (01/12/2023 4:33 PM [...] 08/16/2015 Allergic rhinitis 08/16/2015 Gastroesophageal reflux disease 08/16/2015 Malignant neoplasm of female breast ([facility]/HCC) Mild persistent asthma 08/16/2015 Assessment & Plan [...] Encounters Date Type Department Care Team Description 10/16/2025 Telephone [facility] MEDICINE [address] [place] [phone] Amber Love MD 10/14/2025 9:00 AM EST Office Visit [facility] ADULT DENTAL [address] [place] [phone] Dallin Toth DDS Dental abscess (Primary Dx) 10/12/2025 Refill [facility] PEDS [address] [place] [address] Amber Love MD 10/09/2025 9:45 AM EST Office Visit [facility]ED[facility] [address] [place] [address] Amber Love MD Intractable headache, unspecified chronicity pattern, unspecified headache type (Primary Dx); Elevated blood pressure reading 10/09/2025 Travel 10/06/2025 1:30 PM EST Office Visit [facility] ADULT DENTAL [address] [place] [address] Dallin Toth DDS Dental abscess (Primary Dx); Pain, dental 10/02/2025 Telephone [facility] MEDICINE [address] [place] [phone] Amber Love MD ER Follow-up 10/01/2025 Orders Only GENERIC EXTERNAL DATA DEPARTMENT Provider, Generic External Data 09/30/2025 5:00 PM EST Office Visit [facility] W[facility]IN [facility] [address] [place] [phone] Holden Webber MD Acute intractable headache, unspecified headache type (Primary Dx);
--- OUTSIDE RECORDS SUMMARY | 2025-10-16 11:51 | XMS_ITS | Encounter Summary ---
Author Organization [employer] Address [address] [place] [address] Care Team Providers Care Exhibit Preparator Name Role Phone Amber Love MD Primary Care Provider [phone] Venita Hannon Unavailable Courtney Lindsay RN Unavailable Unavailable Reason for Visit * Reason Onset Date Comments Med Refill 09/17/2024 Encounter Details Date Type Department Care Team (Late st Contact Info) Description 09/17/2024 Telephone [facility] MEDICINE [address] [place] [address] Amber Love MD [address] [place], [place] [phone] Med Refill Social History Tobacco Use Types [...] the past 12 months, has t he docTrackr, gas, oil or water company threatened to [...] 5-325 MG tablet To be sent to: [facility] - [place], [place] - [address] [facility] documented in this encounter Plan of Treatment Upcoming Encounters Date Type Department Care Team ([facility] st Contact Info) Description 10/21/2025 3:30 PM EST Office Visit [facility] MED [facility] PEDS [address] [place] [address] Amber Love MD [address] [place] [address] 12/02/2025 3:15 PM EST Clinical Support [facility] [address] [place] [address] Perlita Candelario RN [address] [place] [address] documented as of this encounter Visit Diagnoses Not on filedocumented in this encounter Additional Health Concerns Assessment Noted Time PHQ-9 Depression Total Score: 2 01/13/20 23 9:40 AM EDT documented as of this encounter Care Teams Exhibit Preparator Relationship Specialty Start Date End Date Amber Love MD [address] [place] [address] PCP - General Family Medicine 12/29/20 Venita Hannon Community Health Worker 04/01/24 Courtney Lindsay RN Building Rental Superintendent 04/01/24 documented as of this encounter
--- OUTSIDE RECORDS SUMMARY | 2025-10-16 11:51 | XMS_ITS | Encounter Summary ---
Author Organization [employer] Address [address] [facility] [facility] [address] 7t [place] [address] Care Team Providers Care Admission Specialist Name Role Phone Amber Love MD Primary Care Provider [phone] Venita Hannon Unavailable Courtney Lindsay RN Unavailable Unavailable Reason for Visit * Reason Comments Med Refill Encounter Details Date Type Department Care Team ([facility] Contact Info) Description 10/12/2025 Refill [facility] MED & PEDS 505 [place] [address] Amber Love MD 505 [place] [address] Social History Tobacco Use Types Packs/Day Years [...] Description 10/21/2025 3:30 PM EST Office Visit [facility] MED & PEDS 505 [place] [address] Amber Love MD 505 [place] [address] 12/02/2025 3:15 PM EST Clinical Support [facility] & PEDS 505 [place] [address] Perlita Candelario, PETE 505 [place] [address] documented as of this encounter Visit Diagnoses Not on filedocumented in this encounter Additional Health Concerns Assessment Noted Time PHQ-9 Depression Total Score: 4 10/09/20 25 9:42 AM EST documented as of this encounter Care Teams Admission Specialist Relationship Specialty Start Date End Date Amber Love MD 230 [place] [address] PCP - General Family Medicine 12/29/20 Venita Hannon Community Health Worker 04/01/24 Courtney Lindsay RN Chief Station Engineer 04/01/24 documented as of this encounter
--- OUTSIDE RECORDS SUMMARY | 2025-10-16 11:51 | XMS_ITS | Encounter Summary ---
Author Organization [employer] Address [address] [facility] [address] 7t [place] [address] Care Team Providers Care Financial Accounting Analyst Name Role Phone Amber Love MD Primary Care Provider [phone] Venita Hannon Unavailable Courtney Lindsay RN Unavailable Unavailable Encounter Details Date Type Department Care Team (Late st Contact Info) Description 09/13/[address] [facility] MEDICINE [address] [place] [address] Amber Love MD [address] [place], [place] [phone] Social History Tobacco Use Types Packs/Day Years Used Date Smoking Tobacco: Former Cigarettes Passive Smoke Exposure: Never Smokeless Tobacco: Never Alcohol Use Standard Drinks/Week Comments Never 0 (1 standard drink = 0.6 oz pur e alcohol) Depression Answer Date Recorded Patient Health Questionnaire-9 Score 2 01/12/2023 Housing Stability Answer Date Recorded What is your housing situation today? I have rben morales 08/14/[address] you [...] Upcoming Encounters Date Type Department Care Team ([facility] st Contact Info) Description 10/21/2025 3:30 PM EST Office Visit [facility] MED & PEDS 505 [place] [address] Amber Love MD 505 [place] [address] 12/02/2025 3:15 PM EST Clinical Support [facility] MED & PEDS 505 [place] [address] Perlita Candelario, PETE 505 [place] [address] documented as of this encounter Procedures Procedure [...] documented as of this encounter Care Teams Financial Accounting Analyst Relationship Specialty Start Date End Date Amber Love MD 230 [place] [address] PCP - General Family Medicine 12/29/20 Venita Hannon Community Health Worker 04/01/24 Courtney Lindsay, PETE Test Lead Application Testing 04/01/24 documented as of this encounter
--- OUTSIDE RECORDS SUMMARY | 2025-10-16 11:51 | XMS_ITS | Encounter Summary ---
Author Organization [employer] Address [address] [facility] [address] 7t [place] [address] Care Team Providers Care Teaching Pastor Name Role Phone Amber Love MD Primary Care Provider [phone] Venita Hannon Unavailable Courtney Lindsay RN Unavailable Unavailable Encounter Details Date Type Department Care Team (Late st Contact Info) Description 10/16/2025 Telephone [facility]INE 230 [place] [address] Amber Love MD [address] [place], [place] [phone] Social History Tobacco Use Types Packs/Day Years [...] encounter Miscellaneous Notes * Telephone Encounter - Maria Victoria Hall RN - 10/16/2025 11:12 AM EST TC placed to the pt and spoke with pt spouse Giovanni (HIPAA compliant) who states that the pt is currently at [facility] getting an US performed. Giovanni stated that this US in not being done in relation tothe pt reported swollen head and ongoing headache. Giovanni confirms that the pt was seen at [facility] yesterday but was discharged as they were waiting on data from [facility]. The pt was discharged with two medications and advised to follow up with PCP. RN advised that a ED F/U can be arranged but if the pt isstill symptomatic to try and be seen at [facility] ED since the pt was already there at the time of the call. Giovanni stated that he will see what the wait times are like in the ED and take the pt and will call back if follow up is still needed with PCP. * Telephone Encounter - Jose Aguilar - 10/16/2025 10:22 AM EST Patient calling to report ED visit on : Date: 10/16 Hospital: [facility] Seen for: swollen forehead /headache Symptomatic Yes Tc from pt stating pt got a surgery anatomy 40 years Please contact at [phone] documented in this encounter Plan of Treatment Upcoming Encounters Date Type Department Care Team (Late st Contact Info) Description 10/21/2025 3:30 PM EST Office Visit [facility] MED & PEDS 505 [place] [address] Amber Love MD 505 [place] [address] 12/02/2025 3:15 PM EST Clinical Support [facility] MED & PEDS [address] [place] [address] Perlita Candelario RN 505 [place] [address] documented as of this encounter Visit Diagnoses Not on filedocumented in this encounter Additional Health Concerns Assessment Noted Time PHQ-9 Depression Total Score: 4 10/09/20 25 9:42 AM EST documented as of this encounter Care Teams Teaching Pastor Relationship Specialty Start Date End Date Amber Love MD 230 [place] [address] PCP - General Family Medicine 12/29/20 Venita Hannon Community Health Worker 04/01/24 Courtney Lindsay RN Cooker Cleaner 04/01/24 documented as of this encounter
--- OUTSIDE RECORDS SUMMARY | 2025-10-16 11:51 | XMS_ITS | Encounter Summary ---
Author Organization [employer] Address [address] 7t [place] [address] Care Team Providers Care Endocrinology Specialist Name Role Phone Amber Love MD Primary Care Provider [phone] Venita Hannon Unavailable Courtney Lindsay RN Unavailable Unavailable Reason for Visit * Reason Onset Date Comments F follow up 03/29/2023 Encounter Details Date Type Department Care Team (Late st Contact Info) Description 03/29/2023 Telephone [facility] MED[facility]INE [address] [place] [address] Amber Love MD [address] [place], [place] [phone] HDF follow up Social History Tobacco Use [...] - 03/29/2023 3:15 PM EDT TC from [place] stated pt received a Call today to schedule a Hdf follow up. PCP DR. Love documented in this encounter Plan of Treatment Upcoming Encounters Date Type Department Care Team (Late st Contact Info) Description 10/21/2025 3:30 PM EST Office Visit [facility] MED & PEDS 505 [place] [address] Amber Love MD 505 [place] [address] 12/02/2025 3:15 PM EST Clinical Support [facility] MED & PEDS [address] [place], [place] [phone] Perlita Candelario RN 505 [place], [place] [phone] documented as of this encounter Visit Diagnoses Not on filedocumented in this encounter Additional Health Concerns Assessment Noted Time PHQ-9 Depression Total Score: 2 01/13/20 23 9:40 AM EDT documented as of this encounter Care Teams Endocrinology Specialist Relationship Specialty Start Date End Date Amber Love MD [address] [place] [address] PCP - General Family Medicine 12/29/20 Venita Hannon Community Health Worker 04/01/24 Courtney Lindsay, PETE Patient Relations Director 04/01/24 documented as of this encounter
--- OUTSIDE RECORDS SUMMARY | 2025-10-16 11:51 | XMS_ITS | Encounter Summary ---
Author Organization [employer] Address [address] [facility] [place] [address] Care Team Providers Care Plastics Tooling Engineer Name Role Phone Amber Love MD Primary Care Provider [phone] Venita Hannon Unavailable Courtney Lindsay RN Unavailable Unavailable Encounter Details Date Type Department Care Team (Late st Contact Info) Description 09/13/2023 Abstract [facility] MEDICINE [address] [place] [address] Amber Love MD [address] [place], [place] [phone] Social History Tobacco Use Types Packs/Day Years [...] Description 10/21/2025 3:30 PM EST Office Visit [facility] MED & PEDS 505 [place] [address] Amber Love MD 505 [place] [address] 12/02/2025 3:15 PM EST Clinical Support [facility] MED & PEDS [address] [place] [address] Perlita Candelario RN 505 [place] [address] documented as of this encounter Visit Diagnoses Not on filedocumented in this encounter Additional Health Concerns Assessment Noted Time PHQ-9 Depression Total Score: 2 01/13/20 23 9:40 AM EDT documented as of this encounter Care Teams Plastics Tooling Engineer Relationship Specialty Start Date End Date Amber Love MD 230 [place] [address] PCP - General Family Medicine 12/29/20 Venita Hannon Community Health Worker 04/01/24 Courtney Lindsay RN Ampoule Washing Machine Operator 04/01/24 documented as of this encounter
--- OUTSIDE RECORDS SUMMARY | 2025-10-16 11:51 | XMS_ITS | Encounter Summary ---
Author Organization [employer] Address [address] [facility] [address] [place] [address] Care Team Providers Care Marketing Intelligence Analyst Name Role Phone Amber Love MD Primary Care Provider [phone] Venita Hannon Unavailable Courtney Lindsay RN Unavailable Unavailable Reason for Visit * Reason Onset Date Comments Appointment Request 03/27/2023 Med Refill 03/27/2023 Encounter Details Date Type Department Care Team (Late st Contact Info) Description 03/27/2023 Telephone [facility] MEDICINE 230 [place] [address] Amber Love MD [address] [place], [place] [phone] Appointment Request; Med Refill Social History Tobacco [...] MG immediate release tablet please send to [facility] pharmacy * Telephone Encounter - Dorita Hannon - 03/27/2023 9:17 AM EDT Tc from pt spouse requesting to r/s 03/23/23 CTS appt. documented in this encounter Plan of Treatment Upcoming Encounters Date Type Department Care Team (Late st Contact Info) Description 10/21/2025 3:30 PM EST Office Visit [facility] MED & PEDS 505 [place] [address] Amber Love MD 505 [place] [address] 12/02/2025 3:15 PM EST Clinical Support [facility] MED & PEDS 505 [place] [address] Perlita Candelario RN 505 [place] [address] documented as of this encounter Visit Diagnoses Not on filedocumented in this encounter Additional Health Concerns Assessment Noted Time PHQ-9 Depression Total Score: 2 01/13/20 23 9:40 AM EDT documented as of this encounter Care Teams Marketing Intelligence Analyst Relationship Specialty Start Date End Date Amber Love MD [address] [place] [address] PCP - General Family Medicine 12/29/20 Venita Hannon Community Health Worker 04/01/24 Courtney Lindsay, PETE Track Leader 04/01/24 documented as of this encounter
--- OUTSIDE RECORDS SUMMARY | 2025-10-16 11:51 | XMS_ITS | Encounter Summary ---
Author Organization [employer] Address [address] [facility] [address] 7[address] [place] [address] Care Team Providers Care Warning Coordination Meteorologist Name Role Phone Amber Love MD Primary Care Provider [phone] Venita Hannon Unavailable Courtney Lindsay RN Unavailable Unavailable Reason for Visit * Reason Comments Med Refill Encounter Details Date Type Department Care Team (Late st Contact Info) Description 03/25/2025 Refill [facility] MEDICINE 230 [place] [address] Frannie Ron MD [address] [place], [place] [phone] Social History Tobacco Use Types Packs/Day Years [...] PM EST Office Visit [facility] MED & PEDS 505 [place] [address] mAber Love MD [address] [place] [address] 12/02/2025 3:15 PM EST Clinical Support [facility] MED & PEDS 505 [place] [address] Perlita Candelario, PETE 505 [place] [address] documented as of this encounter Visit Diagnoses Not on filedocumented in this encounter Additional Health Concerns Assessment Noted Time PHQ-9 Depression Total Score: 2 01/13/20 23 9:40 AM EDT documented as of this encounter Care Teams Warning Coordination Meteorologist Relationship Specialty Start Date End Date Amber Love MD [address] [place] [address] PCP - General Family Medicine 12/29/20 Venita Hannon Community Health Worker 04/01/24 Courtney Lindsay, PETE Director Safety 04/01/24 documented as of this encounter
--- OUTSIDE RECORDS SUMMARY | 2025-10-16 11:51 | XMS_ITS | Encounter Summary ---
Author Organization [employer] Address [address] [facility] [address]t [place] [address] Care Team Providers Care Recreational Sports Director Name Role Phone Amber Love MD Primary Care Provider [phone] Venita Hannon Unavailable Courtney Lindsay RN Unavailable Unavailable Reason for Visit * Reason Comments Med Refill Encounter Details Date Type Department Care Team (Late st Contact Info) Description 05/19/2025 Telephone [facility] MED[facility]INE 230 [place] [address] Amber Love MD [address] [place], [place] [phone] Med Refill Social History Tobacco Use Types [...] Miscellaneous Notes * Telephone Encounter - Pushpa Hfuf - 05/19/2025 2:[address]T Good afternoon Dr. Love, please sign chart notes of 05/13 in order to proceed with referral. Thank you. documented in this encounter Plan of Treatment Upcoming Encounters Date Type Department Care Team ([facility] st Contact Info) Description 10/21/2025 3:30 PM EST Office Visit [facility] MED & PEDS 505 [place] [address] Amber Love MD 505 [place] [address] 12/02/2025 3:15 PM EST Clinical Support [facility] MED & PEDS 505 [place] [address] Perlita Candelario, PETE 505 [place] [address] documented as of this encounter Visit Diagnoses Not on filedocumented in this encounter Additional Health Concerns Assessment Noted Time PHQ-9 Depression Total Score: 2 01/13/20 23 9:40 AM EDT documented as of this encounter Care Teams Recreational Sports Director Relationship Specialty Start Date End Date Amber Love MD 230 [place] [address] PCP - General Family Medicine 12/29/20 Venita Hannon Community Health Worker 04/01/24 Courtney Lindsay RN Cloth Spreader Screen Printing 04/01/24 documented as of this encounter
--- OUTSIDE RECORDS SUMMARY | 2025-10-16 11:51 | XMS_ITS | Clinical Summary ---
Author Organization [facility] Address [address] [place] [address] Care Team Providers Care Science Interpreter Name Role Phone Unavailable Primary Care Provider [...]
--- OUTSIDE RECORDS SUMMARY | 2025-10-16 11:51 | XMS_ITS | Encounter Summary ---
Author Organization [employer] Address [address] [facility] [address] [address] Care Team Providers Care Tribal Delegate Name Role Phone Amber Love MD Primary Care Provider [phone] Venita Hannon Unavailable Courtney Lindsay RN Unavailable Unavailable Encounter Details Date Type Department Care Team ([facility] Contact Info) Description 10/16/2022 Telephone [facility] MEDICINE 230 [place] [address] Amber Love MD 505 [place] [address] Social History Tobacco Use Types Packs/Day Years [...] Upcoming Encounters Date Type Department Care Team ([facility] Contact Info) Description 10/21/2025 3:30 PM EST Office Visit [facility] MED & PEDS 505 [place] [address] Amber Love MD 505 [place] [address] 12/02/2025 3:15 PM EST Clinical Support [facility] MED & PEDS [address] [place] [address] Perlita Candelario, PETE 505 [place] [address] documented as of this encounter Visit Diagnoses Not on filedocumented in this encounter Care Teams Tribal Delegate Relationship Specialty Start Date End Date Amber Love MD [address] [place] [address] PCP - General Family Medicine 12/29/20 Venita Hannon Community Health Worker 04/01/24 Courtney Lindsay RN Education Adviser 04/01/24 documented as of this encounter
--- OUTSIDE RECORDS SUMMARY | 2025-10-16 11:51 | XMS_ITS | Encounter Summary ---
Author Organization [employer] Address [address] [facility] [address] 7t [place] [address] Care Team Providers Care Cellular Biologist Name Role Phone Amber Love MD Primary Care Provider [phone] Venita Hannon Unavailable Courtney Lindsay RN Unavailable Unavailable Reason for Visit * Reason Onset Date Comments ER Follow-up 10/02/2025 Encounter Details Date Type Department Care Team (Late st Contact Info) Description 10/02/2025 Telephone [facility] MEDICINE 230 [place] [address] Amber Love MD [address] [place], [place] [phone] ER Follow-up Social History Tobacco Use Types Packs/Day Years [...] encounter Miscellaneous Notes * Telephone Encounter - Viridiana Trevino RN - 10/05/2025 9:33 AM EST Called pt to triage, spoke to pt through [employer] Associate. Pt seen 10/01 at [facility] ER for headache, dizziness, and nausea. Pt states needs urgent referral to Rheumatology. Given appointment with PCP Sunday at 9:45 for exam and possible referral. Advised to follow ER discharge instructions and call back as needed. Pt understands and agrees with plan. * Telephone Encounter - Jemma Barksdale - 10/02/2025 1:59 PM EST Patient calling to report ED visit on : Date: 10/01 Hospital: [facility] Seen for: Stroke Symptomatic No *if yes message should go to Triage Patient advised will forward to team nurse for follow up documented in this encounter Plan of Treatment Upcoming Encounters Date Type Department Care Team (Late st Contact Info) Description 10/21/2025 3:30 PM EST Office Visit [facility] MED & PEDS 505 [place] [address] Amber Love MD 505 [place] [address] 12/02/2025 3:15 PM EST Clinical Support [facility] MED & PEDS 505 [place] [address] Perlita Candelario RN 505 [place], [place] [phone] documented as of this encounter Visit Diagnoses Not on filedocumented in this encounter Additional Health Concerns Assessment Noted Time PHQ-9 Depression Total Score: 2 01/13/20 23 9:40 AM EDT documented as of this encounter Care Teams Cellular Biologist Relationship Specialty Start Date End Date Amber Love MD [address] [place] [address] PCP - General Family Medicine 12/29/20 Venita Hannon Community Health Worker 04/01/24 Courtney Lindsay, PETE Interior Painter 04/01/24 documented as of this encounter
--- OUTSIDE RECORDS SUMMARY | 2025-10-16 11:51 | XMS_ITS | Encounter Summary ---
Author Organization [employer] Address [address] [facility] [address] 7[address] [place] [address] Care Team Providers Care Process Development Technician Name Role Phone Amber Love MD Primary Care Provider [phone] Venita Hannon Unavailable Courtney Lindsay RN Unavailable Unavailable Reason for Visit * Reason Onset Date Comments Med Refill 09/17/2023 Encounter Details Date Type Department Care Team (Late st Contact Info) Description 09/17/2023 Telephone [facility] 230 [place] [address] Amber Love MD [address] [place], [place] [phone] Med Refill Social History Tobacco Use Types [...] Office Visit [facility] MED & PEDS [address] [place] [address] Amber Love MD 505 [place] [address] 12/02/2025 3:15 PM EST Clinical Support [facility] MED & PEDS [address] [place] [address] Perlita Candelario RN 505 [place] [address] documented as of this encounter Visit Diagnoses Not on filedocumented in this encounter Additional Health Concerns Assessment Noted Time PHQ-9 Depression Total Score: 2 01/13/20 23 9:40 AM EDT documented as of this encounter Care Teams Process Development Technician Relationship Specialty Start Date End Date Amber Love MD 230 [place] [address] PCP - General Family Medicine 12/29/20 Venita Hannon Community Health Worker 04/01/24 Courtney Lindsay, PETE Ice Bag Assembler 04/01/24 documented as of this encounter
--- OUTSIDE RECORDS SUMMARY | 2025-10-16 11:51 | XMS_ITS | Encounter Summary ---
Author Organization [employer] Address [address] [facility] [facility] [address] [place] [address] Care Team Providers Care Compacting Machine Operator/Tender Name Role Phone Amber Love MD Primary Care Provider [phone] Venita Hannon Unavailable Courtney Lindsay RN Unavailable Unavailable Reason for Visit * Reason Onset Date Comments Med Refill 08/20/2024 Encounter Details Date Type Department Care Team ([facility] st Contact Info) Description 08/20/2024 Telephone [facility] MED & PEDS [address] [place], [place] [phone] Amber Love MD 505 [place], [place] [phone] Med Refill Social History Tobacco Use Types [...] 5-325 MG tablet To be sent to: [facility] [place] [place] - [address] [facility] documented in this encounter Plan of Treatment Upcoming Encounters Date Type Department Care Team (Late st Contact Info) Description 10/21/2025 3:30 PM EST Office Visit [facility] MED & PEDS [address] [place] [address] Amber Love MD [address] [place] [address] 12/02/2025 3:15 PM EST Clinical Support [facility] MED & PEDS [address] [place] [address] Perlita Candelario RN 505 [place] [address] documented as of this encounter Visit Diagnoses Not on filedocumented in this encounter Additional Health Concerns Assessment Noted Time PHQ-9 Depression Total Score: 2 01/13/20 23 9:40 AM EDT documented as of this encounter Care Teams Compacting Machine Operator/Tender Relationship Specialty Start Date End Date Amber Love MD 230 [place] [address] PCP - General Family Medicine 12/29/20 Venita Hannon Community Health Worker 04/01/24 Courtney Lindsay RN Industrial Gas Servicer 04/01/24 documented as of this encounter
--- OUTSIDE RECORDS SUMMARY | 2025-10-16 11:51 | XMS_ITS | Encounter Summary ---
Author Organization [employer] Address [address] [facility] 7 [place] [address] Care Team Providers Care Cigarette Book Maker Name Role Phone Amber Love MD Primary Care Provider [phone] Venita Hannon Unavailable Courtney Lindsay RN Unavailable Unavailable Reason for Visit * Reason Comments Med Refill Encounter Details Date Type Department Care Team (Late st Contact Info) Description 12/31/2024 Refill [facility] [address] [place] [address] Haile Miner MD 505 [place], [place] [phone] Polyarthralgia Social History Tobacco Use Types Packs/Day [...] the past 12 months, has t he [employer], gas, oil or water company threatened to [...] 10/21/2025 3:30 PM EST Office Visit [facility] [address] [place] [address] Amber Love MD 505 [place] [address] 12/02/2025 3:15 PM EST Clinical Support [facility] [address] [place] [address] Perlita Candelario, PETE 505 [place] [address] documented as of this encounter Visit Diagnoses Diagnosis Polyarthralgia Pain in joint, multiple sites documented in this encounter Additional Health Concerns Assessment Noted Time PHQ-9 Depression Total Score: 2 01/13/20 23 9:40 AM EDT documented as of this encounter Care Teams Cigarette Book Maker Relationship Specialty Start Date End Date Amber Love MD [address] [place] [address] PCP - General Family Medicine 12/29/20 Venita Hannon Community Health Worker 04/01/24 Courtney Lindsay RN Facilities Maintenance Supervisor 04/01/24 documented as of this encounter
== END 2025-10-16 10:23 | disposition home or self-care (01) ==
LOC: HO.US 10:22
PROVIDERS: PCP Family Medicine; Visit Provider Surgery Vascular Surgery
DX: I83.11 Varicose veins of right lower extremity with inflammation (principal)
CPT/HCPCS: 93970

== ENCOUNTER → 2025-10-16 10:24 | Outpatient (BNV) | payer MEDICAID, SELFPAY | PROVIDERS: PCP Family Medicine; Visit Provider Radiology Diagnostic Radiology | DX: I83.11 Varicose veins of right lower extremity with inflammation (principal) | CPT/HCPCS: 93970 ==

== ENCOUNTER 2025-10-21 14:03 | Outpatient (REF) | payer MEDICAID, SELFPAY ==
--- OUTSIDE RECORDS SUMMARY | 2025-10-15 23:59 | XMS_ITS | Continuity of Care Document ---
Author Organization [facility] Address [address] [place] [address]- Support Name Relationship Address Phone SERA MEEHAN Personal Relationship Unknown Unavai lable RESENDIZ, ALEX spouse Unknown Unavailable SERA MEEHAN Personal Relationship Unknown Unavai lable [facility] [id number] Date(s): 09/15/25 - 10/15/[address] [address]- Encounter Type: Triage Allergies, Adverse Reactions, Alerts Substance Criticality Severity Reaction Reaction Severity Status aspirin throat closed up Act damaris Latex blisters rash Active Contrast Dye Active Immunizations Given and Recorded Vaccine Date Status Refusal Reason pneumococcal 23-valent vaccine 11/24/17 Given influenza virus vaccine, inactivated 11/24/17 Give n Medications acetaminophen-oxyCODONE 325 mg-5 mg oral tablet 112 each, 0 Refill(s), TAKE 1 TABLET BY MOUTH EVERY 6 HOURS NEEDED FOR SEVERE PAIN, Refills 0, 09/17/25 8:12:00 AM EST, Partial fill upon patient request if the prescription is for a schedule II opioid drug. Start Date: 09/17/25 Status: Ordered Medication Dispense Status: Completed Total Allowed Fills: 1 Fills Dispensed: 0 Advair HFA 115 mcg / 21 mcg 12 Gm, 0 Refill(s), INHALE DANDO DOS SOPLIDOS CADA DOCE HORAS, 0 Refills, 09/17/25 8:11:00 AM EST, Partial fill upon patient request if the prescription is for a schedule II opioid drug. Start Date: 09/17/25 Status: Ordered Medication Dispense Status: Completed Total Allowed Fills: 1 Fills Dispensed: 0 amitriptyline 50 mg oral tablet 1 tablet = 50 mg, By Mouth, Daily at bedtime, TAKE 1 TABLET BY MOUTH AT BEDTIME, # 30 tablet, 5 Refills, Maintenance, 02/07/24 11:12:00 AM EDT, Tablet, [id number], Partial fill upon patient request if the prescription is for a schedule II opioid drug., 158, cm, 02/07/24 11:06:00 EDT, Height,71.4, kg, 03/23/23 11:18:00 EDT, Dry Weight Start Date: 02/07/24 Stop Date: 08/05/24 Status: Ordered Medication Dispense Status: Completed Quantity: 30.0 Unit: tablet Total Allowed Fills: 6 Fills Dispensed: 0 cholecalciferol 2000 intl units oral capsule 0 Refill(s), 0 Refills, 09/17/25 8:11:00 AM EST, Partial fill upon patient request if the prescription is for a schedule II opioid drug. Start Date: 09/17/25 Status: Ordered Medication Dispense Status: Completed Total Allowed Fills: 1 Fills Dispensed: 0 colestipol 1 gm oral tablet 2 tablet = 2 Gm, By Mouth, 2 times a day, Elementary School Teacher other meds at least 1 hour before or 4 hours after colestipol, # 120 tablet, 2 Refills, Maintenance, 08/10/25 9:47:00 AM EDT, Tablet, [facility] #[id number], Partial fill upon patient request if the prescription is for a schedule II opioid drug., 157, cm,07/14/25 9:45:00 EDT, Height, 70.5, kg, 07/24/24 23:13:00 EDT, Dry Weight Start Date: 08/10/25 Stop Date: 11/08/25 Status: Ordered Medication Dispense Status: Completed Quantity: 120.0 Unit: tablet Total Allowed Fills: 3 Fills Dispensed: 0 D3 50 mcg (2000 intl units) oral capsule TAKE 1 CAPSULE BY MOUTH EVERY DAY Start Date: 11/10/22 Status: Ordered Medication Dispense Status: Completed Total Allowed Fills: 1 Fills Dispensed: 0 diphenhydrAMINE 25 mg oral capsule 30 each, 0 Refill(s), TAKE 1 CAPSULE BY MOUTH EVERY 8 HOURS NEEDED FOR ITCHING, 0 Refills, 09/17/25 8:12:00 AM EST, Partial fill upon patient request if the prescription is for a schedule II opioid drug. Start Date: 09/17/25 Status: Ordered Medication Dispense Status: Completed Total Allowed Fills: 1 Fills Dispensed: 0 gabapentin 600 mg oral tablet TAKE 1 TABLET BY MOUTH TWO TIMES DAILY Start Date: 11/10/22 Status: Ordered Medication Dispense Status: Completed Total Allowed Fills: 1 Fills Dispensed: 0 omeprazole 40 mg oral enteric coated capsule 1 capsule = 40 mg, By Mouth, Daily, # 90 capsule, 2 Refills, Maintenance, 01/19/23 2:35:00 PM EDT, EC Capsule, [id number], Partial fill upon patient request if the prescription is for a schedule II opioid drug., 158, cm, 01/05/23 13:41:00 EST, Height, 66.3, kg, 12/06/22 19:57:00 EST, Dry Weight Start Date: 01/19/23 Status: Ordered Medication Dispense Status: Completed Quantity: 90.0 Unit: capsule Total Allowed Fills: 3 Fills Dispensed: 0 Oxycodone See Instructions, By Mouth, 0 Refills, Maintenance, 01/20/25 10:07:00 AM EDT, Partial fill upon patient request if the prescription is for a schedule II opioid drug. Start Date: 01/20/25 Status: Ordered Medication Dispense Status: Completed Total Allowed Fills: 1 Fills Dispensed: 0 pravastatin 10 mg oral tablet TAKE 1 TABLET BY MOUTH EVERY DAY Start Date: 11/10/22 Status: Ordered Medication Dispense Status: Completed Total Allowed Fills: 1 Fills Dispensed: 0 Readi-Cat 2 Smoothie Huynh 2% oral suspension See Instructions, 450ml po [address] scan, 450ml po [address] scan, # 2 each, 0 Refills, Maintenance, 11/20/24 1:57:00 PM EST, [id number], Partial fill upon patient request if the prescription is for a schedule II opioid drug., 450ml po [address] scan, 450ml po [address] scan, 157, cm, 11/20/24 13:29:00 EST, Height, 70.5, kg, 07/24/24 23:13:00 EDT, Dry Weight Start Date: 11/20/24 Status: Ordered Medication Dispense Status: Completed Quantity: 2.0 Unit: each Total Allowed Fills: 1 Fills Dispensed: 0 Problem List Condition Confirmation Course Effective Dates Status Health St atus Informant 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 Acquired blindness Confirmed Active Burning epigastric pain Confirmed Active Celiac sprue Confirmed Active Chest wall pain 1 Confirmed Active Diagnostic colonoscopy Confirmed Active History of cancer of left breast; pT1B, pN0, stage I infiltrating ductal carcinoma, lower inner quadrant, ER positive, VT positive, HER-2/jese negative Confirmed 2013 Active Local recurrence of cancer of left breast; Left breast cancer recurrence along the mastectomy incision, invasive ductal carcinoma, estrogen receptor positive, progesterone receptor negative, HER-2/jese negative, Confirmed 2018 Active Uses Yoruba as primary spoken language Confirmed Active History of Breast cancer, Left, IDC, pT1B, pN0, stage I, ER positive, VT positive, HER-2/jese negative.2013 Confirmed Active Odynophagia Confirmed Active Pain of right breast Confirmed Active Tobacco dependence Confirmed Active 1After heavy lifting Social History Social History Type Response Sexual Sexually involved in last 6 months: Yes. Tobacco Use: 4 or less cigar ettes(less than 1/4 pack)/day in last 30 days. Other: Started Smoking again since 09/2023. Sex Sex Representation Female (finding) Patient Care team information Care Team Personnel Name: Shanel Vega Position: [facility] Onco RN Member Role: Primary Care Nurse Name: Tessa Zuniga RN Position: [facility] RN Member Role: Primary Care Nurse Name: Becca Ely RN Position: [facility] RN Member Role: Primary Care Nurse Name: Anastasiia Lassiter RN Position: [facility] RN Supv Member Role: Primary Care Nurse Name: Antoinette Schulte RN Position: [facility] RN Member Role: Primary Care Nurse Name: Poornima Aguilar [place] Position: [facility] Outreach Member Role: Lifetime Consulting Physician Name: Charlene Campos RN Position: [facility] Outreach Member Role: Primary Care Nurse Care Team Related Persons Name: ALEX RESENDIZ Insurance Providers Guarantor name: SERA MEEHAN Health Plan Information #: 1 Payer: [employer] Payer Identifier: CARLIE Member Number: [id number] Group Number: [id number] Subscriber Identifier: NA Relationship to Subscriber: self Coverage Type: MEDICAID Coverage Verification Date: NA Telecom: NA Address: NA
--- OUTSIDE RECORDS SUMMARY | 2025-10-16 23:59 | XMS_ITS | Continuity of Care Document ---
Author Organization [facility] Address [address] [place] [address]- Support Name Relationship Address Phone SERA MEEHAN Personal Relationship Unknown Unavai lable RESENDIZ, ALEX spouse Unknown Unavailable SERA MEEHAN Personal Relationship Unknown Unavai lable [facility] [id number] Date(s): 09/15/25 - 10/16/[address] [address]- Attending Physician: Not on Staff, Attending MD Encounter Type: Pre-OutPatient One Time Allergies, Adverse Reactions, Alerts Substance Criticality Severity Reaction Reaction Severity Status aspirin throat closed up Act damaris Contrast Dye Active Latex blisters rash Active Immunizations Given [...] Refills, Maintenance, 02/07/24 11:12:00 AM EDT, Tablet, [facility]/pharmacy #[id number], Partial fill upon patient [...] Gm, By Mouth, 2 times a day, Crm Solution Architect other meds at least 1 hour before or 4 hours after colestipol, # 120 tablet, 2 Refills, Maintenance, 08/10/25 9:47:00 AM EDT, Tablet, 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 Confirmed 2013 Active Local recurrence of cancer of left breast; Left breast cancer recurrence along the mastectomy incision, invasive ductal carcinoma, estrogen receptor positive, progesterone receptor negative, HER-2/jese negative, Confirmed 2018 Active Uses Albanian as primary spoken language Confirmed Active History of Breast cancer, Left, IDC, pT1B, pN0, stage I, ER positive, SD positive, HER-2/jese negative.2013 Confirmed Active Odynophagia Confirmed [...] Care Team Personnel Name: Shanel Vega Position: [facility] Onco RN Member Role: Primary Care Nurse Name: Tessa Zuniga RN Position: [facility] RN Member Role: Primary Care Nurse Name: Becca Ely RN Position: [facility] RN Member Role: Primary Care Nurse Name: Anastasiia Lassiter RN Position: [facility] RN Supv Member Role: Primary Care Nurse Name: Antoinette Schulte RN Position: [facility] RN Member Role: Primary Care Nurse Name: Poornima Aguilar [place] Position: [facility] Outreach Member Role: Lifetime Consulting Physician Name: Charlene Campos RN Position: [facility] Outreach Member Role: Primary Care Nurse Care Team Related Persons Name: ALEX RESENDIZ Insurance Providers Guarantor name: SERA MEEHAN [facility] Plan Information #: 1 Payer: [employer] Payer Identifier: NA Member Number: [id number] Group Number: [id number] Subscriber Identifier: [id number] Relationship to Subscriber: self Coverage Type: MEDICAID Coverage Verification Date: NA Telecom: NA Address: NA
--- OUTSIDE RECORDS SUMMARY | 2025-10-21 13:45 | XMS_ITS | Encounter Summary ---
Author Organization [employer] Address [address] [facility] 7t [place] [address] Care Team Providers Care Transcriptionist Name Role Phone Amber Love MD Primary Care Provider [phone] Venita Hannon Unavailable Courtney Lindsay RN Unavailable Unavailable Reason for Referral * Imaging (Urgent) - Pending Review Specialty Diagnoses / Procedures Referred By Alejandro t Referred To Contact Radiology Diagnoses Localized swelling of head Procedures CT Head w/o Contrast Amber Love MD [address] [place] [address] Phone: tel: fax: Referral ID Status Reason Start Date Expiration Date V isits Requested Visits Authorized [id number] Pending Review 10/21/2025 10/21/2026 1 1 Encounter Details Date Type Department Care Team (Late st Contact Info) Description 10/21/2025 1:45 PM EST Office Visit [facility] [address] [place], [place] [phone] Amber Love MD [address] [place], [place] [phone] Localized swelling of head (Primary Dx); Postmenopausal bleeding; Rash Social History Tobacco Use Types Packs/Day Years [...] Sign Reading Time Taken Comments Blood Pressure 117/70 10/21/2025 1:25 PM EST Pulse 78 10/21/2025 1:25 PM EST Temperature 37.1 C (98.7 F) 10/21/2025 1:25 PM EST Respiratory Rate 20 10/21/2025 1:25 PM EST Oxygen Saturation 98% 10/21/2025 1:25 PM EST Inhaled Oxygen Concentration - - Weight 70.9 kg (156 lb 3.2 oz) 10/21/2025 1:25 P M EST Height 157.5 cm (5' 2 ) 10/21/2025 1:25 PM EST Body Mass Index 28.57 10/21/2025 1:25 PM EST documented in this encounter Plan of Treatment Upcoming Encounters Date Type Department Care Team (Late st Contact Info) Description 12/02/2025 3:15 PM EST Clinical Support [facility] MED & [facility]ED[facility] [address] [place] [address] Perlita Candelario, RN [address] [place] [address] Scheduled Orders Name Type Priority Associated Diagnoses Orde r Schedule CT Head w/o Contrast Imaging Urgent Localized swelling of head Expected: 10/21/2025, Expires: 10/21/2026 Complement Component C3c Lab Routine Rash Expected: 10/21/2025 (Approximate), Expires: 10/21/2026 CBC auto differential Lab Routine Rash Expected: 10/21/2025 (Approximate), Expires: 10/21/2026 ANGIE Screen,IFA, with Reflex to Titer and Pattern Lab Routine Rash Expected: 10/21/2025 (Approximate), Expires: 10/21/2026 DNA (ds) Antibody Lab Routine Rash Expected: 10/21/2025 (Approximate), Expires: 10/21/2026 DNA (ds) Antibody Lab Routine Rash Expected: 10/21/2025 (Approximate), Expires: 10/21/2026 Sjogrens syndrome-A extractable nuclear antibody Lab Routine Rash Expected: 10/21/2025 (Approximate), Expires: 10/21/2026 documented as of this encounter Visit Diagnoses Diagnosis Localized swelling of head- Primary Postmenopausal bleeding Rash Rash and other nonspecific skin eruption documented in this encounter Additional Health Concerns Assessment Noted Time PHQ-9 Depression Total Score: 4 10/09/20 25 9:42 AM EST documented as of this encounter Care Teams Transcriptionist Relationship Specialty Start Date End Date Amber Love MD [address] [place] [address] PCP - General Family Medicine 12/29/20 Venita Hannon Community Health Worker 04/01/24 Courtney Lindsay, PETE Registered Dietetic Technician 04/01/24 documented as of this encounter
--- OUTSIDE RECORDS SUMMARY | 2025-10-21 14:05 | XMS_ITS | Encounter Summary ---
Author Organization [employer] Address [address] [facility] [address] 7t [place] [address] Care Team Providers Care Fleet Operations Manager Name Role Phone Amber Love MD Primary Care Provider [phone] Venita Hannon Unavailable Courtney Lindsay RN Unavailable Unavailable Encounter Details Date Type Department Care Team (Late st Contact Info) Description 10/16/2025 Telephone [facility] MEDICINE [address] [place] [address] Amber Love MD [address] [place], [place] [phone] Social History Tobacco Use Types Packs/Day Years [...] states that the pt is currently at [facility] getting an US performed. Giovanni stated that this US in not being done in relation tothe pt reported swollen head and ongoing headache. Giovanni confirms that the pt was seen at [facility] yesterday but was discharged as they were waiting on data from [facility]. The pt was discharged with two medications and advised to follow up with PCP. RN advised that a ED F/U can be arranged but if the pt isstill symptomatic to try and be seen at [facility] ED since the pt was already there [...] ED visit on : Date: 10/16 Hospital: [facility] Seen for: swollen forehead /headache Symptomatic Yes Tc from pt stating pt got a surgery anatomy 40 years Please contact at [phone] documented in this encounter Plan of Treatment Upcoming Encounters Date Type Department Care Team (Late st Contact Info) Description 12/02/2025 3:15 PM EST Clinical Support [facility] [address] [place] [address] Perlita Candelario RN [address] [place] [address] documented as of this encounter Visit Diagnoses Not on filedocumented in this encounter Additional Health Concerns Assessment Noted Time PHQ-9 Depression Total Score: 4 10/09/20 25 9:42 AM EST documented as of this encounter Care Teams Fleet Operations Manager Relationship Specialty Start Date End Date Amber Love MD [address] [place] [address] PCP - General Family Medicine 12/29/20 Venita Hannon Community Health Worker 04/01/24 Courtney Lindsay RN Brimming Machine Operator 04/01/24 documented as of this encounter
--- OUTSIDE RECORDS SUMMARY | 2025-10-21 14:05 | XMS_ITS | Encounter Summary ---
Author Organization [employer] Address [address] [facility] [address] [address] 7[address] [place] [address] Care Team Providers Care Oil Developer Name Role Phone Amber Love MD Primary Care Provider [phone] Venita Hannon Unavailable Courtney Lindsay RN Unavailable Unavailable Reason for Visit * Reason Onset Date Comments ER Follow-up 10/02/2025 Encounter Details Date Type Department Care Team (Late st Contact Info) Description 10/02/2025 Telephone [facility] MED[facility]INE [address] [place] [address] Amber Love MD [address] [place], [place] [phone] ER Follow-up Social History Tobacco Use Types [...] pt to triage, spoke to pt through [employer]. Pt seen 10/01 at [facility] ER for headache, dizziness, and nausea. Pt [...] ED visit on : Date: 10/01 Hospital: [facility] Seen for: Stroke Symptomatic No *if yes message should go to Triage Patient advised will forward to team nurse for follow up documented in this encounter Plan of Treatment Upcoming Encounters Date Type Department Care Team (Late st Contact Info) Description 12/02/2025 3:15 PM EST Clinical Support [facility] MED & PEDS [address] [place] [address] Perlita Candelario, PETE 505 [place] [address] documented as of this encounter Visit Diagnoses Not on filedocumented in this encounter Additional Health Concerns Assessment Noted Time PHQ-9 Depression Total Score: 2 01/13/20 23 9:40 AM EDT documented as of this encounter Care Teams Oil Developer Relationship Specialty Start Date End Date Amber Love MD [address] [place] [address] PCP - General Family Medicine 12/29/20 Venita Hannon Community Health Worker 04/01/24 Courtney Lindsay, PETE Pole Incisor Operator 04/01/24 documented as of this encounter
--- OUTSIDE RECORDS SUMMARY | 2025-10-21 14:05 | XMS_ITS | Encounter Summary ---
Author Organization [employer] Address [address] [facility] [address] [place] [address] Care Team Providers Care Summer Babysitter Name Role Phone Amber Love MD Primary Care Provider [phone] Venita Hannon Unavailable Courtney Lindsay RN Unavailable Unavailable Reason for Visit * Reason Onset Date Comments Appointment Request 03/27/2023 Med Refill 03/27/2023 Encounter Details Date Type Department Care Team (Late st Contact Info) Description 03/27/[address] [facility] MEDICINE [address] [place] [address] Amber Love MD [address] [place], [place] [phone] Appointment Request; Med Refill Social History Tobacco [...] immediate release tablet please send to [facility] pharmacy * Telephone Encounter - Dorita Hannon - 03/27/2023 9:17 AM EDT Tc from pt spouse requesting to r/s 03/23/23 CTS appt. documented in this encounter Plan of Treatment Upcoming Encounters Date Type Department Care Team (Late st Contact Info) Description 12/02/2025 3:15 PM EST Clinical Support [facility] MED & PEDS [address] [place] [address] Perlita Candelario RN [address] [place] [address] documented as of this encounter Visit Diagnoses Not on filedocumented in this encounter Additional Health Concerns Assessment Noted Time PHQ-9 Depression Total Score: 2 01/13/20 23 9:40 AM EDT documented as of this encounter Care Teams Summer Babysitter Relationship Specialty Start Date End Date Amber Love MD [address] [place] [address] PCP - General Family Medicine 12/29/20 Venita Hannon Community Health Worker 04/01/24 Courtney Lindsay RN Supervisor Body Assembly 04/01/24 documented as of this encounter
--- OUTSIDE RECORDS SUMMARY | 2025-10-21 14:05 | XMS_ITS | Encounter Summary ---
Author Organization [employer] Address [address] [facility] [address] [facility] [address] 7[address] [place] [address] Care Team Providers Care Robotic Machine Tender Production Name Role Phone Amber Love MD Primary Care Provider Venita Hannon Unavailable Courtney Lindsay RN Unavailable Unavailable Reason for Visit * Reason Onset Date Comments Med Refill 08/20/2024 Encounter Details Date Type Department Care Team ([facility] st Contact Info) Description 08/20/2024 Telephone [facility] MED & PEDS [address] [place], [place] [phone] Abmer Love MD [address] [place], [place] [phone] Med Refill Social History Tobacco Use Types [...] 5-325 MG tablet To be sent to: [facility] [place] [place] - [address] [facility] documented in this encounter Plan of Treatment Upcoming Encounters Date Type Department Care Team (Late st Contact Info) Description 12/02/2025 3:15 PM EST Clinical Support [facility] MED & PEDS [address] [place] [address] Perlita Candelario, PETE [address] [place] [address] documented as of this encounter Visit Diagnoses Not on filedocumented in this encounter Additional Health Concerns Assessment Noted Time PHQ-9 Depression Total Score: 2 01/13/20 23 9:40 AM EDT documented as of this encounter Care Teams Robotic Machine Tender Production Relationship Specialty Start Date End Date Amber Love MD [address] [place] [address] PCP - General Family Medicine 12/29/20 Venita Hannon Community Health Worker 04/01/24 Courtney Lindsay RN Manager Stone 04/01/24 documented as of this encounter
--- OUTSIDE RECORDS SUMMARY | 2025-10-21 14:05 | XMS_ITS | Encounter Summary ---
Author Organization [employer] Address [address] [facility] [address] [place] [address] Care Team Providers Care First Assistant Manager Name Role Phone Amber Love MD Primary Care Provider [phone] Venita Hannon Unavailable Courtney Lindsay RN Unavailable Unavailable Reason for Visit * Reason Onset Date Comments Med Refill 09/21/2025 Encounter Details Date Type Department Care Team ([facility] st Contact Info) Description 09/21/2025 Telephone [facility] MED & PEDS [address] [place], [place] [phone] Amber Love MD 505 [place], [place] [phone] Med Refill Social History Tobacco Use Types [...] 5-325 MG tablet To be sent to: [facility] [place], [place] - [address] [facility] documented in this encounter Plan of Treatment Upcoming Encounters Date Type Department Care Team (Late st Contact Info) Description 12/02/2025 3:15 PM EST Clinical Support [facility] MED [facility]EDS [address] [place] [address] Perlita Candelario, RN [address] [place] [address] documented as of this encounter Visit Diagnoses Not on filedocumented in this encounter Additional Health Concerns Assessment Noted Time PHQ-9 Depression Total Score: 2 01/13/20 23 9:40 AM EDT documented as of this encounter Care Teams First Assistant Manager Relationship Specialty Start Date End Date Amber Love MD [address] [place] [address] PCP - General Family Medicine 12/29/20 Venita Hannon Community Health Worker 04/01/24 Courtney Lindsay RN Plc Technician 04/01/24 documented as of this encounter
--- OUTSIDE RECORDS SUMMARY | 2025-10-21 14:05 | XMS_ITS | Encounter Summary ---
Author Organization [employer] Address [address] [facility] [address] [place] [address] Care Team Providers Care Sink Maker Name Role Phone Amber Love MD Primary Care Provider [phone] Venita Hannon Unavailable Courtney Lindsay RN Unavailable Unavailable Reason for Visit * Reason Comments Med Refill Encounter Details Date Type Department Care Team ([facility] st Contact Info) Description 07/30/2024 Refill [facility] MED & PEDS [address] [place] [address] Amber Love MD [address] [place] [address] Social History Tobacco Use Types Packs/Day Years [...] Description 12/02/2025 3:15 PM EST Clinical Support [facility] MED & PEDS [address] [place] [address] Perlita Candelario RN [address] [place] [address] documented as of this encounter Visit Diagnoses Not on filedocumented in this encounter Additional Health Concerns Assessment Noted Time PHQ-9 Depression Total Score: 2 01/13/20 23 9:40 AM EDT documented as of this encounter Care Teams Sink Maker Relationship Specialty Start Date End Date Amber Love MD [address] [place] [address] PCP - General Family Medicine 12/29/20 Venita Hannon Community Health Worker 04/01/24 Courtney Lindsay RN Supervisor Stripping 04/01/24 documented as of this encounter
--- OUTSIDE RECORDS SUMMARY | 2025-10-21 14:05 | XMS_ITS | Encounter Summary ---
Author Organization [employer] Address [address] [facility] [address] [place] [address] Care Team Providers Care Pastry Cook Apprentice Name Role Phone Amber Love MD Primary Care Provider [phone] Venita Hannon Unavailable Courtney Lindsay RN Unavailable Unavailable Reason for Visit * Reason Comments Med Refill Encounter Details Date Type Department Care Team ([facility] st Contact Info) Description 12/27/2022 Refill [facility] MED & PEDS [address] [place], [place] [phone] Amber Love MD [address] [place], [place] [phone] Chronic back pain, unspecified back location, unspecified [...] Description 12/02/2025 3:15 PM EST Clinical Support [facility] PEDS [address] [place] [address] Perlita Candelario RN [address] [place] [address] documented as of this encounter Visit Diagnoses Diagnosis Chronic back pain, unspecified back location, unspecified back pain laterality documented in this encounter Care Teams Pastry Cook Apprentice Relationship Specialty Start Date End Date Amber Love MD [address] [place] [address] PCP - General Family Medicine 12/29/20 Venita Hannon Community Health Worker 04/01/24 Courtney Lindsay RN Makeup Sales Advisor 04/01/24 documented as of this encounter
--- OUTSIDE RECORDS SUMMARY | 2025-10-21 14:05 | XMS_ITS | Encounter Summary ---
Author Organization [employer] Address [address] 7t [place] [address] Care Team Providers Care Pastry Cook Name Role Phone Amber Love MD Primary Care Provider [phone] Venita Hannon Unavailable Courtney Lindsay RN Unavailable Unavailable Reason for Visit * Reason Onset Date Comments F follow up 03/29/2023 Encounter Details Date Type Department Care Team (Late st Contact Info) Description 03/29/2023 Telephone [facility] MEDICINE 230 [place] [address] Amber Love MD [address] [place], [place] [phone] HDF follow up Social History Tobacco Use [...] - 03/29/2023 3:15 PM EDT TC from [place] stated pt received a Call today to schedule a Hdf follow up. PCP DR. Love documented in this encounter Plan of Treatment Upcoming Encounters Date Type Department Care Team ([facility] st Contact Info) Description 12/02/2025 3:15 PM EST Clinical Support [facility] MED & PEDS 505 [place] [address] Perlita Candelario, PETE 505 [place] [address] documented as of this encounter Visit Diagnoses Not on filedocumented in this encounter Additional Health Concerns Assessment Noted Time PHQ-9 Depression Total Score: 2 01/13/20 23 9:40 AM EDT documented as of this encounter Care Teams Pastry Cook Relationship Specialty Start Date End Date Amber Love MD 230 [place] [address] PCP - General Family Medicine 12/29/20 Venita Hannon Community Health Worker 04/01/24 Courtney Lindsay, PETE Director Of Software Engineering 04/01/24 documented as of this encounter
--- OUTSIDE RECORDS SUMMARY | 2025-10-21 14:06 | XMS_ITS | Data Portability ---
Author Organization [place] - [facility], Allergy Address [address] [address] Assessment Encounter Date Assessment Date Assessment LastModified [...] Address Organization Details Recorded Time Chronic sialadenitis [id number] Active 2023 HANS OCONNOR MD [address] [place] [address], [place], [phone], [facility] 4 12:14:37 Problem Notes None recorded. Medical [...] Updated DateTime 08/29/2024 157.48 cm 27.8 kg/m2 11033.04 g Debbi Bragg [place] - [facility] 08/29/2024 11:14:22 Social History None recorded. Functional [...] - Angie Hannon Date of - 1960 [facility] - [id number] Date of Service - 02/22/2024 [...] ICD10 Code Diagnosis IMO Codes Diagnosis Note [id number] HANS OCONNOR MD [facility] [address] [place] [address] 08/29/2024 11:02:14 08/29/2024 12:22:02 Chronic sialadenitis 072453998 K11.23 Tobacco user 924584139 Z 72.0 Health Concerns Section Related Observation LastModified by Organization Detai ls LastModified Time None Recorded Concern Status LastModified by Organization Details LastModified Time None Recorded Advance Directives Directive None Recorded Payers Insurance Date Sequence Insurance Name Policy Number Policy Aviles Covered Member ID Aviles Member ID Guarantor Name 08/29/2024 1 [place] [facility] Angie Hannon [id number] Angie Parvez Notes Date Note Type Note Provider Name and Address Organization Details Recorded Time 08/29/2024 text/html ROS as noted in the HPI Patient reports that swelling is worse since her last visit. Has done a lot testing. Drinking more water. Still smoking. Gave chantix yesterday. The nail making machine setter did a lot of blood work and [...] without any acute abnormality. HANS OCONNOR MD [address] [place] [address], [place], [address], [facility] - [facility] 08/29/2024 12:15:58 OBGyn Episode No OBEpisode recorded.
--- OUTSIDE RECORDS SUMMARY | 2025-10-21 14:06 | XMS_ITS | Encounter Summary ---
Author Organization [employer] Address [address] 7t [place] [address] Care Team Providers Care Programmer Analyst Health It Name Role Phone Amber Love MD Primary Care Provider [phone] Venita Hannon Unavailable Courtney Lindsay RN Unavailable Unavailable Encounter Details Date Type Department Care Team (Late st Contact Info) Description 09/13/2023 Abstract [facility] MEDICINE [address] [place] [address] Amber Love MD [address] [place], [place] [phone] Social History Tobacco Use Types Packs/Day Years [...] Description 12/02/2025 3:15 PM EST Clinical Support [facility] MED & PEDS 505 [place] [address] Perlita Candelario RN 505 [place] [address] documented as of this encounter Visit Diagnoses Not on filedocumented in this encounter Additional Health Concerns Assessment Noted Time PHQ-9 Depression Total Score: 2 01/13/20 23 9:40 AM EDT documented as of this encounter Care Teams Programmer Analyst Health It Relationship Specialty Start Date End Date Amber Love MD 230 [place] [address] PCP - General Family Medicine 12/29/20 Venita Hannon Community Health Worker 04/01/24 Courtney Lindsay RN Scowman 04/01/24 documented as of this encounter
--- OUTSIDE RECORDS SUMMARY | 2025-10-21 14:06 | XMS_ITS | Encounter Summary ---
Author Organization [employer] Address [address] 7[address] [place] [address] Care Team Providers Care Gluer And Wedger Name Role Phone Amber Love MD Primary Care Provider [phone] Venita Hannon Unavailable Courtney Lindsay RN Unavailable Unavailable Encounter Details Date Type Department Care Team ([facility] Contact Info) Description 10/20/2025 Telephone [facility] CHC MED & PEDS 505 [place], [place] [phone] Amber Love MD 505 [place], [place] [phone] Social History Tobacco Use Types Packs/Day Years [...] Description 12/02/2025 3:15 PM EST Clinical Support [facility] CHC MED & PEDS 505 [place] [address] Perlita Candelario RN 505 [place] [address] documented as of this encounter Visit Diagnoses Not on filedocumented in this encounter Additional Health Concerns Assessment Noted Time PHQ-9 Depression Total Score: 4 10/09/20 25 9:42 AM EST documented as of this encounter Care Teams Gluer And Wedger Relationship Specialty Start Date End Date Amber Love MD 230 [place] [address] PCP - General Family Medicine 12/29/20 Venita Hannon Community Health Worker 04/01/24 Courtney Lindsay RN Pediatric Nurse Practitioner 04/01/24 documented as of this encounter
--- OUTSIDE RECORDS SUMMARY | 2025-10-21 14:06 | XMS_ITS | Encounter Summary ---
Author Organization [employer] Address [address] [facility] 7 [place] [address] Care Team Providers Care Fisher Trap Name Role Phone Amber Love MD Primary Care Provider [phone] Venita Hannon Unavailable Courtney Lindsay RN Unavailable Unavailable Reason for Visit * Reason Comments Med Refill Encounter Details Date Type Department Care Team (Late st Contact Info) Description 12/31/2024 Refill [facility] MEDICINE 230 [place] [address] Haile Miner MD 505 [place], [place] [phone] Polyarthralgia Social History Tobacco Use Types Packs/Day [...] Description 12/02/2025 3:15 PM EST Clinical Support [facility] MED & PEDS 505 [place] [address] Perlita Candelario RN 505 [place] [address] documented as of this encounter Visit Diagnoses Diagnosis Polyarthralgia Pain in joint, multiple sites documented in this encounter Additional Health Concerns Assessment Noted Time PHQ-9 Depression Total Score: 2 01/13/20 23 9:40 AM EDT documented as of this encounter Care Teams Fisher Trap Relationship Specialty Start Date End Date Amber Love MD 230 [place] [address] PCP - General Family Medicine 12/29/20 Venita Hannon Community Health Worker 04/01/24 Courtney Lindsay RN Armhole Presser 04/01/24 documented as of this encounter
--- OUTSIDE RECORDS SUMMARY | 2025-10-21 14:06 | XMS_ITS | Encounter Summary ---
Author Organization [employer] Address [address] 7t [place] [address] Care Team Providers Care Promotions Intern Name Role Phone Amber Love MD Primary Care Provider [phone] Venita Hannon Unavailable Courtney Lindsay RN Unavailable Unavailable Reason for Visit * Reason Onset Date Comments Med Refill 10/19/2025 Encounter Details Date Type Department Care Team (Late st Contact Info) Description 10/19/2025 Refill [facility] CHC MED & PEDS 505 [place] [address] Amber Love MD 505 [place], [place] [phone] Polyarthralgia Social History Tobacco Use Types Packs/Day [...] * Telephone Encounter - Luis Colby - 10/19/2025 8:56 AM EST TC from pt requesting medication refill. Medications needing refill : oxyCODONE-acetaminophen (Percocet) 5-325 MG tablet To be sent to: [facility] - [place], [place] - [address] [facility] documented in this encounter Plan of Treatment Upcoming Encounters Date Type Department Care Team ([facility] st Contact Info) Description 12/02/2025 3:15 PM EST Clinical Support [facility] MED & PEDS 505 [place] [address] Perlita Candelario, RN 505 [place] [address] documented as of this encounter Visit Diagnoses Diagnosis Polyarthralgia Pain in joint, multiple sites documented in this encounter Additional Health Concerns Assessment Noted Time PHQ-9 Depression Total Score: 4 10/09/20 25 9:42 AM EST documented as of this encounter Care Teams Promotions Intern Relationship Specialty Start Date End Date Amber Love MD 230 [place] [address] PCP - General Family Medicine 12/29/20 Venita Hannon Community Health Worker 04/01/24 Courtney Lindsay RN Automatic Brine Mixer Operator 04/01/24 documented as of this encounter
--- OUTSIDE RECORDS SUMMARY | 2025-10-21 14:06 | XMS_ITS | Encounter Summary ---
Author Organization [employer] Address [address] [facility] 7t [place] [address] Care Team Providers Care Dehydrator Tender Name Role Phone Amber Love MD Primary Care Provider [phone] Venita Hannon Unavailable Courtney Lindsay RN Unavailable Unavailable Encounter Details Date Type Department Care Team (Latest Contact Info) Description 08/22/2019 Abstract [facility] CONVERSIONS Dental, Provider, DDS Social [...] Care Team ( st Contact Info) Description 12/02/2025 3:15 PM EST Clinical Support [facility] CHC MED & PEDS 505 [place] [address] Perlita Candelario, RN 505 [place] [address] documented as of this encounter Visit Diagnoses Not on filedocumented in this encounter Care Teams Dehydrator Tender Relationship Specialty Start Date End Date Amber Love MD 230 [place] [address] PCP - General Family Medicine 12/29/20 Venita Hannon Community Health Worker 04/01/24 Courtney Lindsay, PETE Resource Conservationist 04/01/24 documented as of this encounter
--- OUTSIDE RECORDS SUMMARY | 2025-10-21 14:06 | XMS_ITS | Encounter Summary ---
Author Organization [employer] Address [address] [facility] 7t [place] [address] Care Team Providers Care Outsole Rounder Name Role Phone Amber Love MD Primary Care Provider [phone] Venita Hannon Unavailable Courtney Lindsay RN Unavailable Unavailable Reason for Visit * Reason Comments Med Refill Encounter Details Date Type Department Care Team (Late Contact Info) Description 06/25/2023 Refill [facility] CHC MED & PEDS 505 [place] [address] Amber Love MD 505 [place] [address] Heartburn; Mixed hyperlipidemia; Constipation, unspecified constipation type [...] Upcoming Encounters Date Type Department Care Team ([facility] Contact Info) Description 12/02/2025 3:15 PM EST Clinical Support [facility] CHC MED & PEDS [address] [place] [address] Perlita Candelario, PETE [address] [place] [address] documented as of this encounter Visit Diagnoses Diagnosis Heartburn Mixed hyperlipidemia Constipation, unspecified constipation type documented in this encounter Additional Health Concerns Assessment Noted Time PHQ-9 Depression Total Score: 2 01/13/20 23 9:40 AM EDT documented as of this encounter Care Teams Outsole Rounder Relationship Specialty Start Date End Date Amber Love MD 230 [place] [address] PCP - General Family Medicine 12/29/20 Venita Hannon Community Health Worker 04/01/24 Courtney Lindsay RN National Van Owner Operator 04/01/24 documented as of this encounter
--- OUTSIDE RECORDS SUMMARY | 2025-10-21 14:06 | XMS_ITS | Encounter Summary ---
Author Organization [employer] Address [address] 7t [place] [address] Care Team Providers Care Coarse Wire Drawer Name Role Phone Amber Love MD Primary Care Provider [phone] Venita Hannon Unavailable Courtney Lindsay RN Unavailable Unavailable Encounter Details Date Type Department Care Team (Latest Contact Info) Description 10/21/2025 Travel Social History Tobacco Use Types Packs/Day [...] Description 12/02/2025 3:15 PM EST Clinical Support [facility] MED & PEDS 505 [place] [address] Perlita Candelario RN 505 [place] [address] documented as of this encounter Visit Diagnoses Not on filedocumented in this encounter Additional Health Concerns Assessment Noted Time PHQ-9 Depression Total Score: 4 10/09/20 25 9:42 AM EST documented as of this encounter Care Teams Coarse Wire Drawer Relationship Specialty Start Date End Date Amber Love MD [address] [place] [address] PCP - General Family Medicine 12/29/20 Venita Hannon Community Health Worker 04/01/24 Courtney Lindsay RN Head Banquet Waiter/Waitress 04/01/24 documented as of this encounter
--- OUTSIDE RECORDS SUMMARY | 2025-10-21 14:06 | XMS_ITS | Encounter Summary ---
Author Organization [employer] Address [address] 7t [place] [address] Care Team Providers Care Supervisor Decorating Name Role Phone Amber Love MD Primary Care Provider [phone] Venita Hannon Unavailable Courtney Lindsay RN Unavailable Unavailable Encounter Details Date Type Department Care Team (Late st Contact Info) Description 09/13/2023 Abstract [facility] MEDICINE [address] [place] [address] Amber Love MD [address] [place], [place] [phone] Social History Tobacco Use Types Packs/Day Years [...] [facility] st Contact Info) Description 12/02/2025 3:15 PM EST Clinical Support [facility] MED & PEDS 505 [place] [address] Perlita Candelario RN [address] [place] [address] documented as of this encounter Procedures Procedure [...] as of this encounter Care Teams Supervisor Decorating Relationship Specialty Start Date End Date Amber Love MD 230 [place] [address] PCP - General Family Medicine 12/29/20 Venita Hannon Community Health Worker 04/01/24 Courtney Lindsay RN Celery Tier 04/01/24 documented as of this encounter
--- OUTSIDE RECORDS SUMMARY | 2025-10-21 14:06 | XMS_ITS | Encounter Summary ---
Author Organization [employer] Address [address] [facility] 7t [place] [address] Care Team Providers Care Hearing Aide Technician Name Role Phone Amber Love MD Primary Care Provider [phone] Venita Hannon Unavailable Courtney Lindsay RN Unavailable Unavailable Encounter Details Date Type Department Care Team ([facility] Contact Info) Description 10/16/2022 Telephone [facility] MEDICINE 230 [place] [address] Abmer Love MD 505 [place], [place] [phone] Social History Tobacco Use Types Packs/Day Years [...] Upcoming Encounters Date Type Department Care Team ([facility] Contact Info) Description 12/02/2025 3:15 PM EST Clinical Support [facility] CHC MED & PEDS 505 [place] [address] Perlita Candelario, PETE 505 [place], [place] [phone] documented as of this encounter Visit Diagnoses Not on filedocumented in this encounter Care Teams Hearing Aide Technician Relationship Specialty Start Date End Date Amber Love MD 230 [place] [address] PCP - General Family Medicine 12/29/20 Venita Hannon Community Health Worker 04/01/24 Courtney Lindsay RN Procurement Cost Coordinator 04/01/24 documented as of this encounter
--- OUTSIDE RECORDS SUMMARY | 2025-10-21 14:06 | XMS_ITS | Encounter Summary ---
Author Organization [employer] Address [address] 7t [place] [address] Care Team Providers Care Peoplesoft Name Role Phone Amber Love MD Primary Care Provider [phone] Venita Hannon Unavailable Courtney Lindsay RN Unavailable Unavailable Reason for Visit * Reason Comments Med Refill Encounter Details Date Type Department Care Team (Late st Contact Info) Description 05/19/2025 Telephone [facility] MEDICINE 230 [place] [address] Amber Love MD [address] [place], [place] [phone] Med Refill Social History Tobacco Use Types [...] Pushpa Huff - 05/19/2025 2:[address]T Good afternoon Dr. Love, please sign chart notes of 05/13 in order to proceed with referral. Thank you. documented in this encounter Plan of Treatment Upcoming Encounters Date Type Department Care Team ([facility] st Contact Info) Description 12/02/2025 3:15 PM EST Clinical Support [facility] MED & PEDS 505 [place] [address] Perlita Candelario, PETE 505 [place] [address] documented as of this encounter Visit Diagnoses Not on filedocumented in this encounter Additional Health Concerns Assessment Noted Time PHQ-9 Depression Total Score: 2 01/13/20 23 9:40 AM EDT documented as of this encounter Care Teams Peoplesoft Relationship Specialty Start Date End Date Amber Love MD 230 [place] [address] PCP - General Family Medicine 12/29/20 Venita Hannon Community Health Worker 04/01/24 Courtney Lindsay, PETE Destination Specialist 04/01/24 documented as of this encounter
--- OUTSIDE RECORDS SUMMARY | 2025-10-21 14:06 | XMS_ITS | Encounter Summary ---
Author Organization [employer] Address [address] 7t [place] [address] Care Team Providers Care Structural Mill Supervisor Name Role Phone Amber Love MD Primary Care Provider [phone] Venita Hannon Unavailable Courtney Lindsay RN Unavailable Unavailable Reason for Visit * Reason Onset Date Comments Med Refill 10/19/2025 Encounter Details Date Type Department Care Team ([facility] st Contact Info) Description 10/19/2025 Telephone [facility] CHC MED & PEDS 505 [place], [place] [phone] Amber Love MD 505 [place], [place] [phone] Med Refill Social History Tobacco Use Types [...] encounter Miscellaneous Notes * Telephone Encounter - Kailey Sweet LPN - 10/19/2025 8:59 AM EST Sent 10.13.25 * Telephone Encounter - Luis Colby - 10/19/2025 8:56 AM EST TC from pt requesting medication refill. Medications needing refill : zolpidem (Ambien) 5 MG tablet To be sent to: [facility] - [place] - [address] documented in this encounter Plan of Treatment Upcoming Encounters Date Type Department Care Team (Late st Contact Info) Description 12/02/2025 3:15 PM EST Clinical Support [facility] MED & PEDS 505 [place] [address] Perlita Candelario, PETE 505 [place] [address] documented as of this encounter Visit Diagnoses Not on filedocumented in this encounter Additional Health Concerns Assessment Noted Time PHQ-9 Depression Total Score: 4 10/09/20 25 9:42 AM EST documented as of this encounter Care Teams Structural Mill Supervisor Relationship Specialty Start Date End Date Amber Love MD [address] [place] [address] PCP - General Family Medicine 12/29/20 Venita Hannon Community Health Worker 04/01/24 Courtney Lindsay RN Sales Program Manager 04/01/24 documented as of this encounter
--- OUTSIDE RECORDS SUMMARY | 2025-10-21 14:06 | XMS_ITS | Encounter Summary ---
Author Organization [employer] Address [address] 7t [place] [address] Care Team Providers Care Candy Counter Clerk Name Role Phone Abmer Love MD Primary Care Provider [phone] Venita Hannon Unavailable Courtney Lindsay RN Unavailable Unavailable Reason for Visit * Reason Onset Date Comments Med Refill 09/17/2023 Encounter Details Date Type Department Care Team (Late st Contact Info) Description 09/17/2023 Telephone [facility] MEDICINE 230 [place] [address] Amber Love MD [address] [place], [place] [phone] Med Refill Social History Tobacco Use Types [...] Description 12/02/2025 3:15 PM EST Clinical Support [facility] CH[facility] MED & PEDS 505 [place] [address] Perlita Candelario RN 505 [place] [address] documented as of this encounter Visit Diagnoses Not on filedocumented in this encounter Additional Health Concerns Assessment Noted Time PHQ-9 Depression Total Score: 2 01/13/20 23 9:40 AM EDT documented as of this encounter Care Teams Candy Counter Clerk Relationship Specialty Start Date End Date Amber Love MD 230 [place] [address] PCP - General Family Medicine 12/29/20 Venita Hannon Community Health Worker 04/01/24 Courtney Lindsay RN Enterprise Account Executive 04/01/24 documented as of this encounter
--- OUTSIDE RECORDS SUMMARY | 2025-10-21 14:06 | XMS_ITS | Encounter Summary ---
Author Organization [employer] Address [address] 7[address] [place] [address] Care Team Providers Care Inside Sales Name Role Phone Amber Love MD Primary Care Provider [phone] Venita Hannon Unavailable Courtney Lindsay RN Unavailable Unavailable Reason for Visit * Reason Comments Med Refill Encounter Details Date Type Department Care Team ([facility] st Contact Info) Description 10/19/2025 Refill [facility] CHC MED & PEDS 505 [place] [address] Amber Love MD 505 [place] [address] Polyarthralgia Social History Tobacco Use Types Packs/Day [...] Clinical Support [facility] MED & PEDS 505 [place] [address] Perlita Candelario, PETE 505 [place] [address] documented as of this encounter Visit Diagnoses Diagnosis Polyarthralgia Pain in joint, multiple sites documented in this encounter Additional Health Concerns Assessment Noted Time PHQ-9 Depression Total Score: 4 10/09/20 25 9:42 AM EST documented as of this encounter Care Teams Inside Sales Relationship Specialty Start Date End Date Amber Love MD 230 [place] [address] PCP - General Family Medicine 12/29/20 Venita Hannon Community Health Worker 04/01/24 Courtney Lindsay RN Pharmacist Critical Care 04/01/24 documented as of this encounter
--- OUTSIDE RECORDS SUMMARY | 2025-10-21 14:06 | XMS_ITS | Clinical Summary ---
Author Organization [employer] Address [address] [place] [address] Care Team Providers Care Pot Builder Name Role Phone Amber Love MD Primary Care Provider [phone] Venita Hannon Unavailable Courtney Lindsay RN Unavailable [...] HOURS NEEDED FOR WHEEZING 90 mL 3 10/19/20 25 12:38 PM EST 025 Active varenicline (Chantix) 1 MG tablet [...] TWICE A WEEK DIRECTED 120 mL 3 10/19/20 25 12:38 PM EST 025 Active diphenhydrAMINE (BENADryl) 25 MG capsuleIndication [...] MOUTH THREE TIMES DAILY 90 tablet 5 10/19/20 12:38 PM EST Active chlorhexidine (Peridex) 0.12 % solution Swish 15 mL morning and night for 1 minute. Spit, do not swallow. Do not eat or drink for 30 minutes following use. 473 mL Active fexofenadine (Nadira) 180 MG tabletIndications :Urticaria TAKE 1 TABLET BY MOUTH EVERY DAY NEEDED FOR ALLERGIES 90 tablet 1 10/19/20 12:38 PM EST Active cyclobenzaprine (Flexeril) 10 MG tablet TAKE 1 TABLET BY MOUTH THREE TIMES DAILY IN THE MORNING, AT NOON, AND AT BEDTIME NEEDED FOR MUSCLE SPASMS 90 tablet 1 10/19/20 12:38 PM EST Active D3 Super Strength 50 MCG (2000 UT) capsule TAKE 1 CAPSULE BY MOUTH EVERY DAY 90 capsule 3 Active docusate sodium (Colace) 100 MG capsuleIndication s:Constipation, unspecified constipation type TAKE 1 CAPSULE BY MOUTH TWICE DAILY 180 capsule 1 09/23/20 11:13 AM EST 025 Active pravastatin (Pravachol) 10 MG tabletIndications :Mixed hyperlipidemia TAKE 1 TABLET BY MOUTH EVERY DAY 90 tablet 1 09/23/20 11:13 AM EST 025 Active acetaminophen (Tylenol 8 Hour) 650 MG ER tablet Take 1 tablet (650 mg) by mouth every 8 (eight) hours if needed for mild pain. Do not crush, chew, or split. 30 tablet 10/07/20 3:39 PM EST 025 Active Blood Pressure kitIndications:El evated blood pressure reading 1 Units Once per day. 1 kit Active SUMAtriptan (Imitrex) 100 MG tablet Take 1 tablet (100 mg) by mouth 1 (one) time if needed for migraine. 9 tablet Active zolpidem (Ambien) 5 MG tablet TAKE 1 TABLET BY MOUTH AT BEDTIME NEEDED FOR SLEEP 28 tablet 1 10/19/20 12:38 PM EST Active oxyCODONE-acetami nophen (Percocet) 5-325 MG tabletIndications :Polyarthralgia Take 1 tablet by mouth every 6 (six) hours if needed for severe pain. Do not start before October 20, 2025. 112 tablet 10/20/20 12:13 PM EST Active ibuprofen 800 MG tabletIndications :Postmenopausal bleeding Take 1 tablet (800 mg) by mouth 3 times daily. 30 tablet Active D3 Super Strength 50 MCG (1999 UT) capsule TAKE 1 CAPSULE BY MOUTH EVERY DAY 90 capsule 3 024 2024 Discontinued pravastatin (Pravachol) 10 MG tabletIndications :Mixed hyperlipidemia TAKE 1 TABLET BY MOUTH EVERY DAY 90 tablet 1 2024 Discontinued docusate sodium (Colace) 100 MG capsuleIndication s:Constipation, unspecified constipation type TAKE 1 CAPSULE BY MOUTH TWICE DAILY 180 capsule 1 2024 Discontinued zolpidem (Ambien) 5 MG tablet [...] pain. 112 tablet 09/23/20 11:13 AM EST 2024 Discontinued(R eorder (will not trigger notification [...] 10/07/20 25 3:39 PM EST 025 2024 Discontinued(T herapy completed) butalbital-acetam inophen-caffeine (Fioricet) 50-300-40 MG capsule TOME 1 C PSULA POR V A ORAL CADA OCHO HORAS CUANDO SEA NECESARIO PARA EL DOLOR 2024 Discontinued(T herapy completed) Active Problems Patient Care Coordination No te Formatting of this note migh t be different from the original. C3/CM Susanne Allen RN Problem Noted Date Diagnosed Date Localized swelling of head 10/21/2025 Headache 10/09/2025 Spondyloarthropathy of lumbar spine 10/09/2025 [...] Overview (10/09/2025): Per 12/[address] [facility], no obstruction or malfunction Giant cell arteritis (CMS/HCC) 10/09/2025 Fibroid, uterine 10/09/2025 Cubital tunnel syndrome on left 10/09/2025 Pleuritic pain 10/09/2025 Chest pain 10/09/2025 Abdominal pain 10/09/2025 Cervical radicular pain 10/09/2025 Carpal tunnel syndrome on both sides 10/09/2025 Arm pain, left 10/09/2025 Acute neck sprain 10/09/2025 Dental abscess 08/27/2025 Uses Bangladeshi as primary spoken language 05/13/20 25 Class [...] an upcoming appt, explained to patient that library circulation department chief will not be able to assist with [...] breast (C MS/HCC) 04/28/2024 Dental caries 03/06/2024 SERA positive 02/12/2024 Malaise and fatigue 12/13/2023 Assessment & Plan (12/13/2023 2:11 PM EST): Patient hasn't been feeling well for the past 2 weeks. She has been having bodyaches, headaches, and fever. She would like to get tested for COVID or Influenza. Labs: C-reactive protein, CBC, Comprehensive Metabolic Panel, Rapid Covid-19, Rapid Influenza A & B, [id number], TSH w/Reflex FT4 Nicotine use 12/13/2023 Assessment [...] was given an inhaler Varicose veins of right lower extremity with inf lammation 07/23/2023 Assessment & Plan (07/23/2023 12:46 PM EDT): [...] Discussed options for pain management. Referring to Supply Chain Analyst for further evaluation of symptoms and lab [...] disease 08/16/2015 Malignant neoplasm of female breast (CMS/HCC) Mild persistent asthma 08/16/2015 Assessment & Plan [...] Encounters Date Type Department Care Team Description 10/21/2025 1:45 PM EST Office Visit [facility] [address] [place] [address] Amber Love MD Localized swelling of head (Primary Dx); Postmenopausal bleeding; Rash 10/21/2025 Travel 10/20/2025 Telephone [facility] [address] [place] [address] Amber Love MD 10/19/2025 Refill [facility] [address] [place] [address] Amber Love MD Polyarthralgia 10/19/2025 Telephone [facility] [address] [place] [address] Amber Love MD Med Refill 10/19/2025 Refill [facility] [address] [place] [address] Amber Love MD Polyarthralgia 10/16/[address] [address] Amber Love MD 10/14/2025 9:00 AM EST Office Visit [facility] [address] [place] [phone] Dallin Toth DDS Dental abscess (Primary Dx) 10/12/2025 Refill [facility] [address] [place] [address] Amber Love MD 10/09/2025 9:45 AM EST Office Visit [facility] [address] [place] [address] Amber Love MD Intractable headache, unspecified chronicity pattern, unspecified headache type (Primary Dx); Elevated blood pressure reading 10/09/2025 Travel 10/06/2025 1:30 PM EST Office Visit [facility] [address] [place] [phone] Dallin Toth DDS Dental abscess (Primary Dx); Pain, dental 10/02/2025 Telephone [facility] [address] [place] [phone] Amber Love MD ER Follow-up 10/01/2025 Orders Only GENERIC EXTERNAL DATA DEPARTMENT Provider, Generic External Data 09/30/2025 5:00 PM EST Office Visit [facility] [address] [place] [phone] Holden Webber MD Acute intractable headache, unspecified headache type (Primary Dx); Dizziness 09/30/2025 Telephone [facility] [address] [phone] Amber Love MD Nurse Triage 09/30/2025 Travel 09/21/2025 Refill [facility] [address] [place] [address] Amber Love MD Polyarthralgia 09/21/2025 Telephone [facility] [address] [place], [place] [phone] Amber Love MD Med Refill 09/21/2025 Refill [facility] [address] [place] [address] Amber Love MD Constipation, unspecified constipation type; Mixed hyperlipidemia 09/17/2025 Refill [facility] [address] [place] [address] Amber Love MD 09/15/2025 10:30 AM EST Clinical Support [facility] [address] [place] [address] Perlita Candelario, RN Long-term current use of opiate analgesic (Primary Dx) 09/15/2025 Telephone [facility] [address] [place] [address] Perlita Candelario, PETE 09/15/2025 Travel 09/01/2025 Refill [facility] [address] [place] [address] Rita Shay MD Urticaria 08/27/2025 11:30 AM EDT Office Visit [facility] [address] [place] [phone] Dallin Toth DDS Dental abscess (Primary Dx) 08/25/2025 1:45 PM EDT Office Visit [facility] [address] [place] [address] Rita Shay MD Unintentional weight loss (Primary Dx); Rash 08/25/2025 Travel 08/24/2025 Refill [facility] [address] [place] [address] Amber Love MD Polyarthralgia 08/24/2025 Telephone [facility] [address] [place] [address] Amber Love MD Med Refill 08/24/2025 Telephone [facility] [address] [place] [address] Amber Love MD Chart Prep 07/23/2025 11:00 AM EDT Clinical Support [facility] [address] [place] [address] Perlita Candelario RN Fibromyalgia (Primary Dx) 07/23/2025 Travel 07/23/2025 Refill [facility] [address] [place] [address] Amber Love MD Polyarthralgia from Last 3 [...] Mass Index 28.57 10/21/2025 1:25 PM EST Plan of Treatment Upcoming Encounters Date Type Department Care Team (Late st Contact Info) Description 12/02/2025 3:15 PM EST Clinical Support [facility] [address] [place] [address] Perlita Candelario, RN [address] [place] [address] Health Maintenance Due Date Last Done Comments [...] Cancer Screening 06/29/2025 Influenza Vaccine (#1) 2025 3, 07/19/2022, 07/27/2021, Additional history exists Pap Smear 07/06/2025 07/06/2022 Dental Oral Exam 08/02/2025 01/30/2025, 08/2023, 01/26/2021, Additional history exists Dental Prophylaxis 08/02/2025 01/30/2025, 1 , 07/05/2017 Mammogram 08/20/2025 08/20/2024 Dental X-Ray: Bitewings 01/31/2026 01/31/20 25, 12/31/2024, [...] Recently Relevant to Health Maintenance Results * [facility] US Lower Extremity Venous Duplex Bilateral (10/16/2025 10:41 AM EST) 10/16/2025 10:4 1 AM EST Narrative [facility] - 10/16/2025 11:34 AM EST [place] [address] Ultrasound Report Signed Patient: Sera Hannon MR#: [id number] 2 : 1960 Acct:[id number] Age/Sex: 65 / F ADM Date: 10/16/25 Loc: . Attending Dr: Jose Puri MD Ordering Physician: Jose Puri MD Date of Service: 10/16/25 Procedure(s): US venous duplex LE Accession Number(s): [id number] cc: Jose Puri MD; Amber Love MD [...] NA ms PERFORATORS: Location: Greater saphenous vein strategic procurement manager into varicosity, mid calf Size: 0.2 cm [...] 10/16/25 1131 DD/ 1041 TD/TT: 10/16/25 1114 Rn Nicu: Procedure Note Donotuseinterpreter, Image - 10/16/2025 [place] [address] Ultrasound Report Signed Patient: Sera Hannon CMR#: [id number] 2 : 1960cct:[id number] Age/Sex: 65 / FADM Date: 10/16/25 Loc: HO.US Attending Dr: Jose Puri MD Ordering Physician: Jose uPri MD Date of Service: 10/16/25 Procedure(s): US venous duplex LE BI Accession Number(s): [id number] cc: Jose Puri MD; Amber Love MD [...] NA ms PERFORATORS: Location: Greater saphenous vein strategic procurement manager into varicosity, mid calf Size: 0.2 cm [...] 10/16/25 1131 DD/ 1041 TD/TT: 10/16/25 1114 Rn Nicu: us [facility] External Provider CV VASC ULAR PROCEDURES Final Result [facility] [address] [place] [phone] * CTA Head Neck w/ and w/o Contrast (10/01/2025 3:09 PM EST) Anatomical Region Laterality Modality Head, Neck Computed Tomogra phy 10/01/2025 3:09 PM EST Narrative 10/01/2025 4:03 PM EST [address] [address] [address] Scan Report Signed Patient: Sera Hannon MR#: [id number] 2 : 1960 Acct:[id number] Age/Sex: 65 / F ADM Date: 10/01/25 Loc: HO.ED Attending Dr: Ordering Physician: Meme Escobar Date of Service: 10/01/25 Procedure(s): CT angio head neck Accession Number(s): [id number] cc: Meme Escobar; Amber Love MD Report Number: [id number]: Total DLP = 1536.00 mGy-cm Reason for [...] vertex. The data was processed at the ep technologist's workstation for generation of MIP sequences. [...] P1 segment. Normal opacification of the distal CONTACT CENTER CONSULTANT segments. -LEFT POSTERIOR CEREBRAL ARTERY: Normal P1 segment. Normal opacification of the distal CONTACT CENTER CONSULTANT segments. -POSTERIOR COMMUNICATING ARTERIES: Right is not [...] significant stenosis. Meme Escobar PAC notified via [place] 3:58pm EST Electronically signed by: Zaid Ledesma MD 10/01/2025 04:00 PM EST RP Dictated By: Zaid Ledesma MD Signed By: <Electronically signed by Zaid Ledesma MD in OV> 10/01/25 1600 DD/ 1509 TD/TT: 10/01/25 1533 Rn Nicu: Procedure Note Donotuseinterpreter, Image - 10/01/[address] [place] [address] [address] Scan Report Signed Patient: Sera Hannon CMR#: [id number] 2 : 1960cct:[id number] Age/Sex: 65 / FADM Date: 10/01/25 Loc: HO.ED Attending Dr: Ordering Physician: Meme Escobar Date of Service: 10/01/25 Procedure(s): CT angio head neck Accession Number(s): [id number] cc: Meme Escobar; Amber Love MD Report Number: [id number]: Total DLP = 1536.00 mGy-cm Reason for [...] vertex. The data was processed at the ep technologist's workstation for generation of MIP sequences. [...] P1 segment. Normal opacification of the distal CONTACT CENTER CONSULTANT segments. -LEFT POSTERIOR CEREBRAL ARTERY: Normal P1 segment. Normal opacification of the distal CONTACT CENTER CONSULTANT segments. -POSTERIOR COMMUNICATING ARTERIES: Right is not [...] significant stenosis. Meme Escobar PAC notified via [place] 3:58pm EST Electronically signed by: Zaid Ledesma MD 10/01/2025 04:00 PM EST Dictated By: Zaid Ledesma MD Signed By: <Electronically signed by Zaid Ledesma MD in OV> 10/01/25 1600 DD/ 1509 TD/TT: 10/01/25 1533 Rn Nicu: [facility] External Provider IMG CT PROCEDURES Edited Result - Final * High Sensitivity Troponin I (10/01/2025 11:04 AM EST) TROPONIN I HIGH SENSITIVITY <2.7 <3.5 - 17.0 ng/L [facility] Comment:The [place] high sens itivity Troponin-I results should beused in conjunction with other diagnostic information suchas ECG, clinical observations and information, and patientsymptoms to aid in the diagnosis of [place]. 10/01/2025 11:0 4 AM EST 10/01/2025 11:09 AM EST us Generic External Data Provider LAB BLOOD ORDERAB LES Final Result [facility] [address] [place], [place] [phone] * (ABNORMAL) CBC auto differential (10/01/2025 11:04 AM EST) White Blood Count 8.4 4.8 - 10.8 X10*3/uL [facility] Red Blood Count 4.96 4.20 - 5.50 X10*6/uL [facility] Hemoglobin 15.2 12.0 - 16.0 g/dl [facility] Hematocrit 45.4 37.0 - 47.0 % [facility] Mean Corpuscular Volume 91.5 80.0 - 98.0 fL [facility] Mean Corpuscular Hemoglobin 30.6 27.0 - 33.0 pg [facility] Mean Corpuscular HGB Conc 33.5 31.0 - 35.0 g/dl [facility] Red Cell Distribution Width 13.3 11.0 - 16.0 % [facility] Platelet Count 290 160 - 400 X10*3/uL [facility] Mean Platelet Volume 9.0(L) 9.4 - 12.3 fL [facility] Neutrophils Percent Auto 60.5 45 - 73 % [facility] Imm Gran Pct Auto 0.4 0.0 - 0.4 % [facility] Lymphocytes Percent Auto 29.7 20 - 40 % [facility] Monocytes Percent Auto 8.2 2 - 11 % [facility] Eosinophils Percent Auto 1.0 0 - 4 % [facility] Basophils Percent Auto 0.2 0 - 2 % [facility] NRBC Pct Auto 0.0 0.0 - 0.2 /100WBC [facility] Neutrophils Absolute Auto 5.1 2.0 - 8.3 x10*3/uL [facility] Imm Gran Abs Auto 0.03 0.00 - 0.03 X10*3/uL [facility] Lymphocytes Absolute Auto 2.5 1.2 - 4.9 X10*3/uL [facility] Monocytes Absolute Auto 0.7 0.1 - 1.2 X10*3/uL [facility] Eosinophils Absolute Auto 0.1 0.0 - 0.4 X10*3/uL [facility] Basophils Absolute Auto 0.0 0.0 - 0.2 X10*3/uL [facility] NRBC Abs Auto 0.000 0.0 - 0.012 X10*3/uL [facility] 10/01/2025 11:0 4 AM EST 10/01/2025 11:09 AM EST Generic External Data Provider LAB BLOOD ORDERAB LES Final Result Performing Organization Address [facility] Co de Phone Number [facility] [address] [place] [phone] * Sed Rate by Modified Rereren (10/01/2025 11:04 AM EST) Erythrocyte Sedimentation Rate 6 0 - 20 MM/HR [facility] Comment:Patients with polycy themia and many hemoglobin abnormalitiesmay have depressed sed rates whereas patients with anemiamay have elevated sed rates. 10/01/2025 11:0 4 AM EST 10/01/2025 11:09 AM EST us Generic External Data Provider LAB BLOOD ORDERAB LES Final Result Performing Organization Address [facility] Co de Phone Number [facility] [address] [place] [phone] * (ABNORMAL) C-reactive Protein (10/01/2025 11:04 AM EST) C Reactive Protein 0.64(H) < or = 0.50 mg/dL [facility] 10/01/2025 11:0 4 AM EST 10/01/2025 11:09 AM EST Generic External Data Provider LAB BLOOD ORDERAB LES Final Result Performing Organization Address [facility]/State/ZIP Co de Phone Number [facility] [address] [place] [address] [phone] * Magnesium (10/01/2025 11:04 AM EST) Magnesium 2.1 1.6 - 2.6 mg/dL [facility] 10/01/2025 11:0 4 AM EST 10/01/2025 11:09 AM EST us Generic External Data Provider LAB BLOOD ORDERAB LES Final Result Performing Organization Address [facility] Co de Phone Number [facility] [address] [place] [address] [phone] * (ABNORMAL) Comprehensive Metabolic Panel (10/01/2025 11:04 AM EST) Sodium 144 135 - 145 mmol/L [facility] Potassium 4.7 3.3 - 5.1 mmol/L [facility] Chloride 111(H) 96 - 108 mmol/L [facility] Carbon Dioxide 28 22 - 29 mmol/L [facility] Anion Gap 10(L) 12 - 20 [facility] Urea Nitrogen (BUN) 12 9 - 16 mg/dL [facility] Creatinine, Serum 0.84 0.5 - 1.4 mg/dL [facility] Creatinine Clr Calc Pharmacy 62.3 [facility] Comment:Provided height and weight: 157.48 cm,68.946 kg.eGFR (calculated from the MDRD study equation) and eCrCl(calculated from the Cockcroft-Gault equation) are based ondifferent parameters and may not yield comparable results.If eCrCl result is absurd, please check patient'sheight/weight. Estimated Glomerular Filt Rate >60 [facility] Comment:Chronic Kidney Disea se: Estimated GFR < 60 mL/min/1.79b6Vdlowe Kidney Disease: Estimated GFR < 15 mL/min/1.73m2 Glucose 108 60 - 115 mg/dL [facility] Calcium 9.7 8.4 - 10.2 mg/dL [facility] Bilirubin, Total 0.2 0.0 - 1.0 mg/dL [facility] Aspartate Amino Transferase 23 5 - 31 U/L [facility] Alanine Aminotransferase 23 0 - 31 U/L [facility] Total Protein 7.3 6.5 - 8.0 g/dL [facility] Albumin Level 4.8 3.5 - 5.0 g/dL [facility] Alkaline Phosphatase 95 39 - 117 U/L [facility] 10/01/2025 11:0 4 AM EST 10/01/2025 11:09 AM EST us Generic External Data Provider LAB BLOOD ORDERAB LES Final Result [facility] [address] [place] [address] [phone] * SARS-CoV-2 RNA, Influenza A/B, and RSV RNA, Ql NAAT (10/01/2025 11:01 AM EST) Influenza A PCR NEGATIVE Negative [facility] Influenza B PCR NEGATIVE Negative [facility] Resp Syncy Virus RNA Qual PCR NEGATIVE Negative [facility] SARS COV2 PCR NEGATIVE Negative [facility] Comment:All test results mus t be [...] use by authorized laboratories.Testing performed on the [employer] GeneXpert utilizingreal-time RT-PCR.All SARS CoV2 and positive influenza A/B results arereported to [facility]. 10/01/2025 11:0 1 AM EST 10/01/2025 11:09 AM EST us Generic External Data Provider LAB MICROBIOLOGY - GENERAL ORDERABLES Final Result [facility] [address], [place] [phone] * (ABNORMAL) POCT JAIRO-14 Urine Drug Screen (09/15/2025 10:36 AM EST) Only the most recent of2 resultswithin the time period is included. Pathologist [facility] THC Positive(A) Negative Cocaine Screen, Urine Negative [...] AM EST . Internal Pass Control Lot# [id number] Exp: 08-04-26 us Amber Love MD POINT OF CARE TEST ENTER/EDIT ORDERABLES Final Result * (ABNORMAL) Lipid Panel, Standard (04/30/2024 4:21 PM EDT) Triglycerides 270(H) <150 mg/dL [facility] Comment:Desirable Triglyceri de: less than 150 mg/dLBorderline High Triglyceride 150-199 mg/dLHigh Triglyceride: 200-499 mg/dLVery High Triglyceride: greater than or equal to 5OO mg/dL Cholesterol 202(H) <200 mg/dL [facility] Comment:Desirable Cholestero l: less than 200 mg/dLBorderline High Cholesterol: 200-239 mg/dLHigh Cholesterol: greater than 239 mg/dL LDL Cholesterol Calculated 106(H) <100 mg/dL [facility] Comment:Desirable LDL: less than 100 mg/dLNear Optimal/Above Optimal LDL: 110- 129 mg/dLBorderline High LDL: 130-159 mg/dLHigh LDL: 160-189 mg/dLVery High LDL: greater than or equal to 190 mg/dL HDL Cholesterol 42 >40 mg/dL [facility] Comment:Desirable HDL: great er than 40 mg/dL Note: This HDL assay may give artificially low results in patients with liver disease. Blood Venous blood specimen / Unknown 04/30/2024 4:21 PM EDT 04/30/2024 5:20 PM EDT us Amber Love MD LAB BLOOD ORDERABLES Final Re sult Performing Organization Address [facility] Co de Phone Number [facility] [address] [place] [phone] * HIV-1/2 Antigen and Antibodies, Fourth Generation, with Reflexes (02/06/2024 10:36 AM EDT) HIV AB/AG Nonreactive Nonreactive [facility] Comment:HIV-1 p24 Ag and/or HIV-1/HIV-2 Ab not detected.A test result that is nonreactive does not exclude thepossibility of exposure to or infection with HIV-1 and/orHIV-2. Nonreactive results in this assay for individualswith prior exposure to HIV-1 and/or HIV-2 may be due toantigen and antibody levels that are below the limit ofdetection of this assay.The [employer] HIV Ag/Ab Combo assay result andsupplemental assay results should be interpreted inconjunction with the patient's clinical presentation,history and other laboratory results. If the results areinconsistent with clinical evidence, additional testing issuggested to confirm the result. Blood Venous blood specimen / Unknown 02/06/2024 10:36 AM EDT 02/06/2024 2:32 PM EDT us Amber Love MD LAB BLOOD ORDERABLES Final Re sult Performing Organization Address City/[facility]/ZIP Co de Phone Number [facility] [address] [place] [address] [phone] * Pap Smear (07/06/2022) Pap Negative for intraephithelial lesion or malignancy Negative for intraephithelial lesion or malignancy, Other HPV Undetected Historical Provider HEALTH MAINTENANCE Final Result * (ABNORMAL) HEPATITIS PANEL, GENERAL (09/26/2021 9:56 AM EST) HEPATITIS A AB, TOTAL REACTIVE( A) NON-REACT [facility] Comment: For additional information, please refer to http://education.Floqq/faq/FLC225 (This link is being provided for informational/ educational purposes only.) HEPATITIS B CORE AB TOTAL NON-REACT [facility] NON-REACT [facility] HEPATITIS B SURFACE ANTIBODY QL REACTIVE( A) NON-REACT [facility] HEPATITIS B SURFACE ANTIGEN NON-REACT [facility] NON-REACT [facility] HEPATITIS C ANTIBODY REACTIVE( A) NON-REACT [facility] INDEX 10.60(H) <1.00 [facility] Comment: Based on this result, the sample will be tested for HCV RNA by a Nucleic Acid Amplification Test (NAAT) to determine if the patient has a current active infection. 09/26/2021 9:56 AM EST Amber Love MD HISTORICAL/NON ORDERABLE LABS Final Result Performing Organization Address [facility]/State/[facility] Co de Phone Number [facility] [address] * Colonoscopy (01/04/2021) Colonoscopy Normal Normal Narrative Mirella Anderson - 01/04/2021 Recommended 4 year follow up per office due 06/2025 Historical Provider HEALTH MAINTENANCE Final Result from Last 3 Months or Most Recently Relevant to Health Maintenance Insurance [place] [facility] MEDICAID STAND ADULT * Guarantor: Sera Hannon Account Type Relation to Patient Date of Phone Billing Address Personal/Family Self [address] Care Teams Pot Builder Relationship Specialty Start Date End Date Amber Love MD [address] [place], [place] PCP - General Family Medicine 12/29/20 Venita Hannon Community Health Worker 04/01/24 Courtney Lindsay RN Electric Installer 04/01/24
--- OUTSIDE RECORDS SUMMARY | 2025-10-21 14:06 | XMS_ITS | Encounter Summary ---
Author Organization [employer] Address [address] [facility] [address] [place] [address] Care Team Providers Care Sales Program Coordinator Name Role Phone Amber Love MD Primary Care Provider [phone] Venita Hannon Unavailable Courtney Lindsay RN Unavailable Unavailable Reason for Visit * Reason Onset Date Comments Appointment 06/14/2023 Encounter Details Date Type Department Care Team (Late st Contact Info) Description 06/14/2023 Telephone [facility] [address] [place], [place] [phone] Dallin Toth DDS [address] [place], [place] [phone] Appointment Social History Tobacco Use Types Packs/Day [...] 3:15 PM EST Clinical Support [facility] MED & PEDS [address] [place] [address] Perlita Candelario, PETE [address] [place] [address] documented as of this encounter Visit Diagnoses Not on filedocumented in this encounter Additional Health Concerns Assessment Noted Time PHQ-9 Depression Total Score: 2 01/13/20 23 9:40 AM EDT documented as of this encounter Care Teams Sales Program Coordinator Relationship Specialty Start Date End Date Amber Love MD [address] [place] [id number] PCP - General Family Medicine 12/29/20 Venita Hannon Community Health Worker 04/01/24 Courtney Lindsay, PETE Graphics Software Engineer 04/01/24 documented as of this encounter
--- OUTSIDE RECORDS SUMMARY | 2025-10-21 14:06 | XMS_ITS | Encounter Summary ---
Author Organization [employer] Address [address] [address] [place] [address] Care Team Providers Care Ship'S Cook Name Role Phone Amber Love MD Primary Care Provider [phone] Venita Hannon Unavailable Courtney Lindsay RN Unavailable Unavailable Reason for Visit * Reason Comments Med Refill Encounter Details Date Type Department Care Team (Late st Contact Info) Description 03/25/2025 Refill [facility] MED[facility]INE [address] [place] [address] Frannie Ron MD [address] [place], [place] [phone] Social History Tobacco Use Types Packs/Day Years [...] 12/02/2025 3:15 PM EST Clinical Support [facility] [address] [place] [address] Perlita Candelario RN [address] [place] [address] documented as of this encounter Visit Diagnoses Not on filedocumented in this encounter Additional Health Concerns Assessment Noted Time PHQ-9 Depression Total Score: 2 01/13/20 23 9:40 AM EDT documented as of this encounter Care Teams Ship'S Cook Relationship Specialty Start Date End Date Amber Love MD [address] [place] [id number] PCP - General Family Medicine 12/29/20 Venita Hannon Community Health Worker 04/01/24 Courtney Lindsay RN Senior Information Security Analyst 04/01/24 documented as of this encounter
--- OUTSIDE RECORDS SUMMARY | 2025-10-21 14:06 | XMS_ITS | Encounter Summary ---
Author Organization [employer] Address [address] [place] [address] Care Team Providers Care Facility Specialist Name Role Phone Amber Love MD Primary Care Provider [phone] Venita Hannon Unavailable Courtney Lindsay RN Unavailable Unavailable Reason for Visit * Reason Onset Date Comments Med Refill 09/17/2024 Encounter Details Date Type Department Care Team (Late st Contact Info) Description 09/17/2024 Telephone [facility] MEDICINE [address] [place] [address] Amber Love MD [address] [place], [place] [phone] Med Refill Social History Tobacco Use Types [...] sent to: [facility] - [place], [place] - [address] documented in this encounter Plan of Treatment Upcoming Encounters Date Type Department Care Team (Late st Contact Info) Description 12/02/2025 3:15 PM EST Clinical Support [facility] MED & PEDS [address] [place] [address] Perlita Candelario, PETE [address] [place] [address] documented as of this encounter Visit Diagnoses Not on filedocumented in this encounter Additional Health Concerns Assessment Noted Time PHQ-9 Depression Total Score: 2 01/13/20 23 9:40 AM EDT documented as of this encounter Care Teams Facility Specialist Relationship Specialty Start Date End Date Amber Love MD [address] [place] [address] PCP - General Family Medicine 12/29/20 Venita Hannon Community Health Worker 04/01/24 Courtney Lindsay, PETE Vice President Of Marketing 04/01/24 documented as of this encounter
[2025-10-21 16:10] LABS: MANUAL DIFF FLAG NO
[2025-10-21 16:16] LABS: Hematocrit 42.9 % (37.0-47.0); Hemoglobin 14.0 g/dl (12.0-16.0); Imm Gran Abs Auto 0.05 X10*3/uL (0.00-0.03); Imm Gran Pct Auto 0.5 % (0.0-0.4); Lymphocytes Absolute Auto 2.3 X10*3/uL (1.2-4.9); Mean Corpuscular HGB Conc 32.6 g/dl (31.0-35.0); Mean Corpuscular Hemoglobin 30.4 pg (27.0-33.0); Mean Corpuscular Volume 93.3 fL (80.0-98.0); NRBC Abs Auto 0.000 X10*3/uL (0.0-0.012); NRBC Pct Auto 0.0 /100WBC (0.0-0.2); Platelet Count 292 X10*3/uL (160-400); Red Blood Count 4.60 X10*6/uL (4.20-5.50); White Blood Count 10.3 X10*3/uL (4.8-10.8)
== END 2025-10-21 14:04 | disposition home or self-care (01) ==
LOC: HO.CHCLDS 14:03
PROVIDERS: Visit Provider Family Medicine
DX: Z01.84 Encounter for antibody response examination (principal); R21 Rash and other nonspecific skin eruption
CPT/HCPCS: 36415; 85025; 86038; 86160; 86225